=== PATIENT | female | born 1985 | race Caucasian/White ===

== ENCOUNTER 2017-05-12 23:29 | Inpatient (IN) | payer SELFPAY ==
--- NOTE | 2017-05-13 02:28 | PDOC ---
History of Present Illness - General Chief Complaint: Pain, Acute Stated Complaint: STOMACH PAIN Time Seen by Provider: 05/13/17 01:10 - History of Present Illness Initial Comments: 05/13/17 02:14 CHIEF COMPLAINT: L abdominal/flank pain HISTORY OF PRESENT ILLNESS: 32 yo F with no significant PMH presents to ED with LLQ and L flank pain. Patient reports the pain started this morning and has worsened throughout the day. Patient denies any nausea, vomiting, or diarrhea. Patient states her LMP was "like the 23rd of last month." She denies any recent travel or sick contacts. She reports a history of gestational diabetes but "had a blood sugar test 6 months ago and my doctor said everything was normal." PAST MEDICAL HISTORY: Denies past medical history FAMILY HISTORY: Denies SOCIAL HISTORY: Denies tobacco, alcohol, illicit drug use. SURGICAL HISTORY: Denies ALLERGIES: No known drug allergies REVIEW OF SYSTEMS General/Constitutional: Denies fever or chills. Denies weakness, weight change. HEENT: Denies change in vision. Denies ear pain or discharge. Denies sore throat. Cardiovascular: Denies chest pain or shortness of breath. Respiratory: Denies cough, wheezing, or hemoptysis. Gastrointestinal: L sided abdominal pain, worsening since this morning. Denies nausea, vomiting, diarrhea or constipation. Denies rectal bleeding. Genitourinary: Denies dysuria, frequency, or change in urination. Musculoskeletal: Denies joint or muscle swelling or pain. Denies neck or back pain. PHYSICAL EXAM General Appearance: Uncomfortable-appearing, appropriately dressed. No apparent distress. HEENT: EOMI, PERRLA, normal ENT inspection, normal voice, TMs normal, pharynx normal. No conjunctival pallor. No photophobia, scleral icterus. Respiratory/Chest: Lungs CTAB. Cardiovascular: RRR. S1, S2. Gastrointestinal/Abdominal: Tenderness to LLQ on palpation. No tenderness or rebound tenderness. No organomegaly, pulsatile mass, guarding, hernia, hepatomegaly, splenomegaly. Lymphatic: No adenopathy, tenderness. Musculoskeletal/Extremities: + L CVA tenderness. FROM of all extremities, normal capillary refill. Pelvis Stable. No tenderness to extremities, pedal edema, swelling, erythema or deformity. Integumentary: Appropriate color, dry, warm. 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 Fully oriented, alert. Appropriate mood/affect. Motor strength 5/5. No appreciable EOM palsy, facial droop or sensory deficit. Past History - Past Medical History Allergies/Adverse Reactions: Allergies Allergy/AdvReac Type Severity Reaction Status Date / Time No Known Allergies Allergy Verified 05/13/17 00:10 Home Medications: Ambulatory Orders NK [No Known Home Medication] 05/13/17 Asthma: No Cancer: No Cardiac Disorders: No Diabetes: No HTN: No Seizures: No Thyroid Disease: No - Suicide/Smoking/Psychosocial Hx Smoking History: Never smoked Have you smoked in the past 12 months: No Information on smoking cessation initiated: No Hx Alcohol Use: No Drug/Substance Use Hx: No Hx Substance Use Treatment: No *Physical Exam - Vital Signs Last Vital Signs Temp Pulse Resp BP Pulse Ox 99.9 F H 90 22 117/60 98 05/13/17 00:10 05/13/17 00:10 05/13/17 00:10 05/13/17 00:10 05/13/17 00:10 ED Treatment Course - LABORATORY CBC & Chemistry Diagram: 05/15/17 06:00 05/15/17 01:30 - RADIOLOGY Radiology Studies Ordered: Category Date Time Status PELVIC / BLADDER US [US] Stat Ultrasound 05/13/17 01:48 Ordered TRANSVAGINAL ULTRASOUND US [US] Stat Ultrasound 05/13/17 01:48 Ordered Medical Decision Making - Medical Decision Making 05/13/17 02:37 32 yo F with no significant PMH presents to ED with LLQ and L flank pain. -CBC, CMP, lipase -UA, UCx, upreg -Pelvic/TV ultrasound eval kidney stones vs ovarian torsion 05/13/17 04:03 Ultrasound positive for 2.5 cm cyst to left ovary and 9 mm dominant follicle right ovary. Laboratory Tests 05/13/17 05/13/17 03:18 03:25 WBC 15.4 H D Urine Glucose (UA) 3+ H Urine Ketones 2+ H Patient continues to c/o of pain. 30 mg Toradol IV. Lipase markedly elevated (per lab, unable to result at this time as it is too high) likely in the setting of hypertriglyceridemia. Will order CT r/o dtix, pancreatitis. Glucose 403. 4 units insulin SQ. 2L IVF given. 05/13/17/ 05:45 Lactic acid 2.5, will repeat along with 2nd glucose upon return from CT as patient has now received 2 L of fluids. 05/13/17 06:05 CT results: Positive for peripancreatic fluid extending into left paracolic space, probably acute pancreatitis. Discussed case with attending ER MD Forde, will admit for inpatient services. Discussed case with admitting resident MD Nagel, will order LR fluids per recommendation. *DC/Admit/Observation/Transfer Diagnosis at time of Disposition: Acute pancreatitis Qualifiers: Pancreatitis type: unspecified pancreatitis type Acute pancreatitis complication: unspecified Qualified Code(s): K85.90 - Acute pancreatitis without necrosis or infection, unspecified - Discharge Dispostion Admit: Yes - Referrals - Patient Instructions - Post Discharge Activity
[2017-05-13 03:41] LABS: URINE APPEARANCE CLEAR; URINE BILIRUBIN NEGATIVE (NEGATIVE); URINE BLOOD 1+ (NEGATIVE); URINE COLOR LTYELLOW; URINE GLUCOSE (UA) 3+ (NEGATIVE); URINE KETONE 2+ (NEGATIVE); URINE NITRITE NEGATIVE (NEGATIVE); URINE PROTEIN NEGATIVE (NEGATIVE); URINE UROBILINOGEN NEGATIVE mg/dL (0.2-1.0)
[2017-05-13 03:44] LABS: MCH 35.3 pg (25.7-33.7); MCHC 40.8 g/dl (32.0-36.0); MEAN CELL VOLUME 86.5 fl (80-96); MEAN PLT VOLUME 10.7 fl (7.5-11.1); PLATELET COUNT 161 K/MM3 (134-434); RDW 13.1 % (11.6-15.6); WHITE BLOOD COUNT 15.4 K/mm3 (4.0-10.0)
[2017-05-13 03:45] LABS: URINE BACTERIA RARE /hpf (NONE SEEN); URINE RBC 1; URINE WBC 1
[2017-05-13] MEDS ORDERED: KETOROLAC TROMETHAMINE 30 MG/1 ML VIAL IVPUSH ONE (03:49)
[2017-05-13] MEDS ORDERED: KETOROLAC TROMETHAMINE 30 MG/1 ML VIAL ONE (04:03)
[2017-05-13 04:07] LABS: ANION GAP 11 (8-16); CO2 21 mmol/L (21-32); CREATININE 0.4 mg/dL (0.55-1.02)
[2017-05-13] MEDS ORDERED: SODIUM CHLORIDE 0.9% 1000 ML INFUS.BAG IV ONE ×2 (04:16→04:23)
[2017-05-13 04:31] LABS: GLUCOSE,RANDOM 403 mg/dL (74-106)
[2017-05-13 04:33] LABS: BILIRUBIN,TOTAL 1.5 mg/dL (0.2-1.0); TOT PROT 6.7 g/dl (6.4-8.2)
[2017-05-13 04:34] LABS: ALK PHOS 84 U/L (45-117)
[2017-05-13] MEDS ORDERED: INSULIN (NOVOLOG) ASPART 100 UNITS/ML 10ML VIAL SQ ONE (04:44)
[2017-05-13] MEDS ORDERED: POTASSIUM CHLORIDE TABS 20 MEQ TABLET.ER (FP) PO ONE ×2 (04:49→05:12)
--- NOTE | 2017-05-13 04:54 | PDOC ---
*Physical Exam - Vital Signs Last Vital Signs Temp Pulse Resp BP Pulse Ox 99.9 F H 90 22 117/60 98 05/13/17 00:10 05/13/17 00:10 05/13/17 00:10 05/13/17 00:10 05/13/17 00:10 ED Treatment Course - LABORATORY CBC & Chemistry Diagram: 05/13/17 03:18 05/13/17 03:18 - ADDITIONAL ORDERS Additional order review: Laboratory Results 05/13/17 05/13/17 05/13/17 04:30 03:25 03:18 Sodium 126 L D Potassium 3.3 L Chloride 94 L D Carbon Dioxide 21 Anion Gap 11 BUN 8 D Creatinine 0.4 L Creat Clearance w eGFR > 60 Random Glucose 403 H* D Calcium Y Total Bilirubin 1.5 H D AST Y ALT Y Alkaline Phosphatase 84 D Total Protein 6.7 D Albumin Y Urine Color Ltyellow Urine Appearance Clear Urine pH 5.0 Ur Specific [place] 1.039 H Urine Protein Negative Urine Glucose (UA) 3+ H Urine Ketones 2+ H Urine Blood 1+ H Urine Nitrite Negative Urine Bilirubin Negative Urine Urobilinogen Negative Urine WBC (Auto) 1 Urine RBC (Auto) 1 Ur Epithelial Cells Rare Urine Bacteria Rare Urine HCG, Qual Negative Acetone, Qual Positive moderate 2+ H 05/13/17 03:18 RBC 4.84 D MCV 86.5 MCHC 40.8 H RDW 13.1 D MPV 10.7 Neutrophils % No Result Required. Lymphocytes % No Result Required. - Medications Given in the ED: ED Medications Discontinued Medications Generic Name Dose Route Start Last Admin Trade Name Freq PRN Reason Stop Dose Admin Ketorolac Tromethamine 30 mg 05/13/17 03:49 05/13/17 03:51 Toradol Injection - IVPUSH 05/13/17 03:50 30 mg ONCE ONE Administration Sodium Chloride 1,000 ml 05/13/17 04:16 05/13/17 04:37 Normal Saline - IV 05/13/17 04:17 1,000 ml ONCE ONE Administration Sodium Chloride 1,000 ml 05/13/17 04:23 05/13/17 04:37 Normal Saline - IV 05/13/17 04:24 1,000 ml ONCE ONE Administration Medical Decision Making - Critical Care Time Total Critical Care Time (minutes): 30 Critical Care Statement: The care of this patient involved high complexity decision making to prevent further life threatening deterioration of the patient 's condition and/or to evaluate & treat vital organ system(s) failure or risk of failure. - Medical Decision Making 05/13/17 04:52 Patient seen and evaluated with the nurse practitioner. I agree with the overall evaluation, assessment, and management with the following summary of visit: 32-year-old female with no significant past medical history other than gestational diabetes several years ago presents now with abdominal pain. Agree with exam as outlined, vitals as noted with low-grade temperature 99. Workup including labs, urinalysis notable for markedly elevated lipase in the setting of likely hypertriglyceridemia, associated hyperglycemia with hyponatremia, normal anion gap, positive acetone. PH pending, CT abdomen and pelvis pending. Likely pancreatitis secondary to hypertriglyceridemia with associated metabolic disarray. IVF, pain control, glucose control CTAP admit *DC/Admit/Observation/Transfer Diagnosis at time of Disposition: Acute pancreatitis Qualifiers: Pancreatitis type: unspecified pancreatitis type Acute pancreatitis complication: unspecified Qualified Code(s): K85.90 - Acute pancreatitis without necrosis or infection, unspecified - Referrals - Patient Instructions - Post Discharge Activity
[2017-05-13] MEDS ORDERED: INSULIN (NOVOLOG) ASPART 100 UNITS/ML 10ML VIAL ONE (05:13)
[2017-05-13 05:34] LABS: VENOUS PH 7.3 (7.32-7.42)
[2017-05-13 05:35] LABS: VENOUS BLOOD GAS HCO3 17.6 meq/L (19-25)
[2017-05-13 05:44] LABS: AMYLASE 370 U/L (25-115)
[2017-05-13] MEDS ORDERED: LACTATED RINGERS SOLUTION 1,000 ML/1,000 ML INFUS.BAG IV SCH (07:00)
[2017-05-13 07:38] LABS: ANISOCYTOSIS 1+
[2017-05-13] MEDS ORDERED: morphine SULFATE 4 MG/ML VIAL IVPUSH PRN (09:10)
[2017-05-13 09:53] VITALS: BMI 27.2
[2017-05-13] MEDS ORDERED: SODIUM CHLORIDE 1,000 ML with POTASSIUM CHLORIDE 40 MEQ IVPB STA (10:04)
[2017-05-13] MEDS ORDERED: HYDROmorphone HCL CARPU-JECT 1 MG/1 ML DISP.SYRIN IVPUSH PRN ×2 (10:04→21:24)
[2017-05-13] MEDS ORDERED: INSULIN REGULAR 100 UNITS in SODIUM CHLORIDE 99 ML IVPB SCH (10:30)
--- NOTE | 2017-05-13 10:33 | HP ---
CHIEF COMPLAINT: Abdominal pain PCP:NONE HISTORY OF PRESENT ILLNESS: 32 yo F with PMHx of gestational DM presents with one day history of worsening abdominal pain. Pain started few hours prior to presentation to ED., She describes worsening constant 10/10 sharp epigastric abdominal pain that radiates to her left side and back. Pain was made worse by eating and no alleviating factors. Denies fever, chills, nausea or vomiting. She has had some shortness of breath but no cough. She endorses increased thirst and urination. She claims to drink 2-3 gallons of water/day. Denies CP, KING, palpitations, or dysuria ER course was notable for: (1)CT abdomen shows acute pancreatitis. (2)Lipase >3000 (3)Triglycerides- 7260 Recent Travel: Denies PAST MEDICAL HISTORY: gestational diabetes. PAST SURGICAL HISTORY: x2 Social History: Smoking:never Alcohol:none Drugs: denies. Family History: Allergies No Known Allergies Allergy (Verified 05/13/17 00:10) HOME MEDICATIONS: Home Medications Medication Instructions Recorded Acetaminophen [Tylenol .Regular 650 mg PO Q4H PRN #20 tablet 07/14/14 Strength -] Ferrous Sulfate [Feosol] 325 mg PO BID #60 ud 07/14/14 Ibuprofen [Motrin -] 600 mg PO Q4H PRN #20 tablet 07/14/14 REVIEW OF SYSTEMS CONSTITUTIONAL: generalized weakness, malaise, loss of appetite Absent: fever, chills, diaphoresis, , weight change HEENT: Absent: rhinorrhea, nasal congestion, throat pain, throat swelling, difficulty swallowing, mouth swelling, ear pain, eye pain, visual changes CARDIOVASCULAR: Absent: chest pain, syncope, palpitations, irregular heart rate, lightheadedness , peripheral edema RESPIRATORY: shortness of breath Absent: cough, , dyspnea with exertion, orthopnea, wheezing, stridor, hemoptysis GASTROINTESTINAL: abdominal pain Absent:, abdominal distension, nausea, vomiting, diarrhea, constipation, melena , hematochezia GENITOURINARY: Absent: dysuria, frequency, urgency, hesitancy, hematuria, flank pain, genital pain MUSCULOSKELETAL: Absent: myalgia, arthralgia, joint swelling, back pain, neck pain SKIN: Absent: rash, itching, pallor HEMATOLOGIC/IMMUNOLOGIC: Absent: easy bleeding, easy bruising, lymphadenopathy, frequent infections ENDOCRINE: Absent: unexplained weight gain, unexplained weight loss, heat intolerance, cold intolerance NEUROLOGIC: Absent: headache, focal weakness or paresthesias, dizziness, unsteady gait, seizure, mental status changes, bladder or bowel incontinence PSYCHIATRIC: anxiety Absent: , depression, suicidal or homicidal ideation, hallucinations. PHYSICAL EXAMINATION Vital Signs - 24 hr 05/13/17 05/13/17 05/13/17 00:10 03:30 06:05 Temperature 99.9 F H 97.9 F Pulse Rate 90 Pulse Rate [ 88 71 Apical] Respiratory 22 18 18 Rate Blood Pressure 117/60 Blood Pressure 122/70 118/70 [Left Arm] O2 Sat by Pulse 98 99 99 Oximetry (%) 05/13/17 05/13/17 05/13/17 06:17 06:19 09:51 Temperature 99.6 F Pulse Rate 106 H Pulse Rate [ 109 H Apical] Respiratory 18 16 Rate Blood Pressure 118/71 Blood Pressure 109/66 [Left Arm] O2 Sat by Pulse 97 98 Oximetry (%) GENERAL: AAOx3, moderate distress HEAD: AT/NC EYES: PERRLA,EOMI, sclera anicteric, conjunctiva clear. No lid lag. EARS, NOSE, THROAT: Dry mucous membranes. NECK: Supple, NO JVD or thyromegally. LUNGS: Decreased breath sounds bilaterally at bases R>L, No wheezes, and no crackles. No accessory muscle use. HEART: Tachycardic, normal S1 and S2, NO M/G/R ABDOMEN: Soft,epigstric tenderness, normoactive bowel sounds, voluntary guarding , no rebound, no masses. MUSCULOSKELETAL: Normal range of motion at all joints. No bony deformities or tenderness. No CVA tenderness. UPPER EXTREMITIES: 2+ pulses, warm, well-perfused. No cyanosis. No clubbing. No peripheral edema. LOWER EXTREMITIES: 2+ pulses, warm, well-perfused. No calf tenderness. No peripheral edema. NEUROLOGICAL: Cranial nerves II-XII intact. Normal speech. PSYCHIATRIC: anxious SKIN: Warm, dry, normal turgor, no rashes or lesions noted. Laboratory Results - last 24 hr 05/13/17 05/13/17 05/13/17 03:18 03:18 03:25 WBC 15.4 H D RBC 4.84 D Hgb 17.1 H D Hct 41.9 D MCV 86.5 MCH 35.3 H D MCHC 40.8 H RDW 13.1 D Plt Count 161 MPV 10.7 Neutrophils % No Result Required. Neutrophils % (Manual) 84.0 H Band Neutrophils % 5.0 Lymphocytes % No Result Required. Lymphocytes % (Manual) 7.0 L Monocytes % (Manual) 4 Platelet Comment No Result Required. Anisocytosis 1+ VBG pH POC VBG pCO2 POC VBG pO2 Mixed VBG HCO3 Sodium 126 L D Potassium 3.3 L Chloride 94 L D Carbon Dioxide 21 Anion Gap 11 BUN 8 D Creatinine 0.4 L Creat Clearance w eGFR > 60 Random Glucose 403 H* D Lactic Acid Calcium Y Total Bilirubin 1.5 H D Direct Bilirubin AST Y ALT Y Alkaline Phosphatase 84 D Total Protein 6.7 D Albumin Y Triglycerides Total Amylase Lipase 3420 H Urine Color Ltyellow Urine Appearance Clear Urine pH 5.0 Ur Specific [place] 1.039 H Urine Protein Negative Urine Glucose (UA) 3+ H Urine Ketones 2+ H Urine Blood 1+ H Urine Nitrite Negative Urine Bilirubin Negative Urine Urobilinogen Negative Urine WBC (Auto) 1 Urine RBC (Auto) 1 Ur Epithelial Cells Rare Urine Bacteria Rare Urine HCG, Qual Negative Acetone, Qual 05/13/17 05/13/17 05/13/17 04:15 04:30 05:15 WBC RBC Hgb Hct MCV MCH MCHC RDW Plt Count MPV Neutrophils % Neutrophils % (Manual) Band Neutrophils % Lymphocytes % Lymphocytes % (Manual) Monocytes % (Manual) Platelet Comment Anisocytosis VBG pH 7.30 L POC VBG pCO2 36.6 L POC VBG pO2 51.1 H Mixed VBG HCO3 17.6 L Sodium Potassium Chloride Carbon Dioxide Anion Gap BUN Creatinine Creat Clearance w eGFR Random Glucose Lactic Acid 2.5 H* Calcium Total Bilirubin Direct Bilirubin AST ALT Alkaline Phosphatase Total Protein Albumin Triglycerides Total Amylase Lipase Urine Color Urine Appearance Urine pH Ur Specific [place] Urine Protein Urine Glucose (UA) Urine Ketones Urine Blood Urine Nitrite Urine Bilirubin Urine Urobilinogen Urine WBC (Auto) Urine RBC (Auto) Ur Epithelial Cells Urine Bacteria Urine HCG, Qual Acetone, Qual Positive moderate 2+ H 05/13/17 05/13/17 05/13/17 05:30 05:30 06:10 WBC RBC Hgb Hct MCV MCH MCHC RDW Plt Count MPV Neutrophils % Neutrophils % (Manual) Band Neutrophils % Lymphocytes % Lymphocytes % (Manual) Monocytes % (Manual) Platelet Comment Anisocytosis VBG pH POC VBG pCO2 POC VBG pO2 Mixed VBG HCO3 Sodium Potassium Chloride Carbon Dioxide Anion Gap BUN Creatinine Creat Clearance w eGFR Random Glucose Lactic Acid 1.7 Calcium Total Bilirubin Direct Bilirubin < 0.2 AST ALT Alkaline Phosphatase Total Protein Albumin Triglycerides Total Amylase 370 H Lipase Urine Color Urine Appearance Urine pH Ur Specific [place] Urine Protein Urine Glucose (UA) Urine Ketones Urine Blood Urine Nitrite Urine Bilirubin Urine Urobilinogen Urine WBC (Auto) Urine RBC (Auto) Ur Epithelial Cells Urine Bacteria Urine HCG, Qual Acetone, Qual 05/13/17 05/13/17 05/13/17 06:30 07:00 07:00 WBC RBC Hgb Hct MCV MCH MCHC RDW Plt Count MPV Neutrophils % Neutrophils % (Manual) Band Neutrophils % Lymphocytes % Lymphocytes % (Manual) Monocytes % (Manual) Platelet Comment Anisocytosis VBG pH POC VBG pCO2 POC VBG pO2 Mixed VBG HCO3 Sodium Potassium Chloride Carbon Dioxide Anion Gap BUN Creatinine Creat Clearance w eGFR Random Glucose Lactic Acid Calcium Cancelled Total Bilirubin Direct Bilirubin AST Cancelled ALT Cancelled Alkaline Phosphatase Total Protein Albumin Triglycerides 7260 H Total Amylase Lipase Urine Color Urine Appearance Urine pH Ur Specific [place] Urine Protein Urine Glucose (UA) Urine Ketones Urine Blood Urine Nitrite Urine Bilirubin Urine Urobilinogen Urine WBC (Auto) Urine RBC (Auto) Ur Epithelial Cells Urine Bacteria Urine HCG, Qual Acetone, Qual IMAGING: * [id number] CT/ABDOMEN PELVIS CT WITH CONTR HISTORY PROVIDED: Left lower quadrant pain. Sequential axial images were obtained from the domes of the diaphragms through the symphysis pubis following the administration of intravenous contrast material. Evaluation lung bases demonstrates mild atelectatic changes bilaterally. Pleural effusions are present. There are mild edematous changes noted about the pancreatic body and tail. Peripancreatic fluid is also noted in this location. This appearance is consistent with acute appendicitis. Clinical and laboratory correlation is recommended. No discrete fluid collection suggesting an abscess or pseudocyst is identified. The liver is normal in size. It is hypodense in texture consistent with diffuse fatty infiltration. No mass lesions are identified within the liver. There is the suggestion of a gallstone within the neck of the gallbladder. Ultrasound follow- up is recommended. The spleen, pancreas, adrenal glands and kidneys demonstrate no significant abnormalities. There is no evidence of intra-abdominal or retroperitoneal lymphadenopathy or fluid collections. There is no evidence of pneumoperitoneum, bowel obstruction or intra-abdominal abscess. The appendix is retrocecal. It is normal in caliber and does contain air, indicative of patency. There is no CT evidence of acute appendicitis or diverticulitis. Examination of the pelvis demonstrates a 3 cm left ovarian cyst. There is no evidence of pelvic masses, fluid collections or lymphadenopathy. There is no evidence of acute bony abnormalities. IMPRESSION: 1. Findings consistent with acute pancreatitis, predominantly involving the body and tail of the pancreas. There is peripancreatic fluid without abscess or pseudocyst formation 2. No evidence of diverticulitis 3. Left ovarian cyst. Please see above discussion. Reported By: Rogelio Ramos MD 05/13/17 0923 ASSESSMENT/PLAN: 32 yo F with no significant PMHx admitted to ICU for management of severe pancreatitis secondary to hypertriglyceridemia requiring insulin drip and apheresis. Problem List - Problem (1) Pancreatitis Assessment/Plan: Secondary to hypertriglyceridemia: * Will admit to ICU and start insulin drip 0.1mg/kg/hr * Lipase >3000 + typical abdominal pain and CT consistent with acute severe pancreatitis. * WIll consult hem/onc Dr. Caicedo for apheresis.; will need shiley. * BMP q1H to titrate drip * Switch to D5 once glucose <200 * NPO for now * Can initiate Oral gemfibrizole 600mg BID once tolerates PO. (2) Hypertriglyceridemia Assessment/Plan: WIll need to assess frequently: * WIll check daily with goal of <500 * will need to initiate oral Gemfibrazole once tolerates PO. (3) SIRS (systemic inflammatory response syndrome) Assessment/Plan: WBC-15.4 + HR >100 =SIRS * Secondary to pancreatitis. * Will give IVF with NS with potatassium supplementation. (4) Hyperglycemia Assessment/Plan: Intiate insulin drip in ICU: * BMP Q1H * initial rate 0.1mg/kg/hr * ABG to evaluate pH (5) Hypokalemia Assessment/Plan: most likely result of SIRS: * Will replace and repeat BMP (6) Hyponatremia Assessment/Plan: Pending albumin to correct Na. * Will replete with NS * Repeat BMP (7) DVT prophylaxis Assessment/Plan: Heparin SQ 5000U TID Visit type - Emergency Visit Emergency Visit: Yes ED Registration Date: 05/13/17 Care time: The patient presented to the Emergency Department on the above date and was hospitalized for further evaluation of their emergent condition. - New Patient This patient is new to me today: Yes Date on this admission: 05/13/17 - Critical Care Critical Care patient: Yes Total Critical Care Time (in minutes): 55 Critical Care Statement: The care of this patient involved high complexity decision making to prevent further life threatening deterioration of the patient 's condition and/or to evaluate & treat vital organ system(s) failure or risk of failure.
[2017-05-13 10:56] LABS: URINE LEUK ESTERASE Negative (NEGATIVE)
[2017-05-13] MEDS: ACETAMINOPHEN 1000 MG/100 ML VIAL (NON FORMULARY) IVPB PRN ×2 (11:18→21:31)
[2017-05-13 11:41] LABS: ANION GAP 11 (8-16); CO2 19 mmol/L (21-32); CREATININE 0.3 mg/dL (0.55-1.02)
[2017-05-13] MEDS: HEPARIN NA (PORCINE) 5,000 UNITS/ML 1ML VIAL SQ SCH (11:52)
[2017-05-13 11:53] LABS: ALBUMIN 2.3 g/dl (3.4-5.0)
[2017-05-13] MEDS ORDERED: POTASSIUM CHLORIDE 30 MEQ in SODIUM CHLORIDE 300 ML IVPB ONE (12:00)
[2017-05-13 12:21] LABS: GLUCOSE,RANDOM 307 mg/dL (74-106)
[2017-05-13 12:22] LABS: CALCIUM < 5.0 mg/dL (8.5-10.1)
[2017-05-13 12:23] LABS: CALCIUM < 5.0 mg/dL (8.5-10.1)
[2017-05-13 12:35] LABS: INR 1.14 (0.82-1.09); PROTHROMBIN TIME (PATIENT) 12.9 SEC (9.98-11.88)
[2017-05-13 12:36] LABS: ALBUMIN 2.6 g/dl (3.4-5.0); ANION GAP 14 (8-16); BILIRUBIN,TOTAL 1.1 mg/dL (0.2-1.0); CO2 17 mmol/L (21-32); CREATININE 0.2 mg/dL (0.55-1.02)
[2017-05-13 12:42] LABS: ARTERIAL BLD GAS O2 SATURATION 97.9 % (90-98.9); ARTERIAL BLOOD GAS BASE EXCESS -7.3 meq/l (-2-2); ARTERIAL BLOOD GAS HCO3 17.5 meq/L (22-26); ARTERIAL BLOOD GAS pH 7.32 (7.35-7.45)
[2017-05-13 12:44] LABS: ALLENS TEST POSITIVE; ART PUNCT SITE LEFT RADIAL; PT. ON O2? YES; TYPE OF O2 Y
[2017-05-13 12:50] LABS: BASOPHIL 0.1 % (0-2.0); MCH 29.6 pg (25.7-33.7); MCHC 33.4 g/dl (32.0-36.0); MEAN CELL VOLUME 88.7 fl (80-96); MEAN PLT VOLUME 11.6 fl (7.5-11.1); NEUTROPHILS 88.8 % (42.8-82.8); PLATELET COUNT 158 K/MM3 (134-434); RDW 13.4 % (11.6-15.6)
[2017-05-13 12:56] LABS: WHITE BLOOD COUNT 13.3 K/mm3 (4.0-10.0)
[2017-05-13 13:03] LABS: GLUCOSE,RANDOM 304 mg/dL (74-106)
--- NOTE | 2017-05-13 13:10 | CONSULT ---
Consultation: REQUESTING PROVIDER: CONSULT REQUEST: We have been asked to medically evaluate this patient for Acute pancreatitis possible ICU admission. HISTORY OF PRESENT ILLNESS: Patient is a 32 year old burkinan female with PMHx of gestational diabetes who presented to the ed for sever abdominal pain. The pain is med epigastric and LLQ , 10/10 , worsen with food , did not improved with Advil, the pain started around 6 am yesterday and it has been getting wors, the pain radiated to her left flank and the back, associated with left shoulder pain, she reports some fever, chills over night, she denies any N/ V/D/C, she denies any headache, blurry vision , sore throat, recent travel, sick contact, chest pain but reports some palpitations, she denies chest pain, sob, cough, sputum, she denies any urinary symptoms. ER course was notable for CT abdomen shows acute pancreatitis. Lipase >3000, Triglycerides- 7260 PMH: Gestaional diabets PSH: 2 Allergies : NKDA FH: significant for diabetes. Occupation : house . Social history: denies smoking, alcohol or illicit drugs. REVIEW OF SYSTEMS: CONSTITUTIONAL: Absent: + fever, chills, diaphoresis, generalized weakness, malaise,+ loss of appetite, weight change HEENT: Absent: rhinorrhea, nasal congestion, throat pain, throat swelling, difficulty swallowing, mouth swelling, ear pain, eye pain, visual changes CARDIOVASCULAR: Absent: chest pain, syncope, palpitations, irregular heart rate, lightheadedness , peripheral edema RESPIRATORY: Absent: cough, shortness of breath, dyspnea with exertion, orthopnea, wheezing, stridor, hemoptysis GASTROINTESTINAL: Absent: epigastric and LLQ abdominal pain, abdominal distension, nausea, vomiting, diarrhea, constipation, melena, hematochezia GENITOURINARY: Absent: dysuria, frequency, urgency, hesitancy, hematuria, flank pain, genital pain MUSCULOSKELETAL: Absent: myalgia, arthralgia, joint swelling, back pain, neck pain SKIN: Absent: rash, itching, pallor HEMATOLOGIC/IMMUNOLOGIC: Absent: easy bleeding, easy bruising, lymphadenopathy, frequent infections ENDOCRINE: Absent: unexplained weight gain, unexplained weight loss, heat intolerance, cold intolerance NEUROLOGIC: Absent: headache, focal weakness or paresthesias, dizziness, unsteady gait, seizure, mental status changes, bladder or bowel incontinence PSYCHIATRIC: Absent: anxiety, depression, suicidal or homicidal ideation, hallucinations. PHYSICAL EXAMINATION Vital Signs - 24 hr 05/13/17 05/13/17 05/13/17 00:10 03:30 06:05 Temperature 99.9 F H 97.9 F Pulse Rate 90 Pulse Rate [ 88 71 Apical] Respiratory 22 18 18 Rate Blood Pressure 117/60 Blood Pressure 122/70 118/70 [Left Arm] O2 Sat by Pulse 98 99 99 Oximetry (%) 05/13/17 05/13/17 05/13/17 06:17 06:19 09:00 Temperature Pulse Rate Pulse Rate [ 109 H Apical] Respiratory 18 22 Rate Blood Pressure Blood Pressure 109/66 [Left Arm] O2 Sat by Pulse 97 96 98 Oximetry (%) 05/13/17 05/13/17 05/13/17 09:51 10:57 12:06 Temperature 99.6 F 100.6 F H 98.1 F Pulse Rate 106 H 125 H 115 H Pulse Rate [ Apical] Respiratory 16 15 22 Rate Blood Pressure 118/71 113/67 130/72 Blood Pressure [Left Arm] O2 Sat by Pulse Oximetry (%) GENERAL: Awake, alert, and fully oriented, in no acute distress. HEAD: Normal with no signs of trauma. EYES: sclera anicteric, conjunctiva clear. EARS, NOSE, THROAT: dry mucous membranes. LUNGS: Breath sounds equal, clear to auscultation bilaterally. No wheezes, and no crackles. No accessory muscle use. HEART: sinus tachycardic, normal S1 and S2 without murmur, rub or gallop. ABDOMEN: Soft, epigastric and LLQ tender to palpitation and percussion , not distended, hypoactive bowel sounds, no guarding, no rebound, LOWER EXTREMITIES: 2+ pulses, warm, well-perfused. No calf tenderness. No peripheral edema. NEUROLOGICAL: no focal deficit, Normal speech. PSYCHIATRIC: Cooperative. Good eye contact. Appropriate mood and affect. SKIN: Warm, dry, no rashes or lesions noted. Laboratory Results - last 24 hr 05/13/17 05/13/17 05/13/17 03:18 03:18 03:25 WBC 15.4 H D RBC 4.84 D Hgb 17.1 H D Hct 41.9 D MCV 86.5 MCH 35.3 H D MCHC 40.8 H RDW 13.1 D Plt Count 161 MPV 10.7 Neutrophils % No Result Required. Neutrophils % (Manual) 84.0 H Band Neutrophils % 5.0 Lymphocytes % No Result Required. Lymphocytes % (Manual) 7.0 L Monocytes % Monocytes % (Manual) 4 Eosinophils % Basophils % Platelet Comment No Result Required. Anisocytosis 1+ PT with INR INR PTT (Actin FS) Fibrinogen Puncture Site ABG pH ABG pCO2 at Pt Temp ABG pO2 at Pt Temp ABG HCO3 ABG O2 Sat (Measured) ABG O2 Content ABG Base Excess Ashkan Test VBG pH POC VBG pCO2 POC VBG pO2 Mixed VBG HCO3 O2 Delivery Device Oxygen Flow Rate Sodium 126 L D Potassium 3.3 L Chloride 94 L D Carbon Dioxide 21 Anion Gap 11 BUN 8 D Creatinine 0.4 L Creat Clearance w eGFR > 60 POC Glucometer Random Glucose 403 H* D Hemoglobin A1c % Lactic Acid Calcium Y Total Bilirubin 1.5 H D Direct Bilirubin AST Y ALT Y Alkaline Phosphatase 84 D Total Protein 6.7 D Albumin Y Triglycerides Total Amylase Lipase 3420 H Urine Color Ltyellow Urine Appearance Clear Urine pH 5.0 Ur Specific [place] 1.039 H Urine Protein Negative Urine Glucose (UA) 3+ H Urine Ketones 2+ H Urine Blood 1+ H Urine Nitrite Negative Urine Bilirubin Negative Urine Urobilinogen Negative Ur Leukocyte Esterase Negative Urine WBC (Auto) 1 Urine RBC (Auto) 1 Ur Epithelial Cells Rare Urine Bacteria Rare Urine HCG, Qual Negative Acetone, Qual 05/13/17 05/13/17 05/13/17 04:15 04:30 05:15 WBC RBC Hgb Hct MCV MCH MCHC RDW Plt Count MPV Neutrophils % Neutrophils % (Manual) Band Neutrophils % Lymphocytes % Lymphocytes % (Manual) Monocytes % Monocytes % (Manual) Eosinophils % Basophils % Platelet Comment Anisocytosis PT with INR INR PTT (Actin FS) Fibrinogen Puncture Site ABG pH ABG pCO2 at Pt Temp ABG pO2 at Pt Temp ABG HCO3 ABG O2 Sat (Measured) ABG O2 Content ABG Base Excess Ashkan Test VBG pH 7.30 L POC VBG pCO2 36.6 L POC VBG pO2 51.1 H Mixed VBG HCO3 17.6 L O2 Delivery Device Oxygen Flow Rate Sodium Potassium Chloride Carbon Dioxide Anion Gap BUN Creatinine Creat Clearance w eGFR POC Glucometer Random Glucose Hemoglobin A1c % Lactic Acid 2.5 H* Calcium Total Bilirubin Direct Bilirubin AST ALT Alkaline Phosphatase Total Protein Albumin Triglycerides Total Amylase Lipase Urine Color Urine Appearance Urine pH Ur Specific [place] Urine Protein Urine Glucose (UA) Urine Ketones Urine Blood Urine Nitrite Urine Bilirubin Urine Urobilinogen Ur Leukocyte Esterase Urine WBC (Auto) Urine RBC (Auto) Ur Epithelial Cells Urine Bacteria Urine HCG, Qual Acetone, Qual Positive moderate 2+ H 05/13/17 05/13/17 05/13/17 05:30 05:30 06:10 WBC RBC Hgb Hct MCV MCH MCHC RDW Plt Count MPV Neutrophils % Neutrophils % (Manual) Band Neutrophils % Lymphocytes % Lymphocytes % (Manual) Monocytes % Monocytes % (Manual) Eosinophils % Basophils % Platelet Comment Anisocytosis PT with INR INR PTT (Actin FS) Fibrinogen Puncture Site ABG pH ABG pCO2 at Pt Temp ABG pO2 at Pt Temp ABG HCO3 ABG O2 Sat (Measured) ABG O2 Content ABG Base Excess Ashkan Test VBG pH POC VBG pCO2 POC VBG pO2 Mixed VBG HCO3 O2 Delivery Device Oxygen Flow Rate Sodium Potassium Chloride Carbon Dioxide Anion Gap BUN Creatinine Creat Clearance w eGFR POC Glucometer Random Glucose Hemoglobin A1c % Lactic Acid 1.7 Calcium < 5.0 L* D Total Bilirubin Direct Bilirubin < 0.2 AST TNP ALT TNP Alkaline Phosphatase Total Protein Albumin 2.3 L Triglycerides Total Amylase 370 H Lipase Urine Color Urine Appearance Urine pH Ur Specific [place] Urine Protein Urine Glucose (UA) Urine Ketones Urine Blood Urine Nitrite Urine Bilirubin Urine Urobilinogen Ur Leukocyte Esterase Urine WBC (Auto) Urine RBC (Auto) Ur Epithelial Cells Urine Bacteria Urine HCG, Qual Acetone, Qual 05/13/17 05/13/17 05/13/17 06:30 07:00 07:00 WBC RBC Hgb Hct MCV MCH MCHC RDW Plt Count MPV Neutrophils % Neutrophils % (Manual) Band Neutrophils % Lymphocytes % Lymphocytes % (Manual) Monocytes % Monocytes % (Manual) Eosinophils % Basophils % Platelet Comment Anisocytosis PT with INR INR PTT (Actin FS) Fibrinogen Puncture Site ABG pH ABG pCO2 at Pt Temp ABG pO2 at Pt Temp ABG HCO3 ABG O2 Sat (Measured) ABG O2 Content ABG Base Excess Ashkan Test VBG pH POC VBG pCO2 POC VBG pO2 Mixed VBG HCO3 O2 Delivery Device Oxygen Flow Rate Sodium Potassium Chloride Carbon Dioxide Anion Gap BUN Creatinine Creat Clearance w eGFR POC Glucometer Random Glucose Hemoglobin A1c % Lactic Acid Calcium Cancelled Total Bilirubin Direct Bilirubin AST Cancelled ALT Cancelled Alkaline Phosphatase Total Protein Albumin Triglycerides 7260 H Total Amylase Lipase Urine Color Urine Appearance Urine pH Ur Specific [place] Urine Protein Urine Glucose (UA) Urine Ketones Urine Blood Urine Nitrite Urine Bilirubin Urine Urobilinogen Ur Leukocyte Esterase Urine WBC (Auto) Urine RBC (Auto) Ur Epithelial Cells Urine Bacteria Urine HCG, Qual Acetone, Qual 05/13/17 05/13/17 05/13/17 09:55 10:11 10:35 WBC RBC Hgb Hct MCV MCH MCHC RDW Plt Count MPV Neutrophils % Neutrophils % (Manual) Band Neutrophils % Lymphocytes % Lymphocytes % (Manual) Monocytes % Monocytes % (Manual) Eosinophils % Basophils % Platelet Comment Anisocytosis PT with INR INR PTT (Actin FS) Fibrinogen Puncture Site Left radial ABG pH 7.32 L ABG pCO2 at Pt Temp 34.8 L ABG pO2 at Pt Temp 132.0 H ABG HCO3 17.5 L ABG O2 Sat (Measured) 97.9 ABG O2 Content 19.9 ABG Base Excess -7.3 L Ashkan Test Positive VBG pH POC VBG pCO2 POC VBG pO2 Mixed VBG HCO3 O2 Delivery Device Y Oxygen Flow Rate Yes Sodium 132 L Potassium 3.6 Chloride 102 Carbon Dioxide 19 L Anion Gap 11 BUN TNP Creatinine 0.3 L D Creat Clearance w eGFR POC Glucometer Random Glucose 307 H* D Hemoglobin A1c % 9.6 H Lactic Acid Calcium < 5.0 L* Total Bilirubin Direct Bilirubin AST ALT Alkaline Phosphatase Total Protein Albumin Triglycerides Total Amylase Lipase Urine Color Urine Appearance Urine pH Ur Specific [place] Urine Protein Urine Glucose (UA) Urine Ketones Urine Blood Urine Nitrite Urine Bilirubin Urine Urobilinogen Ur Leukocyte Esterase Urine WBC (Auto) Urine RBC (Auto) Ur Epithelial Cells Urine Bacteria Urine HCG, Qual Acetone, Qual 05/13/17 05/13/17 05/13/17 11:07 11:50 11:50 WBC 13.3 H RBC 4.95 Hgb 14.6 D Hct 43.9 MCV 88.7 MCH 29.6 D MCHC 33.4 RDW 13.4 Plt Count 158 MPV 11.6 H Neutrophils % 88.8 H D Neutrophils % (Manual) Band Neutrophils % Lymphocytes % 7.3 L D Lymphocytes % (Manual) Monocytes % 3.8 Monocytes % (Manual) Eosinophils % 0.0 D Basophils % 0.1 Platelet Comment Anisocytosis PT with INR INR PTT (Actin FS) Fibrinogen Puncture Site ABG pH ABG pCO2 at Pt Temp ABG pO2 at Pt Temp ABG HCO3 ABG O2 Sat (Measured) ABG O2 Content ABG Base Excess Ashkan Test VBG pH POC VBG pCO2 POC VBG pO2 Mixed VBG HCO3 O2 Delivery Device Oxygen Flow Rate Sodium 133 L Potassium 3.7 Chloride 102 Carbon Dioxide 17 L Anion Gap 14 BUN TNP Creatinine 0.2 L D Creat Clearance w eGFR POC Glucometer 213 Random Glucose 304 H* Hemoglobin A1c % Lactic Acid Calcium TNP Total Bilirubin Direct Bilirubin AST ALT Alkaline Phosphatase Total Protein Albumin Triglycerides Total Amylase Lipase Urine Color Urine Appearance Urine pH Ur Specific [place] Urine Protein Urine Glucose (UA) Urine Ketones Urine Blood Urine Nitrite Urine Bilirubin Urine Urobilinogen Ur Leukocyte Esterase Urine WBC (Auto) Urine RBC (Auto) Ur Epithelial Cells Urine Bacteria Urine HCG, Qual Acetone, Qual 05/13/17 05/13/17 11:50 11:50 WBC RBC Hgb Hct MCV MCH MCHC RDW Plt Count MPV Neutrophils % Neutrophils % (Manual) Band Neutrophils % Lymphocytes % Lymphocytes % (Manual) Monocytes % Monocytes % (Manual) Eosinophils % Basophils % Platelet Comment Anisocytosis PT with INR 12.90 H INR 1.14 PTT (Actin FS) 29.0 Fibrinogen 429.0 Puncture Site ABG pH ABG pCO2 at Pt Temp ABG pO2 at Pt Temp ABG HCO3 ABG O2 Sat (Measured) ABG O2 Content ABG Base Excess Ashkan Test VBG pH POC VBG pCO2 POC VBG pO2 Mixed VBG HCO3 O2 Delivery Device Oxygen Flow Rate Sodium Potassium Chloride Carbon Dioxide Anion Gap BUN Creatinine Creat Clearance w eGFR POC Glucometer Random Glucose Hemoglobin A1c % Lactic Acid Calcium Total Bilirubin 1.1 H D Direct Bilirubin TNP AST TNP ALT TNP Alkaline Phosphatase TNP Total Protein TNP Albumin 2.6 L Triglycerides Total Amylase Lipase Urine Color Urine Appearance Urine pH Ur Specific [place] Urine Protein Urine Glucose (UA) Urine Ketones Urine Blood Urine Nitrite Urine Bilirubin Urine Urobilinogen Ur Leukocyte Esterase Urine WBC (Auto) Urine RBC (Auto) Ur Epithelial Cells Urine Bacteria Urine HCG, Qual Acetone, Qual Active Medications Generic Name Dose Route Start Last Admin Trade Name Freq PRN Reason Stop Dose Admin Acetaminophen 1,000 mg 05/13/17 11:05 05/13/17 11:18 Ofirmev Injection - IVPB 1,000 mg Q6H PRN Administration FEVER OR PAIN Chlorhexidine Gluconate 1 applic 05/13/17 22:00 Hibiclens For Decolonization - TP HS NEFTALY Heparin Sodium (Porcine) 5,000 unit 05/13/17 10:15 05/13/17 11:52 Heparin - SQ 5,000 unit Q8H-IV NEFTALY Administration Hydromorphone HCl 1 mg 05/13/17 10:04 Dilaudid Injection - IVPUSH Q4H PRN PAIN Lactated Ringer's 1,000 ml in 1,000 mls @ 100 mls/hr 05/13/17 07:00 05/13/17 07:03 Lactated Ringers Solution IV 100 mls/hr ASDIR NEFTALY Administration Insulin Human Regular 100 100 mls @ 6.53 mls/hr 05/13/17 10:30 units/ Sodium Chloride IVPB TITR NEFTALY Protocol 0.1 UNITS/KG/HR Potassium Chloride 30 meq/ 315 mls @ 105 mls/hr 05/13/17 12:00 05/13/17 12:01 Sodium Chloride IVPB 05/13/17 14:59 105 mls/hr ONCE ONE Administration Mupirocin 1 applic 05/13/17 22:00 Bactroban 2% Ointment - NS 05/18/17 21:59 BID NEFTALY Ondansetron HCl 4 mg 05/13/17 10:04 Zofran Injection IVPUSH Q6H PRN NAUSEA CBC, [facility] 05/13/17 11:50 #CT abdomen and pelvice 05/13/[address] evidence of acute appendicitis or diverticulitis. Examination of the pelvis demonstrates a 3 cm left ovarian cyst. There is no evidence of pelvic masses, fluid collections or lymphadenopathy. There is no evidence of acute bony abnormalities. IMPRESSION: 1. Findings consistent with acute pancreatitis, predominantly involving the body and tail of the pancreas. There is peripancreatic fluid without abscess or pseudocyst formation 2. No evidence of diverticulitis 3. Left ovarian cyst. ASSESSMENT/PLAN: 32 yo F with no significant PMHx admitted to ICU for management of severe pancreatitis secondary to hypertriglyceridemia requiring insulin drip and apheresis. # Pancreatitis * Secondary to hypertriglyceridemia: * Will admit to ICU and start insulin drip 0.1mg/kg/hr * hem/onc Dr. Caicedo on the board for apheresis. * BMP q1H to titrate drip * Switch to D5 once glucose <200 * NPO for now * Can initiate Oral gemfibrizole 600mg BID once tolerates PO. # Hypertriglyceridemia * will need to initiate oral Gemfibrazole once tolerates PO. # SIRS (systemic inflammatory response syndrome) * WBC-15.4 + HR >100 =SIRS * Secondary to pancreatitis. * Will give IVF with NS with potatassium supplementation. # Hyperglycemia # Hypokalemia # Hyponatremia # DVT prophylaxis Dispo: We will continue to follow the patient. Thank you for this consultative opportunity. Visit type - Emergency Visit Emergency Visit: Yes ED Registration Date: 05/13/17 Care time: The patient presented to the Emergency Department on the above date and was hospitalized for further evaluation of their emergent condition. - New Patient This patient is new to me today: No - Critical Care Critical Care patient: Yes Total Critical Care Time (in minutes): 40 Critical Care Statement: The care of this patient involved high complexity decision making to prevent further life threatening deterioration of the patient 's condition and/or to evaluate & treat vital organ system(s) failure or risk of failure.
[2017-05-13 13:28] LABS: ANION GAP 13 (8-16); CO2 17 mmol/L (21-32); CREATININE 0.2 mg/dL (0.55-1.02)
--- NOTE | 2017-05-13 13:43 | CONSULT ---
Consult Consult Specialty:: Endocrinology Referred by:: Dr Caicedo Reason for Consultation:: Hyperglycemia, Hypetrigycridemia - History of Present Illness Chief Complaint: Abd Pain History of Present Illness: This is a 32 yo F with h/o gestational DM treated with Insulin 3 years ago who presented to ED with one day history of worsening abdominal pain. Pain started few hours prior to presentation to ED., She describes constant sharp epigastric abdominal pain that radiates to her left side and back. Pain was made worse by eating and no alleviating factors. Denies fever, chills, nausea or vomiting. She has had some shortness of breath but no cough. She endorses increased thirst and urination. She claims to drink 2-3 gallons of water/day for many years. Denies CP, KING, palpitations, or dysuria. She gives h/o taking some cholesterol medication for about a month 3 years ag. Pt found to have elevated Lipase, Hyperglycemia, hypertriglyceridemia and CT abd findings consitent with pancreatitis. - History Source History Provided By: Patient, Medical Record Limitations to Obtaining History: No Limitations - Past Medical History Endocrine: Yes: Other (GDM) - Past Surgical History Past Surgical History: Yes: - Alcohol/Substance Use Hx Alcohol Use: No History of Substance Use: reports: None - Smoking History Smoking history: Never smoked Have you smoked in the past 12 months: No Home Medications - Allergies Allergies/Adverse Reactions: Allergies Allergy/AdvReac Type Severity Reaction Status Date / Time No Known Allergies Allergy Verified 05/13/17 00:10 - Home Medications Home Medications: Ambulatory Orders NK [No Known Home Medication] 05/13/17 Family Disease History - Family Disease History Family Disease History: Diabetes: Father, Mother Review of Systems - Review of Systems Constitutional: reports: Loss of Appetite, Malaise Eyes: reports: No Symptoms HENT: reports: No Symptoms Neck: reports: No Symptoms Cardiovascular: reports: No Symptoms Respiratory: reports: No Symptoms Gastrointestinal: reports: Abdominal Pain Genitourinary: reports: No Symptoms Breasts: reports: No Symptoms Reported Musculoskeletal: reports: No Symptoms Integumentary: reports: No Symptoms Neurological: reports: No Symptoms Endocrine: reports: No Symptoms Physical Exam Vital Signs: Vital Signs Temperature 98.1 F 05/13/17 12:06 Pulse Rate 115 H 05/13/17 12:06 Respiratory Rate 22 05/13/17 12:06 Blood Pressure 130/72 05/13/17 12:06 O2 Sat by Pulse Oximetry (%) 98 05/13/17 09:00 Constitutional: Yes: Moderate Distress Eyes: Yes: Conjunctiva Clear, EOM Intact HENT: Yes: Atraumatic, Normocephalic Neck: Yes: Supple, Trachea Midline Cardiovascular: Yes: Regular Rate and Rhythm Respiratory: Yes: Regular, CTA Bilaterally Gastrointestinal: Yes: Hypoactive Bowel Sounds, Tenderness, Epigastrium Renal/: Yes: WNL Musculoskeletal: Yes: WNL Extremities: Yes: WNL Edema: No Neurological: Yes: Alert, Oriented Labs: CBC, BMP 05/13/17 11:50 Imaging - Results Cat Scan: Report Reviewed (Consistent with pancreatitis) Problem List - Problems (1) Acute pancreatitis Code(s): K85.90 - ACUTE PANCREATITIS WITHOUT NECROSIS OR INFECTION, UNSP Qualifiers: Pancreatitis type: unspecified pancreatitis type Acute pancreatitis complication: unspecified Qualified Code(s): K85.90 - Acute pancreatitis without necrosis or infection, unspecified (2) Hyperglycemia Code(s): R73.9 - HYPERGLYCEMIA, UNSPECIFIED (3) Hypertriglyceridemia Code(s): E78.1 - PURE HYPERGLYCERIDEMIA Assessment/Plan Acute Pancreatitis Hypertriglyceridemia HYperglycemia Apheresis as soon as possible, arrangements already being made Pt awaiting transfer to ICU BGM Q1H CMP Q 4 hr Triglyceride level Q 12 hr IV insulin to maintain blood sugar 120 to 180 Start IV Dextrose to maintain blood sugar if necessary to maintian blood sugar Start Fibrates once pt is able to tolerate oral meds Hematology on the case GI consult called IV hydration Electrolyte replacement as necessary, May need IV calcium if repeat Calcium is confirmed to be low. Check ionized calcium Further management as per ICU team. Case discussed with HematologyMoreno
--- NOTE | 2017-05-13 13:50 | PN ---
Teaching Attending Note Name of Resident: Skip Escalante ATTENDING PHYSICIAN STATEMENT I saw and evaluated the patient. I reviewed the resident's note and discussed the case with the resident. I agree with the resident's findings and plan as documented. SUBJECTIVE: OBJECTIVE: Vital Signs Period Temp Pulse Resp BP Sys/Rodgers Pulse Ox Last 24 Hr 97.9 F-100.6 F 71-125 15-22 109-130/60-72 96-99 Home Medications Medication Instructions Recorded Acetaminophen [Tylenol .Regular 650 mg PO Q4H PRN #20 tablet 07/14/14 Strength -] Ferrous Sulfate [Feosol] 325 mg PO BID #60 ud 07/14/14 Ibuprofen [Motrin -] 600 mg PO Q4H PRN #20 tablet 07/14/14 Laboratory Tests 05/13/17 05/13/17 05/13/17 03:18 03:18 03:25 WBC 15.4 H D RBC 4.84 D Hgb 17.1 H D Hct 41.9 D MCV 86.5 MCH 35.3 H D MCHC 40.8 H RDW 13.1 D Plt Count 161 MPV 10.7 Neutrophils % No Result Required. Neutrophils % (Manual) 84.0 H Band Neutrophils % 5.0 Lymphocytes % No Result Required. Lymphocytes % (Manual) 7.0 L Monocytes % Monocytes % (Manual) 4 Eosinophils % Basophils % Platelet Comment No Result Required. Anisocytosis 1+ PT with INR INR PTT (Actin FS) Fibrinogen Puncture Site ABG pH ABG pCO2 at Pt Temp ABG pO2 at Pt Temp ABG HCO3 ABG O2 Sat (Measured) ABG O2 Content ABG Base Excess Ashkan Test VBG pH POC VBG pCO2 POC VBG pO2 Mixed VBG HCO3 O2 Delivery Device Oxygen Flow Rate Sodium 126 L D Potassium 3.3 L Chloride 94 L D Carbon Dioxide 21 Anion Gap 11 BUN 8 D Creatinine 0.4 L Creat Clearance w eGFR > 60 POC Glucometer Random Glucose 403 H* D Hemoglobin A1c % Lactic Acid Calcium Y Total Bilirubin 1.5 H D Direct Bilirubin AST Y ALT Y Alkaline Phosphatase 84 D Total Protein 6.7 D Albumin Y Triglycerides Total Amylase Lipase 3420 H Urine Color Ltyellow Urine Appearance Clear Urine pH 5.0 Ur Specific Bartow 1.039 H Urine Protein Negative Urine Glucose (UA) 3+ H Urine Ketones 2+ H Urine Blood 1+ H Urine Nitrite Negative Urine Bilirubin Negative Urine Urobilinogen Negative Ur Leukocyte Esterase Negative Urine WBC (Auto) 1 Urine RBC (Auto) 1 Ur Epithelial Cells Rare Urine Bacteria Rare Urine HCG, Qual Negative Acetone, Qual Blood Type Antibody Screen 05/13/17 05/13/17 05/13/17 04:15 04:30 05:15 WBC RBC Hgb Hct MCV MCH MCHC RDW Plt Count MPV Neutrophils % Neutrophils % (Manual) Band Neutrophils % Lymphocytes % Lymphocytes % (Manual) Monocytes % Monocytes % (Manual) Eosinophils % Basophils % Platelet Comment Anisocytosis PT with INR INR PTT (Actin FS) Fibrinogen Puncture Site ABG pH ABG pCO2 at Pt Temp ABG pO2 at Pt Temp ABG HCO3 ABG O2 Sat (Measured) ABG O2 Content ABG Base Excess Ashkan Test VBG pH 7.30 L POC VBG pCO2 36.6 L POC VBG pO2 51.1 H Mixed VBG HCO3 17.6 L O2 Delivery Device Oxygen Flow Rate Sodium Potassium Chloride Carbon Dioxide Anion Gap BUN Creatinine Creat Clearance w eGFR POC Glucometer Random Glucose Hemoglobin A1c % Lactic Acid 2.5 H* Calcium Total Bilirubin Direct Bilirubin AST ALT Alkaline Phosphatase Total Protein Albumin Triglycerides Total Amylase Lipase Urine Color Urine Appearance Urine pH Ur Specific Bart[place] Urine Protein Urine Glucose (UA) Urine Ketones Urine Blood Urine Nitrite Urine Bilirubin Urine Urobilinogen Ur Leukocyte Esterase Urine WBC (Auto) Urine RBC (Auto) Ur Epithelial Cells Urine Bacteria Urine HCG, Qual Acetone, Qual Positive moderate 2+ H Blood Type Antibody Screen 05/13/17 05/13/17 05/13/17 05:30 05:30 06:10 WBC RBC Hgb Hct MCV MCH MCHC RDW Plt Count MPV Neutrophils % Neutrophils % (Manual) Band Neutrophils % Lymphocytes % Lymphocytes % (Manual) Monocytes % Monocytes % (Manual) Eosinophils % Basophils % Platelet Comment Anisocytosis PT with INR INR PTT (Actin FS) Fibrinogen Puncture Site ABG pH ABG pCO2 at Pt Temp ABG pO2 at Pt Temp ABG HCO3 ABG O2 Sat (Measured) ABG O2 Content ABG Base Excess Ashkan Test VBG pH POC VBG pCO2 POC VBG pO2 Mixed VBG HCO3 O2 Delivery Device Oxygen Flow Rate Sodium Potassium Chloride Carbon Dioxide Anion Gap BUN Creatinine Creat Clearance w eGFR POC Glucometer Random Glucose Hemoglobin A1c % Lactic Acid 1.7 Calcium < 5.0 L* D Total Bilirubin Direct Bilirubin < 0.2 AST TNP ALT TNP Alkaline Phosphatase Total Protein Albumin 2.3 L Triglycerides Total Amylase 370 H Lipase Urine Color Urine Appearance Urine pH Ur Specific Bartow Urine Protein Urine Glucose (UA) Urine Ketones Urine Blood Urine Nitrite Urine Bilirubin Urine Urobilinogen Ur Leukocyte Esterase Urine WBC (Auto) Urine RBC (Auto) Ur Epithelial Cells Urine Bacteria Urine HCG, Qual Acetone, Qual Blood Type Antibody Screen 05/13/17 05/13/17 05/13/17 06:30 07:00 07:00 WBC RBC Hgb Hct MCV MCH MCHC RDW Plt Count MPV Neutrophils % Neutrophils % (Manual) Band Neutrophils % Lymphocytes % Lymphocytes % (Manual) Monocytes % Monocytes % (Manual) Eosinophils % Basophils % Platelet Comment Anisocytosis PT with INR INR PTT (Actin FS) Fibrinogen Puncture Site ABG pH ABG pCO2 at Pt Temp ABG pO2 at Pt Temp ABG HCO3 ABG O2 Sat (Measured) ABG O2 Content ABG Base Excess Ashkan Test VBG pH POC VBG pCO2 POC VBG pO2 Mixed VBG HCO3 O2 Delivery Device Oxygen Flow Rate Sodium Potassium Chloride Carbon Dioxide Anion Gap BUN Creatinine Creat Clearance w eGFR POC Glucometer Random Glucose Hemoglobin A1c % Lactic Acid Calcium Cancelled Total Bilirubin Direct Bilirubin AST Cancelled ALT Cancelled Alkaline Phosphatase Total Protein Albumin Triglycerides 7260 H Total Amylase Lipase Urine Color Urine Appearance Urine pH Ur Specific Bartow Urine Protein Urine Glucose (UA) Urine Ketones Urine Blood Urine Nitrite Urine Bilirubin Urine Urobilinogen Ur Leukocyte Esterase Urine WBC (Auto) Urine RBC (Auto) Ur Epithelial Cells Urine Bacteria Urine HCG, Qual Acetone, Qual Blood Type Antibody Screen 05/13/17 05/13/17 05/13/17 09:55 10:11 10:35 WBC RBC Hgb Hct MCV MCH MCHC RDW Plt Count MPV Neutrophils % Neutrophils % (Manual) Band Neutrophils % Lymphocytes % Lymphocytes % (Manual) Monocytes % Monocytes % (Manual) Eosinophils % Basophils % Platelet Comment Anisocytosis PT with INR INR PTT (Actin FS) Fibrinogen Puncture Site Left radial ABG pH 7.32 L ABG pCO2 at Pt Temp 34.8 L ABG pO2 at Pt Temp 132.0 H ABG HCO3 17.5 L ABG O2 Sat (Measured) 97.9 ABG O2 Content 19.9 ABG Base Excess -7.3 L Ashkan Test Positive VBG pH POC VBG pCO2 POC VBG pO2 Mixed VBG HCO3 O2 Delivery Device Y Oxygen Flow Rate Yes Sodium 132 L Potassium 3.6 Chloride 102 Carbon Dioxide 19 L Anion Gap 11 BUN TNP Creatinine 0.3 L D Creat Clearance w eGFR POC Glucometer Random Glucose 307 H* D Hemoglobin A1c % 9.6 H Lactic Acid Calcium < 5.0 L* Total Bilirubin Direct Bilirubin AST ALT Alkaline Phosphatase Total Protein Albumin Triglycerides Total Amylase Lipase Urine Color Urine Appearance Urine pH Ur Specific Bartow Urine Protein Urine Glucose (UA) Urine Ketones Urine Blood Urine Nitrite Urine Bilirubin Urine Urobilinogen Ur Leukocyte Esterase Urine WBC (Auto) Urine RBC (Auto) Ur Epithelial Cells Urine Bacteria Urine HCG, Qual Acetone, Qual Blood Type Antibody Screen 05/13/17 05/13/17 05/13/17 11:07 11:50 11:50 WBC 13.3 H RBC 4.95 Hgb 14.6 D Hct 43.9 MCV 88.7 MCH 29.6 D MCHC 33.4 RDW 13.4 Plt Count 158 MPV 11.6 H Neutrophils % 88.8 H D Neutrophils % (Manual) Band Neutrophils % Lymphocytes % 7.3 L D Lymphocytes % (Manual) Monocytes % 3.8 Monocytes % (Manual) Eosinophils % 0.0 D Basophils % 0.1 Platelet Comment Anisocytosis PT with INR INR PTT (Actin FS) Fibrinogen Puncture Site ABG pH ABG pCO2 at Pt Temp ABG pO2 at Pt Temp ABG HCO3 ABG O2 Sat (Measured) ABG O2 Content ABG Base Excess Ashkan Test VBG pH POC VBG pCO2 POC VBG pO2 Mixed VBG HCO3 O2 Delivery Device Oxygen Flow Rate Sodium 133 L Potassium 3.7 Chloride 102 Carbon Dioxide 17 L Anion Gap 14 BUN TNP Creatinine 0.2 L D Creat Clearance w eGFR POC Glucometer 213 Random Glucose 304 H* Hemoglobin A1c % Lactic Acid Calcium TNP Total Bilirubin Direct Bilirubin AST ALT Alkaline Phosphatase Total Protein Albumin Triglycerides Total Amylase Lipase Urine Color Urine Appearance Urine pH Ur Specific [place] Urine Protein Urine Glucose (UA) Urine Ketones Urine Blood Urine Nitrite Urine Bilirubin Urine Urobilinogen Ur Leukocyte Esterase Urine WBC (Auto) Urine RBC (Auto) Ur Epithelial Cells Urine Bacteria Urine HCG, Qual Acetone, Qual Blood Type Antibody Screen 05/13/17 05/13/17 05/13/17 11:50 11:50 11:50 WBC RBC Hgb Hct MCV MCH MCHC RDW Plt Count MPV Neutrophils % Neutrophils % (Manual) Band Neutrophils % Lymphocytes % Lymphocytes % (Manual) Monocytes % Monocytes % (Manual) Eosinophils % Basophils % Platelet Comment Anisocytosis PT with INR 12.90 H INR 1.14 PTT (Actin FS) 29.0 Fibrinogen 429.0 Puncture Site ABG pH ABG pCO2 at Pt Temp ABG pO2 at Pt Temp ABG HCO3 ABG O2 Sat (Measured) ABG O2 Content ABG Base Excess Ashkan Test VBG pH POC VBG pCO2 POC VBG pO2 Mixed VBG HCO3 O2 Delivery Device Oxygen Flow Rate Sodium Potassium Chloride Carbon Dioxide Anion Gap BUN Creatinine Creat Clearance w eGFR POC Glucometer Random Glucose Hemoglobin A1c % Lactic Acid Calcium Total Bilirubin 1.1 H D Direct Bilirubin TNP AST TNP ALT TNP Alkaline Phosphatase TNP Total Protein TNP Albumin 2.6 L Triglycerides Total Amylase Lipase Urine Color Urine Appearance Urine pH Ur Specific Bart[place] Urine Protein Urine Glucose (UA) Urine Ketones Urine Blood Urine Nitrite Urine Bilirubin Urine Urobilinogen Ur Leukocyte Esterase Urine WBC (Auto) Urine RBC (Auto) Ur Epithelial Cells Urine Bacteria Urine HCG, Qual Acetone, Qual Blood Type O POSITIVE Antibody Screen Negative 05/13/17 12:50 WBC RBC Hgb Hct MCV MCH MCHC RDW Plt Count MPV Neutrophils % Neutrophils % (Manual) Band Neutrophils % Lymphocytes % Lymphocytes % (Manual) Monocytes % Monocytes % (Manual) Eosinophils % Basophils % Platelet Comment Anisocytosis PT with INR INR PTT (Actin FS) Fibrinogen Puncture Site ABG pH ABG pCO2 at Pt Temp ABG pO2 at Pt Temp ABG HCO3 ABG O2 Sat (Measured) ABG O2 Content ABG Base Excess Ashkan Test VBG pH POC VBG pCO2 POC VBG pO2 Mixed VBG HCO3 O2 Delivery Device Oxygen Flow Rate Sodium Potassium Chloride Carbon Dioxide Anion Gap BUN Creatinine Creat Clearance w eGFR POC Glucometer 213 Random Glucose Hemoglobin A1c % Lactic Acid Calcium Total Bilirubin Direct Bilirubin AST ALT Alkaline Phosphatase Total Protein Albumin Triglycerides Total Amylase Lipase Urine Color Urine Appearance Urine pH Ur Specific [place] Urine Protein Urine Glucose (UA) Urine Ketones Urine Blood Urine Nitrite Urine Bilirubin Urine Urobilinogen Ur Leukocyte Esterase Urine WBC (Auto) Urine RBC (Auto) Ur Epithelial Cells Urine Bacteria Urine HCG, Qual Acetone, Qual Blood Type Antibody Screen ASSESSMENT AND PLAN:
[2017-05-13 13:51] LABS: GLUCOSE,RANDOM 300 mg/dL (74-106)
[2017-05-13] MEDS ORDERED: CALCIUM CHLORIDE 1 GM/10 ML *DISP.SYRIN IVPB ONE (15:01)
[2017-05-13] MEDS ORDERED: SODIUM CHLORIDE IVPB SCH ×2 (15:15→23:30)
[2017-05-13] MEDS ORDERED: CALCIUM GLUCONATE IVPB SCH (15:15)
[2017-05-13] MEDS ORDERED: CALCIUM CHLORIDE 1 GM/10 ML *DISP.SYRIN ONE (15:17)
[2017-05-13] MEDS ORDERED: LIDOCAINE HCL 1%, 10 MG/ML (20ML VIAL) ONE (15:28)
[2017-05-13] MEDS ORDERED: DEXTROSE 5%-LACTATED RINGERS 1,000 ML IV SCH ×3 (15:30→16:25)
[2017-05-13 16:13] LABS: ALBUMIN 2.6 g/dl (3.4-5.0); ANION GAP 13 (8-16); BILIRUBIN,TOTAL 0.3 mg/dL (0.2-1.0); CALCIUM 8.1 mg/dL (8.5-10.1); CO2 19 mmol/L (21-32); CREATININE 3.8 mg/dL (0.55-1.02); SGOT/AST 9 U/L (15-37); SGPT/ALT 17 U/L (12-78); TOT PROT 6.6 g/dl (6.4-8.2)
[2017-05-13 16:14] LABS: ALK PHOS 78 U/L (45-117)
[2017-05-13 16:16] LABS: GLUCOSE,RANDOM 665 mg/dL (74-106)
[2017-05-13 16:20] LABS: ANION GAP 13 (8-16); CO2 16 mmol/L (21-32); CREATININE 0.3 mg/dL (0.55-1.02); GLUCOSE,RANDOM 288 mg/dL (74-106)
--- NOTE | 2017-05-13 16:21 | PROC ---
<Aida Flaherty - Last Filed: 05/13/17 16:20> Central Line Insertion Indication: Other (plasmaphoresis) Central Line: Dialysis Cath, Dual Lumen Anesthesia: 1% Lidocaine Sterile Technique: Yes Ultrasound Guided Assistance: Yes Position: Left Femoral Sterile Dressing Applied: Yes <Nba Barros MD - Last Filed: 05/13/17 16:57> Procedure Note Procedure: I supervised and was present during the entire procedure. Nba Barros MD
--- NOTE | 2017-05-13 16:23 | PN ---
Progress Note (short form) - Note Progress Note: This is a 32 y/o F with no significant PMHx who was admitted to ICU for management of severe pancreatitis secondary to hypertriglyceridemia requiring insulin drip and apheresis. Received pt this afternoon. Called lab to discuss pending lab results for this afternoon to f/u on Ca level. Was told there was interference with the testing and that an appropriate Ca level was unable to be calculated. Discussed with lab importance of Ca level, was told result will be sent stat to [facility] to return this evening. Will F/u.
[2017-05-13 16:46] LABS: CALCIUM < 5.0 mg/dL (8.5-10.1)
[2017-05-13] MEDS ORDERED: ALBUMIN HUMAN 5% 500 ML IV SOLUTION IVPB ONE (17:00)
[2017-05-13 17:04] LABS: ANION GAP 12 (8-16); CO2 17 mmol/L (21-32); CREATININE 0.4 mg/dL (0.55-1.02); GLUCOSE,RANDOM 299 mg/dL (74-106)
--- NOTE | 2017-05-13 17:05 | CONSULT ---
Consultation: REQUESTING PROVIDER: Dr. Escalante CONSULT REQUEST: We have been asked to medically evaluate this patient for pancreatitis. HISTORY OF PRESENT ILLNESS: This is a 32 year old English speaking female with a past medical history of gestational diabetes, who presented with mid epigastric pain. ER labs evident for elevated lipase, triglycerides >7,000, hypocalcemia, leukocytosis, hyperglycemia and elevated lactic acid. CT abdomen showing acute pancreatitis. She is currently in the ICU on insulin and calcium gluconate drip. Plan for plasmaphoresis. Past medical history includes gestational diabetes; patient states she was prescribed insulin to continue to take after althou she never filled the prescription. Family history of diabetes and hypercholesterolemia Denies alcohol use Denies hx of gallstones Surgical history: 2 C-sections REVIEW OF SYSTEMS: CONSTITUTIONAL: Positive: fever, generalized body pain Absent: , chills, diaphoresis, generalized weakness, malaise, loss of appetite, weight change HEENT: Absent: rhinorrhea, nasal congestion, throat pain, throat swelling, difficulty swallowing, mouth swelling, ear pain, eye pain, visual changes CARDIOVASCULAR: Absent: chest pain, syncope, palpitations, irregular heart rate, lightheadedness , peripheral edema RESPIRATORY: Absent: cough, shortness of breath, dyspnea with exertion, orthopnea, wheezing, stridor, hemoptysis GASTROINTESTINAL: Positive: abdominal pain Absent: , abdominal distension, nausea, vomiting, diarrhea, constipation, melena , hematochezia GENITOURINARY: Absent: dysuria, frequency, urgency, hesitancy, hematuria, flank pain, genital pain MUSCULOSKELETAL: Absent: myalgia, arthralgia, joint swelling, back pain, neck pain SKIN: Absent: rash, itching, pallor HEMATOLOGIC/IMMUNOLOGIC: Absent: easy bleeding, easy bruising, lymphadenopathy, frequent infections ENDOCRINE: Absent: unexplained weight gain, unexplained weight loss, heat intolerance, cold intolerance NEUROLOGIC: Absent: headache, focal weakness or paresthesias, dizziness, unsteady gait, seizure, mental status changes, bladder or bowel incontinence PSYCHIATRIC: Absent: anxiety, depression, suicidal or homicidal ideation, hallucinations. PHYSICAL EXAMINATION Vital Signs - 24 hr 05/13/17 05/13/17 05/13/17 00:10 03:30 06:05 Temperature 99.9 F H 97.9 F Pulse Rate 90 Pulse Rate [ 88 71 Apical] Respiratory 22 18 18 Rate Blood Pressure 117/60 Blood Pressure 122/70 118/70 [Left Arm] O2 Sat by Pulse 98 99 99 Oximetry (%) 05/13/17 05/13/17 05/13/17 06:17 06:19 09:00 Temperature Pulse Rate Pulse Rate [ 109 H Apical] Respiratory 18 22 Rate Blood Pressure Blood Pressure 109/66 [Left Arm] O2 Sat by Pulse 97 96 98 Oximetry (%) 05/13/17 05/13/17 05/13/17 09:51 10:57 12:06 Temperature 99.6 F 100.6 F H 98.1 F Pulse Rate 106 H 125 H 115 H Pulse Rate [ Apical] Respiratory 16 15 22 Rate Blood Pressure 118/71 113/67 130/72 Blood Pressure [Left Arm] O2 Sat by Pulse Oximetry (%) 05/13/17 05/13/17 05/13/17 14:30 16:28 16:44 Temperature 98.7 F Pulse Rate 108 H 110 H Pulse Rate [ Apical] Respiratory 30 H 36 H Rate Blood Pressure 118/74 124/76 Blood Pressure [Left Arm] O2 Sat by Pulse 100 Oximetry (%) GENERAL: Awake, alert, and fully oriented, diaphoretic, in pain HEAD: Normal with no signs of trauma. EYES: Pupils equal, round and reactive to light, extraocular movements intact, sclera anicteric, conjunctiva clear. No lid lag. EARS, NOSE, THROAT: Ears normal, nares patent, oropharynx clear without exudates. Moist mucous membranes. NECK: Normal range of motion, supple without lymphadenopathy, JVD, or masses. LUNGS: Breath sounds equal, clear to auscultation bilaterally. No wheezes, and no crackles. No accessory muscle use. HEART: Regular rate and rhythm, normal S1 and S2 without murmur, rub or gallop. ABDOMEN: Soft, tender to palpation mid epigastrum , LUQ, not distended, normoactive bowel sounds, no guarding, no rebound, no masses. UPPER EXTREMITIES: 2+ pulses, warm, well-perfused. No cyanosis. No clubbing. Cap refill <2 seconds. No peripheral edema. LOWER EXTREMITIES: 2+ pulses, warm, well-perfused. No calf tenderness. No peripheral edema. NEUROLOGICAL: Cranial nerves II-XII intact. Normal speech. Normal gait. CBCD WBC 13.3 K/mm3 (4.0-10.0) H 05/13/17 11:50 RBC 4.95 M/mm3 (3.60-5.2) 05/13/17 11:50 Hgb 14.6 GM/dL (10.7-15.3) D 05/13/17 11:50 Hct 43.9 % (32.4-45.2) 05/13/17 11:50 MCV 88.7 fl (80-96) 05/13/17 11:50 MCHC 33.4 g/dl (32.0-36.0) 05/13/17 11:50 RDW 13.4 % (11.6-15.6) 05/13/17 11:50 Plt Count 158 K/MM3 (134-434) 05/13/17 11:50 MPV 11.6 fl (7.5-11.1) H 05/13/17 11:50 CMP Sodium 135 mmol/L (136-145) L 05/13/17 17:35 Potassium 3.5 mmol/L (3.5-5.1) 05/13/17 17:35 Chloride 106 mmol/L (98-107) 05/13/17 17:35 Carbon Dioxide 18 mmol/L (21-32) L 05/13/17 17:35 Anion Gap 11 (8-16) 05/13/17 17:35 BUN 6 mg/dL (7-18) L 05/13/17 17:35 Creatinine 0.3 mg/dL (0.55-1.02) L 05/13/17 17:35 Creat Clearance w eGFR 13.77 (>60) 05/13/17 15:20 Random Glucose 296 mg/dL (74-106) H 05/13/17 17:35 Calcium 6.3 mg/dL (8.5-10.1) L* D 05/13/17 17:35 Total Bilirubin 0.3 mg/dL (0.2-1.0) D 05/13/17 15:20 AST 9 U/L (15-37) L D 05/13/17 15:20 ALT 17 U/L (12-78) D 05/13/17 15:20 Alkaline Phosphatase 78 U/L (45-117) 05/13/17 15:20 Total Protein 6.6 g/dl (6.4-8.2) 05/13/17 15:20 Albumin 2.6 g/dl (3.4-5.0) L 05/13/17 15:20 Active Medications Generic Name Dose Route Start Last Admin Trade Name Marie PRN Reason Stop Dose Admin Acetaminophen 1,000 mg 05/13/17 11:05 05/13/17 11:18 Ofirmev Injection - IVPB 1,000 mg Q6H PRN Administration FEVER OR PAIN Chlorhexidine Gluconate 1 applic 05/13/17 22:00 Hibiclens For Decolonization - TP HS NEFTALY Heparin Sodium (Porcine) 5,000 unit 05/13/17 10:15 05/13/17 11:52 Heparin - SQ 5,000 unit Q8H-IV NEFTALY Administration Hydromorphone HCl 1 mg 05/13/17 10:04 Dilaudid Injection - IVPUSH Q4H PRN PAIN Insulin Human Regular 100 100 mls @ 6.53 mls/hr 05/13/17 10:30 05/13/17 15:16 units/ Sodium Chloride IVPB 0.1 units/kg/hr TITR NEFTALY 6.53 mls/hr Protocol Administration 0.1 UNITS/KG/HR Calcium Gluconate 11,000 mg/ 1,110 mls @ 50 mls/hr 05/13/17 15:15 05/13/17 16 :21 Sodium Chloride IVPB 05/14/17 15:14 50 mls/hr ASDIR NEFTALY Administration Dextrose/Lactated Ringer's 1,000 mls @ 200 mls/hr 05/13/17 16:25 05/13/17 16: 37 D5-Lr - IV 200 mls/hr ASDIR NEFTALY Administration Mupirocin 1 applic 05/13/17 22:00 Bactroban 2% Ointment - NS 05/18/17 21:59 BID NEFTALY Ondansetron HCl 4 mg 05/13/17 10:04 Zofran Injection IVPUSH Q6H PRN NAUSEA ASSESSMENT/PLAN: This is a 32 year old female with a past medical history of gestational diabetes , presents with mid epigastric pain, admitted for acute pancreatitis. #Neuro: -lethargic; AAOx3 #Pulmonary: -O2 saturation 97 % on RA -CT abdomen showing b/l atelectasis -incentive spirometry #Cardiac: no active issues #Gastro/heme: -acute pancreatitis secondary to severe hypertriglyceridemia: -insulin drip; -plasmapharesis:repeat triglycerides in the morning ; if over 600; will need to repeat plasmapharesis -monitor PT/PTT fibrinogen, magnesium -if fibrinogen <100 after after plasmapharesis, give 10U of cryo -severe hypocalemia secondary to pancreatitis; calcium gluconate drip; rech q4h #Endocrine: -hx of diabetes, not on medication -hyperglycemia with lactic acidosis ; not in DKA; NKHHS?; check osmols -on insulin drip; -bgm q1h; titrate -no anion gap #ID: -sepsis secondary to possible necrotic pancreas? -stat blood cultures, lactic acid -start imipenam empiric -ID consulted Monitor electrolytes: hyponatremia sec to hyperglycemia; cont aggressive fluid hydration npo VTE prophylaxis: scds; heparin s/q Dispo: We will continue to follow the patient. Thank you for this consultative opportunity. Problem List - Problems (1) Hypocalcemia Code(s): E83.51 - HYPOCALCEMIA (2) Acute pancreatitis Code(s): K85.90 - ACUTE PANCREATITIS WITHOUT NECROSIS OR INFECTION, UNSP Qualifiers: Pancreatitis type: unspecified pancreatitis type Acute pancreatitis complication: unspecified Qualified Code(s): K85.90 - Acute pancreatitis without necrosis or infection, unspecified (3) Hyperglycemia Code(s): R73.9 - HYPERGLYCEMIA, UNSPECIFIED (4) Hypertriglyceridemia Code(s): E78.1 - PURE HYPERGLYCERIDEMIA (5) Hypokalemia Code(s): E87.6 - HYPOKALEMIA (6) Pancreatitis Code(s): K85.90 - ACUTE PANCREATITIS WITHOUT NECROSIS OR INFECTION, UNSP Qualifiers: Chronicity: acute Pancreatitis type: other Acute pancreatitis complication: no infection or necrosis Qualified Code(s): K85.80 - Other acute pancreatitis without necrosis or infection (7) SIRS (systemic inflammatory response syndrome) Code(s): R65.10 - SIRS OF NON-INFECTIOUS ORIGIN W/O ACUTE ORGAN DYSFUNCTION Visit type - Emergency Visit Emergency Visit: Yes ED Registration Date: 05/13/17 Care time: The patient presented to the Emergency Department on the above date and was hospitalized for further evaluation of their emergent condition. - New Patient This patient is new to me today: Yes Date on this admission: 05/13/17 - Critical Care Critical Care patient: Yes Total Critical Care Time (in minutes): 40 Critical Care Statement: The care of this patient involved high complexity decision making to prevent further life threatening deterioration of the patient 's condition and/or to evaluate & treat vital organ system(s) failure or risk of failure.
--- NOTE | 2017-05-13 17:05 | PN ---
Teaching Attending Note Name of Resident: Kate Washington ATTENDING PHYSICIAN STATEMENT I saw and evaluated the patient. I reviewed the resident's note and discussed the case with the resident. I agree with the resident's findings and plan as documented. SUBJECTIVE: Pt seen and examined in the ICU. Transferred down for plasmapharesis due to acute pancreatitis due to acute hypertriglyceridemia. Also severe hypocalcemic being placed on calcium gluconate gtt. OBJECTIVE: Last Vital Signs Temp Pulse Resp BP Pulse Ox 98.7 F 110 H 36 H 124/76 100 05/13/17 14:30 05/13/17 16:28 05/13/17 16:28 05/13/17 16:28 05/13/17 16:44 Intake & Output 05/10/17 05/11/17 05/12/17 05/13/17 23:59 23:59 23:59 23:59 Weight 141 lb 12.116 oz Gen: ill appearing, mildly tachypneic Heart: tachycardic, regular Lung: decreased breath sounds at the bases Abd: soft, mild TTP epigastric region, no rebound Ext: no edema CBC, BMP 05/13/17 11:50 CMP Sodium 134 mmol/L (136-145) L 05/13/17 15:20 Potassium 5.2 mmol/L (3.5-5.1) H D 05/13/17 15:20 Chloride 102 mmol/L (98-107) 05/13/17 15:20 Carbon Dioxide 19 mmol/L (21-32) L 05/13/17 15:20 Anion Gap 13 (8-16) 05/13/17 15:20 BUN 77 mg/dL (7-18) H D 05/13/17 15:20 Creatinine 3.8 mg/dL (0.55-1.02) H D 05/13/17 15:20 Creat Clearance w eGFR 13.77 (>60) 05/13/17 15:20 POC Glucometer 200.11976 UNITS (80-120) 05/13/17 16:32 Random Glucose 665 mg/dL (74-106) H* D 05/13/17 15:20 Hemoglobin A1c % 9.6 % (4.8-6.0) H 05/13/17 09:55 Lactic Acid 1.7 mmol/L (0.4-2.0) 05/13/17 06:10 Calcium 8.1 mg/dL (8.5-10.1) L D 05/13/17 15:20 Total Bilirubin 0.3 mg/dL (0.2-1.0) D 05/13/17 15:20 Direct Bilirubin TNP 05/13/17 11:50 AST 9 U/L (15-37) L D 05/13/17 15:20 ALT 17 U/L (12-78) D 05/13/17 15:20 Alkaline Phosphatase 78 U/L (45-117) 05/13/17 15:20 Total Protein 6.6 g/dl (6.4-8.2) 05/13/17 15:20 Albumin 2.6 g/dl (3.4-5.0) L 05/13/17 15:20 Triglycerides 4622 mg/dL (35-160) H 05/13/17 11:50 Total Amylase 370 U/L (25-115) H 05/13/17 05:30 Lipase 3420 U/L (73-393) H 05/13/17 03:18 Active Medications Acetaminophen (Ofirmev Injection -) 1,000 mg IVPB Q6H PRN PRN Reason: FEVER OR PAIN Last Admin: 05/13/17 11:18 Dose: 1,000 mg Chlorhexidine Gluconate (Hibiclens For Decolonization -) 1 applic TP HS NEFTALY Heparin Sodium (Porcine) (Heparin -) 5,000 unit SQ Q8H-IV NEFTALY Last Admin: 05/13/17 11:52 Dose: 5,000 unit Hydromorphone HCl (Dilaudid Injection -) 1 mg IVPUSH Q4H PRN PRN Reason: PAIN Insulin Human Regular 100 (units/ Sodium Chloride) 100 mls @ 6.53 mls/hr IVPB TITR NEFTALY; 0.1 UNITS/KG/HR PRN Reason: Protocol Last Admin: 05/13/17 15:16 Dose: 0.1 units/kg/hr, 6.53 mls/hr Calcium Gluconate 11,000 mg/ (Sodium Chloride) 1,110 mls @ 50 mls/hr IVPB ASDIR NEFTALY Stop: 05/14/17 15:14 Last Admin: 05/13/17 16:21 Dose: 50 mls/hr Dextrose/Lactated Ringer's (D5-Lr -) 1,000 mls @ 200 mls/hr IV ASDIR NEFTALY Last Admin: 05/13/17 16:37 Dose: 200 mls/hr Mupirocin (Bactroban 2% Ointment -) 1 applic NS BID ON LICENSE OF [facility] Stop: 05/18/17 21:59 Ondansetron HCl (Zofran Injection) 4 mg IVPUSH Q6H PRN PRN Reason: NAUSEA ASSESSMENT AND PLAN: Acute Pancreatitis Sepsis Severe Hypertriglyceridemia Severe Hypocalcemia Diabetes Acute Kidney Injury Lactic Acidosis - aggressive IVF resuscitation - IV insulin gtt - hourly BGM - BMP q3h - calcium gluconate gtt - double lumen nontunelled catheter placed - plasmapharesis per hematology - trend triglycerides, lipase - pain control - NPO - ICU monitoring critical care time spent in reviewing chart, evaluating patient and formulating plan 40 min
[2017-05-13 17:07] LABS: CALCIUM 6.9 mg/dL (8.5-10.1)
--- NOTE | 2017-05-13 17:21 | CONSULT ---
Consult - text type - Consultation Consultation Note: 32 yo F with h/o gestational DM treated with Insulin 3 years ago who presented to ED with one day history of worsening abdominal pain. Pain started few hours prior to presentation to ED., She describes constant sharp epigastric abdominal pain that radiates to her left side and back. Denies fever, chills, nausea or vomiting. She has had some shortness of breath but no cough. She endorses increased thirst and urination. She claims to drink 2-3 gallons of water/day for many years. Denies CP, KING, palpitations, or dysuria. She gives h/ o taking some cholesterol medication for about a month 3 years ag. Pt found to have elevated Lipase, Hyperglycemia, hypertriglyceridemia and CT abd findings consitent with pancreatitis. - History Source History Provided By: Patient, Medical Record - Past Medical History Endocrine: Yes: Other (GDM) - Past Surgical History Past Surgical History: Yes: - Smoking History Smoking history: Never smoked Home Medications - Allergies Allergies/Adverse Reactions: Allergies Allergy/AdvReac Type Severity Reaction Status Date / Time No Known Allergies Allergy Verified 05/13/17 00:10 - Home Medications Home Medications: Ambulatory Orders Acetaminophen [Tylenol .Regular Strength -] 650 mg PO Q4H PRN #20 tablet Ferrous Sulfate [Feosol] 325 mg PO BID #60 ud 07/14/14 Ibuprofen [Motrin -] 600 mg PO Q4H PRN #20 tablet 07/14/14 Family Disease History - Family Disease History Family Disease History: Diabetes: Father, Mother Physical Exam Vital Signs: Vital Signs Temperature 98.1 F 05/13/17 12:06 Pulse Rate 115 H 05/13/17 12:06 Respiratory Rate 22 05/13/17 12:06 Blood Pressure 130/72 05/13/17 12:06 O2 Sat by Pulse Oximetry (%) 98 05/13/17 09:00 Constitutional: Yes: Moderate Distress Eyes: Yes: Conjunctiva Clear, EOM Intact HENT: Yes: Atraumatic, Normocephalic Neck: Yes: Supple, Trachea Midline Cardiovascular: Yes: Regular Rate and Rhythm Respiratory: Yes: Regular, CTA Bilaterally Gastrointestinal: Yes: Hypoactive Bowel Sounds, Tenderness, Epigastrium. mild distention Renal/: Yes: WNL Musculoskeletal: Yes: WNL Extremities: Yes: WNL Neurological: Yes: Alert, Oriented Labs: CBC, BMP 05/13/17 11:50 Imaging - Results Cat Scan: Report Reviewed (Consistent with pancreatitis) Problem List - Problems (1) Acute pancreatitis Code(s): K85.90 - ACUTE PANCREATITIS WITHOUT NECROSIS OR INFECTION, UNSP Qualifiers: Pancreatitis type: unspecified pancreatitis type Acute pancreatitis complication: unspecified Qualified Code(s): K85.90 - Acute pancreatitis without necrosis or infection, unspecified (2) Hyperglycemia Code(s): R73.9 - HYPERGLYCEMIA, UNSPECIFIED (3) Hypertriglyceridemia Code(s): E78.1 - PURE HYPERGLYCERIDEMIA Assessment/Plan Acute Pancreatitis Hypertriglyceridemia HYperglycemia Discussed with endocrine/critical care teams/[facility] team/house staff Plasmapheresis --1 plasma volume exchange with 5% albumin --2 liters monitor CBC/PT/PTT/fibrinogen/Mg/CMP If fibrinogen <100--replete 10 units cryoprecipitate discussed with patient and her sister in great detail via flat sheet maker. bbenefits/risks/alternatives/complications discussed in great detail Monitor plasma triglycerides. May need repeat plasma exchange to a goal of < 500. [place] discuss with all teams involved
[2017-05-13 18:03] LABS: ANION GAP 11 (8-16); CO2 17 mmol/L (21-32); CREATININE 0.3 mg/dL (0.55-1.02)
[2017-05-13 18:06] LABS: CALCIUM 6.5 mg/dL (8.5-10.1); GLUCOSE,RANDOM 308 mg/dL (74-106)
--- NOTE | 2017-05-13 18:18 | CON.GI ---
Consult Consult Specialty:: GI Referred by:: service - History of Present Illness History of Present Illness: A 32 yof with history of dyslipidemia, DM, admitted with 1st episode of acute pancreatitis. Denies alcohol, GS disease, new medications, viral ilnesses, URI, exposure to toxins. Noted to have Tgc ~7000 and the following blood work results. The abdominal pain has been present for 1 day, 04/09, radiates to the back, worse with food. No melena, hematochezia, hematemesis, jaundice, or fever. Abnormal Lab Results 05/13/17 05/13/17 05/13/17 03:18 03:18 03:25 WBC 15.4 H D Hgb 17.1 H D MCH 35.3 H D MCHC 40.8 H MPV Neutrophils % Neutrophils % (Manual) 84.0 H Lymphocytes % Lymphocytes % (Manual) 7.0 L PT with INR ABG pH ABG pCO2 at Pt Temp ABG pO2 at Pt Temp ABG HCO3 ABG Base Excess VBG pH POC VBG pCO2 POC VBG pO2 Mixed VBG HCO3 Sodium 126 L D Potassium 3.3 L Chloride 94 L D Carbon Dioxide BUN Creatinine 0.4 L Random Glucose 403 H* D Hemoglobin A1c % Lactic Acid Calcium Total Bilirubin 1.5 H D AST Albumin Triglycerides Total Amylase Lipase 3420 H Ur Specific Gary 1.039 H Urine Glucose (UA) 3+ H Urine Ketones 2+ H Urine Blood 1+ H Acetone, Qual 05/13/17 05/13/17 05/13/17 04:15 04:30 05:15 WBC Hgb MCH MCHC MPV Neutrophils % Neutrophils % (Manual) Lymphocytes % Lymphocytes % (Manual) PT with INR ABG pH ABG pCO2 at Pt Temp ABG pO2 at Pt Temp ABG HCO3 ABG Base Excess VBG pH 7.30 L POC VBG pCO2 36.6 L POC VBG pO2 51.1 H Mixed VBG HCO3 17.6 L Sodium Potassium Chloride Carbon Dioxide BUN Creatinine Random Glucose Hemoglobin A1c % Lactic Acid 2.5 H* Calcium Total Bilirubin AST Albumin Triglycerides Total Amylase Lipase Ur Specific Gary Urine Glucose (UA) Urine Ketones Urine Blood Acetone, Qual Positive moderate 2+ H 05/13/17 05/13/17 05/13/17 05:30 06:30 09:55 WBC Hgb MCH MCHC MPV Neutrophils % Neutrophils % (Manual) Lymphocytes % Lymphocytes % (Manual) PT with INR ABG pH ABG pCO2 at Pt Temp ABG pO2 at Pt Temp ABG HCO3 ABG Base Excess VBG pH POC VBG pCO2 POC VBG pO2 Mixed VBG HCO3 Sodium Potassium Chloride Carbon Dioxide BUN Creatinine Random Glucose Hemoglobin A1c % 9.6 H Lactic Acid Calcium < 5.0 L* D Total Bilirubin AST Albumin 2.3 L Triglycerides 7260 H Total Amylase 370 H Lipase Ur Specific Gary Urine Glucose (UA) Urine Ketones Urine Blood Acetone, Qual 05/13/17 05/13/17 05/13/17 10:11 10:35 11:50 WBC Hgb MCH MCHC MPV Neutrophils % Neutrophils % (Manual) Lymphocytes % Lymphocytes % (Manual) PT with INR ABG pH 7.32 L ABG pCO2 at Pt Temp 34.8 L ABG pO2 at Pt Temp 132.0 H ABG HCO3 17.5 L ABG Base Excess -7.3 L VBG pH POC VBG pCO2 POC VBG pO2 Mixed VBG HCO3 Sodium 132 L 133 L Potassium Chloride Carbon Dioxide 19 L 17 L BUN Creatinine 0.3 L D 0.2 L D Random Glucose 307 H* D 304 H* Hemoglobin A1c % Lactic Acid Calcium < 5.0 L* Total Bilirubin AST Albumin Triglycerides Total Amylase Lipase Ur Specific Gary Urine Glucose (UA) Urine Ketones Urine Blood Acetone, Qual 05/13/17 05/13/17 05/13/17 11:50 11:50 11:50 WBC 13.3 H Hgb MCH MCHC MPV 11.6 H Neutrophils % 88.8 H D Neutrophils % (Manual) Lymphocytes % 7.3 L D Lymphocytes % (Manual) PT with INR 12.90 H ABG pH ABG pCO2 at Pt Temp ABG pO2 at Pt Temp ABG HCO3 ABG Base Excess VBG pH POC VBG pCO2 POC VBG pO2 Mixed VBG HCO3 Sodium Potassium Chloride Carbon Dioxide BUN Creatinine Random Glucose Hemoglobin A1c % Lactic Acid Calcium Total Bilirubin 1.1 H D AST Albumin 2.6 L Triglycerides 4622 H Total Amylase Lipase Ur Specific Gary Urine Glucose (UA) Urine Ketones Urine Blood Acetone, Qual 05/13/17 05/13/17 05/13/17 12:45 14:30 15:20 WBC Hgb MCH MCHC MPV Neutrophils % Neutrophils % (Manual) Lymphocytes % Lymphocytes % (Manual) PT with INR ABG pH ABG pCO2 at Pt Temp ABG pO2 at Pt Temp ABG HCO3 ABG Base Excess VBG pH POC VBG pCO2 POC VBG pO2 Mixed VBG HCO3 Sodium 134 L 134 L 134 L Potassium 5.2 H D Chloride Carbon Dioxide 17 L 16 L 19 L BUN 77 H D Creatinine 0.2 L 0.3 L D 3.8 H D Random Glucose 300 H 288 H 665 H* D Hemoglobin A1c % Lactic Acid Calcium < 5.0 L* 8.1 L D Total Bilirubin AST 9 L D Albumin 2.6 L Triglycerides Total Amylase Lipase Ur Specific Gary Urine Glucose (UA) Urine Ketones Urine Blood Acetone, Qual 05/13/17 05/13/17 15:30 16:30 WBC Hgb MCH MCHC MPV Neutrophils % Neutrophils % (Manual) Lymphocytes % Lymphocytes % (Manual) PT with INR ABG pH ABG pCO2 at Pt Temp ABG pO2 at Pt Temp ABG HCO3 ABG Base Excess VBG pH POC VBG pCO2 POC VBG pO2 Mixed VBG HCO3 Sodium 134 L 134 L Potassium Chloride Carbon Dioxide 17 L 17 L BUN Creatinine 0.4 L D 0.3 L D Random Glucose 299 H D 308 H* Hemoglobin A1c % Lactic Acid Calcium 6.9 L* 6.5 L* Total Bilirubin AST Albumin Triglycerides Total Amylase Lipase Ur Specific Gary Urine Glucose (UA) Urine Ketones Urine Blood Acetone, Qual - History Source History Provided By: Patient, Medical Record Limitations to Obtaining History: No Limitations (transalted by covering resident) - Past Medical History Endocrine: Yes: Other (GDM) - Past Surgical History Past Surgical History: Yes: - Alcohol/Substance Use Hx Alcohol Use: No History of Substance Use: reports: None - Smoking History Smoking history: Never smoked Have you smoked in the past 12 months: No Home Medications - Allergies Allergies/Adverse Reactions: Allergies Allergy/AdvReac Type Severity Reaction Status Date / Time No Known Allergies Allergy Verified 05/13/17 00:10 - Home Medications Home Medications: Ambulatory Orders NK [No Known Home Medication] 05/13/17 Family Disease History - Family Disease History Family History: Unremarkable Family Disease History: Diabetes: Father, Mother Review of Systems Findings/Remarks: please refer to H&P Physical Exam-GI Vital Signs: Vital Signs Temperature 98.7 F 05/13/17 14:30 Pulse Rate 110 H 05/13/17 16:28 Respiratory Rate 36 H 05/13/17 16:28 Blood Pressure 124/76 05/13/17 16:28 O2 Sat by Pulse Oximetry (%) 100 05/13/17 16:44 Constitutional: Yes: Well Nourished, Anxious, Mild Distress Eyes: Yes: Conjunctiva Clear HENT: Yes: Atraumatic Cardiovascular: Yes: Regular Rate and Rhythm Respiratory: Yes: Regular ...Auscultate: Yes: Normoactive Bowel Sounds ...Palpate: Yes: Soft. No: Tenderness, Tenderness, Epigastium, Tenderness, Rebound ...Percussion: Yes: Other (discolorations). No: Fluid Wave Edema: No Integumentary: No: Jaundice Neurological: Yes: Alert, Oriented Labs: CBC, BMP 05/13/17 11:50 05/13/17 16:30 INR, PTT INR 1.14 (0.82-1.09) 05/13/17 11:50 Fibrinogen 429.0 mg/dL (238-498) 05/13/17 11:50 Vital Signs (72 hours) 05/13/17 05/13/17 05/13/17 00:10 03:30 06:05 Temperature 99.9 F H 97.9 F Pulse Rate 90 Pulse Rate [ 88 71 Apical] Respiratory 22 18 18 Rate Blood Pressure 117/60 Blood Pressure 122/70 118/70 [Left Arm] O2 Sat by Pulse 98 99 99 Oximetry (%) 05/13/17 05/13/17 05/13/17 06:17 06:19 09:00 Temperature Pulse Rate Pulse Rate [ 109 H Apical] Respiratory 18 22 Rate Blood Pressure Blood Pressure 109/66 [Left Arm] O2 Sat by Pulse 97 96 98 Oximetry (%) 05/13/17 05/13/17 05/13/17 09:51 10:57 12:06 Temperature 99.6 F 100.6 F H 98.1 F Pulse Rate 106 H 125 H 115 H Pulse Rate [ Apical] Respiratory 16 15 22 Rate Blood Pressure 118/71 113/67 130/72 Blood Pressure [Left Arm] O2 Sat by Pulse Oximetry (%) 05/13/17 05/13/17 05/13/17 14:30 16:28 16:44 Temperature 98.7 F Pulse Rate 108 H 110 H Pulse Rate [ Apical] Respiratory 30 H 36 H Rate Blood Pressure 118/74 124/76 Blood Pressure [Left Arm] O2 Sat by Pulse 100 Oximetry (%) INR, PTT INR 1.14 (0.82-1.09) 05/13/17 11:50 Fibrinogen 429.0 mg/dL (238-498) 05/13/17 11:50 CBCD WBC 13.3 K/mm3 (4.0-10.0) H 05/13/17 11:50 RBC 4.95 M/mm3 (3.60-5.2) 05/13/17 11:50 Hgb 14.6 GM/dL (10.7-15.3) D 05/13/17 11:50 Hct 43.9 % (32.4-45.2) 05/13/17 11:50 MCV 88.7 fl (80-96) 05/13/17 11:50 MCHC 33.4 g/dl (32.0-36.0) 05/13/17 11:50 RDW 13.4 % (11.6-15.6) 05/13/17 11:50 Plt Count 158 K/MM3 (134-434) 05/13/17 11:50 MPV 11.6 fl (7.5-11.1) H 05/13/17 11:50 CMP Sodium 134 mmol/L (136-145) L 05/13/17 16:30 Potassium 3.9 mmol/L (3.5-5.1) 05/13/17 16:30 Chloride 106 mmol/L (98-107) 05/13/17 16:30 Carbon Dioxide 17 mmol/L (21-32) L 05/13/17 16:30 Anion Gap 11 (8-16) 05/13/17 16:30 BUN 7 mg/dL (7-18) 05/13/17 16:30 Creatinine 0.3 mg/dL (0.55-1.02) L D 05/13/17 16:30 Creat Clearance w eGFR 13.77 (>60) 05/13/17 15:20 Calcium 6.5 mg/dL (8.5-10.1) L* 05/13/17 16:30 Total Bilirubin 0.3 mg/dL (0.2-1.0) D 05/13/17 15:20 AST 9 U/L (15-37) L D 05/13/17 15:20 ALT 17 U/L (12-78) D 05/13/17 15:20 Alkaline Phosphatase 78 U/L (45-117) 05/13/17 15:20 Total Protein 6.6 g/dl (6.4-8.2) 05/13/17 15:20 Albumin 2.6 g/dl (3.4-5.0) L 05/13/17 15:20 Imaging - Results Cat Scan: Report Reviewed (body/tail inflammation) Problem List - Problems (1) Acute pancreatitis Code(s): K85.90 - ACUTE PANCREATITIS WITHOUT NECROSIS OR INFECTION, UNSP Qualifiers: Pancreatitis type: unspecified pancreatitis type Acute pancreatitis complication: unspecified Qualified Code(s): K85.90 - Acute pancreatitis without necrosis or infection, unspecified (2) Hyperglycemia Code(s): R73.9 - HYPERGLYCEMIA, UNSPECIFIED (3) Hypertriglyceridemia Code(s): E78.1 - PURE HYPERGLYCERIDEMIA (4) Hypokalemia Code(s): E87.6 - HYPOKALEMIA (5) Hyponatremia Code(s): E87.1 - HYPO-OSMOLALITY AND HYPONATREMIA (6) SIRS (systemic inflammatory response syndrome) Code(s): R65.10 - SIRS OF NON-INFECTIOUS ORIGIN W/O ACUTE ORGAN DYSFUNCTION Assessment/Plan Acute pancreatitis with elevated Tgc Repeat CMP (BUN/Cr), moonitor q6 hrs, monitor urine output Agree with aggressive hydration 10 ml/kg/hr, NPO except medications, antiemetics and pain management Agree with ICU monitoring, Regular Insulin IV to treat hypertriglyceridemia with target below 500 mg/ml, or therapeutic plasma exchange if available. Target blood sugar around 200. IV glucose as needed to avoid hypoglycemia. Restart gemfibrozil Daily labs and hourly blood glucose while on Insulin IV
[2017-05-13] MEDS ORDERED: ALBUMIN HUMAN 5% 250 ML IV SOLUTION IVPB ONE (19:15)
[2017-05-13] MEDS ORDERED: IMIPENEM/CILASTATIN SODIUM 500 MG in SODIUM CHLORIDE 100 ML IVPB SCH (19:15)
[2017-05-13] MEDS: DEXTROSE 5%-0.45% SALINE 1,000 ML IV SCH (19:22)
[2017-05-13 19:23] LABS: ANION GAP 11 (8-16); CALCIUM 6.3 mg/dL (8.5-10.1); CO2 18 mmol/L (21-32); CREATININE 0.3 mg/dL (0.55-1.02); GLUCOSE,RANDOM 296 mg/dL (74-106)
[2017-05-13] MEDS ORDERED: HEPARIN NA (PORCINE) 5,000 UNITS/ML 1ML VIAL IVPUSH PRN (20:19)
[2017-05-13] MEDS ORDERED: HYDROmorphone HCL CARPU-JECT 1 MG/1 ML DISP.SYRIN IVPB PRN (21:23)
[2017-05-13 22:24] LABS: INR 1.46 (0.82-1.09); PROTHROMBIN TIME (PATIENT) 16.5 SEC (9.98-11.88)
[2017-05-13 22:26] LABS: ACTIVATED PTT 42.6 SECONDS (26.9-34.4)
[2017-05-13 22:49] LABS: ALBUMIN 3.4 g/dl (3.4-5.0); ALK PHOS 31 U/L (45-117); ANION GAP 7 (8-16); BILIRUBIN,TOTAL 0.8 mg/dL (0.2-1.0); CO2 21 mmol/L (21-32); CREATININE 0.3 mg/dL (0.55-1.02); GLUCOSE,RANDOM 223 mg/dL (74-106); TOT PROT 5.2 g/dl (6.4-8.2)
[2017-05-13 22:51] LABS: SGOT/AST 15 U/L (15-37); SGPT/ALT 15 U/L (12-78)
[2017-05-13 22:52] LABS: CALCIUM 6.3 mg/dL (8.5-10.1)
[2017-05-13] MEDS ORDERED: POTASSIUM CHLORIDE IVPB SCH (23:30)
[2017-05-13] MEDS: POTASSIUM CHLORIDE 20 MEQ PREMIX IVPB 100 ML IVPB SCH (23:48)
[2017-05-13] MEDS: IMIPENEM/CILASTATIN SODIUM 500 MG in SODIUM CHLORIDE 100 ML IVPB SCH (23:49)
[2017-05-14] MEDS: POTASSIUM CHLORIDE 20 MEQ PREMIX IVPB 100 ML IVPB SCH (01:00)
[2017-05-14] MEDS: DEXTROSE 5%-0.45% SALINE 1,000 ML IV SCH (02:21)
[2017-05-14] MEDS: HEPARIN NA (PORCINE) 5,000 UNITS/ML 1ML VIAL SQ SCH ×4 (02:23→19:17)
[2017-05-14 03:22] LABS: ALBUMIN 3.1 g/dl (3.4-5.0); ANION GAP 9 (8-16); BILIRUBIN,TOTAL 0.8 mg/dL (0.2-1.0); CO2 18 mmol/L (21-32); CREATININE 0.2 mg/dL (0.55-1.02); GLUCOSE,RANDOM 178 mg/dL (74-106); SGPT/ALT 14 U/L (12-78); TOT PROT 5.1 g/dl (6.4-8.2)
[2017-05-14 03:23] LABS: ALK PHOS 33 U/L (45-117)
[2017-05-14 03:25] LABS: SGOT/AST 24 U/L (15-37)
[2017-05-14] MEDS: ACETAMINOPHEN 1000 MG/100 ML VIAL (NON FORMULARY) IVPB PRN ×2 (03:35→23:53)
[2017-05-14] MEDS: IMIPENEM/CILASTATIN SODIUM 500 MG in SODIUM CHLORIDE 100 ML IVPB SCH ×4 (04:30→21:40)
[2017-05-14 06:36] LABS: BASOPHIL 0.3 % (0-2.0); EOSINOPHIL 0.1 % (0-4.5); MCH 30.6 pg (25.7-33.7); MCHC 34.7 g/dl (32.0-36.0); MEAN CELL VOLUME 88.1 fl (80-96); MEAN PLT VOLUME 11.7 fl (7.5-11.1); NEUTROPHILS 87.8 % (42.8-82.8); PLATELET COUNT 144 K/MM3 (134-434); RDW 13.8 % (11.6-15.6); WHITE BLOOD COUNT 9.9 K/mm3 (4.0-10.0)
[2017-05-14] MEDS ORDERED: HYDROmorphone HCL CARPU-JECT 2 MG/1 ML DISP.SYRIN ONE (06:38)
[2017-05-14 06:55] LABS: CALCIUM 7.2 mg/dL (8.5-10.1)
[2017-05-14 07:01] LABS: ALBUMIN 2.9 g/dl (3.4-5.0); ALK PHOS 34 U/L (45-117); ANION GAP 11 (8-16); BILIRUBIN,TOTAL 0.7 mg/dL (0.2-1.0); CO2 18 mmol/L (21-32); CREATININE 0.2 mg/dL (0.55-1.02); GLUCOSE,RANDOM 169 mg/dL (74-106); SGPT/ALT 11 U/L (12-78)
[2017-05-14 07:05] LABS: INR 1.47 (0.82-1.09); PROTHROMBIN TIME (PATIENT) 16.6 SEC (9.98-11.88)
[2017-05-14 07:08] LABS: ACTIVATED PTT 42.3 SECONDS (26.9-34.4)
[2017-05-14 07:09] LABS: MAGNESIUM 1.9 mg/dL (1.8-2.4); SGOT/AST 13 U/L (15-37)
--- NOTE | 2017-05-14 08:43 | PN ---
Physical Exam: SUBJECTIVE: Patient seen and examined. Slept well last night. Spiked fevers Tmax 100.6, received IV Tylenol. Still endorses abdominal pain, exacerbated with breathing. OBJECTIVE: Vital Signs Period Temp Pulse Resp BP Sys/Rodgers Pulse Ox Last 24 Hr 98.1 F-100.6 F 100-125 15-38 104-130/64-76 98-100 GEN: AAOx3, Lying in bed, mild accessory muscle usage HEENT: PERRLA, EOMi CV: S1, S2, RRR LUNG: CTABL gross anteriorly ABD: Distended, diffuse tender to palpation, normoactive BS MSK: No edema, no erythema Laboratory Last Values WBC 9.9 K/mm3 (4.0-10.0) 05/14/17 06:15 RBC 4.77 M/mm3 (3.60-5.2) 05/14/17 06:15 Hgb 14.6 GM/dL (10.7-15.3) 05/14/17 06:15 Hct 42.1 % (32.4-45.2) 05/14/17 06:15 MCV 88.1 fl (80-96) 05/14/17 06:15 MCH 30.6 pg (25.7-33.7) 05/14/17 06:15 MCHC 34.7 g/dl (32.0-36.0) 05/14/17 06:15 RDW 13.8 % (11.6-15.6) 05/14/17 06:15 Plt Count 144 K/MM3 (134-434) 05/14/17 06:15 MPV 11.7 fl (7.5-11.1) H 05/14/17 06:15 Neutrophils % 87.8 % (42.8-82.8) H 05/14/17 06:15 Neutrophils % (Manual) 84.0 % (42.8-82.8) H 05/13/17 03:18 Band Neutrophils % 5.0 % 05/13/17 03:18 Lymphocytes % 8.4 % (8-40) 05/14/17 06:15 Lymphocytes % (Manual) 7.0 % (8-40) L 05/13/17 03:18 Monocytes % 3.4 % (3.8-10.2) L 05/14/17 06:15 Monocytes % (Manual) 4 % (3.8-10.2) 05/13/17 03:18 Eosinophils % 0.1 % (0-4.5) D 05/14/17 06:15 Basophils % 0.3 % (0-2.0) 05/14/17 06:15 Platelet Comment No Result Required. 05/13/17 03:18 Anisocytosis 1+ 05/13/17 03:18 PT with INR 16.60 SEC (9.98-11.88) H 05/14/17 06:15 INR 1.47 (0.82-1.09) H 05/14/17 06:15 PTT (Actin FS) 42.3 SECONDS (26.9-34.4) H 05/14/17 06:15 Fibrinogen 406.0 mg/dL (238-498) D 05/14/17 06:15 Puncture Site Left radial 05/13/17 10:11 ABG pH 7.32 (7.35-7.45) L 05/13/17 10:11 ABG pCO2 at Pt Temp 34.8 mmHg (35-45) L 05/13/17 10:11 ABG pO2 at Pt Temp 132.0 mmHg (80-100) H 05/13/17 10:11 ABG HCO3 17.5 meq/L (22-26) L 05/13/17 10:11 ABG O2 Sat (Measured) 97.9 % (90-98.9) 05/13/17 10:11 ABG O2 Content 19.9 % vol (15-22) 05/13/17 10:11 ABG Base Excess -7.3 meq/l (-2-2) L 05/13/17 10:11 Ashkan Test Positive 05/13/17 10:11 VBG pH 7.30 (7.32-7.42) L 05/13/17 05:15 POC VBG pCO2 36.6 mmHg (38-52) L 05/13/17 05:15 POC VBG pO2 51.1 mmHg (28-48) H 05/13/17 05:15 Mixed VBG HCO3 17.6 meq/L (19-25) L 05/13/17 05:15 O2 Delivery Device Y 05/13/17 10:11 Oxygen Flow Rate Yes 05/13/17 10:11 Sodium 138 mmol/L (136-145) 05/14/17 06:15 Potassium 3.3 mmol/L (3.5-5.1) L 05/14/17 06:15 Chloride 109 mmol/L (98-107) H 05/14/17 06:15 Carbon Dioxide 18 mmol/L (21-32) L 05/14/17 06:15 Anion Gap 11 (8-16) 05/14/17 06:15 BUN 5 mg/dL (7-18) L 05/14/17 06:15 Creatinine 0.2 mg/dL (0.55-1.02) L 05/14/17 06:15 Creat Clearance w eGFR > 60 (>60) 05/14/17 06:15 POC Glucometer 200.75987 UNITS (80-120) 05/13/17 16:32 Random Glucose 169 mg/dL (74-106) H 05/14/17 06:15 Hemoglobin A1c % 9.6 % (4.8-6.0) H 05/13/17 09:55 Lactic Acid 0.3 mmol/L (0.4-2.0) L 05/13/17 21:40 Calcium 7.2 mg/dL (8.5-10.1) L 05/14/17 06:15 Magnesium 1.9 mg/dL (1.8-2.4) 05/14/17 06:15 Total Bilirubin 0.7 mg/dL (0.2-1.0) 05/14/17 06:15 Direct Bilirubin TNP 05/13/17 11:50 AST 13 U/L (15-37) L D 05/14/17 06:15 ALT 11 U/L (12-78) L D 05/14/17 06:15 Alkaline Phosphatase 34 U/L (45-117) L 05/14/17 06:15 Total Protein 5.0 g/dl (6.4-8.2) L 05/14/17 06:15 Albumin 2.9 g/dl (3.4-5.0) L 05/14/17 06:15 Triglycerides 509 mg/dL (35-160) H D 05/14/17 06:15 Total Amylase 370 U/L (25-115) H 05/13/17 05:30 Lipase 3420 U/L (73-393) H 05/13/17 03:18 Urine Color Ltyellow 05/13/17 03:25 Urine Appearance Clear 05/13/17 03:25 Urine pH 5.0 (5.0-8.0) 05/13/17 03:25 Ur Specific [place] 1.039 (1.001-1.035) H 05/13/17 03:25 Urine Protein Negative (NEGATIVE) 05/13/17 03:25 Urine Glucose (UA) 3+ (NEGATIVE) H 05/13/17 03:25 Urine Ketones 2+ (NEGATIVE) H 05/13/17 03:25 Urine Blood 1+ (NEGATIVE) H 05/13/17 03:25 Urine Nitrite Negative (NEGATIVE) 05/13/17 03:25 Urine Bilirubin Negative (NEGATIVE) 05/13/17 03:25 Urine Urobilinogen Negative mg/dL (0.2-1.0) 05/13/17 03:25 Ur Leukocyte Esterase Negative (NEGATIVE) 05/13/17 03:25 Urine WBC (Auto) 1 05/13/17 03:25 Urine RBC (Auto) 1 05/13/17 03:25 Ur Epithelial Cells Rare /hpf (FEW) 05/13/17 03:25 Urine Bacteria Rare /hpf (NONE SEEN) 05/13/17 03:25 Urine HCG, Qual Negative 05/13/17 03:25 Acetone, Qual Positive moderate 2+ (NEGATIVE) H 05/13/17 04:30 Blood Type O POSITIVE 05/13/17 11:50 Antibody Screen Negative 05/13/17 11:50 Active Medications Generic Name Dose Route Start Last Admin Trade Name Jhonq PRN Reason Stop Dose Admin Acetaminophen 1,000 mg 05/13/17 11:05 05/14/17 03:35 Ofirmev Injection - IVPB 1,000 mg Q6H PRN Administration FEVER OR PAIN Chlorhexidine Gluconate 1 applic 05/13/17 22:00 05/14/17 00:00 Hibiclens For Decolonization - TP 1 applic HS NEFTALY Administration Gemfibrozil 600 mg 05/14/17 15:00 Lopid - PO BID@0700,1630 NEFTALY Heparin Sodium (Porcine) 5,000 unit 05/13/17 10:15 05/14/17 10:38 Heparin - SQ 5,000 unit Q8H-IV NEFTALY Administration Heparin Sodium (Porcine) 5,000 unit 05/13/17 20:19 05/13/17 20:30 Heparin - IVPUSH 5,000 unit PRN PRN Administration Heparin Hydromorphone HCl 0.5 mg 05/13/17 21:23 Dilaudid Injection - IVPB Q4H PRN Pain 4-6 Hydromorphone HCl 1 mg 05/13/17 21:24 05/14/17 06:44 Dilaudid Injection - IVPUSH 1 mg Q4H PRN Administration Pain >7 Imipenem/Cilastatin Sodium 500 100 mls @ 100 mls/hr 05/13/17 21:00 05/14/17 15:20 mg/ Sodium Chloride IVPB 100 mls/hr Q6H-IV NEFTALY Administration Protocol Insulin Human Regular 100 100 mls @ 6.53 mls/hr 05/14/17 12:40 05/14/17 13:39 units/ Sodium Chloride IVPB 0.1 units/kg/hr TITR NEFTALY 6.53 mls/hr Protocol Administration 0.1 UNITS/KG/HR Potassium Chloride/Dextrose/Sod Cl 20 meq in 1,000 mls @ 300 mls/hr 05/14/17 14:48 05/14/17 15:19 D5-1/2ns+20 Meq Kcl - IV 300 mls/hr ASDIR NEFTALY Administration Mupirocin 1 applic 05/13/17 22:00 05/14/17 00:00 Bactroban 2% Ointment - NS 05/18/17 21:59 1 appful BID NEFTALY Administration Ondansetron HCl 4 mg 05/13/17 10:04 Zofran Injection IVPUSH Q6H PRN NAUSEA ASSESSMENT/PLAN: Pt is a 32yo F with a PMHx of Gestational DM who presented with epigastric pain , polyuria, and polydipsia. She was found to have acute pancreatitis and hyperglycemia. # HyperTG Induced Acute Pancreatitis - TG >7000, lipase >3000, +CT a/p - S/p plasmapheresis x1 w/ 5% albumin, repeat TG 509, heme/onc on board, PT/ PTT/Fibrinogen intact, started Gemfibrozil PO 600mg BID - Since pt is NPO, continue insulin gtt 0.1mg/kg/hr, increase D51/2NS fluids to 250cc/hr, BGM Q1hr (goal gluc 120 to 180); BMP Q6H; taylor to monitor I&Os - When tolerates PO switch insulin drip diet + SQ insulin - Pain control w/ IV Dilaudid 1mg PRN, Zofran PRN # Severe Sepsis - Tm 100.6, wbc 15.4, HR >100, RR >30, pancreatic source, + lactic acid - Though severe sepsis picture has resolved, pt is still spiking fevers, small concern for necrotizing pancreatitis, through CT abd/pelvis shows no fluid collection, started on Imipenem, ID consult, BCx pending # Hyperglycemia w/ Ketones - High gluc, pH >7.3, +ketones in urine/serum, A1c 9.6 - Wasn't on home meds, likely 2/2 acute inflammatory process, continue protocol as stated above # Hypokalemia - Will add KCl 20meq into fluid bag, will check BMP Q6H to monitor K+ # Hypocalcemia - 2/2 acute pancreatitis, improved with Calcium drip, d/c for now # Hyponatremia - hypovolemic, improving w/ fluids and insulin # FEN - D5-1/2NS q/ Kcl 20meq at 250cc/hr, NPO, monitor elec # PPx - HSQ 5,000 TID, no GI ppx, PT on hold for now # Code Status - Full Code # Dispo - Continue ICU mgmt, monitor TG and glucose d/w Dr Alberto and ICU team Joel Watson MD - PGY1 Internal Medicine Visit type - Emergency Visit Emergency Visit: No - New Patient This patient is new to me today: No - Critical Care Critical Care patient: No - Discharge Referral Referred to [facility] Med [facility] No
[2017-05-14] MEDS ORDERED: KCL 10 MEQ IVPB 10 MEQ/100 ML INFUS.BAG IVPB SCH (09:00)
[2017-05-14] MEDS ORDERED: HEMOQUE TEST 1 EACH EACH ONE (09:01)
[2017-05-14] MEDS ORDERED: POTASSIUM CHLORIDE 20 MEQ in SODIUM CHLORIDE 250 ML IVPB ONE (09:15)
[2017-05-14] MEDS ORDERED: INSULIN REGULAR 100 UNITS in SODIUM CHLORIDE 99 ML IVPB SCH (09:34)
--- NOTE | 2017-05-14 09:37 | PN ---
Progress Note (short form) - Note Progress Note: Hematology follow-up for PLEX for hypertriglyceredmia. Chart reviewed in detail. Still with abdominal pain All consult notes reviewed O/E General: ill appearing woman Dry MM Tachycardic Lungs Clear Abdomen: + tenderness , +BS Le: No swelling noted Last Vital Signs Temp Pulse Resp BP Pulse Ox 99.1 F 100 H 24 111/65 100 05/14/17 06:00 05/14/17 06:00 05/14/17 06:00 05/14/17 06:00 05/14/17 00:57 CBC, BMP 05/14/17 06:15 Current Medications Generic Name Dose Route Start Last Admin Trade Name Freq PRN Reason Stop Dose Admin Acetaminophen 1,000 mg 05/13/17 11:05 05/14/17 03:35 Ofirmev Injection - IVPB 1,000 mg Q6H PRN Administration FEVER OR PAIN Chlorhexidine Gluconate 1 applic 05/13/17 22:00 05/14/17 00:00 Hibiclens For Decolonization - TP 1 applic HS NEFTALY Administration Heparin Sodium (Porcine) 5,000 unit 05/13/17 10:15 05/14/17 02:23 Heparin - SQ 5,000 unit Q8H-IV NEFTALY Administration Heparin Sodium (Porcine) 5,000 unit 05/13/17 20:19 05/13/17 20:30 Heparin - IVPUSH 5,000 unit PRN PRN Administration Heparin Hydromorphone HCl 0.5 mg 05/13/17 21:23 Dilaudid Injection - IVPB Q4H PRN Pain 4-6 Hydromorphone HCl 1 mg 05/13/17 21:24 05/14/17 06:44 Dilaudid Injection - IVPUSH 1 mg Q4H PRN Administration Pain >7 Calcium Gluconate 11,000 mg/ 1,110 mls @ 50 mls/hr 05/13/17 15:15 05/13/17 16 :21 Sodium Chloride IVPB 05/14/17 15:14 50 mls/hr ASDIR NEFTALY Administration Dextrose/Sodium Chloride 1,000 mls @ 150 mls/hr 05/13/17 18:00 05/14/17 02:21 D5-1/2ns - IV 150 mls/hr ASDIR NEFTALY Administration Imipenem/Cilastatin Sodium 500 100 mls @ 100 mls/hr 05/13/17 21:00 05/14/17 04:30 mg/ Sodium Chloride IVPB 100 mls/hr Q6H-IV NEFTALY Administration Protocol Potassium Chloride 20 meq/ 260 mls @ 130 mls/hr 05/14/17 09:15 Sodium Chloride IVPB 05/14/17 11:14 ONCE ONE Insulin Human Regular 100 100 mls @ 3.26 mls/hr 05/14/17 09:34 units/ Sodium Chloride IVPB TITR NEFTALY Protocol 0.05 UNITS/KG/HR Mupirocin 1 applic 05/13/17 22:00 05/14/17 00:00 Bactroban 2% Ointment - NS 05/18/17 21:59 1 appful BID NEFTALY Administration Ondansetron HCl 4 mg 05/13/17 10:04 Zofran Injection IVPUSH Q6H PRN NAUSEA Assessment/Plan: Acute Pancreatitis Hypertriglyceridemia HYperglycemia Fevers s/p Plasma exchange session one on 05/13/2017. Today's TG is 509. will hold off on today, will repeat in the evening as per Endo coags reviewed,will repeat in the am. lipase and amylase pending from today, repeat daily. Pancreatitis and Hyperglycemia management per Endo/GI/ICU d/w Rolo, RN , ICU
[2017-05-14] MEDS ORDERED: PT OWN MED DRAWER 7, Y5N ONE ×2 (09:38→21:19)
[2017-05-14 09:47] LABS: CHOLESTEROL 185 mg/dL (50-200)
[2017-05-14 10:45] LABS: ALBUMIN 2.7 g/dl (3.4-5.0); ALK PHOS 35 U/L (45-117); ANION GAP 10 (8-16); BILIRUBIN,TOTAL 0.7 mg/dL (0.2-1.0); CALCIUM 7.8 mg/dL (8.5-10.1); CO2 19 mmol/L (21-32); CREATININE 0.2 mg/dL (0.55-1.02); GLUCOSE,RANDOM 151 mg/dL (74-106); SGOT/AST 15 U/L (15-37); SGPT/ALT 11 U/L (12-78); TOT PROT 4.8 g/dl (6.4-8.2)
[2017-05-14 11:16] LABS: AMYLASE 223 U/L (25-115)
--- NOTE | 2017-05-14 11:59 | PN ---
Progress Note (short form) - Note Progress Note: Feels better Still with abd pain No N/V, No BM, passing flatus Vital Signs Period Temp Pulse Resp BP Sys/Rodgers Pulse Ox Last 24 Hr 98.1 F-100.1 F 100-115 22-38 104-130/64-76 100-100 PE: Aox3 Neck: Supple, No JVD HEENT: PERRL, EOMI Lung: CTA CVS: S1S2 Abd: Epigastric tenderness, Ext: No edema Neuro: No focal deficit CBC,CMP WBC 9.9 K/mm3 (4.0-10.0) 05/14/17 06:15 RBC 4.77 M/mm3 (3.60-5.2) 05/14/17 06:15 Hgb 14.6 GM/dL (10.7-15.3) 05/14/17 06:15 Hct 42.1 % (32.4-45.2) 05/14/17 06:15 MCV 88.1 fl (80-96) 05/14/17 06:15 MCH 30.6 pg (25.7-33.7) 05/14/17 06:15 MCHC 34.7 g/dl (32.0-36.0) 05/14/17 06:15 RDW 13.8 % (11.6-15.6) 05/14/17 06:15 Plt Count 144 K/MM3 (134-434) 05/14/17 06:15 MPV 11.7 fl (7.5-11.1) H 05/14/17 06:15 Neutrophils % 87.8 % (42.8-82.8) H 05/14/17 06:15 Neutrophils % (Manual) 84.0 % (42.8-82.8) H 05/13/17 03:18 Band Neutrophils % 5.0 % 05/13/17 03:18 Lymphocytes % 8.4 % (8-40) 05/14/17 06:15 Lymphocytes % (Manual) 7.0 % (8-40) L 05/13/17 03:18 Monocytes % 3.4 % (3.8-10.2) L 05/14/17 06:15 Monocytes % (Manual) 4 % (3.8-10.2) 05/13/17 03:18 Eosinophils % 0.1 % (0-4.5) D 05/14/17 06:15 Basophils % 0.3 % (0-2.0) 05/14/17 06:15 Platelet Comment No Result Required. 05/13/17 03:18 Anisocytosis 1+ 05/13/17 03:18 Sodium 138 mmol/L (136-145) 05/14/17 09:33 Potassium 3.3 mmol/L (3.5-5.1) L 05/14/17 09:33 Chloride 109 mmol/L (98-107) H 05/14/17 09:33 Carbon Dioxide 19 mmol/L (21-32) L 05/14/17 09:33 Anion Gap 10 (8-16) 05/14/17 09:33 BUN 6 mg/dL (7-18) L 05/14/17 09:33 Creatinine 0.2 mg/dL (0.55-1.02) L 05/14/17 09:33 Creat Clearance w eGFR > 60 (>60) 05/14/17 09:33 POC Glucometer 200.22179 UNITS (80-120) 05/13/17 16:32 Random Glucose 151 mg/dL (74-106) H 05/14/17 09:33 Hemoglobin A1c % 9.6 % (4.8-6.0) H 05/13/17 09:55 Lactic Acid 0.3 mmol/L (0.4-2.0) L 05/13/17 21:40 Calcium 7.8 mg/dL (8.5-10.1) L 05/14/17 09:33 Magnesium 1.9 mg/dL (1.8-2.4) 05/14/17 06:15 Total Bilirubin 0.7 mg/dL (0.2-1.0) 05/14/17 09:33 Direct Bilirubin TNP 05/13/17 11:50 AST 15 U/L (15-37) 05/14/17 09:33 ALT 11 U/L (12-78) L 05/14/17 09:33 Alkaline Phosphatase 35 U/L (45-117) L 05/14/17 09:33 Total Protein 4.8 g/dl (6.4-8.2) L 05/14/17 09:33 Albumin 2.7 g/dl (3.4-5.0) L 05/14/17 09:33 Triglycerides 509 mg/dL (35-160) H D 05/14/17 06:15 Cholesterol 185 mg/dL (50-200) 05/14/17 06:15 Total LDL Cholesterol 53 mg/dL (5-100) 05/14/17 06:15 HDL Cholesterol 15 mg/dL (40-60) L 05/14/17 06:15 Total Amylase 223 U/L (25-115) H D 05/14/17 02:00 Lipase 1113 U/L (73-393) H 05/14/17 02:00 TSH 0.20 uIU/ml (0.358-3.74) L 05/14/17 06:15 Current Medications Generic Name Dose Route Start Last Admin Trade Name Freq PRN Reason Stop Dose Admin Acetaminophen 1,000 mg 05/13/17 11:05 05/14/17 03:35 Ofirmev Injection - IVPB 1,000 mg Q6H PRN Administration FEVER OR PAIN Chlorhexidine Gluconate 1 applic 05/13/17 22:00 05/14/17 00:00 Hibiclens For Decolonization - TP 1 applic HS NEFTALY Administration Heparin Sodium (Porcine) 5,000 unit 05/13/17 10:15 05/14/17 02:23 Heparin - SQ 5,000 unit Q8H-IV NEFTALY Administration Heparin Sodium (Porcine) 5,000 unit 05/13/17 20:19 05/13/17 20:30 Heparin - IVPUSH 5,000 unit PRN PRN Administration Heparin Hydromorphone HCl 0.5 mg 05/13/17 21:23 Dilaudid Injection - IVPB Q4H PRN Pain 4-6 Hydromorphone HCl 1 mg 05/13/17 21:24 05/14/17 06:44 Dilaudid Injection - IVPUSH 1 mg Q4H PRN Administration Pain >7 Calcium Gluconate 11,000 mg/ 1,110 mls @ 50 mls/hr 05/13/17 15:15 05/13/17 16 :21 Sodium Chloride IVPB 05/14/17 15:14 50 mls/hr ASDIR NEFTALY Administration Dextrose/Sodium Chloride 1,000 mls @ 150 mls/hr 05/13/17 18:00 05/14/17 02:21 D5-1/2ns - IV 150 mls/hr ASDIR NEFTALY Administration Imipenem/Cilastatin Sodium 500 100 mls @ 100 mls/hr 05/13/17 21:00 05/14/17 09:39 mg/ Sodium Chloride IVPB 100 mls/hr Q6H-IV NEFTALY Administration Protocol Insulin Human Regular 100 100 mls @ 3.26 mls/hr 05/14/17 09:34 05/14/17 09:39 units/ Sodium Chloride IVPB 0.05 units/kg/hr TITR NEFTALY 3.26 mls/hr Protocol Administration 0.05 UNITS/KG/HR Potassium Chloride 10 meq in 100 mls @ 100 mls/hr 05/14/17 10:30 Potassium Chloride 10 Meq Premix Ivpb - IVPB 05/14/17 12:29 Q60M NEFTALY Mupirocin 1 applic 05/13/17 22:00 05/14/17 00:00 Bactroban 2% Ointment - NS 05/18/17 21:59 1 appful BID NEFTALY Administration Ondansetron HCl 4 mg 05/13/17 10:04 Zofran Injection IVPUSH Q6H PRN NAUSEA AP: Acute Pancreatitis Hypertriglyceridemia HYperglycemia S/P Apheresis with decrease of Trig to 509 Continue Insulin drip to maintain blood sugar 120 to 180 BGM Q1H CMP Q 6 hr Triglyceride level Q 12 hr, repeat tonight, Repeat apheresis if triglyceride levels rise Continue IV Dextrose to maintain blood sugar Start Fibrates once pt is able to tolerate oral meds Case discussed with Hematology GI consult noted Electrolyte replacement as necessary, Check ionized calcium Further management as per ICU team. Problem List - Problems (1) Acute pancreatitis Code(s): K85.90 - ACUTE PANCREATITIS WITHOUT NECROSIS OR INFECTION, UNSP Qualifiers: Pancreatitis type: unspecified pancreatitis type Acute pancreatitis complication: unspecified Qualified Code(s): K85.90 - Acute pancreatitis without necrosis or infection, unspecified (2) Hyperglycemia Code(s): R73.9 - HYPERGLYCEMIA, UNSPECIFIED (3) Hypertriglyceridemia Code(s): E78.1 - PURE HYPERGLYCERIDEMIA
[2017-05-14] MEDS: MUPIROCIN 2% TOPICAL OINTMENT 22 GM TUBE NS SCH ×3 (12:00→22:26)
--- NOTE | 2017-05-14 12:25 | PN ---
Progress Note, Physician History of Present Illness: s/p TPE. Tgc 509, lipase >1000. Awake, ill-appearing with epigastric pain. Low- grade fever overnight. - Current Medication List Current Medications: Active Medications Acetaminophen (Ofirmev Injection -) 1,000 mg IVPB Q6H PRN PRN Reason: FEVER OR PAIN Last Admin: 05/14/17 03:35 Dose: 1,000 mg Chlorhexidine Gluconate (Hibiclens For Decolonization -) 1 applic TP HS NEFTALY Last Admin: 05/14/17 00:00 Dose: 1 applic Heparin Sodium (Porcine) (Heparin -) 5,000 unit SQ Q8H-IV NEFTALY Last Admin: 05/14/17 02:23 Dose: 5,000 unit Heparin Sodium (Porcine) (Heparin -) 5,000 unit IVPUSH PRN PRN PRN Reason: Heparin Last Admin: 05/13/17 20:30 Dose: 5,000 unit Hydromorphone HCl (Dilaudid Injection -) 0.5 mg IVPB Q4H PRN PRN Reason: Pain 4-6 Hydromorphone HCl (Dilaudid Injection -) 1 mg IVPUSH Q4H PRN PRN Reason: Pain >7 Last Admin: 05/14/17 06:44 Dose: 1 mg Calcium Gluconate 11,000 mg/ (Sodium Chloride) 1,110 mls @ 50 mls/hr IVPB ASDIR NEFTALY Stop: 05/14/17 15:14 Last Admin: 05/13/17 16:21 Dose: 50 mls/hr Dextrose/Sodium Chloride (D5-1/2ns -) 1,000 mls @ 150 mls/hr IV ASDIR NEFTALY Last Admin: 05/14/17 02:21 Dose: 150 mls/hr Imipenem/Cilastatin Sodium 500 (mg/ Sodium Chloride) 100 mls @ 100 mls/hr IVPB Q6H-IV NEFTALY PRN Reason: Protocol Last Admin: 05/14/17 09:39 Dose: 100 mls/hr Insulin Human Regular 100 (units/ Sodium Chloride) 100 mls @ 3.26 mls/hr IVPB TITR NEFTALY; 0.05 UNITS/KG/HR PRN Reason: Protocol Last Admin: 05/14/17 09:39 Dose: 0.05 units/kg/hr, 3.26 mls/hr Potassium Chloride (Potassium Chloride 10 Meq Premix Ivpb -) 10 meq in 100 mls @ 100 mls/hr IVPB Q60M NEFTALY Stop: 05/14/17 12:29 Mupirocin (Bactroban 2% Ointment -) 1 applic NS BID NEFTALY Stop: 05/18/17 21:59 Last Admin: 05/14/17 00:00 Dose: 1 appful Ondansetron HCl (Zofran Injection) 4 mg IVPUSH Q6H PRN PRN Reason: NAUSEA - Objective Vital Signs: Vital Signs Temperature 99.1 F 05/14/17 06:00 Pulse Rate 100 H 05/14/17 06:00 Respiratory Rate 24 05/14/17 08:00 Blood Pressure 116/67 05/14/17 08:00 O2 Sat by Pulse Oximetry (%) 100 05/14/17 00:57 Constitutional: Yes: Mild Distress Eyes: Yes: Conjunctiva Clear Cardiovascular: Yes: Regular Rate and Rhythm Respiratory: Yes: Regular Gastrointestinal: Yes: Soft, Tenderness, Epigastrium. No: Distention, Vomiting Neurological: Yes: Alert, Oriented Labs: CBC, BMP 05/14/17 06:15 05/14/17 09:33 INR, PTT INR 1.47 (0.82-1.09) H 05/14/17 06:15 Fibrinogen 406.0 mg/dL (238-498) D 05/14/17 06:15 Problem List - Problems (1) Acute pancreatitis Code(s): K85.90 - ACUTE PANCREATITIS WITHOUT NECROSIS OR INFECTION, UNSP Qualifiers: Pancreatitis type: unspecified pancreatitis type Acute pancreatitis complication: unspecified Qualified Code(s): K85.90 - Acute pancreatitis without necrosis or infection, unspecified (2) Hyperglycemia Code(s): R73.9 - HYPERGLYCEMIA, UNSPECIFIED (3) Hypertriglyceridemia Code(s): E78.1 - PURE HYPERGLYCERIDEMIA (4) Hypokalemia Code(s): E87.6 - HYPOKALEMIA (5) Hyponatremia Code(s): E87.1 - HYPO-OSMOLALITY AND HYPONATREMIA (6) SIRS (systemic inflammatory response syndrome) Code(s): R65.10 - SIRS OF NON-INFECTIOUS ORIGIN W/O ACUTE ORGAN DYSFUNCTION Assessment/Plan Acute pancreatitis with elevated Tgc Monitor CMP, CBC q6 hrs, Aggressive IVF @ ~ 300 ml/hr and monitor urine output, BUN, Cr NPO except medications, antiemetics and pain management Restart gemfibrozil Hourly blood glucose while on Insulin IV ICU care as per ICU team
[2017-05-14] MEDS: KCL 10 MEQ IVPB 10 MEQ/100 ML INFUS.BAG IVPB SCH ×2 (12:35→13:39)
[2017-05-14] MEDS ORDERED: DEXTROSE 5%-0.45% SALINE 1,000 ML IV SCH ×2 (12:36→14:23)
--- NOTE | 2017-05-14 13:34 | PN ---
Teaching Attending Note Name of Resident: Pascual Moran ATTENDING PHYSICIAN STATEMENT I saw and evaluated the patient. I reviewed the resident's note and discussed the case with the resident. I agree with the resident's findings and plan as documented. SUBJECTIVE: Pt seen and examined in the ICU. s/p plasma exchange yesterday with improvement in triglyceride level. Feels slightly improved. Low grade temps overnight. Still some abdominal discomfort. OBJECTIVE: Last Vital Signs Temp Pulse Resp BP Pulse Ox 99.1 F 112 H 24 110/70 100 05/14/17 06:00 05/14/17 12:00 05/14/17 12:00 05/14/17 12:00 05/14/17 00:57 Intake & Output 05/11/17 05/12/17 05/13/17 05/14/17 23:59 23:59 23:59 23:59 Intake Total 300 2672 Output Total 200 1600 Balance 100 1072 Weight 141 lb 12.116 oz 144 lb 13.499 oz Gen: ill appearing Heart: tachycardic, regular Lung: decreased breath sounds at the bases Abd: soft, mild TTP epigastric/RUQ region, no rebound Ext: no edema, right femoral catheter CBC, BMP 05/14/17 06:15 05/14/17 09:33 Active Medications Acetaminophen (Ofirmev Injection -) 1,000 mg IVPB Q6H PRN PRN Reason: FEVER OR PAIN Last Admin: 05/14/17 03:35 Dose: 1,000 mg Chlorhexidine Gluconate (Hibiclens For Decolonization -) 1 applic TP HS NEFTALY Last Admin: 05/14/17 00:00 Dose: 1 applic Heparin Sodium (Porcine) (Heparin -) 5,000 unit SQ Q8H-IV NEFTALY Last Admin: 05/14/17 02:23 Dose: 5,000 unit Heparin Sodium (Porcine) (Heparin -) 5,000 unit IVPUSH PRN PRN PRN Reason: Heparin Last Admin: 05/13/17 20:30 Dose: 5,000 unit Hydromorphone HCl (Dilaudid Injection -) 0.5 mg IVPB Q4H PRN PRN Reason: Pain 4-6 Hydromorphone HCl (Dilaudid Injection -) 1 mg IVPUSH Q4H PRN PRN Reason: Pain >7 Last Admin: 05/14/17 06:44 Dose: 1 mg Imipenem/Cilastatin Sodium 500 (mg/ Sodium Chloride) 100 mls @ 100 mls/hr IVPB Q6H-IV NEFTALY PRN Reason: Protocol Last Admin: 05/14/17 09:39 Dose: 100 mls/hr Dextrose/Sodium Chloride (D5-1/2ns -) 1,000 mls @ 300 mls/hr IV ASDIR NEFTALY Insulin Human Regular 100 (units/ Sodium Chloride) 100 mls @ 6.53 mls/hr IVPB TITR NEFTALY; 0.1 UNITS/KG/HR PRN Reason: Protocol Mupirocin (Bactroban 2% Ointment -) 1 applic NS BID NEFTALY Stop: 05/18/17 21:59 Last Admin: 05/14/17 00:00 Dose: 1 appful Ondansetron HCl (Zofran Injection) 4 mg IVPUSH Q6H PRN PRN Reason: NAUSEA ASSESSMENT AND PLAN: Acute Pancreatitis Sepsis Severe Hypertriglyceridemia Severe Hypocalcemia Diabetes Acute Kidney Injury Lactic Acidosis - continue aggressive IVF resuscitation - IV insulin gtt - hourly BGM - monitor lytes, replete as needed - plasma exchange per hematology/endocrine - trend triglycerides, lipase - pain control - NPO - incentive spirometry - continue ICU monitoring critical care time spent in reviewing chart, evaluating patient and formulating plan 40 min
[2017-05-14] MEDS: INSULIN REGULAR 100 UNITS in SODIUM CHLORIDE 99 ML IVPB SCH (13:39)
[2017-05-14] MEDS ORDERED: D5-1/2NS+20 MEQ KCL - 20 MEQ/1,000 ML INFUS.BAG IV SCH ×2 (14:45→14:48)
[2017-05-14] MEDS ORDERED: LACTATED RINGERS SOLUTION 1,000 ML/1,000 ML INFUS.BAG IV SCH ×2 (14:45→16:45)
[2017-05-14 15:37] LABS: T3 UPTAKE 38.7 % (30-39)
[2017-05-14 15:38] LABS: FREE T4 0.83 ng/dl (0.76-1.46)
--- NOTE | 2017-05-14 16:14 | CON.ID ---
Consult Consult Specialty:: infectious disease Reason for Consultation:: ac pancreatitis,fever - History of Present Illness Chief Complaint: abd pain History of Present Illness: 32 yo F with PMHx of gestational DM admitted with worsening abdominal pain. , She describes worsening constant 10/10 sharp epigastric abdominal pain that radiates to her left side and back. Pain was made worse by eating and no alleviating factors. Denies fever, chills, nausea or vomiting. She has had some shortness of breath but no cough. She endorses increased thirst and urination. She claims to drink 2-3 gallons of water/day. Denies CP, KING, palpitations, or dysuria patient was worked up and found to ahve ac pancreatitis and with very high triglycerides.patient was also spiking fevers and had leukocytosis patient was admitted to icu and patient also got plasmapheresis currently patient complains of abd pain and is very weak and tired - History Source History Provided By: Patient Limitations to Obtaining History: Language Barrier - Past Medical History Endocrine: Yes: Other (GDM) - Past Surgical History Past Surgical History: Yes: - Alcohol/Substance Use Hx Alcohol Use: No History of Substance Use: reports: None - Smoking History Smoking history: Never smoked Have you smoked in the past 12 months: No Home Medications - Allergies Allergies/Adverse Reactions: Allergies Allergy/AdvReac Type Severity Reaction Status Date / Time No Known Allergies Allergy Verified 05/13/17 00:10 - Home Medications Home Medications: Ambulatory Orders NK [No Known Home Medication] 05/13/17 Family Disease History - Family Disease History Family Disease History: Diabetes: Father, Mother Review of Systems - Review of Systems Constitutional: reports: Diaphoresis, Fever Eyes: reports: No Symptoms HENT: reports: No Symptoms Neck: reports: No Symptoms Cardiovascular: reports: No Symptoms Respiratory: reports: No Symptoms Gastrointestinal: reports: Abdominal Pain, Other Musculoskeletal: reports: No Symptoms Integumentary: reports: No Symptoms Neurological: reports: No Symptoms Endocrine: reports: No Symptoms Hematology/Lymphatic: reports: No Symptoms Psychiatric: reports: No Symptoms Physical Exam Vital Signs: Vital Signs Temperature 99.1 F 05/14/17 06:00 Pulse Rate 103 H 05/14/17 15:00 Respiratory Rate 24 05/14/17 14:45 Blood Pressure 121/70 05/14/17 15:00 O2 Sat by Pulse Oximetry (%) 100 05/14/17 00:57 Constitutional: Yes: Well Nourished, Calm, Moderate Distress Eyes: Yes: Conjunctiva Clear Neck: Yes: Supple Cardiovascular: Yes: Regular Rate and Rhythm Respiratory: Yes: Regular, CTA Bilaterally Gastrointestinal: Yes: Soft, Hypoactive Bowel Sounds, Tenderness Musculoskeletal: Yes: WNL Extremities: Yes: WNL Neurological: Yes: Alert, Oriented Psychiatric: Yes: Alert, Oriented Labs: CBC, BMP 05/14/17 06:15 Imaging - Results Chest X-ray: Report Reviewed, Image Reviewed Cat Scan: Report Reviewed, Image Reviewed Assessment/Plan after lookin at the aptient patient looks to be very sick i am very worried which way the patient is going to go she has very high chance of becoming septic and developing pancreatic necrosis Acute Pancreatitis Sepsis Severe Hypertriglyceridemia Severe Hypocalcemia Diabetes Acute Kidney Injury Lactic Acidosis plan will start patient on abx hydration very close monitoring for fevers labs icu care rest as per primary team cc time 45 min
--- NOTE | 2017-05-14 17:16 | PN ---
Teaching Attending Note Name of Resident: Joel Watson ATTENDING PHYSICIAN STATEMENT I saw and evaluated the patient. I reviewed the resident's note and discussed the case with the resident. I agree with the resident's findings and plan as documented. SUBJECTIVE:continues to have LLQ pain but overall improved since amission. denies Cp, SOB, fever, chills, N/V/C/D OBJECTIVE: Last Vital Signs Temp Pulse Resp BP Pulse Ox 99.1 F 103 H 24 121/70 100 05/14/17 06:00 05/14/17 15:00 05/14/17 14:45 05/14/17 15:00 05/14/17 00:57 General NAD CV S1 S2 RRR no murmur/rub/gallop Lungs CTA B/L no wheezing/rales/rhonchi Abdomen epigastric and LUQ tenderness no rebound or guarding soft, hypoactive BS Extremiteis no pedal edema ASSESSMENT AND PLAN: 32yo F wtih PMH gestation DM presnted to the ER with abdominal pain and found to have acute pancreatitis 1. Acute Pancreatitis- due to hypertriglyceridemia. 7K on presentation. s/p plasmapharesis yesterday. on insulin ggt. now trended to 509. repeat this evening. cont NPO for now. start lopid 600mg BID. LRD5 increased to 300cc/H. on prophylactic imipenem.pain control. ID, GI and endo on board 2. Low TSH- may be due to acute sickness. T4 wnl. will hold treatment at this time. d/w endo 3. DM- new onset. A1c 9.6. will need diabetic teaching. currently on insulin ggt. will transition over to insulin once off ggt 4. Hypocalcemia- Corrected Ca 8. on calicum gluconate. will transition to po once diet is advnaced 5. Hyponatremia- resolved 6. hypokalemia- KCl to IVF 7. JHONNY- due to dehydration. now resolved. 8. DVT ppx- hep sq 9. MICU for higher level of care The care of this patient involved high complexity decision making to prevent further life threatening deterioration of the patient's condition and/or to evaluate & treat vital organ system(s) failure or risk of failure. 45 mins
[2017-05-14] MEDS: GEMFIBROZIL 600 MG TABLET (FP) PO SCH ×2 (17:24→17:40)
[2017-05-14] MEDS ORDERED: ACETAMINOPHEN 325 MG TABLET (FP) ONE (17:34)
[2017-05-14 17:53] LABS: ALBUMIN 2.5 g/dl (3.4-5.0); CALCIUM 7.7 mg/dL (8.5-10.1)
[2017-05-14 17:59] LABS: ALK PHOS 37 U/L (45-117); ANION GAP 8 (8-16); BILIRUBIN,TOTAL 0.5 mg/dL (0.2-1.0); CO2 23 mmol/L (21-32); CREATININE 0.2 mg/dL (0.55-1.02); GLUCOSE,RANDOM 122 mg/dL (74-106); SGOT/AST 11 U/L (15-37); SGPT/ALT 10 U/L (12-78); TOT PROT 4.6 g/dl (6.4-8.2)
[2017-05-14] MEDS: D5-LR+20 MEQ KCL - 20 MEQ/1,000 ML INFUS.BAG IV SCH (20:00)
[2017-05-14 21:17] LABS: ALBUMIN 2.3 g/dl (3.4-5.0); ALK PHOS 40 U/L (45-117); ANION GAP 7 (8-16); BILIRUBIN,TOTAL 0.5 mg/dL (0.2-1.0); CALCIUM 7.3 mg/dL (8.5-10.1); CO2 24 mmol/L (21-32); CREATININE 0.2 mg/dL (0.55-1.02); GLUCOSE,RANDOM 168 mg/dL (74-106); SGOT/AST 10 U/L (15-37); SGPT/ALT 10 U/L (12-78); TOT PROT 4.4 g/dl (6.4-8.2)
[2017-05-14] MEDS ORDERED: POTASSIUM CHLORIDE TABS 20 MEQ TABLET.ER (FP) PO ONE (21:45)
[2017-05-14] MEDS: CHLORHEXIDINE GLUCONATE 4% CLEANSER FOR DECOLONIZATION TP SCH ×2 (22:26)
[2017-05-15] MEDS: ONDANSETRON 4 MG/2 ML VIAL IVPUSH PRN (00:05)
[2017-05-15 02:12] LABS: ALBUMIN 2.3 g/dl (3.4-5.0); ALK PHOS 42 U/L (45-117); ANION GAP 8 (8-16); BILIRUBIN,TOTAL 0.4 mg/dL (0.2-1.0); CALCIUM 7.4 mg/dL (8.5-10.1); CO2 24 mmol/L (21-32); CREATININE 0.3 mg/dL (0.55-1.02); GLUCOSE,RANDOM 203 mg/dL (74-106); SGOT/AST 11 U/L (15-37); SGPT/ALT 9 U/L (12-78); TOT PROT 4.5 g/dl (6.4-8.2)
[2017-05-15] MEDS: HEPARIN NA (PORCINE) 5,000 UNITS/ML 1ML VIAL SQ SCH ×3 (02:54→17:52)
[2017-05-15] MEDS: IMIPENEM/CILASTATIN SODIUM 500 MG in SODIUM CHLORIDE 100 ML IVPB SCH ×4 (02:54→20:40)
[2017-05-15] MEDS ORDERED: HEMOQUE TEST 1 EACH EACH ONE ×2 (04:31→13:51)
[2017-05-15 06:18] LABS: BASOPHIL 0.2 % (0-2.0); EOSINOPHIL 1.2 % (0-4.5); MCH 30.1 pg (25.7-33.7); MCHC 34.3 g/dl (32.0-36.0); MEAN CELL VOLUME 87.6 fl (80-96); MEAN PLT VOLUME 11.1 fl (7.5-11.1); PLATELET COUNT 136 K/MM3 (134-434); RDW 14.2 % (11.6-15.6); WHITE BLOOD COUNT 10.9 K/mm3 (4.0-10.0)
[2017-05-15] MEDS: GEMFIBROZIL 600 MG TABLET (FP) PO SCH ×2 (06:20→17:52)
[2017-05-15 06:40] LABS: INR 1.23 (0.82-1.09); PROTHROMBIN TIME (PATIENT) 13.9 SEC (9.98-11.88)
[2017-05-15 06:43] LABS: ACTIVATED PTT 36.4 SECONDS (26.9-34.4)
[2017-05-15 07:09] LABS: ALBUMIN 2.2 g/dl (3.4-5.0); ANION GAP 8 (8-16); BILIRUBIN,TOTAL 0.4 mg/dL (0.2-1.0); CALCIUM 7.4 mg/dL (8.5-10.1); CO2 26 mmol/L (21-32); CREATININE 0.2 mg/dL (0.55-1.02); GLUCOSE,RANDOM 176 mg/dL (74-106); PHOSPHOROUS 1.3 mg/dL (2.5-4.9); SGOT/AST 8 U/L (15-37); SGPT/ALT 10 U/L (12-78); TOT PROT 4.5 g/dl (6.4-8.2)
[2017-05-15 07:10] LABS: ALK PHOS 45 U/L (45-117)
[2017-05-15] MEDS ORDERED: WATER IVPB ONE ×2 (08:00→14:18)
[2017-05-15] MEDS ORDERED: SODIUM PHOSPHATE IVPB ONE ×2 (08:00→14:18)
[2017-05-15] MEDS ORDERED: DEXTROSE IVPB ONE ×2 (08:00→14:18)
--- NOTE | 2017-05-15 09:52 | PN ---
Progress Note (short form) - Note Progress Note: Hematology follow-up for PLEX for hypertriglyceredmia. Chart reviewed in detail. continues to have abdominal pain All consult notes reviewed O/E General: ill appearing woman Dry MM RRR Lungs Clear Abdomen: + tenderness LLQ LUP , +BS LE: No swelling noted Last Vital Signs Temp Pulse Resp BP Pulse Ox 98.2 F 100 H 30 H 104/65 98 05/15/17 06:09 05/15/17 06:09 05/15/17 06:09 05/15/17 06:09 05/14/17 19:54 CBC, BMP 05/15/17 06:00 05/15/17 06:00 Current Medications Generic Name Dose Route Start Last Admin Trade Name Freq PRN Reason Stop Dose Admin Acetaminophen 650 mg 05/15/17 08:41 Tylenol - PO Q6H PRN FEVER OR PAIN Chlorhexidine Gluconate 1 applic 05/13/17 22:00 05/14/17 22:26 Hibiclens For Decolonization - TP 1 applic HS NEFTALY Administration Gemfibrozil 600 mg 05/14/17 15:00 05/15/17 06:20 Lopid - PO 600 mg BID@0700,1630 NEFTALY Administration Heparin Sodium (Porcine) 5,000 unit 05/13/17 10:15 05/15/17 02:54 Heparin - SQ 5,000 unit Q8H-IV NEFTALY Administration Heparin Sodium (Porcine) 5,000 unit 05/13/17 20:19 05/13/17 20:30 Heparin - IVPUSH 5,000 unit PRN PRN Administration Heparin Hydromorphone HCl 0.5 mg 05/13/17 21:23 Dilaudid Injection - IVPB Q4H PRN Pain 4-6 Imipenem/Cilastatin Sodium 500 100 mls @ 100 mls/hr 05/13/17 21:00 05/15/17 02:54 mg/ Sodium Chloride IVPB 100 mls/hr Q6H-IV NEFTALY Administration Protocol Insulin Human Regular 100 100 mls @ 6.53 mls/hr 05/14/17 12:40 05/14/17 18:00 units/ Sodium Chloride IVPB 0.04 units/kg/hr TITR NEFTALY 3 mls/hr Protocol Titration 0.1 UNITS/KG/HR Dextrose/Lactated Ringer's 20 meq in 1,000 mls @ 200 mls/hr 05/14/17 19:45 20:00 D5-Lr+20 Meq Kcl - IV 200 mls/hr ASDIR NEFTALY Administration Sodium Phosphate 30 mm/ 250 mls @ 62.5 mls/hr 05/15/17 08:00 Dextrose IVPB 05/15/17 11:59 ONCE ONE Mupirocin 1 applic 05/13/17 22:00 05/14/17 22:26 Bactroban 2% Ointment - NS 05/18/17 21:59 1 appful BID NEFTALY Administration Ondansetron HCl 4 mg 05/13/17 10:04 05/15/17 00:05 Zofran Injection IVPUSH 4 mg Q6H PRN Administration NAUSEA Assessment/Plan: Acute Pancreatitis Hypertriglyceridemia Hyperglycemia Fevers s/p Plasma exchange session one on 05/13/2017. TG continues to be less than 500 will hold off on today, repeat TG coags reviewed continues to have abd pain on impenem Pancreatitis and Hyperglycemia management per Endo/GI/ICU
[2017-05-15] MEDS: MUPIROCIN 2% TOPICAL OINTMENT 22 GM TUBE NS SCH ×2 (10:00→21:27)
--- NOTE | 2017-05-15 10:00 | PN ---
Progress Note, Physician History of Present Illness: Awake, clinically better, still with epigastric pain. Tg 300 395 - Current Medication List Current Medications: Active Medications Acetaminophen (Tylenol -) 650 mg PO Q6H PRN PRN Reason: FEVER OR PAIN Chlorhexidine Gluconate (Hibiclens For Decolonization -) 1 applic TP HS NEFTALY Last Admin: 05/14/17 22:26 Dose: 1 applic Gemfibrozil (Lopid -) 600 mg PO BID@0700,1630 NEFTALY Last Admin: 05/15/17 06:20 Dose: 600 mg Heparin Sodium (Porcine) (Heparin -) 5,000 unit SQ Q8H-IV NEFTALY Last Admin: 05/15/17 02:54 Dose: 5,000 unit Heparin Sodium (Porcine) (Heparin -) 5,000 unit IVPUSH PRN PRN PRN Reason: Heparin Last Admin: 05/13/17 20:30 Dose: 5,000 unit Hydromorphone HCl (Dilaudid Injection -) 0.5 mg IVPB Q4H PRN PRN Reason: Pain 4-6 Imipenem/Cilastatin Sodium 500 (mg/ Sodium Chloride) 100 mls @ 100 mls/hr IVPB Q6H-IV NEFTALY PRN Reason: Protocol Last Admin: 05/15/17 02:54 Dose: 100 mls/hr Insulin Human Regular 100 (units/ Sodium Chloride) 100 mls @ 6.53 mls/hr IVPB TITR NEFTALY; 0.1 UNITS/KG/HR PRN Reason: Protocol Last Titration: 05/14/17 18:00 Dose: 0.04 units/kg/hr, 3 mls/hr Dextrose/Lactated Ringer's (D5-Lr+20 Meq Kcl -) 20 meq in 1,000 mls @ 200 mls/ hr IV ASDIR NEFTALY Last Admin: 05/14/17 20:00 Dose: 200 mls/hr Sodium Phosphate 30 mm/ (Dextrose) 250 mls @ 62.5 mls/hr IVPB ONCE ONE Stop: 05/15/17 11:59 Mupirocin (Bactroban 2% Ointment -) 1 applic NS BID NEFTALY Stop: 05/18/17 21:59 Last Admin: 05/14/17 22:26 Dose: 1 appful Ondansetron HCl (Zofran Injection) 4 mg IVPUSH Q6H PRN PRN Reason: NAUSEA Last Admin: 05/15/17 00:05 Dose: 4 mg - Objective Vital Signs: Vital Signs Temperature 98.2 F 05/15/17 06:09 Pulse Rate 100 H 05/15/17 06:09 Respiratory Rate 30 H 05/15/17 06:09 Blood Pressure 104/65 05/15/17 06:09 O2 Sat by Pulse Oximetry (%) 98 05/14/17 19:54 Constitutional: Yes: No Distress, Calm Gastrointestinal: Yes: Tenderness, Epigastrium. No: Melena, Rectal Bleeding, Vomiting Neurological: Yes: Alert, Oriented Labs: CBC, BMP 05/15/17 06:00 05/15/17 06:00 INR, PTT INR 1.23 (0.82-1.09) H 05/15/17 06:00 Fibrinogen 542.0 mg/dL (238-498) H D 05/15/17 06:00 CBCD WBC 10.9 K/mm3 (4.0-10.0) H 05/15/17 06:00 RBC 4.37 M/mm3 (3.60-5.2) 05/15/17 06:00 Hgb 13.1 GM/dL (10.7-15.3) D 05/15/17 06:00 Hct 38.3 % (32.4-45.2) 05/15/17 06:00 MCV 87.6 fl (80-96) 05/15/17 06:00 MCHC 34.3 g/dl (32.0-36.0) 05/15/17 06:00 RDW 14.2 % (11.6-15.6) 05/15/17 06:00 Plt Count 136 K/MM3 (134-434) 05/15/17 06:00 MPV 11.1 fl (7.5-11.1) 05/15/17 06:00 CMP Sodium 138 mmol/L (136-145) 05/15/17 06:00 Potassium 4.0 mmol/L (3.5-5.1) 05/15/17 06:00 Chloride 104 mmol/L (98-107) 05/15/17 06:00 Carbon Dioxide 26 mmol/L (21-32) 05/15/17 06:00 Anion Gap 8 (8-16) 05/15/17 06:00 BUN 3 mg/dL (7-18) L 05/15/17 06:00 Creatinine 0.2 mg/dL (0.55-1.02) L D 05/15/17 06:00 Creat Clearance w eGFR > 60 (>60) 05/15/17 06:00 Calcium 7.4 mg/dL (8.5-10.1) L 05/15/17 06:00 Total Bilirubin 0.4 mg/dL (0.2-1.0) 05/15/17 06:00 AST 8 U/L (15-37) L D 05/15/17 06:00 ALT 10 U/L (12-78) L 05/15/17 06:00 Alkaline Phosphatase 45 U/L (45-117) 05/15/17 06:00 Total Protein 4.5 g/dl (6.4-8.2) L 05/15/17 06:00 Albumin 2.2 g/dl (3.4-5.0) L 05/15/17 06:00 Problem List - Problems (1) Acute pancreatitis Code(s): K85.90 - ACUTE PANCREATITIS WITHOUT NECROSIS OR INFECTION, UNSP Qualifiers: Pancreatitis type: unspecified pancreatitis type Acute pancreatitis complication: unspecified Qualified Code(s): K85.90 - Acute pancreatitis without necrosis or infection, unspecified (2) Hyperglycemia Code(s): R73.9 - HYPERGLYCEMIA, UNSPECIFIED (3) Hypertriglyceridemia Code(s): E78.1 - PURE HYPERGLYCERIDEMIA (4) Hypokalemia Code(s): E87.6 - HYPOKALEMIA (5) Hyponatremia Code(s): E87.1 - HYPO-OSMOLALITY AND HYPONATREMIA (6) SIRS (systemic inflammatory response syndrome) Code(s): R65.10 - SIRS OF NON-INFECTIOUS ORIGIN W/O ACUTE ORGAN DYSFUNCTION Assessment/Plan Acute pancreatitis with elevated Tgc Monitor CMP, CBC q6 hrs, Aggressive IVF @ ~ 300 ml/hr and monitor urine output, BUN, Cr NPO except medications, antiemetics and pain management Restart gemfibrozil Hourly blood glucose while on Insulin IV ICU care as per ICU team
[2017-05-15] MEDS ORDERED: INSULIN REGULAR HUMAN 100 UNITS/ML *VIAL ONE (10:15)
--- NOTE | 2017-05-15 10:39 | PN ---
Physical Exam: SUBJECTIVE: Patient doing fine this AM. Spoke in [place]. Pt states her abdominal pain has improved since yesterday. Endorses increased hunger, but abdominal pain pump and still operator to palpation. Low grade temps yesterday. OBJECTIVE: Vital Signs Period Temp Pulse Resp BP Sys/Rodgers Pulse Ox Last 24 Hr 98.0 F-100.3 F 20-112 20-35 97-121/61-71 98-98 GEN: AAOx3, Lying in bed, no use of accessory muscles, speaking in full sentences HEENT: PERRLA, EOMi CV: S1, S2, RRR LUNG: mild bibasilar crackles, poor inspiratory effort ABD: Less distended, still TTP mainly in epigastric region, normoactive BS MSK: No edema, no erythema Laboratory Last Values WBC 10.9 K/mm3 (4.0-10.0) H 05/15/17 06:00 RBC 4.37 M/mm3 (3.60-5.2) 05/15/17 06:00 Hgb 13.1 GM/dL (10.7-15.3) D 05/15/17 06:00 Hct 38.3 % (32.4-45.2) 05/15/17 06:00 MCV 87.6 fl (80-96) 05/15/17 06:00 MCH 30.1 pg (25.7-33.7) 05/15/17 06:00 MCHC 34.3 g/dl (32.0-36.0) 05/15/17 06:00 RDW 14.2 % (11.6-15.6) 05/15/17 06:00 Plt Count 136 K/MM3 (134-434) 05/15/17 06:00 MPV 11.1 fl (7.5-11.1) 05/15/17 06:00 Neutrophils % 86.0 % (42.8-82.8) H 05/15/17 06:00 Neutrophils % (Manual) 84.0 % (42.8-82.8) H 05/13/17 03:18 Band Neutrophils % 5.0 % 05/13/17 03:18 Lymphocytes % 8.1 % (8-40) 05/15/17 06:00 Lymphocytes % (Manual) 7.0 % (8-40) L 05/13/17 03:18 Monocytes % 4.5 % (3.8-10.2) 05/15/17 06:00 Monocytes % (Manual) 4 % (3.8-10.2) 05/13/17 03:18 Eosinophils % 1.2 % (0-4.5) D 05/15/17 06:00 Basophils % 0.2 % (0-2.0) 05/15/17 06:00 Platelet Comment No Result Required. 05/13/17 03:18 Anisocytosis 1+ 05/13/17 03:18 PT with INR 13.90 SEC (9.98-11.88) H 05/15/17 06:00 INR 1.23 (0.82-1.09) H 05/15/17 06:00 PTT (Actin FS) 36.4 SECONDS (26.9-34.4) H 05/15/17 06:00 Fibrinogen 542.0 mg/dL (238-498) H D 05/15/17 06:00 Puncture Site Left radial 05/13/17 10:11 ABG pH 7.32 (7.35-7.45) L 05/13/17 10:11 ABG pCO2 at Pt Temp 34.8 mmHg (35-45) L 05/13/17 10:11 ABG pO2 at Pt Temp 132.0 mmHg (80-100) H 05/13/17 10:11 ABG HCO3 17.5 meq/L (22-26) L 05/13/17 10:11 ABG O2 Sat (Measured) 97.9 % (90-98.9) 05/13/17 10:11 ABG O2 Content 19.9 % vol (15-22) 05/13/17 10:11 ABG Base Excess -7.3 meq/l (-2-2) L 05/13/17 10:11 Ashkan Test Positive 05/13/17 10:11 VBG pH 7.30 (7.32-7.42) L 05/13/17 05:15 POC VBG pCO2 36.6 mmHg (38-52) L 05/13/17 05:15 POC VBG pO2 51.1 mmHg (28-48) H 05/13/17 05:15 Mixed VBG HCO3 17.6 meq/L (19-25) L 05/13/17 05:15 O2 Delivery Device Y 05/13/17 10:11 Oxygen Flow Rate Yes 05/13/17 10:11 Sodium 138 mmol/L (136-145) 05/15/17 06:00 Potassium 4.0 mmol/L (3.5-5.1) 05/15/17 06:00 Chloride 104 mmol/L (98-107) 05/15/17 06:00 Carbon Dioxide 26 mmol/L (21-32) 05/15/17 06:00 Anion Gap 8 (8-16) 05/15/17 06:00 BUN 3 mg/dL (7-18) L 05/15/17 06:00 Creatinine 0.2 mg/dL (0.55-1.02) L D 05/15/17 06:00 Creat Clearance w eGFR > 60 (>60) 05/15/17 06:00 POC Glucometer 186.14579 UNITS (80-120) 05/15/17 01:36 Random Glucose 176 mg/dL (74-106) H 05/15/17 06:00 Hemoglobin A1c % 9.6 % (4.8-6.0) H 05/13/17 09:55 Lactic Acid 0.3 mmol/L (0.4-2.0) L 05/13/17 21:40 Calcium 7.4 mg/dL (8.5-10.1) L 05/15/17 06:00 Phosphorus 1.3 mg/dL (2.5-4.9) L 05/15/17 06:00 Magnesium 2.0 mg/dL (1.8-2.4) 05/15/17 06:00 Total Bilirubin 0.4 mg/dL (0.2-1.0) 05/15/17 06:00 Direct Bilirubin TNP 05/13/17 11:50 AST 8 U/L (15-37) L D 05/15/17 06:00 ALT 10 U/L (12-78) L 05/15/17 06:00 Alkaline Phosphatase 45 U/L (45-117) 05/15/17 06:00 Total Protein 4.5 g/dl (6.4-8.2) L 05/15/17 06:00 Albumin 2.2 g/dl (3.4-5.0) L 05/15/17 06:00 Triglycerides 395 mg/dL (35-160) H D 05/15/17 06:00 Cholesterol 185 mg/dL (50-200) 05/14/17 06:15 Total LDL Cholesterol 53 mg/dL (5-100) 05/14/17 06:15 HDL Cholesterol 15 mg/dL (40-60) L 05/14/17 06:15 Total Amylase 223 U/L (25-115) H D 05/14/17 02:00 Lipase 1113 U/L (73-393) H 05/14/17 02:00 TSH 0.20 uIU/ml (0.358-3.74) L 05/14/17 06:15 Free T4 0.83 ng/dl (0.76-1.46) 05/14/17 09:33 Resin T3 Uptake 38.7 % (30-39) 05/14/17 09:33 Urine Color Ltyellow 05/13/17 03:25 Urine Appearance Clear 05/13/17 03:25 Urine pH 5.0 (5.0-8.0) 05/13/17 03:25 Ur Specific [place] 1.039 (1.001-1.035) H 05/13/17 03:25 Urine Protein Negative (NEGATIVE) 05/13/17 03:25 Urine Glucose (UA) 3+ (NEGATIVE) H 05/13/17 03:25 Urine Ketones 2+ (NEGATIVE) H 05/13/17 03:25 Urine Blood 1+ (NEGATIVE) H 05/13/17 03:25 Urine Nitrite Negative (NEGATIVE) 05/13/17 03:25 Urine Bilirubin Negative (NEGATIVE) 05/13/17 03:25 Urine Urobilinogen Negative mg/dL (0.2-1.0) 05/13/17 03:25 Ur Leukocyte Esterase Negative (NEGATIVE) 05/13/17 03:25 Urine WBC (Auto) 1 05/13/17 03:25 Urine RBC (Auto) 1 05/13/17 03:25 Ur Epithelial Cells Rare /hpf (FEW) 05/13/17 03:25 Urine Bacteria Rare /hpf (NONE SEEN) 05/13/17 03:25 Urine HCG, Qual Negative 05/13/17 03:25 Acetone, Qual Positive moderate 2+ (NEGATIVE) H 05/13/17 04:30 Blood Type O POSITIVE 05/13/17 11:50 Antibody Screen Negative 05/13/17 11:50 Active Medications Generic Name Dose Route Start Last Admin Trade Name Jhonq PRN Reason Stop Dose Admin Acetaminophen 650 mg 05/15/17 08:41 Tylenol - PO Q6H PRN FEVER OR PAIN Chlorhexidine Gluconate 1 applic 05/13/17 22:00 05/14/17 22:26 Hibiclens For Decolonization - TP 1 applic HS NEFTALY Administration Gemfibrozil 600 mg 05/14/17 15:00 05/15/17 06:20 Lopid - PO 600 mg BID@0700,1630 NEFTALY Administration Heparin Sodium (Porcine) 5,000 unit 05/13/17 10:15 05/15/17 02:54 Heparin - SQ 5,000 unit Q8H-IV NEFTALY Administration Heparin Sodium (Porcine) 5,000 unit 05/13/17 20:19 05/13/17 20:30 Heparin - IVPUSH 5,000 unit PRN PRN Administration Heparin Hydromorphone HCl 0.5 mg 05/13/17 21:23 Dilaudid Injection - IVPB Q4H PRN Pain 4-6 Imipenem/Cilastatin Sodium 500 100 mls @ 100 mls/hr 05/13/17 21:00 05/15/17 02:54 mg/ Sodium Chloride IVPB 100 mls/hr Q6H-IV NEFTALY Administration Protocol Insulin Human Regular 100 100 mls @ 6.53 mls/hr 05/14/17 12:40 05/14/17 18:00 units/ Sodium Chloride IVPB 0.04 units/kg/hr TITR NEFTALY 3 mls/hr Protocol Titration 0.1 UNITS/KG/HR Dextrose/Lactated Ringer's 20 meq in 1,000 mls @ 200 mls/hr 05/14/17 19:45 20:00 D5-Lr+20 Meq Kcl - IV 200 mls/hr ASDIR NEFTALY Administration Sodium Phosphate 30 mm/ 250 mls @ 62.5 mls/hr 05/15/17 08:00 Dextrose IVPB 05/15/17 11:59 ONCE ONE Mupirocin 1 applic 05/13/17 22:00 05/14/17 22:26 Bactroban 2% Ointment - NS 05/18/17 21:59 1 appful BID NEFTALY Administration Ondansetron HCl 4 mg 05/13/17 10:04 05/15/17 00:05 Zofran Injection IVPUSH 4 mg Q6H PRN Administration NAUSEA ASSESSMENT/PLAN: Pt is a 32yo F with a PMHx of Gestational DM who presented with epigastric pain , polyuria, and polydipsia. She was found to have acute pancreatitis and hyperglycemia. # HyperTG Induced Acute Pancreatitis - S/p plasmapheresis x1, continue Insulin gtt + Gemfibrozil - TGs are slowly trending up, will give 1L Ringers Lactate Bolus. Repeat TG 8pm - Continue D5LR w/ KCl at 200cc/hr, maintaining BP, good UOP +6L, CXR shows mild congestion # New Onset Diabetes Mellitus - A1c 9.6 - Pt arrived in [facility] w/ ketones (likely 2/2 pancreatitis), since pt is still NPO will need to continue insulin gtt currently 0.1mg/kg/hr - Sugars are well controlled between 120-180, if abd pain better by tmrw will consider transition to PO diet and SQ insulin. - Pt understands she has DM2 and will need to be on home insulin # Low Grade Fever - Pt arrived in severe sepsis, but temperatures, tachycardia, and tachypnea have improved, BCx neg to date - Abd pain is improving, little concern for necrotizing pancreatitis, but will keep on prophylactic Imipenem, ID on board # Subclinical HyperThyroidism - TSH low 0.2, FT4 wnl, likely from acute inflammatory state, spoke to Dr. Pimentel who will repeat as outpt # Hypophosphatemia - repleting w/ NaPhos, repeat phosphate in AM # Hypokalemia - Resolved, has KCl in the bad, monitor CMP Q6H # Hypocalcemia - Resolved, was likely 2/2 acute pancreatitis, improved with Calcium drip, on LR for now # Hyponatremia - Resolved, likely from hypovolemic, improving w/ fluids and insulin # FEN - D5LR w/ Kcl 20meq at 200cc/hr, NPO # PPx - HSQ 5,000 TID, no GI ppx, PT ordered # Code Status - Full Code # Dispo - Continue ICU mgmt, monitor TG and glucose, hopeful transition to PO diet tmrw if improving d/w Dr Alberto, Dr Carmona, ICU team Joel Watson MD - PGY1 Internal Medicine Visit type - Emergency Visit Emergency Visit: No - New Patient This patient is new to me today: No - Critical Care Critical Care patient: No - Discharge Referral Referred to [facility] Med P.C.: No
[2017-05-15] MEDS ORDERED: PT OWN MED DRAWER 7, Y5N ONE ×3 (11:25→20:36)
--- NOTE | 2017-05-15 11:45 | PN ---
Teaching Attending Note Name of Resident: Pascual Moran ATTENDING PHYSICIAN STATEMENT I saw and evaluated the patient. I reviewed the resident's note and discussed the case with the resident. I agree with the resident's findings and plan as documented. SUBJECTIVE: Pt seen and examined in the ICU. Remains on insulin gtt. Breathing and abdominal pain better. Did not require further apharesis. OBJECTIVE: Last Vital Signs Temp Pulse Resp BP Pulse Ox 98.2 F 20 L 20 97/67 98 05/15/17 06:09 05/15/17 10:00 05/15/17 10:00 05/15/17 10:00 05/15/17 09:00 Intake & Output 05/12/17 05/13/17 05/14/17 05/15/17 23:59 23:59 23:59 23:59 Intake Total 300 2672 2636 Output Total 200 3800 2000 Balance 100 -1128 636 Weight 141 lb 12.116 oz 144 lb 13.499 oz 149 lb 0.52 oz Gen: less tachypneic Heart: RRR Lung: scattered basilar rales Abd: softly distended, mild TTP epigastric region, no rebound Ext: + edema CBC, BMP 05/15/17 06:00 05/15/17 06:00 Active Medications Acetaminophen (Tylenol -) 650 mg PO Q6H PRN PRN Reason: FEVER OR PAIN Chlorhexidine Gluconate (Hibiclens For Decolonization -) 1 applic TP HS NEFTALY Last Admin: 05/14/17 22:26 Dose: 1 applic Gemfibrozil (Lopid -) 600 mg PO BID@0700,1630 NEFTALY Last Admin: 05/15/17 06:20 Dose: 600 mg Heparin Sodium (Porcine) (Heparin -) 5,000 unit SQ Q8H-IV NEFTALY Last Admin: 05/15/17 02:54 Dose: 5,000 unit Heparin Sodium (Porcine) (Heparin -) 5,000 unit IVPUSH PRN PRN PRN Reason: Heparin Last Admin: 05/13/17 20:30 Dose: 5,000 unit Hydromorphone HCl (Dilaudid Injection -) 0.5 mg IVPB Q4H PRN PRN Reason: Pain 4-6 Imipenem/Cilastatin Sodium 500 (mg/ Sodium Chloride) 100 mls @ 100 mls/hr IVPB Q6H-IV NEFTALY PRN Reason: Protocol Last Admin: 05/15/17 02:54 Dose: 100 mls/hr Insulin Human Regular 100 (units/ Sodium Chloride) 100 mls @ 6.53 mls/hr IVPB TITR NEFTALY; 0.1 UNITS/KG/HR PRN Reason: Protocol Last Titration: 05/14/17 18:00 Dose: 0.04 units/kg/hr, 3 mls/hr Dextrose/Lactated Ringer's (D5-Lr+20 Meq Kcl -) 20 meq in 1,000 mls @ 200 mls/ hr IV ASDIR NEFTALY Last Admin: 05/14/17 20:00 Dose: 200 mls/hr Sodium Phosphate 30 mm/ (Dextrose) 250 mls @ 62.5 mls/hr IVPB ONCE ONE Stop: 05/15/17 11:59 Mupirocin (Bactroban 2% Ointment -) 1 applic NS BID NEFTALY Stop: 05/18/17 21:59 Last Admin: 05/14/17 22:26 Dose: 1 appful Ondansetron HCl (Zofran Injection) 4 mg IVPUSH Q6H PRN PRN Reason: NAUSEA Last Admin: 05/15/17 00:05 Dose: 4 mg ASSESSMENT AND PLAN: Acute Pancreatitis Sepsis Severe Hypertriglyceridemia Severe Hypocalcemia Diabetes Acute Kidney Injury Lactic Acidosis - continue aggressive IVF resuscitation - IV insulin gtt - hourly BGM while on insulin gtt - monitor lytes, replete as needed - plasma exchange per hematology/endocrine - d/c femoral catheter if no further exchange planned - IVF - on empiric antibiotics per ID - continue lopid - trend triglycerides, lipase - pain control - ?PO trial in AM - incentive spirometry - continue ICU monitoring critical care time spent in reviewing chart, evaluating patient and formulating plan 35 min
--- NOTE | 2017-05-15 12:29 | PN ---
Progress Note, Physician History of Present Illness: still not feeling well spiked a fever - Current Medication List Current Medications: Active Medications Acetaminophen (Tylenol -) 650 mg PO Q6H PRN PRN Reason: FEVER OR PAIN Chlorhexidine Gluconate (Hibiclens For Decolonization -) 1 applic TP HS NEFTALY Last Admin: 05/14/17 22:26 Dose: 1 applic Gemfibrozil (Lopid -) 600 mg PO BID@0700,1630 [facility] Last Admin: 05/15/17 06:20 Dose: 600 mg Heparin Sodium (Porcine) (Heparin -) 5,000 unit SQ Q8H-IV NEFTALY Last Admin: 05/15/17 02:54 Dose: 5,000 unit Heparin Sodium (Porcine) (Heparin -) 5,000 unit IVPUSH PRN PRN PRN Reason: Heparin Last Admin: 05/13/17 20:30 Dose: 5,000 unit Hydromorphone HCl (Dilaudid Injection -) 0.5 mg IVPB Q4H PRN PRN Reason: Pain 4-6 Imipenem/Cilastatin Sodium 500 (mg/ Sodium Chloride) 100 mls @ 100 mls/hr IVPB Q6H-IV NEFTALY PRN Reason: Protocol Last Admin: 05/15/17 02:54 Dose: 100 mls/hr Insulin Human Regular 100 (units/ Sodium Chloride) 100 mls @ 6.53 mls/hr IVPB TITR NEFTALY; 0.1 UNITS/KG/HR PRN Reason: Protocol Last Titration: 05/14/17 18:00 Dose: 0.04 units/kg/hr, 3 mls/hr Dextrose/Lactated Ringer's (D5-Lr+20 Meq Kcl -) 20 meq in 1,000 mls @ 200 mls/ hr IV ASDIR NEFTALY Last Admin: 05/14/17 20:00 Dose: 200 mls/hr Mupirocin (Bactroban 2% Ointment -) 1 applic NS BID [facility] Stop: 05/18/17 21:59 Last Admin: 05/14/17 22:26 Dose: 1 appful Ondansetron HCl (Zofran Injection) 4 mg IVPUSH Q6H PRN PRN Reason: NAUSEA Last Admin: 05/15/17 00:05 Dose: 4 mg - Objective Vital Signs: Vital Signs Temperature 98.2 F 05/15/17 06:09 Pulse Rate 102 H 05/15/17 12:00 Respiratory Rate 18 05/15/17 12:00 Blood Pressure 105/57 05/15/17 12:00 O2 Sat by Pulse Oximetry (%) 98 05/15/17 09:00 Constitutional: Yes: Calm, Mild Distress Cardiovascular: Yes: Regular Rate and Rhythm Respiratory: Yes: Regular, CTA Bilaterally Gastrointestinal: Yes: Soft, Hypoactive Bowel Sounds, Other Musculoskeletal: Yes: WNL Extremities: Yes: WNL Neurological: Yes: Alert, Oriented Psychiatric: Yes: Alert, Oriented Labs: CBC, BMP 05/15/17 06:00 INR, PTT INR 1.23 (0.82-1.09) H 05/15/17 06:00 Fibrinogen 542.0 mg/dL (238-498) H D 05/15/17 06:00 Assessment/Plan after lookin at the aptient patient looks to be very sick i am very worried which way the patient is going to go she has very high chance of becoming septic and developing pancreatic necrosis Acute Pancreatitis Sepsis Severe Hypertriglyceridemia Severe Hypocalcemia Diabetes Acute Kidney Injury Lactic Acidosis plan continue abx hydration very close monitoring for fevers labs icu care rest as per primary team if patient continues to spike fevers repeat ct scan of abdomen patient will tristin serial imaging studies till she settles down cc time 40 min
[2017-05-15] MEDS: INSULIN REGULAR 100 UNITS in SODIUM CHLORIDE 99 ML IVPB SCH (12:39)
[2017-05-15 13:11] LABS: ALBUMIN 2.2 g/dl (3.4-5.0); ANION GAP 5 (8-16); CALCIUM 7.5 mg/dL (8.5-10.1); CO2 27 mmol/L (21-32); CREATININE 0.2 mg/dL (0.55-1.02); GLUCOSE,RANDOM 181 mg/dL (74-106); PHOSPHOROUS 2.1 mg/dL (2.5-4.9); SGOT/AST 9 U/L (15-37); SGPT/ALT 10 U/L (12-78)
[2017-05-15 13:13] LABS: ALK PHOS 48 U/L (45-117); BILIRUBIN,TOTAL 0.4 mg/dL (0.2-1.0); TOT PROT 4.8 g/dl (6.4-8.2)
[2017-05-15] MEDS ORDERED: LACTATED RINGERS SOLUTION 1,000 ML/1,000 ML INFUS.BAG IV SCH (13:30)
--- NOTE | 2017-05-15 14:04 | PN ---
Teaching Attending Note Name of Resident: Joel Watson ATTENDING PHYSICIAN STATEMENT I saw and evaluated the patient. I reviewed the resident's note and discussed the case with the resident. I agree with the resident's findings and plan as documented. SUBJECTIVE:states pain is continuing to improve. denies Cp, SOB, fever, chills, N/V/C/D OBJECTIVE: Last Vital Signs Temp Pulse Resp BP Pulse Ox 98.2 F 102 H 18 105/57 98 05/15/17 06:09 05/15/17 12:00 05/15/17 12:00 05/15/17 12:00 05/15/17 09:00 General NAD CV S1 S2 RRR no murmur/rub/gallop Lungs CTA B/L no wheezing/rales/rhonchi Abdomen epigastric and LUQ tenderness no rebound or guarding soft, hypoactive BS Extremiteis no pedal edema ASSESSMENT AND PLAN: 32yo F wtih PMH gestation DM presnted to the ER with abdominal pain and found to have acute pancreatitis 1. Acute Pancreatitis- due to hypertriglyceridemia. 7K on presentation. s/p plasmapharesis x1. on insulin ggt. TG now trending back up. will cont to monitor BID. close monitoring as may require plasmapharesis. low grade fevers. no indication at this time. cont NPO, IVF, lopid. on prophylactic imipenem.pain control. ID, GI and endo on board. BCx negative 2. Low TSH- may be due to acute sickness. T4 wnl. will hold treatment at this time. repeat TSH after acute phase d/w endo 3. DM- new onset. A1c 9.6. will need diabetic teaching. currently on insulin ggt. will transition over to insulin once off ggt 4. Hypocalcemia- Corrected Ca 8. on calicum gluconate. will transition to po once diet is advnaced 5. Hyponatremia- resolved 6. hypokalemia- KCl to IVF 7. hypophoshpatemia- Kphos 8. JHONNY- due to dehydration. now resolved. 9. DVT ppx- hep sq 10. MICU for higher level of care The care of this patient involved high complexity decision making to prevent further life threatening deterioration of the patient's condition and/or to evaluate & treat vital organ system(s) failure or risk of failure. 42 mins
--- NOTE | 2017-05-15 14:39 | PN ---
Physical Exam: SUBJECTIVE: Patient seen and examined Pt seen and examined in the ICU. Remains on insulin gtt. Breathing and abdominal pain better. Did not require further apharesis. OBJECTIVE: Vital Signs Period Temp Pulse Resp BP Sys/Rodgers Pulse Ox Last 24 Hr 98.0 F-100.3 F 20-109 18-35 97-121/57-71 98-98 GENERAL: The patient is awake, alert, and fully oriented, in no acute distress. ENT: dry mucous membranes. NECK: Trachea midline, full range of motion, supple. LUNGS: Breath sounds equal,, no wheezes, mild crackles at bases , no accessory muscle use. HEART: Regular rate and rhythm, S1, S2 without murmur, rub or gallop. ABDOMEN: Soft, tender at epigastric area , distension decreased since yesterday , taylor in situ EXTREMITIES: no edema. PSYCH: Normal mood, normal affect. SKIN: Warm, dry, Laboratory Results - last 24 hr 05/13/17 05/13/17 05/13/17 17:32 18:16 19:36 WBC RBC Hgb Hct MCV MCH MCHC RDW Plt Count MPV Neutrophils % Lymphocytes % Monocytes % Eosinophils % Basophils % PT with INR INR PTT (Actin FS) Fibrinogen Sodium Potassium Chloride Carbon Dioxide Anion Gap BUN Creatinine Creat Clearance w eGFR POC Glucometer 195.87308 198.56887 [phone] Random Glucose Calcium Phosphorus Magnesium Total Bilirubin AST ALT Alkaline Phosphatase Total Protein Albumin Triglycerides Free T4 Resin T3 Uptake 05/13/17 05/14/17 05/14/17 21:29 00:05 01:12 WBC RBC Hgb Hct MCV MCH MCHC RDW Plt Count MPV Neutrophils % Lymphocytes % Monocytes % Eosinophils % Basophils % PT with INR INR PTT (Actin FS) Fibrinogen Sodium Potassium Chloride Carbon Dioxide Anion Gap BUN Creatinine Creat Clearance w eGFR POC Glucometer 199.23946 178.33220 171.75223 Random Glucose Calcium Phosphorus Magnesium Total Bilirubin AST ALT Alkaline Phosphatase Total Protein Albumin Triglycerides Free T4 Resin T3 Uptake 05/14/17 05/14/17 05/14/17 02:16 03:08 04:52 WBC RBC Hgb Hct MCV MCH MCHC RDW Plt Count MPV Neutrophils % Lymphocytes % Monocytes % Eosinophils % Basophils % PT with INR INR PTT (Actin FS) Fibrinogen Sodium Potassium Chloride Carbon Dioxide Anion Gap BUN Creatinine Creat Clearance w eGFR POC Glucometer 163.44808 165.08991 170.03732 Random Glucose Calcium Phosphorus Magnesium Total Bilirubin AST ALT Alkaline Phosphatase Total Protein Albumin Triglycerides Free T4 Resin T3 Uptake 05/14/17 05/14/17 05/14/17 05:40 07:28 09:04 WBC RBC Hgb Hct MCV MCH MCHC RDW Plt Count MPV Neutrophils % Lymphocytes % Monocytes % Eosinophils % Basophils % PT with INR INR PTT (Actin FS) Fibrinogen Sodium Potassium Chloride Carbon Dioxide Anion Gap BUN Creatinine Creat Clearance w eGFR POC Glucometer 168.21726 159.99148 128.79128 Random Glucose Calcium Phosphorus Magnesium Total Bilirubin AST ALT Alkaline Phosphatase Total Protein Albumin Triglycerides Free T4 Resin T3 Uptake 05/14/17 05/14/17 05/14/17 09:33 11:22 13:34 WBC RBC Hgb Hct MCV MCH MCHC RDW Plt Count MPV Neutrophils % Lymphocytes % Monocytes % Eosinophils % Basophils % PT with INR INR PTT (Actin FS) Fibrinogen Sodium 138 Potassium 3.3 L Chloride 109 H Carbon Dioxide 19 L Anion Gap 10 BUN 6 L Creatinine 0.2 L Creat Clearance w eGFR > 60 POC Glucometer 147.60281 122.38407 Random Glucose 151 H Calcium 7.8 L Phosphorus Magnesium Total Bilirubin 0.7 AST 15 ALT 11 L Alkaline Phosphatase 35 L Total Protein 4.8 L Albumin 2.7 L Triglycerides Free T4 0.83 Resin T3 Uptake 38.7 05/14/17 05/14/17 05/14/17 14:50 15:00 15:23 WBC RBC Hgb Hct MCV MCH MCHC RDW Plt Count MPV Neutrophils % Lymphocytes % Monocytes % Eosinophils % Basophils % PT with INR INR PTT (Actin FS) Fibrinogen Sodium 138 Potassium 3.5 Chloride 107 Carbon Dioxide 23 D Anion Gap 8 BUN 6 L Creatinine 0.2 L Creat Clearance w eGFR > 60 POC Glucometer 135.71099 118.66974 Random Glucose 122 H Calcium 7.7 L Phosphorus Magnesium Total Bilirubin 0.5 D AST 11 L D ALT 10 L Alkaline Phosphatase 37 L Total Protein 4.6 L Albumin 2.5 L Triglycerides 310 H D Free T4 Resin T3 Uptake 05/14/17 05/14/17 05/14/17 16:22 17:15 17:24 WBC RBC Hgb Hct MCV MCH MCHC RDW Plt Count MPV Neutrophils % Lymphocytes % Monocytes % Eosinophils % Basophils % PT with INR INR PTT (Actin FS) Fibrinogen Sodium 137 Potassium 3.4 L Chloride 106 Carbon Dioxide 24 Anion Gap 7 L BUN 3 L D Creatinine 0.2 L Creat Clearance w eGFR > 60 POC Glucometer 141.17955 140.21857 Random Glucose 168 H D Calcium 7.3 L Phosphorus Magnesium Total Bilirubin 0.5 AST 10 L ALT 10 L Alkaline Phosphatase 40 L Total Protein 4.4 L Albumin 2.3 L Triglycerides Free T4 Resin T3 Uptake 05/14/17 05/14/17 05/14/17 19:16 20:45 22:23 WBC RBC Hgb Hct MCV MCH MCHC RDW Plt Count MPV Neutrophils % Lymphocytes % Monocytes % Eosinophils % Basophils % PT with INR INR PTT (Actin FS) Fibrinogen Sodium Potassium Chloride Carbon Dioxide Anion Gap BUN Creatinine Creat Clearance w eGFR POC Glucometer 129.51679 163.08893 175.65648 Random Glucose Calcium Phosphorus Magnesium Total Bilirubin AST ALT Alkaline Phosphatase Total Protein Albumin Triglycerides Free T4 Resin T3 Uptake 05/15/17 05/15/17 05/15/17 01:30 01:36 06:00 WBC RBC Hgb Hct MCV MCH MCHC RDW Plt Count MPV Neutrophils % Lymphocytes % Monocytes % Eosinophils % Basophils % PT with INR INR PTT (Actin FS) Fibrinogen Sodium 137 138 Potassium 3.7 4.0 Chloride 105 104 Carbon Dioxide 24 26 Anion Gap 8 8 BUN 3 L 3 L Creatinine 0.3 L D 0.2 L D Creat Clearance w eGFR > 60 > 60 POC Glucometer 186.91148 Random Glucose 203 H D 176 H Calcium 7.4 L 7.4 L Phosphorus 1.3 L Magnesium 2.0 Total Bilirubin 0.4 0.4 AST 11 L 8 L D ALT 9 L 10 L Alkaline Phosphatase 42 L 45 Total Protein 4.5 L 4.5 L Albumin 2.3 L 2.2 L Triglycerides 395 H D Free T4 Resin T3 Uptake 05/15/17 05/15/17 05/15/17 06:00 06:00 12:00 WBC 10.9 H RBC 4.37 Hgb 13.1 D Hct 38.3 MCV 87.6 MCH 30.1 MCHC 34.3 RDW 14.2 Plt Count 136 MPV 11.1 Neutrophils % 86.0 H Lymphocytes % 8.1 Monocytes % 4.5 Eosinophils % 1.2 D Basophils % 0.2 PT with INR 13.90 H INR 1.23 H PTT (Actin FS) 36.4 H Fibrinogen 542.0 H D Sodium 136 Potassium 3.7 Chloride 104 Carbon Dioxide 27 Anion Gap 5 L BUN 4 L D Creatinine 0.2 L Creat Clearance w eGFR > 60 POC Glucometer Random Glucose 181 H Calcium 7.5 L Phosphorus 2.1 L D Magnesium Total Bilirubin 0.4 AST 9 L ALT 10 L Alkaline Phosphatase 48 Total Protein 4.8 L Albumin 2.2 L Triglycerides 420 H Free T4 Resin T3 Uptake 05/15/17 05/15/17 12:00 12:04 WBC RBC Hgb Hct MCV MCH MCHC RDW Plt Count MPV Neutrophils % Lymphocytes % Monocytes % Eosinophils % Basophils % PT with INR INR PTT (Actin FS) Fibrinogen Sodium Potassium Chloride Carbon Dioxide Anion Gap BUN Creatinine Creat Clearance w eGFR POC Glucometer 160.67453 Random Glucose Calcium Phosphorus Cancelled Magnesium Total Bilirubin AST ALT Alkaline Phosphatase Total Protein Albumin Triglycerides Free T4 Resin T3 Uptake Active Medications Generic Name Dose Route Start Last Admin Trade Name Freq PRN Reason Stop Dose Admin Acetaminophen 650 mg 05/15/17 08:41 Tylenol - PO Q6H PRN FEVER OR PAIN Chlorhexidine Gluconate 1 applic 05/13/17 22:00 05/14/17 22:26 Hibiclens For Decolonization - TP 1 applic HS NEFTALY Administration Gemfibrozil 600 mg 05/14/17 15:00 05/15/17 06:20 Lopid - PO 600 mg BID@0700,1630 NEFTALY Administration Heparin Sodium (Porcine) 5,000 unit 05/13/17 10:15 05/15/17 10:00 Heparin - SQ 5,000 unit Q8H-IV NEFTALY Administration Heparin Sodium (Porcine) 5,000 unit 05/13/17 20:19 05/13/17 20:30 Heparin - IVPUSH 5,000 unit PRN PRN Administration Heparin Hydromorphone HCl 0.5 mg 05/13/17 21:23 Dilaudid Injection - IVPB Q4H PRN Pain 4-6 Imipenem/Cilastatin Sodium 500 100 mls @ 100 mls/hr 05/13/17 21:00 05/15/17 14:20 mg/ Sodium Chloride IVPB 100 mls/hr Q6H-IV NEFTALY Administration Protocol Insulin Human Regular 100 100 mls @ 6.53 mls/hr 05/14/17 12:40 05/15/17 12:39 units/ Sodium Chloride IVPB 0.04 units/kg/hr TITR NEFTALY 3 mls/hr Protocol Administration 0.1 UNITS/KG/HR Dextrose/Lactated Ringer's 20 meq in 1,000 mls @ 200 mls/hr 05/14/17 19:45 20:00 D5-Lr+20 Meq Kcl - IV 200 mls/hr ASDIR NEFTALY Administration Mupirocin 1 applic 05/13/17 22:00 05/15/17 10:00 Bactroban 2% Ointment - NS 05/18/17 21:59 1 appful BID NEFTALY Administration Ondansetron HCl 4 mg 05/13/17 10:04 05/15/17 00:05 Zofran Injection IVPUSH 4 mg Q6H PRN Administration NAUSEA ASSESSMENT/PLAN: Acute Pancreatitis day 3 Severe Hypertriglyceridemia post plasmpheresis Severe Hypocalcemia Diabetes Acute Kidney Injury Lactic Acidosis Plan IV fluid, maintain urine output of 0.5-1ml/hr avoid negative balance Monitor intake and output monitoring. Keep blood sugar between 15 to 200. continue with insulin drip, insulin is for hypertryglyceridemia. monitor blood sugar q1h. monitor serum potassium q6h. Monitor serum calcium. Po gemfibrogil 600mg bid to keeg TG low, Try yo keep TG below 500. npo for now monitor renal function, potassium, tg, calcium, Visit type - Emergency Visit Emergency Visit: Yes ED Registration Date: 05/13/17 Care time: The patient presented to the Emergency Department on the above date and was hospitalized for further evaluation of their emergent condition. - New Patient This patient is new to me today: No - Critical Care Critical Care patient: Yes Total Critical Care Time (in minutes): 45 Critical Care Statement: The care of this patient involved high complexity decision making to prevent further life threatening deterioration of the patient 's condition and/or to evaluate & treat vital organ system(s) failure or risk of failure.
[2017-05-15] MEDS ORDERED: INSULIN REGULAR 100 UNITS in SODIUM CHLORIDE 99 ML IVPB SCH (15:17)
[2017-05-15] MEDS: ACETAMINOPHEN 325 MG TABLET (FP) PO PRN (16:09)
--- NOTE | 2017-05-15 18:50 | PN ---
Progress Note (short form) - Note Progress Note: Feels better Still with abd pain No N/V, No BM, passing flatus Moved bowel today as per pt Vital Signs Period Temp Pulse Resp BP Sys/Rodgers Pulse Ox Last 24 Hr 98.0 F-100.3 F 20-109 18-33 97-108/57-71 98-98 PE: Aox3 Neck: Supple, No JVD HEENT: PERRL, EOMI Lung: Decreased BS at bases CVS: S1S2 Abd: Epigastric tenderness, decreased BS Ext: No edema Neuro: No focal deficit CMP Sodium 136 mmol/L (136-145) 05/15/17 12:00 Potassium 3.7 mmol/L (3.5-5.1) 05/15/17 12:00 Chloride 104 mmol/L (98-107) 05/15/17 12:00 Carbon Dioxide 27 mmol/L (21-32) 05/15/17 12:00 Anion Gap 5 (8-16) L 05/15/17 12:00 BUN 4 mg/dL (7-18) L D 05/15/17 12:00 Creatinine 0.2 mg/dL (0.55-1.02) L 05/15/17 12:00 Creat Clearance w eGFR > 60 (>60) 05/15/17 12:00 POC Glucometer 160.13432 UNITS (80-120) 05/15/17 12:04 Random Glucose 181 mg/dL (74-106) H 05/15/17 12:00 Hemoglobin A1c % 9.6 % (4.8-6.0) H 05/13/17 09:55 Lactic Acid 0.3 mmol/L (0.4-2.0) L 05/13/17 21:40 Calcium 7.5 mg/dL (8.5-10.1) L 05/15/17 12:00 Ionized Calcium 5.5 mg/dL (4.5-5.6) 05/14/17 10:50 Phosphorus 2.1 mg/dL (2.5-4.9) L D 05/15/17 12:00 Magnesium 2.0 mg/dL (1.8-2.4) 05/15/17 06:00 Total Bilirubin 0.4 mg/dL (0.2-1.0) 05/15/17 12:00 Direct Bilirubin TNP 05/13/17 11:50 AST 9 U/L (15-37) L 05/15/17 12:00 ALT 10 U/L (12-78) L 05/15/17 12:00 Alkaline Phosphatase 48 U/L (45-117) 05/15/17 12:00 Total Protein 4.8 g/dl (6.4-8.2) L 05/15/17 12:00 Albumin 2.2 g/dl (3.4-5.0) L 05/15/17 12:00 Triglycerides 420 mg/dL (35-160) H 05/15/17 12:00 Cholesterol 185 mg/dL (50-200) 05/14/17 06:15 Total LDL Cholesterol 53 mg/dL (5-100) 05/14/17 06:15 HDL Cholesterol 15 mg/dL (40-60) L 05/14/17 06:15 Total Amylase 223 U/L (25-115) H D 05/14/17 02:00 Lipase 1113 U/L (73-393) H 05/14/17 02:00 TSH 0.20 uIU/ml (0.358-3.74) L 05/14/17 06:15 Free T4 0.83 ng/dl (0.76-1.46) 05/14/17 09:33 Resin T3 Uptake 38.7 % (30-39) 05/14/17 09:33 Current Medications Generic Name Dose Route Start Last Admin Trade Name Freq PRN Reason Stop Dose Admin Acetaminophen 650 mg 05/15/17 08:41 05/15/17 16:09 Tylenol - PO 650 mg Q6H PRN Administration FEVER OR PAIN Chlorhexidine Gluconate 1 applic 05/13/17 22:00 05/14/17 22:26 Hibiclens For Decolonization - TP 1 applic HS NEFTALY Administration Gemfibrozil 600 mg 05/14/17 15:00 05/15/17 17:52 Lopid - PO 600 mg BID@0700,1630 NEFTALY Administration Heparin Sodium (Porcine) 5,000 unit 05/13/17 10:15 05/15/17 17:52 Heparin - SQ 5,000 unit Q8H-IV NEFTALY Administration Heparin Sodium (Porcine) 5,000 unit 05/13/17 20:19 05/13/17 20:30 Heparin - IVPUSH 5,000 unit PRN PRN Administration Heparin Hydromorphone HCl 0.5 mg 05/13/17 21:23 Dilaudid Injection - IVPB Q4H PRN Pain 4-6 Imipenem/Cilastatin Sodium 500 100 mls @ 100 mls/hr 05/13/17 21:00 05/15/17 14:20 mg/ Sodium Chloride IVPB 100 mls/hr Q6H-IV NEFTALY Administration Protocol Dextrose/Lactated Ringer's 20 meq in 1,000 mls @ 200 mls/hr 05/14/17 19:45 20:00 D5-Lr+20 Meq Kcl - IV 200 mls/hr ASDIR NEFTALY Administration Insulin Human Regular 100 100 mls @ 4.57 mls/hr 05/15/17 15:17 05/15/17 16:10 units/ Sodium Chloride IVPB 0.07 units/kg/hr TITR NEFTALY 4.57 mls/hr Protocol Administration 0.07 UNITS/KG/HR Mupirocin 1 applic 05/13/17 22:00 05/15/17 10:00 Bactroban 2% Ointment - NS 05/18/17 21:59 1 appful BID NEFTALY Administration Ondansetron HCl 4 mg 05/13/17 10:04 05/15/17 00:05 Zofran Injection IVPUSH 4 mg Q6H PRN Administration NAUSEA AP: Acute Pancreatitis Hypertriglyceridemia DM: A1c 9.6 Abnormal TFT: Probably Sick euthyroid. RPt TFT as outpt S/P Apheresis with decrease of Trig to 300 to 400s Continue Insulin drip to maintain blood sugar 120 to 200 BGM Q1H CMP Q 6 hr Triglyceride level Q 12 hr, Repeat apheresis if triglyceride levels rise Continue IV Dextrose/ringer's lactate to maintain blood sugar Gemfibrozil 600mg BID Case discussed with housestaff. To add D10 if necessary to maintain blood sugar 120 to 200 Electrolyte replacement as necessary, Ionized Ca WNL Further management as per ICU team. Problem List - Problems (1) Acute pancreatitis Code(s): K85.90 - ACUTE PANCREATITIS WITHOUT NECROSIS OR INFECTION, UNSP Qualifiers: Pancreatitis type: unspecified pancreatitis type Acute pancreatitis complication: unspecified Qualified Code(s): K85.90 - Acute pancreatitis without necrosis or infection, unspecified (2) Hyperglycemia Code(s): R73.9 - HYPERGLYCEMIA, UNSPECIFIED (3) Hypertriglyceridemia Code(s): E78.1 - PURE HYPERGLYCERIDEMIA
[2017-05-15] MEDS: D5-LR+20 MEQ KCL - 20 MEQ/1,000 ML INFUS.BAG IV SCH (20:41)
[2017-05-15] MEDS: CHLORHEXIDINE GLUCONATE 4% CLEANSER FOR DECOLONIZATION TP SCH (21:27)
[2017-05-15 22:22] LABS: ANION GAP 8 (8-16); CO2 26 mmol/L (21-32); CREATININE 0.2 mg/dL (0.55-1.02); GLUCOSE,RANDOM 156 mg/dL (74-106); SGOT/AST 6 U/L (15-37); SGPT/ALT 9 U/L (12-78)
[2017-05-15 22:24] LABS: ALK PHOS 46 U/L (45-117); BILIRUBIN,TOTAL 0.4 mg/dL (0.2-1.0); TOT PROT 4.4 g/dl (6.4-8.2)
[2017-05-15] MEDS ORDERED: KCL 10 MEQ IVPB 10 MEQ/100 ML INFUS.BAG IVPB ONE (23:00)
[2017-05-15] MEDS ORDERED: HYDROmorphone HCL CARPU-JECT 2 MG/1 ML DISP.SYRIN ONE (23:08)
[2017-05-16] MEDS ORDERED: PT OWN MED DRAWER 7, Y5N ONE ×4 (01:41→20:11)
[2017-05-16] MEDS: IMIPENEM/CILASTATIN SODIUM 500 MG in SODIUM CHLORIDE 100 ML IVPB SCH ×4 (02:13→21:17)
[2017-05-16] MEDS: HEPARIN NA (PORCINE) 5,000 UNITS/ML 1ML VIAL SQ SCH ×3 (02:13→17:09)
[2017-05-16] MEDS: D5-LR+20 MEQ KCL - 20 MEQ/1,000 ML INFUS.BAG IV SCH (06:09)
[2017-05-16] MEDS: GEMFIBROZIL 600 MG TABLET (FP) PO SCH ×2 (06:09→15:54)
[2017-05-16] MEDS ORDERED: HEMOQUE TEST 1 EACH EACH ONE (06:37)
[2017-05-16 06:59] LABS: BASOPHIL 0.3 % (0-2.0); EOSINOPHIL 1.4 % (0-4.5); MCHC 33.9 g/dl (32.0-36.0); MEAN CELL VOLUME 88.4 fl (80-96); MEAN PLT VOLUME 10.3 fl (7.5-11.1); NEUTROPHILS 86.4 % (42.8-82.8); PLATELET COUNT 154 K/MM3 (134-434); RDW 13.9 % (11.6-15.6); WHITE BLOOD COUNT 10.1 K/mm3 (4.0-10.0)
[2017-05-16 07:23] LABS: ALBUMIN 2.1 g/dl (3.4-5.0); ANION GAP 10 (8-16); CALCIUM 7.2 mg/dL (8.5-10.1); CO2 24 mmol/L (21-32); GLUCOSE,RANDOM 187 mg/dL (74-106)
[2017-05-16 07:27] LABS: ALK PHOS 52 U/L (45-117); BILIRUBIN,TOTAL 0.4 mg/dL (0.2-1.0); CREATININE 0.2 mg/dL (0.55-1.02); MAGNESIUM 1.8 mg/dL (1.8-2.4); PHOSPHOROUS 2.8 mg/dL (2.5-4.9); SGOT/AST 7 U/L (15-37); SGPT/ALT 9 U/L (12-78); TOT PROT 4.9 g/dl (6.4-8.2)
[2017-05-16 07:54] LABS: AMYLASE 43 U/L (25-115)
[2017-05-16] MEDS: MUPIROCIN 2% TOPICAL OINTMENT 22 GM TUBE NS SCH ×2 (09:52→21:18)
--- NOTE | 2017-05-16 12:09 | PN ---
Physical Exam: SUBJECTIVE: Patient seen and examined. Stated that she feels much better, improved abdominal pain. Feels hungry. However, still spiking fevers, currently Tm 101.2. OBJECTIVE: Vital Signs Period Temp Pulse Resp BP Sys/Rodgers Pulse Ox Last 24 Hr 98.8 F-101.2 F 91-106 16-30 97-112/55-68 98-98 GEN: AAOx3, Lying in bed, no use of accessory muscles, speaking in full sentences HEENT: PERRLA, EOMi CV: S1, S2, RRR LUNG: grossly clear posteirorly, crackles diminished ABD: Less distended, minimal TTP, normoactive BS MSK: No edema, no erythema Laboratory Last Values WBC 10.1 K/mm3 (4.0-10.0) H 05/16/17 05:22 RBC 4.16 M/mm3 (3.60-5.2) 05/16/17 05:22 Hgb 12.5 GM/dL (10.7-15.3) 05/16/17 05:22 Hct 36.8 % (32.4-45.2) 05/16/17 05:22 MCV 88.4 fl (80-96) 05/16/17 05:22 MCH 30.0 pg (25.7-33.7) 05/16/17 05:22 MCHC 33.9 g/dl (32.0-36.0) 05/16/17 05:22 RDW 13.9 % (11.6-15.6) 05/16/17 05:22 Plt Count 154 K/MM3 (134-434) 05/16/17 05:22 MPV 10.3 fl (7.5-11.1) 05/16/17 05:22 Neutrophils % 86.4 % (42.8-82.8) H 05/16/17 05:22 Neutrophils % (Manual) 84.0 % (42.8-82.8) H 05/13/17 03:18 Band Neutrophils % 5.0 % 05/13/17 03:18 Lymphocytes % 7.0 % (8-40) L 05/16/17 05:22 Lymphocytes % (Manual) 7.0 % (8-40) L 05/13/17 03:18 Monocytes % 4.9 % (3.8-10.2) 05/16/17 05:22 Monocytes % (Manual) 4 % (3.8-10.2) 05/13/17 03:18 Eosinophils % 1.4 % (0-4.5) 05/16/17 05:22 Basophils % 0.3 % (0-2.0) 05/16/17 05:22 Platelet Comment No Result Required. 05/13/17 03:18 Anisocytosis 1+ 05/13/17 03:18 PT with INR 13.90 SEC (9.98-11.88) H 05/15/17 06:00 INR 1.23 (0.82-1.09) H 05/15/17 06:00 PTT (Actin FS) 36.4 SECONDS (26.9-34.4) H 05/15/17 06:00 Fibrinogen 542.0 mg/dL (238-498) H D 05/15/17 06:00 Puncture Site Left radial 05/13/17 10:11 ABG pH 7.32 (7.35-7.45) L 05/13/17 10:11 ABG pCO2 at Pt Temp 34.8 mmHg (35-45) L 05/13/17 10:11 ABG pO2 at Pt Temp 132.0 mmHg (80-100) H 05/13/17 10:11 ABG HCO3 17.5 meq/L (22-26) L 05/13/17 10:11 ABG O2 Sat (Measured) 97.9 % (90-98.9) 05/13/17 10:11 ABG O2 Content 19.9 % vol (15-22) 05/13/17 10:11 ABG Base Excess -7.3 meq/l (-2-2) L 05/13/17 10:11 Ashkan Test Positive 05/13/17 10:11 VBG pH 7.30 (7.32-7.42) L 05/13/17 05:15 POC VBG pCO2 36.6 mmHg (38-52) L 05/13/17 05:15 POC VBG pO2 51.1 mmHg (28-48) H 05/13/17 05:15 Mixed VBG HCO3 17.6 meq/L (19-25) L 05/13/17 05:15 O2 Delivery Device Y 05/13/17 10:11 Oxygen Flow Rate Yes 05/13/17 10:11 Sodium 134 mmol/L (136-145) L 05/16/17 05:22 Potassium 3.6 mmol/L (3.5-5.1) 05/16/17 05:22 Chloride 100 mmol/L (98-107) 05/16/17 05:22 Carbon Dioxide 24 mmol/L (21-32) 05/16/17 05:22 Anion Gap 10 (8-16) 05/16/17 05:22 BUN 3 mg/dL (7-18) L D 05/16/17 05:22 Creatinine 0.2 mg/dL (0.55-1.02) L 05/16/17 05:22 Creat Clearance w eGFR > 60 (>60) 05/16/17 05:22 POC Glucometer 208.78421 UNITS (80-120) 05/16/17 10:38 Random Glucose 187 mg/dL (74-106) H 05/16/17 05:22 Hemoglobin A1c % 9.6 % (4.8-6.0) H 05/13/17 09:55 Lactic Acid 0.3 mmol/L (0.4-2.0) L 05/13/17 21:40 Calcium 7.2 mg/dL (8.5-10.1) L 05/16/17 05:22 Ionized Calcium 5.5 mg/dL (4.5-5.6) 05/14/17 10:50 Phosphorus 2.8 mg/dL (2.5-4.9) D 05/16/17 05:22 Magnesium 1.8 mg/dL (1.8-2.4) 05/16/17 05:22 Total Bilirubin 0.4 mg/dL (0.2-1.0) 05/16/17 05:22 Direct Bilirubin TNP 05/13/17 11:50 AST 7 U/L (15-37) L 05/16/17 05:22 ALT 9 U/L (12-78) L 05/16/17 05:22 Alkaline Phosphatase 52 U/L (45-117) 05/16/17 05:22 Total Protein 4.9 g/dl (6.4-8.2) L 05/16/17 05:22 Albumin 2.1 g/dl (3.4-5.0) L 05/16/17 05:22 Triglycerides 369 mg/dL (35-160) H 05/16/17 05:22 Cholesterol 185 mg/dL (50-200) 05/14/17 06:15 Total LDL Cholesterol 53 mg/dL (5-100) 05/14/17 06:15 HDL Cholesterol 15 mg/dL (40-60) L 05/14/17 06:15 Total Amylase 43 U/L (25-115) D 05/16/17 05:22 Lipase 237 U/L (73-393) 05/16/17 05:22 TSH 0.20 uIU/ml (0.358-3.74) L 05/14/17 06:15 Free T4 0.83 ng/dl (0.76-1.46) 05/14/17 09:33 Resin T3 Uptake 38.7 % (30-39) 05/14/17 09:33 Urine Color Ltyellow 05/13/17 03:25 Urine Appearance Clear 05/13/17 03:25 Urine pH 5.0 (5.0-8.0) 05/13/17 03:25 Ur Specific [place] 1.039 (1.001-1.035) H 05/13/17 03:25 Urine Protein Negative (NEGATIVE) 05/13/17 03:25 Urine Glucose (UA) 3+ (NEGATIVE) H 05/13/17 03:25 Urine Ketones 2+ (NEGATIVE) H 05/13/17 03:25 Urine Blood 1+ (NEGATIVE) H 05/13/17 03:25 Urine Nitrite Negative (NEGATIVE) 05/13/17 03:25 Urine Bilirubin Negative (NEGATIVE) 05/13/17 03:25 Urine Urobilinogen Negative mg/dL (0.2-1.0) 05/13/17 03:25 Ur Leukocyte Esterase Negative (NEGATIVE) 05/13/17 03:25 Urine WBC (Auto) 1 05/13/17 03:25 Urine RBC (Auto) 1 05/13/17 03:25 Ur Epithelial Cells Rare /hpf (FEW) 05/13/17 03:25 Urine Bacteria Rare /hpf (NONE SEEN) 05/13/17 03:25 Urine HCG, Qual Negative 05/13/17 03:25 Acetone, Qual Positive moderate 2+ (NEGATIVE) H 05/13/17 04:30 Blood Type O POSITIVE 05/13/17 11:50 Antibody Screen Negative 05/13/17 11:50 Active Medications Generic Name Dose Route Start Last Admin Trade Name Freq PRN Reason Stop Dose Admin Acetaminophen 650 mg 05/15/17 08:41 05/15/17 16:09 Tylenol - PO 650 mg Q6H PRN Administration FEVER OR PAIN Chlorhexidine Gluconate 1 applic 05/13/17 22:00 05/15/17 21:27 Hibiclens For Decolonization - TP 1 applic HS NEFTALY Administration Gemfibrozil 600 mg 05/14/17 15:00 05/16/17 06:09 Lopid - PO 600 mg BID@0700,1630 NEFTALY Administration Heparin Sodium (Porcine) 5,000 unit 05/13/17 10:15 05/16/17 09:52 Heparin - SQ 5,000 unit Q8H-IV NEFTALY Administration Heparin Sodium (Porcine) 5,000 unit 05/13/17 20:19 05/13/17 20:30 Heparin - IVPUSH 5,000 unit PRN PRN Administration Heparin Hydromorphone HCl 0.5 mg 05/13/17 21:23 05/15/17 23:10 Dilaudid Injection - IVPB 0.5 mg Q4H PRN Administration Pain 4-6 Imipenem/Cilastatin Sodium 500 100 mls @ 100 mls/hr 05/13/17 21:00 05/16/17 09:51 mg/ Sodium Chloride IVPB 100 mls/hr Q6H-IV NEFTALY Administration Protocol Dextrose/Lactated Ringer's 20 meq in 1,000 mls @ 200 mls/hr 05/14/17 19:45 06:09 D5-Lr+20 Meq Kcl - IV 200 mls/hr ASDIR NEFTALY Administration Insulin Human Regular 100 100 mls @ 4.57 mls/hr 05/15/17 15:17 05/15/17 16:10 units/ Sodium Chloride IVPB 0.07 units/kg/hr TITR NEFTALY 4.57 mls/hr Protocol Administration 0.07 UNITS/KG/HR Mupirocin 1 applic 05/13/17 22:00 05/16/17 09:52 Bactroban 2% Ointment - NS 05/18/17 21:59 1 applic BID NEFTALY Administration Ondansetron HCl 4 mg 05/13/17 10:04 05/15/17 00:05 Zofran Injection IVPUSH 4 mg Q6H PRN Administration NAUSEA ASSESSMENT/PLAN: Pt is a 32yo F with a PMHx of Gestational DM who presented with epigastric pain , polyuria, and polydipsia. She was found to have acute pancreatitis and hyperglycemia. # HyperTG Induced Acute Pancreatitis - S/p plasmapheresis x1, TG have stabilized in 300s, continue Gemfibrozil + [place]-3, will transition to insulin SQ - Pt now spiking fevers Tm 101.2, Bcx sent, obtaining CT scan abd/pelvis w/ PO contrast to check for panc abscess/fluid collection, cont Imipenem - Pt has started clear liquid diet, on LR @ 200cc/hr # New Onset Diabetes Mellitus - A1c 9.6 - Pt arrived in [facility] w/ ketones (likely 2/2 pancreatitis), now tolerating clear liquids, will transition to SQ Levemir 5 + SSI + BGM ACHS # Hypokalemia - Resolved, has KCl in the bad, monitor CMP Q6H # Hypocalcemia - Resolved, was likely 2/2 acute pancreatitis, improved with Calcium drip, on LR for now # Hyponatremia - Resolved, likely from hypovolemic, improving w/ fluids and insulin # Subclinical HyperThyroidism - TSH low 0.2, FT4 wnl, likely from acute inflammatory state, spoke to Dr. Pimentel who will repeat as outpt # FEN - LR at 200cc/hr, NPO # PPx - HSQ 5,000 TID, no GI ppx, PT ordered # Code Status - Full Code # Dispo - Continue ICU mgmt, monitor TG and glucose, f/u CT abd/pelvis d/w Dr Alberto, Dr Carmona, ICU team Joel Watson MD - PGY1 Internal Medicine Visit type - Emergency Visit Emergency Visit: No - New Patient This patient is new to me today: No - Critical Care Critical Care patient: No - Discharge Referral Referred to [facility] Med [facility] No
--- NOTE | 2017-05-16 12:35 | PN ---
Teaching Attending Note Name of Resident: Pascual Moran ATTENDING PHYSICIAN STATEMENT I saw and evaluated the patient. I reviewed the resident's note and discussed the case with the resident. I agree with the resident's findings and plan as documented. SUBJECTIVE: Patient seen and examined in the ICU. Remains on insulin drip. Denies CP or SOB. Some mild LUQ discomfort with deep breathing. OBJECTIVE: Intake & Output 05/13/17 05/14/17 05/15/17 05/16/17 23:59 23:59 23:59 23:59 Intake Total 300 2672 7856 1640 Output Total 200 3800 5500 3950 Balance 100 -1128 2356 -2310 Weight 141 lb 12.116 oz 144 lb 13.499 oz 149 lb 0.52 oz 152 lb 4.8 oz Last Vital Signs Temp Pulse Resp BP Pulse Ox 101.2 F H 100 H 30 H 109/68 98 05/16/17 10:00 05/16/17 10:00 05/16/17 10:00 05/16/17 10:00 05/16/17 09:00 Active Medications Acetaminophen (Tylenol -) 650 mg PO Q6H PRN PRN Reason: FEVER OR PAIN Last Admin: 05/15/17 16:09 Dose: 650 mg Chlorhexidine Gluconate (Hibiclens For Decolonization -) 1 applic TP HS NEFTALY Last Admin: 05/15/17 21:27 Dose: 1 applic Gemfibrozil (Lopid -) 600 mg PO BID@0700,1630 NEFTALY Last Admin: 05/16/17 06:09 Dose: 600 mg Heparin Sodium (Porcine) (Heparin -) 5,000 unit SQ Q8H-IV NEFTALY Last Admin: 05/16/17 09:52 Dose: 5,000 unit Heparin Sodium (Porcine) (Heparin -) 5,000 unit IVPUSH PRN PRN PRN Reason: Heparin Last Admin: 05/13/17 20:30 Dose: 5,000 unit Hydromorphone HCl (Dilaudid Injection -) 0.5 mg IVPB Q4H PRN PRN Reason: Pain 4-6 Last Admin: 05/15/17 23:10 Dose: 0.5 mg Imipenem/Cilastatin Sodium 500 (mg/ Sodium Chloride) 100 mls @ 100 mls/hr IVPB Q6H-IV NEFTALY PRN Reason: Protocol Last Admin: 05/16/17 09:51 Dose: 100 mls/hr Dextrose/Lactated Ringer's (D5-Lr+20 Meq Kcl -) 20 meq in 1,000 mls @ 200 mls/ hr IV ASDIR NEFTALY Last Admin: 05/16/17 06:09 Dose: 200 mls/hr Insulin Human Regular 100 (units/ Sodium Chloride) 100 mls @ 4.57 mls/hr IVPB TITR NEFTALY; 0.07 UNITS/KG/HR PRN Reason: Protocol Last Admin: 05/15/17 16:10 Dose: 0.07 units/kg/hr, 4.57 mls/hr Mupirocin (Bactroban 2% Ointment -) 1 applic NS BID NEFTALY Stop: 05/18/17 21:59 Last Admin: 05/16/17 09:52 Dose: 1 applic Ondansetron HCl (Zofran Injection) 4 mg IVPUSH Q6H PRN PRN Reason: NAUSEA Last Admin: 05/15/17 00:05 Dose: 4 mg Gen: Awake and alert, NAD Heart: RRR Lung: scattered basilar rales Abd: softly distended, mild TTP LUQ region, no rebound Ext: + edema Laboratory Results - last 24 hr 05/14/17 05/15/17 05/15/17 10:50 03:50 05:25 WBC RBC Hgb Hct MCV MCH MCHC RDW Plt Count MPV Neutrophils % Lymphocytes % Monocytes % Eosinophils % Basophils % Sodium Potassium Chloride Carbon Dioxide Anion Gap BUN Creatinine Creat Clearance w eGFR POC Glucometer 141.64928 169.23525 Random Glucose Calcium Ionized Calcium 5.5 Phosphorus Magnesium Total Bilirubin AST ALT Alkaline Phosphatase Total Protein Albumin Triglycerides Total Amylase Lipase 05/15/17 05/15/17 05/15/17 07:10 08:40 09:49 WBC RBC Hgb Hct MCV MCH MCHC RDW Plt Count MPV Neutrophils % Lymphocytes % Monocytes % Eosinophils % Basophils % Sodium Potassium Chloride Carbon Dioxide Anion Gap BUN Creatinine Creat Clearance w eGFR POC Glucometer 186.85960 185.89899 180.60924 Random Glucose Calcium Ionized Calcium Phosphorus Magnesium Total Bilirubin AST ALT Alkaline Phosphatase Total Protein Albumin Triglycerides Total Amylase Lipase 05/15/17 05/15/17 05/15/17 10:51 12:00 12:00 WBC RBC Hgb Hct MCV MCH MCHC RDW Plt Count MPV Neutrophils % Lymphocytes % Monocytes % Eosinophils % Basophils % Sodium 136 Potassium 3.7 Chloride 104 Carbon Dioxide 27 Anion Gap 5 L BUN 4 L D Creatinine 0.2 L Creat Clearance w eGFR > 60 POC Glucometer 189.43960 Random Glucose 181 H Calcium 7.5 L Ionized Calcium Phosphorus 2.1 L D Cancelled Magnesium Total Bilirubin 0.4 AST 9 L ALT 10 L Alkaline Phosphatase 48 Total Protein 4.8 L Albumin 2.2 L Triglycerides 420 H Total Amylase Lipase 05/15/17 05/15/17 05/15/17 12:04 13:57 14:33 WBC RBC Hgb Hct MCV MCH MCHC RDW Plt Count MPV Neutrophils % Lymphocytes % Monocytes % Eosinophils % Basophils % Sodium Potassium Chloride Carbon Dioxide Anion Gap BUN Creatinine Creat Clearance w eGFR POC Glucometer 160.13728 185.23188 169.32115 Random Glucose Calcium Ionized Calcium Phosphorus Magnesium Total Bilirubin AST ALT Alkaline Phosphatase Total Protein Albumin Triglycerides Total Amylase Lipase 05/15/17 05/15/17 05/15/17 16:01 17:55 18:38 WBC RBC Hgb Hct MCV MCH MCHC RDW Plt Count MPV Neutrophils % Lymphocytes % Monocytes % Eosinophils % Basophils % Sodium Potassium Chloride Carbon Dioxide Anion Gap BUN Creatinine Creat Clearance w eGFR POC Glucometer 145.45365 141.01193 141.69845 Random Glucose Calcium Ionized Calcium Phosphorus Magnesium Total Bilirubin AST ALT Alkaline Phosphatase Total Protein Albumin Triglycerides Total Amylase Lipase 05/15/17 05/15/17 05/15/17 19:34 20:22 21:05 WBC RBC Hgb Hct MCV MCH MCHC RDW Plt Count MPV Neutrophils % Lymphocytes % Monocytes % Eosinophils % Basophils % Sodium 139 Potassium 3.3 L Chloride 105 Carbon Dioxide 26 Anion Gap 8 BUN 5 L D Creatinine 0.2 L Creat Clearance w eGFR > 60 POC Glucometer 158.29777 150.61367 Random Glucose 156 H Calcium 7.0 L Ionized Calcium Phosphorus Magnesium Total Bilirubin 0.4 AST 6 L D ALT 9 L Alkaline Phosphatase 46 Total Protein 4.4 L Albumin 2.0 L Triglycerides 351 H Total Amylase Lipase 05/15/17 05/15/17 05/15/17 21:33 22:25 23:23 WBC RBC Hgb Hct MCV MCH MCHC RDW Plt Count MPV Neutrophils % Lymphocytes % Monocytes % Eosinophils % Basophils % Sodium Potassium Chloride Carbon Dioxide Anion Gap BUN Creatinine Creat Clearance w eGFR POC Glucometer 152.24124 150.20820 153.76312 Random Glucose Calcium Ionized Calcium Phosphorus Magnesium Total Bilirubin AST ALT Alkaline Phosphatase Total Protein Albumin Triglycerides Total Amylase Lipase 05/16/17 05/16/17 05/16/17 00:29 01:39 02:36 WBC RBC Hgb Hct MCV MCH MCHC RDW Plt Count MPV Neutrophils % Lymphocytes % Monocytes % Eosinophils % Basophils % Sodium Potassium Chloride Carbon Dioxide Anion Gap BUN Creatinine Creat Clearance w eGFR POC Glucometer 133.16748 122.26560 127.07512 Random Glucose Calcium Ionized Calcium Phosphorus Magnesium Total Bilirubin AST ALT Alkaline Phosphatase Total Protein Albumin Triglycerides Total Amylase Lipase 05/16/17 05/16/17 05/16/17 03:31 05:04 05:22 WBC 10.1 H RBC 4.16 Hgb 12.5 Hct 36.8 MCV 88.4 MCH 30.0 MCHC 33.9 RDW 13.9 Plt Count 154 MPV 10.3 Neutrophils % 86.4 H Lymphocytes % 7.0 L Monocytes % 4.9 Eosinophils % 1.4 Basophils % 0.3 Sodium Potassium Chloride Carbon Dioxide Anion Gap BUN Creatinine Creat Clearance w eGFR POC Glucometer 145.77530 185.08611 Random Glucose Calcium Ionized Calcium Phosphorus Magnesium Total Bilirubin AST ALT Alkaline Phosphatase Total Protein Albumin Triglycerides Total Amylase Lipase 05/16/17 05/16/17 05/16/17 05:22 05:22 06:05 WBC RBC Hgb Hct MCV MCH MCHC RDW Plt Count MPV Neutrophils % Lymphocytes % Monocytes % Eosinophils % Basophils % Sodium 134 L Potassium 3.6 Chloride 100 Carbon Dioxide 24 Anion Gap 10 BUN 3 L D Creatinine 0.2 L Creat Clearance w eGFR > 60 POC Glucometer 178.52916 Random Glucose 187 H Calcium 7.2 L Ionized Calcium Phosphorus 2.8 D Magnesium 1.8 Total Bilirubin 0.4 AST 7 L ALT 9 L Alkaline Phosphatase 52 Total Protein 4.9 L Albumin 2.1 L Triglycerides 369 H Total Amylase 43 D Lipase 237 05/16/17 05/16/17 05/16/17 06:58 08:18 10:38 WBC RBC Hgb Hct MCV MCH MCHC RDW Plt Count MPV Neutrophils % Lymphocytes % Monocytes % Eosinophils % Basophils % Sodium Potassium Chloride Carbon Dioxide Anion Gap BUN Creatinine Creat Clearance w eGFR POC Glucometer 171.33897 165.86960 208.20458 Random Glucose Calcium Ionized Calcium Phosphorus Magnesium Total Bilirubin AST ALT Alkaline Phosphatase Total Protein Albumin Triglycerides Total Amylase Lipase ASSESSMENT AND PLAN: Acute Pancreatitis Sepsis Severe Hypertriglyceridemia Severe Hypocalcemia Diabetes Acute Kidney Injury Lactic Acidosis IVF resuscitation D/W Endo about D/C insulin drip and SQ coverage Follow BGM Monitor lytes, replete as needed Daily assessment for Plasma exchange Will D/C femoral catheter if no further exchange planned ABX per ID Lopid PO as tolerated OOB to chair Follow Triglycerides Dr Nettles Critical care time spent in reviewing chart, evaluating patient and formulating plan 35 min
[2017-05-16] MEDS: ACETAMINOPHEN 325 MG TABLET (FP) PO PRN (12:40)
[2017-05-16] MEDS ORDERED: ACETAMINOPHEN 1000 MG/100 ML VIAL (NON FORMULARY) IVPB PRN (12:49)
[2017-05-16] MEDS ORDERED: LACTATED RINGERS SOLUTION 1,000 ML/1,000 ML INFUS.BAG IV SCH (13:00)
[2017-05-16] MEDS: OMEGA-3 ACID ETHYL ESTERS (FATTY-ACIDS) 1 GM CAPSULE (FP) PO SCH ×2 (13:00→21:18)
--- NOTE | 2017-05-16 13:17 | PN ---
Physical Exam: SUBJECTIVE: Patient seen and examined. states pain has decreased. accepting clear liquid. denies difficulty in breathing. denies chest pain OBJECTIVE: Vital Signs Period Temp Pulse Resp BP Sys/Rodgers Pulse Ox Last 24 Hr 98.8 F-101.2 F 91-106 16-30 97-112/55-68 98-98 GENERAL: The patient is awake, alert, and fully oriented, in no acute distress. ENT: dry mucous membranes. NECK: Trachea midline, full range of motion, supple. LUNGS: Breath sounds equal,, no wheezes, mild crackles at bases , no accessory muscle use. HEART: Regular rate and rhythm, S1, S2 without murmur, rub or gallop. ABDOMEN: Soft, tender at epigastric area , distension decreased since yesterday , taylor in situ EXTREMITIES: no edema. PSYCH: Normal mood, normal affect. SKIN: Warm, dry, Laboratory Results - last 24 hr 05/13/17 05/13/17 05/14/17 22:34 22:37 10:50 WBC RBC Hgb Hct MCV MCH MCHC RDW Plt Count MPV Neutrophils % Lymphocytes % Monocytes % Eosinophils % Basophils % Sodium Potassium Chloride Carbon Dioxide Anion Gap BUN Creatinine Creat Clearance w eGFR POC Glucometer 119.70022 [phone] Random Glucose Calcium Ionized Calcium 5.5 Phosphorus Magnesium Total Bilirubin AST ALT Alkaline Phosphatase Total Protein Albumin Triglycerides Total Amylase Lipase 05/15/17 05/15/17 05/15/17 03:50 05:25 07:10 WBC RBC Hgb Hct MCV MCH MCHC RDW Plt Count MPV Neutrophils % Lymphocytes % Monocytes % Eosinophils % Basophils % Sodium Potassium Chloride Carbon Dioxide Anion Gap BUN Creatinine Creat Clearance w eGFR POC Glucometer 141.70702 169.06463 [phone] Random Glucose Calcium Ionized Calcium Phosphorus Magnesium Total Bilirubin AST ALT Alkaline Phosphatase Total Protein Albumin Triglycerides Total Amylase Lipase 05/15/17 05/15/17 05/15/17 08:40 09:49 10:51 WBC RBC Hgb Hct MCV MCH MCHC RDW Plt Count MPV Neutrophils % Lymphocytes % Monocytes % Eosinophils % Basophils % Sodium Potassium Chloride Carbon Dioxide Anion Gap BUN Creatinine Creat Clearance w eGFR POC Glucometer 185.60442 180.74074 [phone] Random Glucose Calcium Ionized Calcium Phosphorus Magnesium Total Bilirubin AST ALT Alkaline Phosphatase Total Protein Albumin Triglycerides Total Amylase Lipase 05/15/17 05/15/17 05/15/17 12:04 13:57 14:33 WBC RBC Hgb Hct MCV MCH MCHC RDW Plt Count MPV Neutrophils % Lymphocytes % Monocytes % Eosinophils % Basophils % Sodium Potassium Chloride Carbon Dioxide Anion Gap BUN Creatinine Creat Clearance w eGFR POC Glucometer 160.85194 185.71538 [phone] Random Glucose Calcium Ionized Calcium Phosphorus Magnesium Total Bilirubin AST ALT Alkaline Phosphatase Total Protein Albumin Triglycerides Total Amylase Lipase 05/15/17 05/15/17 05/15/17 16:01 17:55 18:38 WBC RBC Hgb Hct MCV MCH MCHC RDW Plt Count MPV Neutrophils % Lymphocytes % Monocytes % Eosinophils % Basophils % Sodium Potassium Chloride Carbon Dioxide Anion Gap BUN Creatinine Creat Clearance w eGFR POC Glucometer 145.50660 141.15662 [phone] Random Glucose Calcium Ionized Calcium Phosphorus Magnesium Total Bilirubin AST ALT Alkaline Phosphatase Total Protein Albumin Triglycerides Total Amylase Lipase 05/15/17 05/15/17 05/15/17 19:34 20:22 21:05 WBC RBC Hgb Hct MCV MCH MCHC RDW Plt Count MPV Neutrophils % Lymphocytes % Monocytes % Eosinophils % Basophils % Sodium 139 Potassium 3.3 L Chloride 105 Carbon Dioxide 26 Anion Gap 8 BUN 5 L D Creatinine 0.2 L Creat Clearance w eGFR > 60 POC Glucometer 158.02880 150.21250 Random Glucose 156 H Calcium 7.0 L Ionized Calcium Phosphorus Magnesium Total Bilirubin 0.4 AST 6 L D ALT 9 L Alkaline Phosphatase 46 Total Protein 4.4 L Albumin 2.0 L Triglycerides 351 H Total Amylase Lipase 05/15/17 05/15/17 05/15/17 21:33 22:25 23:23 WBC RBC Hgb Hct MCV MCH MCHC RDW Plt Count MPV Neutrophils % Lymphocytes % Monocytes % Eosinophils % Basophils % Sodium Potassium Chloride Carbon Dioxide Anion Gap BUN Creatinine Creat Clearance w eGFR POC Glucometer 152.53809 150.76586 [phone] Random Glucose Calcium Ionized Calcium Phosphorus Magnesium Total Bilirubin AST ALT Alkaline Phosphatase Total Protein Albumin Triglycerides Total Amylase Lipase 05/16/17 05/16/17 05/16/17 00:29 01:39 02:36 WBC RBC Hgb Hct MCV MCH MCHC RDW Plt Count MPV Neutrophils % Lymphocytes % Monocytes % Eosinophils % Basophils % Sodium Potassium Chloride Carbon Dioxide Anion Gap BUN Creatinine Creat Clearance w eGFR POC Glucometer 133.61063 122.07772 [phone] Random Glucose Calcium Ionized Calcium Phosphorus Magnesium Total Bilirubin AST ALT Alkaline Phosphatase Total Protein Albumin Triglycerides Total Amylase Lipase 05/16/17 05/16/17 05/16/17 03:31 05:04 05:22 WBC 10.1 H RBC 4.16 Hgb 12.5 Hct 36.8 MCV 88.4 MCH 30.0 MCHC 33.9 RDW 13.9 Plt Count 154 MPV 10.3 Neutrophils % 86.4 H Lymphocytes % 7.0 L Monocytes % 4.9 Eosinophils % 1.4 Basophils % 0.3 Sodium Potassium Chloride Carbon Dioxide Anion Gap BUN Creatinine Creat Clearance w eGFR POC Glucometer 145.44393 [phone] Random Glucose Calcium Ionized Calcium Phosphorus Magnesium Total Bilirubin AST ALT Alkaline Phosphatase Total Protein Albumin Triglycerides Total Amylase Lipase 05/16/17 05/16/17 05/16/17 05:22 05:22 06:05 WBC RBC Hgb Hct MCV MCH MCHC RDW Plt Count MPV Neutrophils % Lymphocytes % Monocytes % Eosinophils % Basophils % Sodium 134 L Potassium 3.6 Chloride 100 Carbon Dioxide 24 Anion Gap 10 BUN 3 L D Creatinine 0.2 L Creat Clearance w eGFR > 60 POC Glucometer 178.18454 Random Glucose 187 H Calcium 7.2 L Ionized Calcium Phosphorus 2.8 D Magnesium 1.8 Total Bilirubin 0.4 AST 7 L ALT 9 L Alkaline Phosphatase 52 Total Protein 4.9 L Albumin 2.1 L Triglycerides 369 H Total Amylase 43 D Lipase 237 05/16/17 05/16/17 05/16/17 06:58 08:18 10:38 WBC RBC Hgb Hct MCV MCH MCHC RDW Plt Count MPV Neutrophils % Lymphocytes % Monocytes % Eosinophils % Basophils % Sodium Potassium Chloride Carbon Dioxide Anion Gap BUN Creatinine Creat Clearance w eGFR POC Glucometer 171.30730 165.91431 208.69637 Random Glucose Calcium Ionized Calcium Phosphorus Magnesium Total Bilirubin AST ALT Alkaline Phosphatase Total Protein Albumin Triglycerides Total Amylase Lipase Active Medications Generic Name Dose Route Start Last Admin Trade Name Freq PRN Reason Stop Dose Admin Acetaminophen 650 mg 05/15/17 08:41 05/16/17 12:40 Tylenol - PO 650 mg Q6H PRN Administration FEVER OR PAIN Acetaminophen 1,000 mg 05/16/17 12:49 Ofirmev Injection - IVPB Q6H PRN FEVER OR PAIN Chlorhexidine Gluconate 1 applic 05/13/17 22:00 05/15/17 21:27 Hibiclens For Decolonization - TP 1 applic HS NEFTALY Administration Gemfibrozil 600 mg 05/14/17 15:00 05/16/17 06:09 Lopid - PO 600 mg BID@0700,1630 NEFTALY Administration Heparin Sodium (Porcine) 5,000 unit 05/13/17 10:15 05/16/17 09:52 Heparin - SQ 5,000 unit Q8H-IV NEFTALY Administration Heparin Sodium (Porcine) 5,000 unit 05/13/17 20:19 05/13/17 20:30 Heparin - IVPUSH 5,000 unit PRN PRN Administration Heparin Hydromorphone HCl 0.5 mg 05/13/17 21:23 05/15/17 23:10 Dilaudid Injection - IVPB 0.5 mg Q4H PRN Administration Pain 4-6 Imipenem/Cilastatin Sodium 500 100 mls @ 100 mls/hr 05/13/17 21:00 05/16/17 09:51 mg/ Sodium Chloride IVPB 100 mls/hr Q6H-IV NEFTALY Administration Protocol Insulin Human Regular 100 100 mls @ 4.57 mls/hr 05/15/17 15:17 05/15/17 16:10 units/ Sodium Chloride IVPB 0.07 units/kg/hr TITR NEFTALY 4.57 mls/hr Protocol Administration 0.07 UNITS/KG/HR Lactated Ringer's 1,000 ml in 1,000 mls @ 200 mls/hr 05/16/17 13:00 Lactated Ringers Solution IV ASDIR NEFTALY Mupirocin 1 applic 05/13/17 22:00 05/16/17 09:52 Bactroban 2% Ointment - NS 05/18/17 21:59 1 applic BID NEFTALY Administration [id number] Ethyl Esters 2 gm 05/16/17 12:43 Lovaza - PO BID NEFTALY Ondansetron HCl 4 mg 05/13/17 10:04 05/15/17 00:05 Zofran Injection IVPUSH 4 mg Q6H PRN Administration NAUSEA ASSESSMENT/PLAN: Acute Pancreatitis day 3 Severe Hypertriglyceridemia post plasmpheresis Severe Hypocalcemia Diabetes Acute Kidney Injury Lactic Acidosis Plan IV fluid, maintain urine output of 0.5-1ml/hr avoid negative balance Monitor intake and output monitoring. Keep blood sugar between 140-[address] shreshta, insulin drip stopped started on sliding scale, BGM q4h, if in evening BGM is high start her on levemir. add lovaza bid. monitor serum potassium Monitor serum calcium. Po gemfibrogil 600mg bid to keeg TG low, Try yo keep TG below 500. had episode of fever, pancreatitis day 4, could be due to sirs vs abscess, patient is clinically improving, chances of abscess is less. will get Blood culture, Follow ct abdomen with and without contrast. monitor renal function, potassium, tg, calcium, Visit type - Emergency Visit Emergency Visit: Yes ED Registration Date: 05/13/17 Care time: The patient presented to the Emergency Department on the above date and was hospitalized for further evaluation of their emergent condition. - New Patient This patient is new to me today: No - Critical Care Critical Care patient: Yes Total Critical Care Time (in minutes): 45 Critical Care Statement: The care of this patient involved high complexity decision making to prevent further life threatening deterioration of the patient 's condition and/or to evaluate & treat vital organ system(s) failure or risk of failure.
[2017-05-16] MEDS: INSULIN SLIDING SCALE (NOVOLOG) 1 VIAL SQ SCH ×2 (14:45→16:45)
[2017-05-16] MEDS ORDERED: INSULIN REGULAR 100 UNITS in SODIUM CHLORIDE 99 ML IVPB SCH (14:45)
--- NOTE | 2017-05-16 15:39 | PN ---
Progress Note, Physician History of Present Illness: patient continues to spike fever repeat ct scan done patient still looks septic fevers have been quite frequent - Current Medication List Current Medications: Active Medications Acetaminophen (Tylenol -) 650 mg PO Q6H PRN PRN Reason: FEVER OR PAIN Last Admin: 05/16/17 12:40 Dose: 650 mg Acetaminophen (Ofirmev Injection -) 1,000 mg IVPB Q6H PRN PRN Reason: FEVER OR PAIN Chlorhexidine Gluconate (Hibiclens For Decolonization -) 1 applic TP HS NEFTALY Last Admin: 05/15/17 21:27 Dose: 1 applic Gemfibrozil (Lopid -) 600 mg PO BID@0700,1630 NEFTALY Last Admin: 05/16/17 06:09 Dose: 600 mg Heparin Sodium (Porcine) (Heparin -) 5,000 unit SQ Q8H-IV NEFTALY Last Admin: 05/16/17 09:52 Dose: 5,000 unit Heparin Sodium (Porcine) (Heparin -) 5,000 unit IVPUSH PRN PRN PRN Reason: Heparin Last Admin: 05/13/17 20:30 Dose: 5,000 unit Hydromorphone HCl (Dilaudid Injection -) 0.5 mg IVPB Q4H PRN PRN Reason: Pain 4-6 Last Admin: 05/15/17 23:10 Dose: 0.5 mg Imipenem/Cilastatin Sodium 500 (mg/ Sodium Chloride) 100 mls @ 100 mls/hr IVPB Q6H-IV NEFTALY PRN Reason: Protocol Last Admin: 05/16/17 09:51 Dose: 100 mls/hr Lactated Ringer's (Lactated Ringers Solution) 1,000 ml in 1,000 mls @ 200 mls/ hr IV ASDIR NEFTALY Last Admin: 05/16/17 13:00 Dose: 200 mls/hr Insulin Human Regular 100 (units/ Sodium Chloride) 100 mls @ 4.83 mls/hr IVPB TITR NEFTALY; 0.07 UNITS/KG/HR PRN Reason: Protocol Insulin Aspart (Novolog Vial Sliding Scale -) 0 vial SQ ACHS NEFTALY PRN Reason: Protocol Mupirocin (Bactroban 2% Ointment -) 1 applic NS BID NEFTALY Stop: 05/18/17 21:59 Last Admin: 05/16/17 09:52 Dose: 1 applic [id number] Ethyl Esters (Lovaza -) 2 gm PO BID NEFTALY Ondansetron HCl (Zofran Injection) 4 mg IVPUSH Q6H PRN PRN Reason: NAUSEA Last Admin: 05/15/17 00:05 Dose: 4 mg - Objective Vital Signs: Vital Signs Temperature 100.8 F H 05/16/17 12:00 Pulse Rate 98 H 05/16/17 12:00 Respiratory Rate 24 05/16/17 12:00 Blood Pressure 109/60 05/16/17 12:00 O2 Sat by Pulse Oximetry (%) 98 05/16/17 09:00 Constitutional: Yes: Calm, Mild Distress Cardiovascular: Yes: Regular Rate and Rhythm Respiratory: Yes: Regular, CTA Bilaterally Gastrointestinal: Yes: Soft, Hypoactive Bowel Sounds Musculoskeletal: Yes: WNL Extremities: Yes: WNL Neurological: Yes: Alert, Oriented Psychiatric: Yes: Alert, Oriented Labs: CBC, BMP 05/16/17 05:22 05/16/17 05:22 INR, PTT INR 1.23 (0.82-1.09) H 05/15/17 06:00 Fibrinogen 542.0 mg/dL (238-498) H D 05/15/17 06:00 - ....Imaging Cat Scan: Report Reviewed, Image Reviewed Assessment/Plan Acute Pancreatitis Sepsis Severe Hypertriglyceridemia Severe Hypocalcemia Diabetes Acute Kidney Injury Lactic Acidosis plan continue abx hydration repeat ct scan noted close watch for sepsis and resp failure await for cx reports if patient continues to spike [place] tristin repeat imaging in a day or so rest as per icu cc time 40 min
--- NOTE | 2017-05-16 15:46 | PN ---
Progress Note, Physician History of Present Illness: Awake, alert, clinically better, still with epigastric pain. Tm 101. Cultures negative. Htc 37, BUN 3 - Current Medication List Current Medications: Active Medications Acetaminophen (Tylenol -) 650 mg PO Q6H PRN PRN Reason: FEVER OR PAIN Last Admin: 05/16/17 12:40 Dose: 650 mg Acetaminophen (Ofirmev Injection -) 1,000 mg IVPB Q6H PRN PRN Reason: FEVER OR PAIN Chlorhexidine Gluconate (Hibiclens For Decolonization -) 1 applic TP HS NEFTALY Last Admin: 05/15/17 21:27 Dose: 1 applic Gemfibrozil (Lopid -) 600 mg PO BID@0700,1630 NEFTALY Last Admin: 05/16/17 06:09 Dose: 600 mg Heparin Sodium (Porcine) (Heparin -) 5,000 unit SQ Q8H-IV NEFTALY Last Admin: 05/16/17 09:52 Dose: 5,000 unit Heparin Sodium (Porcine) (Heparin -) 5,000 unit IVPUSH PRN PRN PRN Reason: Heparin Last Admin: 05/13/17 20:30 Dose: 5,000 unit Hydromorphone HCl (Dilaudid Injection -) 0.5 mg IVPB Q4H PRN PRN Reason: Pain 4-6 Last Admin: 05/15/17 23:10 Dose: 0.5 mg Imipenem/Cilastatin Sodium 500 (mg/ Sodium Chloride) 100 mls @ 100 mls/hr IVPB Q6H-IV NEFTALY PRN Reason: Protocol Last Admin: 05/16/17 09:51 Dose: 100 mls/hr Lactated Ringer's (Lactated Ringers Solution) 1,000 ml in 1,000 mls @ 200 mls/ hr IV ASDIR NEFTALY Last Admin: 05/16/17 13:00 Dose: 200 mls/hr Insulin Human Regular 100 (units/ Sodium Chloride) 100 mls @ 4.83 mls/hr IVPB TITR NEFTALY; 0.07 UNITS/KG/HR PRN Reason: Protocol Insulin Aspart (Novolog Vial Sliding Scale -) 0 vial SQ ACHS NEFTALY PRN Reason: Protocol Mupirocin (Bactroban 2% Ointment -) 1 applic NS BID NEFTALY Stop: 05/18/17 21:59 Last Admin: 05/16/17 09:52 Dose: 1 applic Arliy-1-Pinf Ethyl Esters (Lovaza -) 2 gm PO BID NEFTALY Ondansetron HCl (Zofran Injection) 4 mg IVPUSH Q6H PRN PRN Reason: NAUSEA Last Admin: 05/15/17 00:05 Dose: 4 mg - Objective Vital Signs: Vital Signs Temperature 100.8 F H 05/16/17 12:00 Pulse Rate 98 H 05/16/17 12:00 Respiratory Rate 24 05/16/17 12:00 Blood Pressure 109/60 05/16/17 12:00 O2 Sat by Pulse Oximetry (%) 98 05/16/17 09:00 Constitutional: Yes: No Distress, Calm Eyes: Yes: Conjunctiva Clear Gastrointestinal: Yes: Soft, Distention, Tenderness, Epigastrium. No: Tenderness, Rebound, Vomiting Integumentary: No: Jaundice Neurological: Yes: Alert, Oriented Labs: CBC, BMP 05/16/17 05:22 05/16/17 05:22 INR, PTT INR 1.23 (0.82-1.09) H 05/15/17 06:00 Fibrinogen 542.0 mg/dL (238-498) H D 05/15/17 06:00 CBCD WBC 10.1 K/mm3 (4.0-10.0) H 05/16/17 05:22 RBC 4.16 M/mm3 (3.60-5.2) 05/16/17 05:22 Hgb 12.5 GM/dL (10.7-15.3) 05/16/17 05:22 Hct 36.8 % (32.4-45.2) 05/16/17 05:22 MCV 88.4 fl (80-96) 05/16/17 05:22 MCHC 33.9 g/dl (32.0-36.0) 05/16/17 05:22 RDW 13.9 % (11.6-15.6) 05/16/17 05:22 Plt Count 154 K/MM3 (134-434) 05/16/17 05:22 MPV 10.3 fl (7.5-11.1) 05/16/17 05:22 CMP Sodium 134 mmol/L (136-145) L 05/16/17 05:22 Potassium 3.6 mmol/L (3.5-5.1) 05/16/17 05:22 Chloride 100 mmol/L (98-107) 05/16/17 05:22 Carbon Dioxide 24 mmol/L (21-32) 05/16/17 05:22 Anion Gap 10 (8-16) 05/16/17 05:22 BUN 3 mg/dL (7-18) L D 05/16/17 05:22 Creatinine 0.2 mg/dL (0.55-1.02) L 05/16/17 05:22 Creat Clearance w eGFR > 60 (>60) 05/16/17 05:22 Calcium 7.2 mg/dL (8.5-10.1) L 05/16/17 05:22 Total Bilirubin 0.4 mg/dL (0.2-1.0) 05/16/17 05:22 AST 7 U/L (15-37) L 05/16/17 05:22 ALT 9 U/L (12-78) L 05/16/17 05:22 Alkaline Phosphatase 52 U/L (45-117) 05/16/17 05:22 Total Protein 4.9 g/dl (6.4-8.2) L 05/16/17 05:22 Albumin 2.1 g/dl (3.4-5.0) L 05/16/17 05:22 - ....Imaging Cat Scan: Pending Problem List - Problems (1) Acute pancreatitis Code(s): K85.90 - ACUTE PANCREATITIS WITHOUT NECROSIS OR INFECTION, UNSP Qualifiers: Pancreatitis type: unspecified pancreatitis type Acute pancreatitis complication: unspecified Qualified Code(s): K85.90 - Acute pancreatitis without necrosis or infection, unspecified (2) Hyperglycemia Code(s): R73.9 - HYPERGLYCEMIA, UNSPECIFIED (3) Hypertriglyceridemia Code(s): E78.1 - PURE HYPERGLYCERIDEMIA (4) Hypokalemia Code(s): E87.6 - HYPOKALEMIA (5) Hyponatremia Code(s): E87.1 - HYPO-OSMOLALITY AND HYPONATREMIA (6) SIRS (systemic inflammatory response syndrome) Code(s): R65.10 - SIRS OF NON-INFECTIOUS ORIGIN W/O ACUTE ORGAN DYSFUNCTION Assessment/Plan Acute pancreatitis with elevated Tgc, DM. Spiking temp. BUN and Hct acceptable CT A pancreatic protoco Agree with Imipenem Monitor CMP, CBC Aggressive IVF @ ~ 300 ml/hr and monitor urine output, BUN, Cr Clear, fat-free diet, antiemetics and pain management gemfibrozil ICU care as per ICU team
[2017-05-16] MEDS ORDERED: INSULIN DETEMIR 100 UNITS/ML MDV SQ SCH ×2 (16:00→22:00)
--- NOTE | 2017-05-16 16:04 | PN ---
Teaching Attending Note Name of Resident: Joel Watson ATTENDING PHYSICIAN STATEMENT I saw and evaluated the patient. I reviewed the resident's note and discussed the case with the resident. I agree with the resident's findings and plan as documented. SUBJECTIVE:states abdominal pain has resolved. requesting to eat. denies CP, SOB , fever, chills, Abdominal pain, N/V/C/D OBJECTIVE: Last Vital Signs Temp Pulse Resp BP Pulse Ox 100.8 F H 98 H 24 109/60 98 05/16/17 12:00 05/16/17 12:00 05/16/17 12:00 05/16/17 12:00 05/16/17 09:00 Intake & Output 05/13/17 05/14/17 05/15/17 05/16/17 23:59 23:59 23:59 23:59 Intake Total 300 2672 7856 1640 Output Total 200 3800 5500 4600 Balance 100 -1128 2356 -2960 Weight 141 lb 12.116 oz 144 lb 13.499 oz 149 lb 0.52 oz 152 lb 4.8 oz General NAD CV S1 S2 RRR no murmur/rub/gallop Lungs mild crackles R base no wheezing Abdomen epigastric and LUQ tenderness no rebound or guarding soft, hypoactive BS Extremiteis no pedal edema ASSESSMENT AND PLAN: 32yo F wtih PMH gestation DM presnted to the ER with abdominal pain and found to have acute pancreatitis 1. Acute Pancreatitis- due to hypertriglyceridemia. 7K on presentation. s/p plasmapharesis x1. on insulin ggt. TG stabilizing. Tm 100.6 had multiple low grade fevers over night. will advance to clear liquid diet. d/c insulin ggt. reduce IVF as now crackles appreciate on exam. good UOP. if continues to have fevers or temp spike would do CT of abdomen to evaluate for necrotizing pancreatitis. on prophylactic imipenem, lopid, pain control. ID, GI and endo on board. BCx negative 2. Low TSH- may be due to acute sickness. T4 wnl. will hold treatment at this time. repeat TSH after acute phase 3. DM- new onset. A1c 9.6. will need diabetic teaching. will start iss and levemir 5 units tonight. titrate to optimize control 4. Hypocalcemia- Corrected Ca 8.7 can hold calcium iv. 5. Hyponatremia- resolved 6. hypokalemia- resolved 7. hypophoshpatemia- resolved 8. JHONNY- due to dehydration. now resolved. 9. DVT ppx- hep sq 10. MICU for higher level of care The care of this patient involved high complexity decision making to prevent further life threatening deterioration of the patient's condition and/or to evaluate & treat vital organ system(s) failure or risk of failure. 40 mins
[2017-05-16] MEDS ORDERED: INSULIN SLIDING SCALE (NOVOLOG) 1 VIAL SQ SCH ×2 (16:30→22:00)
[2017-05-16] MEDS ORDERED: INSULIN (NOVOLOG) ASPART 100 UNITS/ML 10ML VIAL ONE (16:55)
--- NOTE | 2017-05-16 17:33 | PN ---
Progress Note (short form) - Note Progress Note: Hematology follow-up for PLEX for hypertriglyceredmia. Chart reviewed in detail. feels better, pain is better. O/E General: NAD MMM RRR Lungs Clear Abdomen: +BS, no tenderness noted LE: No swelling noted Last Vital Signs Temp Pulse Resp BP Pulse Ox 98.2 F 100 H 30 H 104/65 98 05/15/17 06:09 05/15/17 06:09 05/15/17 06:09 05/15/17 06:09 05/14/17 19:54 CBC, BMP 05/15/17 06:00 05/15/17 06:00 Current Medications Generic Name Dose Route Start Last Admin Trade Name Freq PRN Reason Stop Dose Admin Acetaminophen 650 mg 05/15/17 08:41 Tylenol - PO Q6H PRN FEVER OR PAIN Chlorhexidine Gluconate 1 applic 05/13/17 22:00 05/14/17 22:26 Hibiclens For Decolonization - TP 1 applic HS NEFTALY Administration Gemfibrozil 600 mg 05/14/17 15:00 05/15/17 06:20 Lopid - PO 600 mg BID@0700,1630 NEFTALY Administration Heparin Sodium (Porcine) 5,000 unit 05/13/17 10:15 05/15/17 02:54 Heparin - SQ 5,000 unit Q8H-IV NEFTALY Administration Heparin Sodium (Porcine) 5,000 unit 05/13/17 20:19 05/13/17 20:30 Heparin - IVPUSH 5,000 unit PRN PRN Administration Heparin Hydromorphone HCl 0.5 mg 05/13/17 21:23 Dilaudid Injection - IVPB Q4H PRN Pain 4-6 Imipenem/Cilastatin Sodium 500 100 mls @ 100 mls/hr 05/13/17 21:00 05/15/17 02:54 mg/ Sodium Chloride IVPB 100 mls/hr Q6H-IV NEFTALY Administration Protocol Insulin Human Regular 100 100 mls @ 6.53 mls/hr 05/14/17 12:40 05/14/17 18:00 units/ Sodium Chloride IVPB 0.04 units/kg/hr TITR NEFTALY 3 mls/hr Protocol Titration 0.1 UNITS/KG/HR Dextrose/Lactated Ringer's 20 meq in 1,000 mls @ 200 mls/hr 05/14/17 19:45 20:00 D5-Lr+20 Meq Kcl - IV 200 mls/hr ASDIR NEFTALY Administration Sodium Phosphate 30 mm/ 250 mls @ 62.5 mls/hr 05/15/17 08:00 Dextrose IVPB 05/15/17 11:59 ONCE ONE Mupirocin 1 applic 05/13/17 22:00 05/14/17 22:26 Bactroban 2% Ointment - NS 05/18/17 21:59 1 appful BID NEFTALY Administration Ondansetron HCl 4 mg 05/13/17 10:04 05/15/17 00:05 Zofran Injection IVPUSH 4 mg Q6H PRN Administration NAUSEA Assessment/Plan: Acute Pancreatitis Hypertriglyceridemia Hyperglycemia Fevers s/p Plasma exchange session one on 05/13/2017. TG continues to be less than 500 clinical improvement albeit low grade fevers Pancreatitis and Hyperglycemia management per Endo/GI/ICU
--- NOTE | 2017-05-16 17:43 | PN ---
Progress Note (short form) - Note Progress Note: Feels better Less abd pain Tolerating liquid diet Tmax 101.2 No N/V, MOved bowels today, passing flatus Vital Signs Period Temp Pulse Resp BP Sys/Rodgers Pulse Ox Last 24 Hr 98.8 F-101.2 F 91-104 16-30 97-112/55-68 98-98 PE: Aox3 Neck: Supple, No JVD HEENT: PERRL, EOMI Lung: Decreased BS at bases CVS: S1S2 Abd: Epigastric tenderness, hypoactive BS Ext: No edema Neuro: No focal deficit CMP Sodium 134 mmol/L (136-145) L 05/16/17 05:22 Potassium 3.6 mmol/L (3.5-5.1) 05/16/17 05:22 Chloride 100 mmol/L (98-107) 05/16/17 05:22 Carbon Dioxide 24 mmol/L (21-32) 05/16/17 05:22 Anion Gap 10 (8-16) 05/16/17 05:22 BUN 3 mg/dL (7-18) L D 05/16/17 05:22 Creatinine 0.2 mg/dL (0.55-1.02) L 05/16/17 05:22 Creat Clearance w eGFR > 60 (>60) 05/16/17 05:22 POC Glucometer 208.83470 UNITS (80-120) 05/16/17 10:38 Random Glucose 187 mg/dL (74-106) H 05/16/17 05:22 Hemoglobin A1c % 9.6 % (4.8-6.0) H 05/13/17 09:55 Lactic Acid 0.3 mmol/L (0.4-2.0) L 05/13/17 21:40 Calcium 7.2 mg/dL (8.5-10.1) L 05/16/17 05:22 Ionized Calcium 5.5 mg/dL (4.5-5.6) 05/14/17 10:50 Phosphorus 2.8 mg/dL (2.5-4.9) D 05/16/17 05:22 Magnesium 1.8 mg/dL (1.8-2.4) 05/16/17 05:22 Total Bilirubin 0.4 mg/dL (0.2-1.0) 05/16/17 05:22 Direct Bilirubin TNP 05/13/17 11:50 AST 7 U/L (15-37) L 05/16/17 05:22 ALT 9 U/L (12-78) L 05/16/17 05:22 Alkaline Phosphatase 52 U/L (45-117) 05/16/17 05:22 Total Protein 4.9 g/dl (6.4-8.2) L 05/16/17 05:22 Albumin 2.1 g/dl (3.4-5.0) L 05/16/17 05:22 Triglycerides 390 mg/dL (35-160) H 05/16/17 13:20 Cholesterol 185 mg/dL (50-200) 05/14/17 06:15 Total LDL Cholesterol 53 mg/dL (5-100) 05/14/17 06:15 HDL Cholesterol 15 mg/dL (40-60) L 05/14/17 06:15 Total Amylase 43 U/L (25-115) D 05/16/17 05:22 Lipase 237 U/L (73-393) 05/16/17 05:22 TSH 0.20 uIU/ml (0.358-3.74) L 05/14/17 06:15 Free T4 0.83 ng/dl (0.76-1.46) 05/14/17 09:33 Resin T3 Uptake 38.7 % (30-39) 05/14/17 09:33 Current Medications Generic Name Dose Route Start Last Admin Trade Name Freq PRN Reason Stop Dose Admin Acetaminophen 650 mg 05/15/17 08:41 05/16/17 12:40 Tylenol - PO 650 mg Q6H PRN Administration FEVER OR PAIN Chlorhexidine Gluconate 1 applic 05/13/17 22:00 05/15/17 21:27 Hibiclens For Decolonization - TP 1 applic HS NEFTALY Administration Gemfibrozil 600 mg 05/14/17 15:00 05/16/17 15:54 Lopid - PO 600 mg BID@0700,1630 NEFTALY Administration Heparin Sodium (Porcine) 5,000 unit 05/13/17 10:15 05/16/17 17:09 Heparin - SQ 5,000 unit Q8H-IV NEFTALY Administration Heparin Sodium (Porcine) 5,000 unit 05/13/17 20:19 05/13/17 20:30 Heparin - IVPUSH 5,000 unit PRN PRN Administration Heparin Hydromorphone HCl 0.5 mg 05/13/17 21:23 05/15/17 23:10 Dilaudid Injection - IVPB 0.5 mg Q4H PRN Administration Pain 4-6 Imipenem/Cilastatin Sodium 500 100 mls @ 100 mls/hr 05/13/17 21:00 05/16/17 15:54 mg/ Sodium Chloride IVPB 100 mls/hr Q6H-IV NEFTALY Administration Protocol Lactated Ringer's 1,000 ml in 1,000 mls @ 200 mls/hr 05/16/17 13:00 05/16/17 13:00 Lactated Ringers Solution IV 200 mls/hr ASDIR NEFTALY Administration Insulin Aspart 1 vial 05/16/17 22:00 Novolog Vial Sliding Scale - SQ ACHS NEFTALY Protocol Insulin Detemir 5 units 05/16/17 22:00 Levemir Vial SQ HS NEFTALY Mupirocin 1 applic 05/13/17 22:00 05/16/17 09:52 Bactroban 2% Ointment - NS 05/18/17 21:59 1 applic BID NEFTALY Administration Alwfc-4-Zbhr Ethyl Esters 2 gm 05/16/17 12:43 05/16/17 13:00 Lovaza - PO Not Given BID NEFTALY Ondansetron HCl 4 mg 05/13/17 10:04 05/15/17 00:05 Zofran Injection IVPUSH 4 mg Q6H PRN Administration NAUSEA AP: Acute Pancreatitis Hypertriglyceridemia HYperglycemia Fever Tolerating liquid diet S/P Apheresis. Trig now 390 Off Insulin drip Levemir 5 units at HS [facility] QACHS, with Novolog Coverage Gemfibrozil 600mg BID Add Lovaza 2 gm BID Electrolyte replacement as necessary, Further management as per ICU team. Problem List - Problems (1) Acute pancreatitis Code(s): K85.90 - ACUTE PANCREATITIS WITHOUT NECROSIS OR INFECTION, UNSP Qualifiers: Pancreatitis type: unspecified pancreatitis type Acute pancreatitis complication: unspecified Qualified Code(s): K85.90 - Acute pancreatitis without necrosis or infection, unspecified (2) Hyperglycemia Code(s): R73.9 - HYPERGLYCEMIA, UNSPECIFIED (3) Hypertriglyceridemia Code(s): E78.1 - PURE HYPERGLYCERIDEMIA
[2017-05-16 20:24] LABS: ANION GAP 9 (8-16); CALCIUM 7.6 mg/dL (8.5-10.1); CO2 28 mmol/L (21-32); CREATININE 0.2 mg/dL (0.55-1.02); GLUCOSE,RANDOM 198 mg/dL (74-106)
[2017-05-16] MEDS: CHLORHEXIDINE GLUCONATE 4% CLEANSER FOR DECOLONIZATION TP SCH (21:18)
[2017-05-16] MEDS ORDERED: Insulin (LOG) Aspart 100 UNITS/ML VIAL SQ SCH (22:00)
[2017-05-17] MEDS ORDERED: HEMOQUE CONTROL SOLUTION ONE (01:16)
[2017-05-17] MEDS: IMIPENEM/CILASTATIN SODIUM 500 MG in SODIUM CHLORIDE 100 ML IVPB SCH ×4 (02:01→22:38)
[2017-05-17] MEDS: HEPARIN NA (PORCINE) 5,000 UNITS/ML 1ML VIAL SQ SCH ×5 (02:04→22:43)
[2017-05-17] MEDS: ONDANSETRON 4 MG/2 ML VIAL IVPUSH PRN (04:41)
[2017-05-17] MEDS ORDERED: HEMOQUE TEST 1 EACH EACH ONE (05:52)
[2017-05-17] MEDS: INSULIN SLIDING SCALE (NOVOLOG) 1 VIAL SQ SCH ×4 (06:04→22:43)
[2017-05-17] MEDS: GEMFIBROZIL 600 MG TABLET (FP) PO SCH ×2 (06:04→16:50)
[2017-05-17] MEDS ORDERED: INSULIN (NOVOLOG) ASPART 100 UNITS/ML 10ML VIAL ONE (06:09)
[2017-05-17 06:47] LABS: BASOPHIL 0.3 % (0-2.0); EOSINOPHIL 0.7 % (0-4.5); MCHC 33.9 g/dl (32.0-36.0); MEAN CELL VOLUME 88.3 fl (80-96); MEAN PLT VOLUME 10.5 fl (7.5-11.1); NEUTROPHILS 84.7 % (42.8-82.8); PLATELET COUNT 195 K/MM3 (134-434); RDW 13.6 % (11.6-15.6); WHITE BLOOD COUNT 12.8 K/mm3 (4.0-10.0)
[2017-05-17 06:59] LABS: ALBUMIN 2.1 g/dl (3.4-5.0); ANION GAP 12 (8-16); CALCIUM 7.3 mg/dL (8.5-10.1); CO2 23 mmol/L (21-32); GLUCOSE,RANDOM 205 mg/dL (74-106)
[2017-05-17 07:02] LABS: ALK PHOS 79 U/L (45-117); BILIRUBIN,TOTAL 0.6 mg/dL (0.2-1.0); CREATININE 0.2 mg/dL (0.55-1.02); SGOT/AST 8 U/L (15-37); SGPT/ALT 10 U/L (12-78); TOT PROT 5.1 g/dl (6.4-8.2)
--- NOTE | 2017-05-17 08:12 | PN ---
Physical Exam: SUBJECTIVE: Patient seen and examined. Had episode of emesis last night (not after meals), but doing much better since then. Abd pain has improved. Having diarrhea x2. OBJECTIVE: Vital Signs Period Temp Pulse Resp BP Sys/Rodgers Pulse Ox Last 24 Hr 98.5 F-101.2 F 88-106 17-36 92-109/56-68 97-98 GEN: AAOx3, Lying in bed, no use of accessory muscles HEENT: PERRLA, EOMi CV: S1, S2, RRR LUNG: Minimal crackles RLL, clear L lung ABD: Less distended, minimal TTP, normoactive BS MSK: No edema, no erythema Laboratory Last Values WBC 12.8 K/mm3 (4.0-10.0) H 05/17/17 06:05 RBC 4.10 M/mm3 (3.60-5.2) 05/17/17 06:05 Hgb 12.3 GM/dL (10.7-15.3) 05/17/17 06:05 Hct 36.2 % (32.4-45.2) 05/17/17 06:05 MCV 88.3 fl (80-96) 05/17/17 06:05 MCH 30.0 pg (25.7-33.7) 05/17/17 06:05 MCHC 33.9 g/dl (32.0-36.0) 05/17/17 06:05 RDW 13.6 % (11.6-15.6) 05/17/17 06:05 Plt Count 195 K/MM3 (134-434) D 05/17/17 06:05 MPV 10.5 fl (7.5-11.1) 05/17/17 06:05 Neutrophils % 84.7 % (42.8-82.8) H 05/17/17 06:05 Neutrophils % (Manual) 84.0 % (42.8-82.8) H 05/13/17 03:18 Band Neutrophils % 5.0 % 05/13/17 03:18 Lymphocytes % 6.0 % (8-40) L 05/17/17 06:05 Lymphocytes % (Manual) 7.0 % (8-40) L 05/13/17 03:18 Monocytes % 8.3 % (3.8-10.2) 05/17/17 06:05 Monocytes % (Manual) 4 % (3.8-10.2) 05/13/17 03:18 Eosinophils % 0.7 % (0-4.5) 05/17/17 06:05 Basophils % 0.3 % (0-2.0) 05/17/17 06:05 Platelet Comment No Result Required. 05/13/17 03:18 Anisocytosis 1+ 05/13/17 03:18 PT with INR 13.90 SEC (9.98-11.88) H 05/15/17 06:00 INR 1.23 (0.82-1.09) H 05/15/17 06:00 PTT (Actin FS) 36.4 SECONDS (26.9-34.4) H 05/15/17 06:00 Fibrinogen 542.0 mg/dL (238-498) H D 05/15/17 06:00 Puncture Site Left radial 05/13/17 10:11 ABG pH 7.32 (7.35-7.45) L 05/13/17 10:11 ABG pCO2 at Pt Temp 34.8 mmHg (35-45) L 05/13/17 10:11 ABG pO2 at Pt Temp 132.0 mmHg (80-100) H 05/13/17 10:11 ABG HCO3 17.5 meq/L (22-26) L 05/13/17 10:11 ABG O2 Sat (Measured) 97.9 % (90-98.9) 05/13/17 10:11 ABG O2 Content 19.9 % vol (15-22) 05/13/17 10:11 ABG Base Excess -7.3 meq/l (-2-2) L 05/13/17 10:11 Ashkan Test Positive 05/13/17 10:11 VBG pH 7.30 (7.32-7.42) L 05/13/17 05:15 POC VBG pCO2 36.6 mmHg (38-52) L 05/13/17 05:15 POC VBG pO2 51.1 mmHg (28-48) H 05/13/17 05:15 Mixed VBG HCO3 17.6 meq/L (19-25) L 05/13/17 05:15 O2 Delivery Device Y 05/13/17 10:11 Oxygen Flow Rate Yes 05/13/17 10:11 Sodium 134 mmol/L (136-145) L 05/17/17 06:05 Potassium 3.7 mmol/L (3.5-5.1) 05/17/17 06:05 Chloride 99 mmol/L (98-107) 05/17/17 06:05 Carbon Dioxide 23 mmol/L (21-32) 05/17/17 06:05 Anion Gap 12 (8-16) 05/17/17 06:05 BUN 5 mg/dL (7-18) L D 05/17/17 06:05 Creatinine 0.2 mg/dL (0.55-1.02) L 05/17/17 06:05 Creat Clearance w eGFR > 60 (>60) 05/17/17 06:05 POC Glucometer 175.05105 UNITS (80-120) 05/16/17 21:26 Random Glucose 205 mg/dL (74-106) H 05/17/17 06:05 Hemoglobin A1c % 9.6 % (4.8-6.0) H 05/13/17 09:55 Lactic Acid 0.3 mmol/L (0.4-2.0) L 05/13/17 21:40 Calcium 7.3 mg/dL (8.5-10.1) L 05/17/17 06:05 Ionized Calcium 5.5 mg/dL (4.5-5.6) 05/14/17 10:50 Phosphorus 2.8 mg/dL (2.5-4.9) D 05/16/17 05:22 Magnesium 1.8 mg/dL (1.8-2.4) 05/16/17 05:22 Total Bilirubin 0.6 mg/dL (0.2-1.0) D 05/17/17 06:05 Direct Bilirubin TNP 05/13/17 11:50 AST 8 U/L (15-37) L 05/17/17 06:05 ALT 10 U/L (12-78) L 05/17/17 06:05 Alkaline Phosphatase 79 U/L (45-117) D 05/17/17 06:05 Total Protein 5.1 g/dl (6.4-8.2) L 05/17/17 06:05 Albumin 2.1 g/dl (3.4-5.0) L 05/17/17 06:05 Triglycerides 398 mg/dL (35-160) H 05/17/17 06:05 Cholesterol 185 mg/dL (50-200) 05/14/17 06:15 Total LDL Cholesterol 53 mg/dL (5-100) 05/14/17 06:15 HDL Cholesterol 15 mg/dL (40-60) L 05/14/17 06:15 Total Amylase 43 U/L (25-115) D 05/16/17 05:22 Lipase 237 U/L (73-393) 05/16/17 05:22 TSH 0.20 uIU/ml (0.358-3.74) L 05/14/17 06:15 Free T4 0.83 ng/dl (0.76-1.46) 05/14/17 09:33 Resin T3 Uptake 38.7 % (30-39) 05/14/17 09:33 Urine Color Ltyellow 05/13/17 03:25 Urine Appearance Clear 05/13/17 03:25 Urine pH 5.0 (5.0-8.0) 05/13/17 03:25 Ur Specific [place] 1.039 (1.001-1.035) H 05/13/17 03:25 Urine Protein Negative (NEGATIVE) 05/13/17 03:25 Urine Glucose (UA) 3+ (NEGATIVE) H 05/13/17 03:25 Urine Ketones 2+ (NEGATIVE) H 05/13/17 03:25 Urine Blood 1+ (NEGATIVE) H 05/13/17 03:25 Urine Nitrite Negative (NEGATIVE) 05/13/17 03:25 Urine Bilirubin Negative (NEGATIVE) 05/13/17 03:25 Urine Urobilinogen Negative mg/dL (0.2-1.0) 05/13/17 03:25 Ur Leukocyte Esterase Negative (NEGATIVE) 05/13/17 03:25 Urine WBC (Auto) 1 05/13/17 03:25 Urine RBC (Auto) 1 05/13/17 03:25 Ur Epithelial Cells Rare /hpf (FEW) 05/13/17 03:25 Urine Bacteria Rare /hpf (NONE SEEN) 05/13/17 03:25 Urine HCG, Qual Negative 05/13/17 03:25 Acetone, Qual Positive moderate 2+ (NEGATIVE) H 05/13/17 04:30 Blood Type O POSITIVE 05/13/17 11:50 Antibody Screen Negative 05/13/17 11:50 Active Medications Generic Name Dose Route Start Last Admin Trade Name Marie PRN Reason Stop Dose Admin Acetaminophen 650 mg 05/15/17 08:41 05/16/17 12:40 Tylenol - PO 650 mg Q6H PRN Administration FEVER OR PAIN Chlorhexidine Gluconate 1 applic 05/13/17 22:00 05/16/17 21:18 Hibiclens For Decolonization - TP 1 applic HS NEFTALY Administration Gemfibrozil 600 mg 05/14/17 15:00 05/17/17 06:04 Lopid - PO 600 mg BID@0700,1630 NEFTALY Administration Heparin Sodium (Porcine) 5,000 unit 05/13/17 10:15 05/17/17 02:04 Heparin - SQ 5,000 unit Q8H-IV NEFTALY Administration Heparin Sodium (Porcine) 5,000 unit 05/13/17 20:19 05/13/17 20:30 Heparin - IVPUSH 5,000 unit PRN PRN Administration Heparin Hydromorphone HCl 0.5 mg 05/13/17 21:23 05/15/17 23:10 Dilaudid Injection - IVPB 0.5 mg Q4H PRN Administration Pain 4-6 Imipenem/Cilastatin Sodium 500 100 mls @ 100 mls/hr 05/13/17 21:00 05/17/17 02:01 mg/ Sodium Chloride IVPB 100 mls/hr Q6H-IV NEFTALY Administration Protocol Lactated Ringer's 1,000 ml in 1,000 mls @ 200 mls/hr 05/16/17 13:00 05/16/17 13:00 Lactated Ringers Solution IV 200 mls/hr ASDIR NEFTALY Administration Insulin Aspart 1 vial 05/17/17 07:00 05/17/17 06:04 Novolog Vial Sliding Scale - SQ 3 units TIDAC NEFTALY Administration Protocol Insulin Aspart 0 units 05/16/17 22:00 05/16/17 21:34 Novolog SQ Not Given HS [facility] Protocol Insulin Detemir 5 units 05/16/17 22:00 05/16/17 21:33 Levemir Vial SQ 5 units HS NEFTALY Administration Mupirocin 1 applic 05/13/17 22:00 05/16/17 21:18 Bactroban 2% Ointment - NS 05/18/17 21:59 1 applic BID NEFTALY Administration Noidz-8-Vcek Ethyl Esters 2 gm 05/16/17 12:43 05/16/17 21:18 Lovaza - PO 2 gm BID NEFTALY Administration Ondansetron HCl 4 mg 05/13/17 10:04 05/17/17 04:41 Zofran Injection IVPUSH 4 mg Q6H PRN Administration NAUSEA ASSESSMENT/PLAN: Pt is a 32yo F with a PMHx of Gestational DM who presented with epigastric pain , polyuria, and polydipsia. She was found to have acute pancreatitis and hyperglycemia. # HyperTG Induced Acute Pancreatitis - S/p plasmapheresis x1, TG have stabilized in 300s, continue Gemfibrozil + [place]-3, transitioned to SQ insulin, decrease IVF to 100cc/hr - Still spiking fevers, less than yest, CT abd/pelvis neg for abscess, Bcx pending, remove fem cath, cont Imipenem - Tolerating clear diet well this AM, will transition to full liquid diet ( low fat/low gluc) this evening, if tolerate well, advance more tmrw # New Onset Diabetes Mellitus - A1c 9.6 - Pt arrived in [facility] w/ ketones (likely 2/2 pancreatitis), now tolerating clear liquids, on SQ Levemir 5 + SSI + BGM ACHS # Hypokalemia - Given 20meq Kdur today # Hypocalcemia - Resolved with calcium drip, was likely 2/2 acute pancreatitis # Hyponatremia - Continue LR fluids, continue to monitor # Subclinical HyperThyroidism - TSH low 0.2, FT4 wnl, likely from acute inflammatory state, spoke to Dr. Pimentel who will repeat as outpt # FEN - LR at 100cc/hr, NPO # PPx - HSQ 5,000 TID, no GI ppx, PT ordered # Code Status - Full Code # Dispo - ADAT, pt doing well, transfer to med/surg d/w Dr Alberto, Dr Carmona, ICU team Joel Watson MD - PGY1 Internal Medicine Visit type - Emergency Visit Emergency Visit: No - New Patient This patient is new to me today: No - Critical Care Critical Care patient: No - Discharge Referral Referred to [facility] Med P.C.: No
[2017-05-17] MEDS ORDERED: PT OWN MED DRAWER 7, Y5N ONE ×2 (09:00→13:58)
[2017-05-17] MEDS: OMEGA-3 ACID ETHYL ESTERS (FATTY-ACIDS) 1 GM CAPSULE (FP) PO SCH ×2 (09:03→22:39)
[2017-05-17] MEDS: MUPIROCIN 2% TOPICAL OINTMENT 22 GM TUBE NS SCH ×2 (09:04→22:43)
[2017-05-17] MEDS ORDERED: LACTATED RINGERS SOLUTION 1,000 ML/1,000 ML INFUS.BAG IV SCH (11:22)
--- NOTE | 2017-05-17 11:35 | PN ---
Progress Note, Physician History of Present Illness: Awake, alert, clinically better, epigastric pain improved. tmax 100.8. Cultures negative. CT pancreatic protocol with peripancreatic fluid, w/o necrosis, tolerates clears. Good urine output - Current Medication List Current Medications: Active Medications Acetaminophen (Tylenol -) 650 mg PO Q6H PRN PRN Reason: FEVER OR PAIN Last Admin: 05/16/17 12:40 Dose: 650 mg Chlorhexidine Gluconate (Hibiclens For Decolonization -) 1 applic TP HS [facility] Last Admin: 05/16/17 21:18 Dose: 1 applic Gemfibrozil (Lopid -) 600 mg PO BID@0700,1630 NEFTALY Last Admin: 05/17/17 06:04 Dose: 600 mg Heparin Sodium (Porcine) (Heparin -) 5,000 unit SQ Q8H-IV NEFTALY Last Admin: 05/17/17 09:03 Dose: 5,000 unit Heparin Sodium (Porcine) (Heparin -) 5,000 unit IVPUSH PRN PRN PRN Reason: Heparin Last Admin: 05/13/17 20:30 Dose: 5,000 unit Hydromorphone HCl (Dilaudid Injection -) 0.5 mg IVPB Q4H PRN PRN Reason: Pain 4-6 Last Admin: 05/15/17 23:10 Dose: 0.5 mg Imipenem/Cilastatin Sodium 500 (mg/ Sodium Chloride) 100 mls @ 100 mls/hr IVPB Q6H-IV NEFTALY PRN Reason: Protocol Last Admin: 05/17/17 09:04 Dose: 100 mls/hr Lactated Ringer's (Lactated Ringers Solution) 1,000 ml in 1,000 mls @ 100 mls/ hr IV ASDIR [facility] Insulin Aspart (Novolog Vial Sliding Scale -) 1 vial SQ TIDAC NEFTALY PRN Reason: Protocol Last Admin: 05/17/17 06:04 Dose: 3 units Insulin Aspart (Novolog) 0 units SQ HS NEFTALY PRN Reason: Protocol Last Admin: 05/16/17 21:34 Dose: Not Given Insulin Detemir (Levemir Vial) 5 units SQ HS NEFTALY Last Admin: 05/16/17 21:33 Dose: 5 units Mupirocin (Bactroban 2% Ointment -) 1 applic NS BID [facility] Stop: 05/18/17 21:59 Last Admin: 05/17/17 09:04 Dose: 1 applic Mcxxx-3-Rcny Ethyl Esters (Lovaza -) 2 gm PO BID NEFTALY Last Admin: 05/17/17 09:03 Dose: 2 gm Ondansetron HCl (Zofran Injection) 4 mg IVPUSH Q6H PRN PRN Reason: NAUSEA Last Admin: 05/17/17 04:41 Dose: 4 mg - Objective Vital Signs: Vital Signs Temperature 99.1 F 05/17/17 08:00 Pulse Rate 93 H 05/17/17 10:32 Respiratory Rate 18 05/17/17 10:00 Blood Pressure 100/64 05/17/17 10:00 O2 Sat by Pulse Oximetry (%) 99 05/17/17 10:32 Constitutional: Yes: No Distress, Calm Eyes: Yes: Conjunctiva Clear HENT: Yes: Atraumatic Neck: Yes: Supple Cardiovascular: Yes: Regular Rate and Rhythm Respiratory: Yes: Regular Gastrointestinal: Yes: Normal Bowel Sounds, Soft, Tenderness, Tenderness, Epigastrium Neurological: Yes: Alert, Oriented Labs: CBC, BMP 05/17/17 06:05 05/17/17 06:05 INR, PTT INR 1.23 (0.82-1.09) H 05/15/17 06:00 Fibrinogen 542.0 mg/dL (238-498) H D 05/15/17 06:00 Laboratory Results - last 24 hr 05/13/17 05/13/17 05/16/17 22:34 22:37 12:02 WBC RBC Hgb Hct MCV MCH MCHC RDW Plt Count MPV Neutrophils % Lymphocytes % Monocytes % Eosinophils % Basophils % Sodium Potassium Chloride Carbon Dioxide Anion Gap BUN Creatinine Creat Clearance w eGFR POC Glucometer 119.71384 185.02447 181.16457 Random Glucose Calcium Total Bilirubin AST ALT Alkaline Phosphatase Total Protein Albumin Triglycerides 05/16/17 05/16/17 05/16/17 13:20 16:46 19:30 WBC RBC Hgb Hct MCV MCH MCHC RDW Plt Count MPV Neutrophils % Lymphocytes % Monocytes % Eosinophils % Basophils % Sodium 137 Potassium 3.7 Chloride 100 Carbon Dioxide 28 Anion Gap 9 BUN 4 L D Creatinine 0.2 L Creat Clearance w eGFR POC Glucometer 176.62259 Random Glucose 198 H Calcium 7.6 L Total Bilirubin AST ALT Alkaline Phosphatase Total Protein Albumin Triglycerides 390 H 392 H 05/16/17 05/17/17 05/17/17 21:26 06:05 06:05 WBC 12.8 H RBC 4.10 Hgb 12.3 Hct 36.2 MCV 88.3 MCH 30.0 MCHC 33.9 RDW 13.6 Plt Count 195 D MPV 10.5 Neutrophils % 84.7 H Lymphocytes % 6.0 L Monocytes % 8.3 Eosinophils % 0.7 Basophils % 0.3 Sodium 134 L Potassium 3.7 Chloride 99 Carbon Dioxide 23 Anion Gap 12 BUN 5 L D Creatinine 0.2 L Creat Clearance w eGFR > 60 POC Glucometer 175.14795 Random Glucose 205 H Calcium 7.3 L Total Bilirubin 0.6 D AST 8 L ALT 10 L Alkaline Phosphatase 79 D Total Protein 5.1 L Albumin 2.1 L Triglycerides 398 H - ....Imaging Cat Scan: Report Reviewed Problem List - Problems (1) Acute pancreatitis Code(s): K85.90 - ACUTE PANCREATITIS WITHOUT NECROSIS OR INFECTION, UNSP Qualifiers: Qualified Code(s): K85.90 - Acute pancreatitis without necrosis or infection , unspecified (2) Hyperglycemia Code(s): R73.9 - HYPERGLYCEMIA, UNSPECIFIED (3) Hypertriglyceridemia Code(s): E78.1 - PURE HYPERGLYCERIDEMIA (4) Hypokalemia Code(s): E87.6 - HYPOKALEMIA (5) Hyponatremia Code(s): E87.1 - HYPO-OSMOLALITY AND HYPONATREMIA (6) SIRS (systemic inflammatory response syndrome) Code(s): R65.10 - SIRS OF NON-INFECTIOUS ORIGIN W/O ACUTE ORGAN DYSFUNCTION Assessment/Plan Acute pancreatitis with elevated Tgc, DM. Spiking temp. BUN and Hct acceptable Agree with Imipenem monitor urine output, BUN, Cr fat-free diet trial, antiemetics and pain management gemfibrozil ICU care as per ICU team
--- NOTE | 2017-05-17 11:58 | PN ---
Progress Note, Physician History of Present Illness: patient feels better no complaints abd pain better surgery going to have a look at the patient - Current Medication List Current Medications: Active Medications Acetaminophen (Tylenol -) 650 mg PO Q6H PRN PRN Reason: FEVER OR PAIN Last Admin: 05/16/17 12:40 Dose: 650 mg Chlorhexidine Gluconate (Hibiclens For Decolonization -) 1 applic TP HS [facility] Last Admin: 05/16/17 21:18 Dose: 1 applic Gemfibrozil (Lopid -) 600 mg PO BID@0700,1630 [facility] Last Admin: 05/17/17 06:04 Dose: 600 mg Heparin Sodium (Porcine) (Heparin -) 5,000 unit SQ Q8H-IV NEFTALY Last Admin: 05/17/17 09:03 Dose: 5,000 unit Heparin Sodium (Porcine) (Heparin -) 5,000 unit IVPUSH PRN PRN PRN Reason: Heparin Last Admin: 05/13/17 20:30 Dose: 5,000 unit Hydromorphone HCl (Dilaudid Injection -) 0.5 mg IVPB Q4H PRN PRN Reason: Pain 4-6 Last Admin: 05/15/17 23:10 Dose: 0.5 mg Imipenem/Cilastatin Sodium 500 (mg/ Sodium Chloride) 100 mls @ 100 mls/hr IVPB Q6H-IV NEFTALY PRN Reason: Protocol Last Admin: 05/17/17 09:04 Dose: 100 mls/hr Lactated Ringer's (Lactated Ringers Solution) 1,000 ml in 1,000 mls @ 100 mls/ hr IV ASDIR [facility] Last Admin: 05/17/17 11:53 Dose: 100 mls/hr Insulin Aspart (Novolog Vial Sliding Scale -) 1 vial SQ TIDAC NEFTALY PRN Reason: Protocol Last Admin: 05/17/17 11:52 Dose: 2 units Insulin Aspart (Novolog) 0 units SQ HS NEFTALY PRN Reason: Protocol Last Admin: 05/16/17 21:34 Dose: Not Given Insulin Detemir (Levemir Vial) 5 units SQ HS [facility] Last Admin: 05/16/17 21:33 Dose: 5 units Mupirocin (Bactroban 2% Ointment -) 1 applic NS BID [facility] Stop: 05/18/17 21:59 Last Admin: 05/17/17 09:04 Dose: 1 applic Qhmuh-7-Hpqb Ethyl Esters (Lovaza -) 2 gm PO BID NEFTALY Last Admin: 05/17/17 09:03 Dose: 2 gm Ondansetron HCl (Zofran Injection) 4 mg IVPUSH Q6H PRN PRN Reason: NAUSEA Last Admin: 05/17/17 04:41 Dose: 4 mg - Objective Vital Signs: Vital Signs Temperature 99.1 F 05/17/17 08:00 Pulse Rate 93 H 05/17/17 10:32 Respiratory Rate 18 05/17/17 10:00 Blood Pressure 100/64 05/17/17 10:00 O2 Sat by Pulse Oximetry (%) 99 05/17/17 10:32 Constitutional: Yes: No Distress, Calm Cardiovascular: Yes: Regular Rate and Rhythm Respiratory: Yes: Regular, CTA Bilaterally Gastrointestinal: Yes: Normal Bowel Sounds, Soft Musculoskeletal: Yes: WNL Extremities: Yes: WNL Neurological: Yes: Alert, Oriented Psychiatric: Yes: Alert, Oriented Labs: CBC, BMP 05/17/17 06:05 05/17/17 06:05 INR, PTT INR 1.23 (0.82-1.09) H 05/15/17 06:00 Fibrinogen 542.0 mg/dL (238-498) H D 05/15/17 06:00 Assessment/Plan Acute Pancreatitis Sepsis Severe Hypertriglyceridemia Severe Hypocalcemia Diabetes Acute Kidney Injury Lactic Acidosis plan continue abx hydration repeat ct scan noted close watch for sepsis and resp failure await for cx reports patient going to be seen by surgery rest as per icu cc time 40 min
--- NOTE | 2017-05-17 12:46 | PN ---
Teaching Attending Note Name of Resident: Aida Falherty ATTENDING PHYSICIAN STATEMENT I saw and evaluated the patient. I reviewed the resident's note and discussed the case with the resident. I agree with the resident's findings and plan as documented. SUBJECTIVE: Patient seen and examined in the ICU. Off insulin drip. Denies CP or SOB. Abdominal pain continues to improve. Remains NPO. Intake & Output 05/14/17 05/15/17 05/16/17 05/17/17 23:59 23:59 23:59 23:59 Intake Total 2672 7856 4975 2840 Output Total 3800 5500 7200 1400 Balance -1128 2356 -2225 1440 Weight 144 lb 13.499 oz 149 lb 0.52 oz 152 lb 4.8 oz 146 lb 12.8 oz Last Vital Signs Temp Pulse Resp BP Pulse Ox 99.1 F 94 H 18 100/58 99 05/17/17 08:00 05/17/17 12:00 05/17/17 12:00 05/17/17 12:00 05/17/17 10:32 Active Medications Acetaminophen (Tylenol -) 650 mg PO Q6H PRN PRN Reason: FEVER OR PAIN Last Admin: 05/16/17 12:40 Dose: 650 mg Chlorhexidine Gluconate (Hibiclens For Decolonization -) 1 applic TP HS NEFTALY Last Admin: 05/16/17 21:18 Dose: 1 applic Gemfibrozil (Lopid -) 600 mg PO BID@0700,1630 NEFTALY Last Admin: 05/17/17 06:04 Dose: 600 mg Heparin Sodium (Porcine) (Heparin -) 5,000 unit SQ Q8H-IV NEFTALY Last Admin: 05/17/17 09:03 Dose: 5,000 unit Heparin Sodium (Porcine) (Heparin -) 5,000 unit IVPUSH PRN PRN PRN Reason: Heparin Last Admin: 05/13/17 20:30 Dose: 5,000 unit Hydromorphone HCl (Dilaudid Injection -) 0.5 mg IVPB Q4H PRN PRN Reason: Pain 4-6 Last Admin: 05/15/17 23:10 Dose: 0.5 mg Imipenem/Cilastatin Sodium 500 (mg/ Sodium Chloride) 100 mls @ 100 mls/hr IVPB Q6H-IV NEFTALY PRN Reason: Protocol Last Admin: 05/17/17 09:04 Dose: 100 mls/hr Lactated Ringer's (Lactated Ringers Solution) 1,000 ml in 1,000 mls @ 100 mls/ hr IV ASDIR NEFTALY Last Admin: 05/17/17 11:53 Dose: 100 mls/hr Insulin Aspart (Novolog Vial Sliding Scale -) 1 vial SQ TIDAC NEFTALY PRN Reason: Protocol Last Admin: 05/17/17 11:52 Dose: 2 units Insulin Aspart (Novolog) 0 units SQ HS NEFTALY PRN Reason: Protocol Last Admin: 05/16/17 21:34 Dose: Not Given Insulin Detemir (Levemir Vial) 5 units SQ HS NEFTALY Last Admin: 05/16/17 21:33 Dose: 5 units Mupirocin (Bactroban 2% Ointment -) 1 applic NS BID NEFTALY Stop: 05/18/17 21:59 Last Admin: 05/17/17 09:04 Dose: 1 applic Nsgkp-2-Rzfj Ethyl Esters (Lovaza -) 2 gm PO BID NEFTALY Last Admin: 05/17/17 09:03 Dose: 2 gm Ondansetron HCl (Zofran Injection) 4 mg IVPUSH Q6H PRN PRN Reason: NAUSEA Last Admin: 05/17/17 04:41 Dose: 4 mg Gen: Awake and alert, NAD Heart: RRR Lung: scattered basilar rales Abd: softly distended, resolved abdominal pain, no guarding/rebound Ext: + edema Laboratory Results - last 24 hr 05/16/17 05/16/17 05/16/17 12:02 13:20 16:46 WBC RBC Hgb Hct MCV MCH MCHC RDW Plt Count MPV Neutrophils % Lymphocytes % Monocytes % Eosinophils % Basophils % Sodium Potassium Chloride Carbon Dioxide Anion Gap BUN Creatinine Creat Clearance w eGFR POC Glucometer 181.16117 176.22115 Random Glucose Calcium Total Bilirubin AST ALT Alkaline Phosphatase Total Protein Albumin Triglycerides 390 H 05/16/17 05/16/17 05/17/17 19:30 21:26 06:05 WBC RBC Hgb Hct MCV MCH MCHC RDW Plt Count MPV Neutrophils % Lymphocytes % Monocytes % Eosinophils % Basophils % Sodium 137 134 L Potassium 3.7 3.7 Chloride 100 99 Carbon Dioxide 28 23 Anion Gap 9 12 BUN 4 L D 5 L D Creatinine 0.2 L 0.2 L Creat Clearance w eGFR > 60 POC Glucometer 175.16750 Random Glucose 198 H 205 H Calcium 7.6 L 7.3 L Total Bilirubin 0.6 D AST 8 L ALT 10 L Alkaline Phosphatase 79 D Total Protein 5.1 L Albumin 2.1 L Triglycerides 392 H 398 H 05/17/17 06:05 WBC 12.8 H RBC 4.10 Hgb 12.3 Hct 36.2 MCV 88.3 MCH 30.0 MCHC 33.9 RDW 13.6 Plt Count 195 D MPV 10.5 Neutrophils % 84.7 H Lymphocytes % 6.0 L Monocytes % 8.3 Eosinophils % 0.7 Basophils % 0.3 Sodium Potassium Chloride Carbon Dioxide Anion Gap BUN Creatinine Creat Clearance w eGFR POC Glucometer Random Glucose Calcium Total Bilirubin AST ALT Alkaline Phosphatase Total Protein Albumin Triglycerides ASSESSMENT AND PLAN: Acute Pancreatitis Sepsis Severe Hypertriglyceridemia Severe Hypocalcemia Diabetes Acute Kidney Injury Lactic Acidosis IVF Glycemic control Follow BGM Monitor lytes, replete as needed Triglycerides have been stable in the 300 range -> Will D/C femoral catheter ABX per ID Lopid Trial of PO if OK with GI OOB to chair Follow daily Triglycerides Dr Nettles Critical care time spent in reviewing chart, evaluating patient and formulating plan 35 min
--- NOTE | 2017-05-17 12:56 | PN ---
Teaching Attending Note Name of Resident: Joel Watson ATTENDING PHYSICIAN STATEMENT I saw and evaluated the patient. I reviewed the resident's note and discussed the case with the resident. I agree with the resident's findings and plan as documented. SUBJECTIVE:had 2 episodes of vomiting (food material no blood) yesterday evening , not related to eating. also had 2 episodes of loose BM last night. today she has no complaints. tolerated breakfast without difficulty. no more nausea or abdominal pain. denies CP, SOB, fever, chills, N/V/C/D OBJECTIVE: Last Vital Signs Temp Pulse Resp BP Pulse Ox 99.1 F 94 H 18 100/58 99 05/17/17 08:00 05/17/17 12:00 05/17/17 12:00 05/17/17 12:00 05/17/17 10:32 General NAD CV S1 S2 RRR no murmur/rub/gallop Lungs mild crackles R base no wheezing Abdomen epigastric and LUQ tenderness no rebound or guarding soft, hypoactive BS Extremiteis no pedal edema ASSESSMENT AND PLAN: 32yo F wtih PMH gestation DM presnted to the ER with abdominal pain and found to have acute pancreatitis 1. Acute Pancreatitis- due to hypertriglyceridemia. 7K on presentation. s/p plasmapharesis x1. off insulin ggt since yesterday. TG stable. symptoms have improved. CT donefor temp spike 101.2. CT negative for any complications. pt is improved. will cont with liquid diet. if improves will consider transitioning to regular diet tomorrow. on prophylactic imipenem day 5, lopid, pain control. ID, GI and endo on board. BCx negative 2. Low TSH- may be due to acute sickness. T4 wnl. will hold treatment at this time. repeat TSH after acute phase 3. DM- new onset. A1c 9.6. will need diabetic teaching. on levemir 5 units. titrate to optimize control 4. Hypocalcemia- Corrected Ca 8.7 5. Hyponatremia- resolved 6. hypokalemia- resolved 7. hypophoshpatemia- resolved 8. JHONNY- due to dehydration. now resolved. 9. DVT ppx- hep sq 10. can transfer to medical floor. PT The care of this patient involved high complexity decision making to prevent further life threatening deterioration of the patient's condition and/or to evaluate & treat vital organ system(s) failure or risk of failure. 38 mins
--- NOTE | 2017-05-17 15:13 | PN ---
Progress Note (short form) - Note Progress Note: Feels better Less abd pain Tolerating liquid diet Vomiting last night Tmax 100 Vital Signs Period Temp Pulse Resp BP Sys/Rodgers Pulse Ox Last 24 Hr 98.5 F-100 F 88-106 17-36 90-109/56-68 97-99 PE: Aox3 Neck: Supple, No JVD HEENT: PERRL, EOMI Lung: Decreased BS at bases CVS: S1S2 Abd: NO Epigastric tenderness, hypoactive BS Ext: No edema Neuro: No focal deficit CMP Sodium 134 mmol/L (136-145) L 05/17/17 06:05 Potassium 3.7 mmol/L (3.5-5.1) 05/17/17 06:05 Chloride 99 mmol/L (98-107) 05/17/17 06:05 Carbon Dioxide 23 mmol/L (21-32) 05/17/17 06:05 Anion Gap 12 (8-16) 05/17/17 06:05 BUN 5 mg/dL (7-18) L D 05/17/17 06:05 Creatinine 0.2 mg/dL (0.55-1.02) L 05/17/17 06:05 Creat Clearance w eGFR > 60 (>60) 05/17/17 06:05 POC Glucometer 175.59421 UNITS (80-120) 05/16/17 21:26 Random Glucose 205 mg/dL (74-106) H 05/17/17 06:05 Hemoglobin A1c % 9.6 % (4.8-6.0) H 05/13/17 09:55 Lactic Acid 0.3 mmol/L (0.4-2.0) L 05/13/17 21:40 Calcium 7.3 mg/dL (8.5-10.1) L 05/17/17 06:05 Ionized Calcium 5.5 mg/dL (4.5-5.6) 05/14/17 10:50 Phosphorus 2.8 mg/dL (2.5-4.9) D 05/16/17 05:22 Magnesium 1.8 mg/dL (1.8-2.4) 05/16/17 05:22 Total Bilirubin 0.6 mg/dL (0.2-1.0) D 05/17/17 06:05 Direct Bilirubin TNP 05/13/17 11:50 AST 8 U/L (15-37) L 05/17/17 06:05 ALT 10 U/L (12-78) L 05/17/17 06:05 Alkaline Phosphatase 79 U/L (45-117) D 05/17/17 06:05 Total Protein 5.1 g/dl (6.4-8.2) L 05/17/17 06:05 Albumin 2.1 g/dl (3.4-5.0) L 05/17/17 06:05 Triglycerides 398 mg/dL (35-160) H 05/17/17 06:05 Cholesterol 185 mg/dL (50-200) 05/14/17 06:15 Total LDL Cholesterol 53 mg/dL (5-100) 05/14/17 06:15 HDL Cholesterol 15 mg/dL (40-60) L 05/14/17 06:15 Total Amylase 43 U/L (25-115) D 05/16/17 05:22 Lipase 237 U/L (73-393) 05/16/17 05:22 TSH 0.20 uIU/ml (0.358-3.74) L 05/14/17 06:15 Free T4 0.83 ng/dl (0.76-1.46) 05/14/17 09:33 Resin T3 Uptake 38.7 % (30-39) 05/14/17 09:33 Current Medications Generic Name Dose Route Start Last Admin Trade Name Freq PRN Reason Stop Dose Admin Acetaminophen 650 mg 05/15/17 08:41 05/16/17 12:40 Tylenol - PO 650 mg Q6H PRN Administration FEVER OR PAIN Chlorhexidine Gluconate 1 applic 05/13/17 22:00 05/16/17 21:18 Hibiclens For Decolonization - TP 1 applic HS NEFTALY Administration Gemfibrozil 600 mg 05/14/17 15:00 05/17/17 06:04 Lopid - PO 600 mg BID@0700,1630 NEFTALY Administration Heparin Sodium (Porcine) 5,000 unit 05/13/17 10:15 05/17/17 09:03 Heparin - SQ 5,000 unit Q8H-IV NEFTALY Administration Heparin Sodium (Porcine) 5,000 unit 05/13/17 20:19 05/13/17 20:30 Heparin - IVPUSH 5,000 unit PRN PRN Administration Heparin Hydromorphone HCl 0.5 mg 05/13/17 21:23 05/15/17 23:10 Dilaudid Injection - IVPB 0.5 mg Q4H PRN Administration Pain 4-6 Imipenem/Cilastatin Sodium 500 100 mls @ 100 mls/hr 05/13/17 21:00 05/17/17 14:08 mg/ Sodium Chloride IVPB 100 mls/hr Q6H-IV NEFTALY Administration Protocol Lactated Ringer's 1,000 ml in 1,000 mls @ 100 mls/hr 05/17/17 11:22 05/17/17 11:53 Lactated Ringers Solution IV 100 mls/hr ASDIR NEFTALY Administration Insulin Aspart 1 vial 05/17/17 07:00 05/17/17 11:52 Novolog Vial Sliding Scale - SQ 2 units TIDAC NEFTALY Administration Protocol Insulin Aspart 0 units 05/16/17 22:00 05/16/17 21:34 Novolog SQ Not Given HS NEFTALY Protocol Insulin Detemir 5 units 05/16/17 22:00 05/16/17 21:33 Levemir Vial SQ 5 units HS NEFTALY Administration Mupirocin 1 applic 05/13/17 22:00 05/17/17 09:04 Bactroban 2% Ointment - NS 05/18/17 21:59 1 applic BID NEFTALY Administration Dsrrn-8-Pwri Ethyl Esters 2 gm 05/16/17 12:43 05/17/17 09:03 Lovaza - PO 2 gm BID NEFTALY Administration Ondansetron HCl 4 mg 05/13/17 10:04 05/17/17 04:41 Zofran Injection IVPUSH 4 mg Q6H PRN Administration NAUSEA AP: Acute Pancreatitis Hypertriglyceridemia DM Fever Tolerating liquid diet S/P Apheresis. Trig now 300s Off Insulin drip Levemir 8 units at HS [facility] QACHS, with Novolog Coverage Gemfibrozil 600mg BID Lovaza 2 gm BID Electrolyte replacement as necessary, Further management as per ICU team. Problem List - Problems (1) Acute pancreatitis Code(s): K85.90 - ACUTE PANCREATITIS WITHOUT NECROSIS OR INFECTION, UNSP Qualifiers: Pancreatitis type: unspecified pancreatitis type Acute pancreatitis complication: unspecified Qualified Code(s): K85.90 - Acute pancreatitis without necrosis or infection, unspecified (2) Hyperglycemia Code(s): R73.9 - HYPERGLYCEMIA, UNSPECIFIED (3) Hypertriglyceridemia Code(s): E78.1 - PURE HYPERGLYCERIDEMIA
--- NOTE | 2017-05-17 15:20 | PN ---
Physical Exam: SUBJECTIVE: Patient seen and examined OBJECTIVE: Vital Signs Period Temp Pulse Resp BP Sys/Rodgers Pulse Ox Last 24 Hr 98.5 F-100 F 88-106 17-36 90-109/56-68 97-99 GENERAL: The patient is awake, alert, and fully oriented, in no acute distress. HEAD: Normal with no signs of trauma. EYES: PERRL, extraocular movements intact, sclera anicteric, conjunctiva clear. No ptosis. ENT: Ears normal, nares patent, oropharynx clear without exudates, moist mucous membranes. NECK: Trachea midline, full range of motion, supple. LUNGS: Breath sounds equal, clear to auscultation bilaterally, no wheezes, no crackles, no accessory muscle use. HEART: Regular rate and rhythm, S1, S2 without murmur, rub or gallop. ABDOMEN: Soft, nontender, nondistended, normoactive bowel sounds, no guarding, no rebound, no hepatosplenomegaly, no masses. EXTREMITIES: 2+ pulses, warm, well-perfused, no edema. NEUROLOGICAL: Cranial nerves II through XII grossly intact. Normal speech, gait not observed. PSYCH: Normal mood, normal affect. SKIN: Warm, dry, normal turgor, no rashes or lesions noted Laboratory Results - last 24 hr 05/16/17 05/16/17 05/16/17 12:02 16:46 19:30 WBC RBC Hgb Hct MCV MCH MCHC RDW Plt Count MPV Neutrophils % Lymphocytes % Monocytes % Eosinophils % Basophils % Sodium 137 Potassium 3.7 Chloride 100 Carbon Dioxide 28 Anion Gap 9 BUN 4 L D Creatinine 0.2 L Creat Clearance w eGFR POC Glucometer 181.40573 176.62860 Random Glucose 198 H Calcium 7.6 L Total Bilirubin AST ALT Alkaline Phosphatase Total Protein Albumin Triglycerides 392 H 05/16/17 05/17/17 05/17/17 21:26 06:05 06:05 WBC 12.8 H RBC 4.10 Hgb 12.3 Hct 36.2 MCV 88.3 MCH 30.0 MCHC 33.9 RDW 13.6 Plt Count 195 D MPV 10.5 Neutrophils % 84.7 H Lymphocytes % 6.0 L Monocytes % 8.3 Eosinophils % 0.7 Basophils % 0.3 Sodium 134 L Potassium 3.7 Chloride 99 Carbon Dioxide 23 Anion Gap 12 BUN 5 L D Creatinine 0.2 L Creat Clearance w eGFR > 60 POC Glucometer 175.26527 Random Glucose 205 H Calcium 7.3 L Total Bilirubin 0.6 D AST 8 L ALT 10 L Alkaline Phosphatase 79 D Total Protein 5.1 L Albumin 2.1 L Triglycerides 398 H Active Medications Generic Name Dose Route Start Last Admin Trade Name Freq PRN Reason Stop Dose Admin Acetaminophen 650 mg 05/15/17 08:41 05/16/17 12:40 Tylenol - PO 650 mg Q6H PRN Administration FEVER OR PAIN Chlorhexidine Gluconate 1 applic 05/13/17 22:00 05/16/17 21:18 Hibiclens For Decolonization - TP 1 applic HS NEFTALY Administration Gemfibrozil 600 mg 05/14/17 15:00 05/17/17 06:04 Lopid - PO 600 mg BID@0700,1630 NEFTALY Administration Heparin Sodium (Porcine) 5,000 unit 05/13/17 10:15 05/17/17 09:03 Heparin - SQ 5,000 unit Q8H-IV NEFTALY Administration Heparin Sodium (Porcine) 5,000 unit 05/13/17 20:19 05/13/17 20:30 Heparin - IVPUSH 5,000 unit PRN PRN Administration Heparin Hydromorphone HCl 0.5 mg 05/13/17 21:23 05/15/17 23:10 Dilaudid Injection - IVPB 0.5 mg Q4H PRN Administration Pain 4-6 Imipenem/Cilastatin Sodium 500 100 mls @ 100 mls/hr 05/13/17 21:00 05/17/17 14:08 mg/ Sodium Chloride IVPB 100 mls/hr Q6H-IV NEFTALY Administration Protocol Lactated Ringer's 1,000 ml in 1,000 mls @ 100 mls/hr 05/17/17 11:22 05/17/17 11:53 Lactated Ringers Solution IV 100 mls/hr ASDIR NEFTALY Administration Insulin Aspart 1 vial 05/17/17 07:00 05/17/17 11:52 Novolog Vial Sliding Scale - SQ 2 units TIDAC NEFTALY Administration Protocol Insulin Aspart 0 units 05/16/17 22:00 05/16/17 21:34 Novolog SQ Not Given HS NEFTALY Protocol Insulin Detemir 8 units 05/17/17 22:00 Levemir Vial SQ HS NEFTALY Mupirocin 1 applic 05/13/17 22:00 05/17/17 09:04 Bactroban 2% Ointment - NS 05/18/17 21:59 1 applic BID NFETALY Administration Ydgmg-0-Ttec Ethyl Esters 2 gm 05/16/17 12:43 05/17/17 09:03 Lovaza - PO 2 gm BID NEFTALY Administration Ondansetron HCl 4 mg 05/13/17 10:04 05/17/17 04:41 Zofran Injection IVPUSH 4 mg Q6H PRN Administration NAUSEA ASSESSMENT/PLAN: Problem List - Problems (1) Hypocalcemia Code(s): E83.51 - HYPOCALCEMIA (2) Acute pancreatitis Code(s): K85.90 - ACUTE PANCREATITIS WITHOUT NECROSIS OR INFECTION, UNSP Qualifiers: Pancreatitis type: unspecified pancreatitis type Acute pancreatitis complication: unspecified Qualified Code(s): K85.90 - Acute pancreatitis without necrosis or infection, unspecified (3) Hyperglycemia Code(s): R73.9 - HYPERGLYCEMIA, UNSPECIFIED (4) Hypertriglyceridemia Code(s): E78.1 - PURE HYPERGLYCERIDEMIA (5) Hypokalemia Code(s): E87.6 - HYPOKALEMIA (6) Pancreatitis Code(s): K85.90 - ACUTE PANCREATITIS WITHOUT NECROSIS OR INFECTION, UNSP Qualifiers: Chronicity: acute Pancreatitis type: other Acute pancreatitis complication: no infection or necrosis Qualified Code(s): K85.80 - Other acute pancreatitis without necrosis or infection (7) SIRS (systemic inflammatory response syndrome) Code(s): R65.10 - SIRS OF NON-INFECTIOUS ORIGIN W/O ACUTE ORGAN DYSFUNCTION
--- NOTE | 2017-05-17 15:46 | PN ---
Progress Note (short form) - Note Progress Note: Pt is seen and examined. She says she feels feels better. Feeling hungry. O/E General: NAD MMM RRR Lungs Clear Abdomen: +BS, no tenderness noted LE: No swelling noted Last Vital Signs Temp Pulse Resp BP Pulse Ox 99 F 90 20 90/68 99 05/17/17 14:00 05/17/17 14:00 05/17/17 14:00 05/17/17 14:00 05/17/17 10:32 CBC, BMP 05/17/17 06:05 05/17/17 06:05 Current Medications Generic Name Dose Route Start Last Admin Trade Name Freq PRN Reason Stop Dose Admin Acetaminophen 650 mg 05/15/17 08:41 05/16/17 12:40 Tylenol - PO 650 mg Q6H PRN Administration FEVER OR PAIN Chlorhexidine Gluconate 1 applic 05/13/17 22:00 05/16/17 21:18 Hibiclens For Decolonization - TP 1 applic HS NEFTALY Administration Gemfibrozil 600 mg 05/14/17 15:00 05/17/17 06:04 Lopid - PO 600 mg BID@0700,1630 NEFTALY Administration Heparin Sodium (Porcine) 5,000 unit 05/13/17 10:15 05/17/17 09:03 Heparin - SQ 5,000 unit Q8H-IV NEFTALY Administration Heparin Sodium (Porcine) 5,000 unit 05/13/17 20:19 05/13/17 20:30 Heparin - IVPUSH 5,000 unit PRN PRN Administration Heparin Hydromorphone HCl 0.5 mg 05/13/17 21:23 05/15/17 23:10 Dilaudid Injection - IVPB 0.5 mg Q4H PRN Administration Pain 4-6 Imipenem/Cilastatin Sodium 500 100 mls @ 100 mls/hr 05/13/17 21:00 05/17/17 14:08 mg/ Sodium Chloride IVPB 100 mls/hr Q6H-IV NEFTALY Administration Protocol Lactated Ringer's 1,000 ml in 1,000 mls @ 100 mls/hr 05/17/17 11:22 05/17/17 11:53 Lactated Ringers Solution IV 100 mls/hr ASDIR NEFTALY Administration Insulin Aspart 1 vial 05/17/17 07:00 05/17/17 11:52 Novolog Vial Sliding Scale - SQ 2 units TIDAC NEFTALY Administration Protocol Insulin Aspart 0 units 05/16/17 22:00 05/16/17 21:34 Novolog SQ Not Given HS NEFTALY Protocol Insulin Detemir 8 units 05/17/17 22:00 Levemir Vial SQ HS NEFTALY Mupirocin 1 applic 05/13/17 22:00 05/17/17 09:04 Bactroban 2% Ointment - NS 05/18/17 21:59 1 applic BID NEFTALY Administration Yzhdd-8-Siis Ethyl Esters 2 gm 05/16/17 12:43 05/17/17 09:03 Lovaza - PO 2 gm BID NEFTALY Administration Ondansetron HCl 4 mg 05/13/17 10:04 05/17/17 04:41 Zofran Injection IVPUSH 4 mg Q6H PRN Administration NAUSEA Assessment/Plan: Hematology follow-up for hyper-triglyceridemia as pt received plasma exchange on admission. TG monitoring per primary/endo. Thus far TG levels fluctuating, around 300s. Please call us if indication for PLEX arises again. Rest of the management per ICU/Primary/Endo/GI.
[2017-05-17] MEDS: ACETAMINOPHEN 325 MG TABLET (FP) PO PRN (16:51)
[2017-05-17] MEDS ORDERED: ACETAMINOPHEN 1000 MG/100 ML VIAL (NON FORMULARY) IVPB ONE (16:52)
[2017-05-17] MEDS ORDERED: ALBUMIN HUMAN 5% 250 ML IV SOLUTION IVPB ONE (17:09)
[2017-05-17] MEDS ORDERED: ONDANSETRON 4 MG/2 ML VIAL IVPUSH PRN (17:09)
[2017-05-17] MEDS ORDERED: HEPARIN NA (PORCINE) 5,000 UNITS/ML 1ML VIAL IVPUSH PRN (17:09)
[2017-05-17] MEDS ORDERED: ACETAMINOPHEN 325 MG TABLET (FP) PO PRN (17:09)
[2017-05-17] MEDS ORDERED: ALBUMIN HUMAN 5% 500 ML IV SOLUTION IVPB ONE (17:09)
[2017-05-17] MEDS ORDERED: HYDROmorphone HCL CARPU-JECT 1 MG/1 ML DISP.SYRIN IVPB PRN (17:09)
[2017-05-17] MEDS: LACTATED RINGERS SOLUTION 1,000 ML/1,000 ML INFUS.BAG IV SCH ×2 (18:05→18:47)
[2017-05-17] MEDS: INSULIN DETEMIR 100 UNITS/ML MDV SQ SCH (22:42)
[2017-05-17] MEDS: CHLORHEXIDINE GLUCONATE 4% CLEANSER FOR DECOLONIZATION TP SCH (22:43)
--- NOTE | 2017-05-17 22:59 | CONSULT ---
Consult Consult Specialty:: Surgery Reason for Consultation:: Pancreatitis - History of Present Illness Chief Complaint: Abdominl pain History of Present Illness: 32 female consulted for pancreatitis Significant peripancreatic edema Questionable CBD/Gallstone on CT Elevated triglycerides Seen in ICU Pain controlled - History Source History Provided By: Patient Limitations to Obtaining History: No Limitations - Past Medical History Endocrine: Yes: Other (GDM) - Past Surgical History Past Surgical History: Yes: - Alcohol/Substance Use Hx Alcohol Use: No History of Substance Use: reports: None - Smoking History Smoking history: Never smoked Have you smoked in the past 12 months: No Home Medications - Allergies Allergies/Adverse Reactions: Allergies Allergy/AdvReac Type Severity Reaction Status Date / Time No Known Allergies Allergy Verified 05/13/17 00:10 - Home Medications Home Medications: Ambulatory Orders NK [No Known Home Medication] 05/13/17 Family Disease History - Family Disease History Family Disease History: Diabetes: Father, Mother Review of Systems - Review of Systems Constitutional: denies: Chills Eyes: reports: No Symptoms HENT: reports: No Symptoms Neck: reports: No Symptoms Cardiovascular: denies: Chest Pain Respiratory: denies: Cough Gastrointestinal: reports: Abdominal Pain Genitourinary: reports: No Symptoms Neurological: denies: Change in LOC Pain Intensity: 3 Physical Exam Vital Signs: Vital Signs Temperature 99.7 F H 05/17/17 18:00 Pulse Rate 94 H 05/17/17 18:00 Respiratory Rate 18 05/17/17 18:00 Blood Pressure 92/52 05/17/17 18:00 O2 Sat by Pulse Oximetry (%) 99 05/17/17 10:32 Constitutional: Yes: Calm Neck: Yes: Supple Cardiovascular: Yes: Regular Rate and Rhythm Respiratory: Yes: Regular Gastrointestinal: Yes: Soft. No: Tenderness, Rebound Extremities: Yes: WNL Neurological: Yes: Alert, Oriented Labs: CBC, BMP 05/17/17 06:05 05/17/17 06:05 Imaging - Results Cat Scan: Report Reviewed, Image Reviewed Problem List - Problems (1) Acute pancreatitis Code(s): K85.90 - ACUTE PANCREATITIS WITHOUT NECROSIS OR INFECTION, UNSP Qualifiers: Pancreatitis type: unspecified pancreatitis type Acute pancreatitis complication: unspecified Qualified Code(s): K85.90 - Acute pancreatitis without necrosis or infection, unspecified (2) Hypertriglyceridemia Code(s): E78.1 - PURE HYPERGLYCERIDEMIA Assessment/Plan 32 female with pancreatitis Significant peripancreatic edema Questionable gallstone/CBD stone Ultrasound to rule out gallstone/evaluate CBD If CBD dilated or possible stone seen recommend MRCP GI following If gallstone is a possible etiology, recommend percutaneous cholecystostomy by interventonal radiology as patient is hypotensive and the significant peripancreatic edema would make a cholecystectomy high risk at this time If CBD stone seen, recommend GI for ERCP
--- NOTE | 2017-05-18 00:11 | PN ---
Physical Exam: SUBJECTIVE: Patient seen and examined, alert, awake, not c/o of any abdominal pain. No significant fevers overnight. OBJECTIVE: Vital Signs Period Temp Pulse Resp BP Sys/Rodgers Pulse Ox Last 24 Hr 99 F-101 F 88-100 17-25 90-100/52-68 98-99 GENERAL: The patient is awake, alert, and fully oriented, in no acute distress. LUNGS: Breath sounds equal, b/l crackles HEART: Regular rate and rhythm, S1, S2 without murmur, rub or gallop. ABDOMEN: Soft, nontender, nondistended, normoactive bowel sounds, no guarding, no rebound, no hepatosplenomegaly, no masses. EXTREMITIES: 2+ pulses, warm, well-perfused, no edema. NEUROLOGICAL: Cranial nerves II through XII grossly intact. Normal speech, gait not observed. PSYCH: Normal mood, normal affect. SKIN: Warm, dry, normal turgor, no rashes or lesions noted Laboratory Results - last 24 hr 05/17/17 05/17/17 05/17/17 06:05 06:05 22:42 WBC 12.8 H RBC 4.10 Hgb 12.3 Hct 36.2 MCV 88.3 MCH 30.0 MCHC 33.9 RDW 13.6 Plt Count 195 D MPV 10.5 Neutrophils % 84.7 H Lymphocytes % 6.0 L Monocytes % 8.3 Eosinophils % 0.7 Basophils % 0.3 Sodium 134 L Potassium 3.7 Chloride 99 Carbon Dioxide 23 Anion Gap 12 BUN 5 L D Creatinine 0.2 L Creat Clearance w eGFR > 60 POC Glucometer 169 Random Glucose 205 H Calcium 7.3 L Total Bilirubin 0.6 D AST 8 L ALT 10 L Alkaline Phosphatase 79 D Total Protein 5.1 L Albumin 2.1 L Triglycerides 398 H Active Medications Generic Name Dose Route Start Last Admin Trade Name Freq PRN Reason Stop Dose Admin Acetaminophen 650 mg 05/17/17 17:09 Tylenol - PO Q6H PRN FEVER OR PAIN Chlorhexidine Gluconate 1 applic 05/17/17 22:00 05/17/17 22:43 Hibiclens For Decolonization - TP Not Given HS NEFTALY Gemfibrozil 600 mg 05/18/17 07:00 Lopid - PO BID@0700,1630 [facility] Heparin Sodium (Porcine) 5,000 unit 05/17/17 17:09 Heparin - IVPUSH PRN PRN Heparin Heparin Sodium (Porcine) 5,000 unit 05/17/17 18:00 05/17/17 22:43 Heparin - SQ 5,000 unit TID NEFTALY Administration Hydromorphone HCl 0.5 mg 05/17/17 17:09 Dilaudid Injection - IVPB Q4H PRN Pain 4-6 Imipenem/Cilastatin Sodium 500 100 mls @ 200 mls/hr 05/17/17 21:00 05/17/17 22:38 mg/ Sodium Chloride IVPB 200 mls/hr Q6H-IV NEFTALY Administration Protocol Lactated Ringer's 1,000 ml in 1,000 mls @ 100 mls/hr 05/17/17 17:09 05/17/17 18:47 Lactated Ringers Solution IV 100 mls/hr ASDIR NEFTALY Administration Insulin Aspart 1 vial 05/17/17 22:00 05/17/17 22:43 Novolog Vial Sliding Scale - SQ Not Given HS NEFTALY Protocol Insulin Aspart 1 vial 05/18/17 07:00 Novolog Vial Sliding Scale - SQ TIDAC [facility] Protocol Insulin Detemir 8 units 05/17/17 22:00 05/17/17 22:42 Levemir Vial SQ 8 units HS NEFTALY Administration Mupirocin 1 applic 05/17/17 22:00 05/17/17 22:43 Bactroban 2% Ointment - NS 05/18/17 21:59 Not Given BID NEFTALY Kzoty-8-Lmfb Ethyl Esters 2 gm 05/17/17 22:00 05/17/17 22:39 Lovaza - PO 2 gm BID NEFTAYL Administration Ondansetron HCl 4 mg 05/17/17 17:09 Zofran Injection IVPUSH Q6H PRN NAUSEA ASSESSMENT/PLAN: 32 year old female with a medical history of diabetes mellitus type II, non compliant with medications, presented with abdominal pain and admitted for severe pancreatitis. Acute Pancreatitis Sepsis Severe Hypertriglyceridemia Severe Hypocalcemia Diabetes Acute Kidney Injury Lactic Acidosis -can decrease IVF hydration; start fat free diet -cont levemir BID -cont gemfimbrozil -bgm -insulin ss -trend tryglycerides if >that 600 will need another plasmaphoresis -oob; PT -surgery consulted to eval for gallbladder -f/u US looking for CBD stone/; if positive will need mrcp Stable to transfer to floors Problem List - Problems (1) Hypocalcemia Code(s): E83.51 - HYPOCALCEMIA (2) Acute pancreatitis Code(s): K85.90 - ACUTE PANCREATITIS WITHOUT NECROSIS OR INFECTION, UNSP Qualifiers: Pancreatitis type: unspecified pancreatitis type Acute pancreatitis complication: unspecified Qualified Code(s): K85.90 - Acute pancreatitis without necrosis or infection, unspecified (3) Hyperglycemia Code(s): R73.9 - HYPERGLYCEMIA, UNSPECIFIED (4) Hypertriglyceridemia Code(s): E78.1 - PURE HYPERGLYCERIDEMIA (5) Hypokalemia Code(s): E87.6 - HYPOKALEMIA (6) Pancreatitis Code(s): K85.90 - ACUTE PANCREATITIS WITHOUT NECROSIS OR INFECTION, UNSP Qualifiers: Chronicity: acute Pancreatitis type: other Acute pancreatitis complication: no infection or necrosis Qualified Code(s): K85.80 - Other acute pancreatitis without necrosis or infection (7) SIRS (systemic inflammatory response syndrome) Code(s): R65.10 - SIRS OF NON-INFECTIOUS ORIGIN W/O ACUTE ORGAN DYSFUNCTION Visit type - Emergency Visit Emergency Visit: Yes ED Registration Date: 05/13/17 Care time: The patient presented to the Emergency Department on the above date and was hospitalized for further evaluation of their emergent condition. - New Patient This patient is new to me today: Yes Date on this admission: 05/18/17 - Critical Care Critical Care patient: Yes Total Critical Care Time (in minutes): 35 Critical Care Statement: The care of this patient involved high complexity decision making to prevent further life threatening deterioration of the patient 's condition and/or to evaluate & treat vital organ system(s) failure or risk of failure.
[2017-05-18] MEDS: IMIPENEM/CILASTATIN SODIUM 500 MG in SODIUM CHLORIDE 100 ML IVPB SCH ×4 (02:12→20:41)
[2017-05-18] MEDS: LACTATED RINGERS SOLUTION 1,000 ML/1,000 ML INFUS.BAG IV SCH ×2 (06:46→20:41)
[2017-05-18] MEDS: HEPARIN NA (PORCINE) 5,000 UNITS/ML 1ML VIAL SQ SCH ×3 (06:46→21:17)
[2017-05-18] MEDS: INSULIN SLIDING SCALE (NOVOLOG) 1 VIAL SQ SCH ×4 (06:49→21:17)
[2017-05-18 07:04] LABS: BASOPHIL 0.4 % (0-2.0); MCH 29.5 pg (25.7-33.7); MCHC 33.8 g/dl (32.0-36.0); MEAN CELL VOLUME 87.2 fl (80-96); MEAN PLT VOLUME 9.2 fl (7.5-11.1); NEUTROPHILS 77.8 % (42.8-82.8); PLATELET COUNT 210 K/MM3 (134-434); RDW 13.4 % (11.6-15.6); WHITE BLOOD COUNT 11.9 K/mm3 (4.0-10.0)
[2017-05-18 07:38] LABS: ALBUMIN 2.1 g/dl (3.4-5.0); ALK PHOS 86 U/L (45-117); ANION GAP 11 (8-16); BILIRUBIN,TOTAL 0.3 mg/dL (0.2-1.0); CALCIUM 7.5 mg/dL (8.5-10.1); CO2 25 mmol/L (21-32); CREATININE 0.2 mg/dL (0.55-1.02); GLUCOSE,RANDOM 176 mg/dL (74-106); MAGNESIUM 2.2 mg/dL (1.8-2.4); SGOT/AST 6 U/L (15-37); SGPT/ALT 9 U/L (12-78); TOT PROT 5.1 g/dl (6.4-8.2)
--- NOTE | 2017-05-18 10:14 | PN ---
Progress Note (short form) - Note Progress Note: Feels good Denies any complaints No Abd pain, No N/V Tolerating fat free diet TMax 101 Vital Signs Period Temp Pulse Resp BP Sys/Rodgers Pulse Ox Last 24 Hr 99 F-101 F 86-100 18-20 90-116/52-68 97-99 PE: Aox3 Neck: Supple, No JVD HEENT: PERRL, EOMI Lung: Decreased BS at bases CVS: S1S2 Abd: NO Epigastric tenderness, hypoactive BS Ext: No edema Neuro: No focal deficit CMP Sodium 136 mmol/L (136-145) 05/18/17 06:00 Potassium 3.5 mmol/L (3.5-5.1) 05/18/17 06:00 Chloride 100 mmol/L (98-107) 05/18/17 06:00 Carbon Dioxide 25 mmol/L (21-32) 05/18/17 06:00 Anion Gap 11 (8-16) 05/18/17 06:00 BUN 6 mg/dL (7-18) L 05/18/17 06:00 Creatinine 0.2 mg/dL (0.55-1.02) L 05/18/17 06:00 Creat Clearance w eGFR > 60 (>60) 05/18/17 06:00 POC Glucometer 164 UNITS (80-120) 05/18/17 06:48 Random Glucose 176 mg/dL (74-106) H 05/18/17 06:00 Hemoglobin A1c % 9.6 % (4.8-6.0) H 05/13/17 09:55 Lactic Acid 0.3 mmol/L (0.4-2.0) L 05/13/17 21:40 Calcium 7.5 mg/dL (8.5-10.1) L 05/18/17 06:00 Ionized Calcium 5.5 mg/dL (4.5-5.6) 05/14/17 10:50 Phosphorus 3.0 mg/dL (2.5-4.9) 05/18/17 06:00 Magnesium 2.2 mg/dL (1.8-2.4) D 05/18/17 06:00 Total Bilirubin 0.3 mg/dL (0.2-1.0) D 05/18/17 06:00 Direct Bilirubin TNP 05/13/17 11:50 AST 6 U/L (15-37) L D 05/18/17 06:00 ALT 9 U/L (12-78) L 05/18/17 06:00 Alkaline Phosphatase 86 U/L (45-117) 05/18/17 06:00 Total Protein 5.1 g/dl (6.4-8.2) L 05/18/17 06:00 Albumin 2.1 g/dl (3.4-5.0) L 05/18/17 06:00 Triglycerides 403 mg/dL (35-160) H 05/18/17 06:00 Cholesterol 185 mg/dL (50-200) 05/14/17 06:15 Total LDL Cholesterol 53 mg/dL (5-100) 05/14/17 06:15 HDL Cholesterol 15 mg/dL (40-60) L 05/14/17 06:15 Total Amylase 43 U/L (25-115) D 05/16/17 05:22 Lipase 237 U/L (73-393) 05/16/17 05:22 TSH 0.20 uIU/ml (0.358-3.74) L 05/14/17 06:15 Free T4 0.83 ng/dl (0.76-1.46) 05/14/17 09:33 Resin T3 Uptake 38.7 % (30-39) 05/14/17 09:33 Current Medications Generic Name Dose Route Start Last Admin Trade Name Freq PRN Reason Stop Dose Admin Acetaminophen 650 mg 05/17/17 17:09 05/18/17 02:00 Tylenol - PO 650 mg Q6H PRN Administration FEVER OR PAIN Chlorhexidine Gluconate 1 applic 05/17/17 22:00 05/17/17 22:43 Hibiclens For Decolonization - TP Not Given HS NEFTALY Gemfibrozil 600 mg 05/18/17 07:00 Lopid - PO BID@0700,1630 NEFTALY Heparin Sodium (Porcine) 5,000 unit 05/17/17 17:09 Heparin - IVPUSH PRN PRN Heparin Heparin Sodium (Porcine) 5,000 unit 05/17/17 18:00 05/18/17 06:46 Heparin - SQ 5,000 unit TID NEFTALY Administration Hydromorphone HCl 0.5 mg 05/17/17 17:09 Dilaudid Injection - IVPB Q4H PRN Pain 4-6 Imipenem/Cilastatin Sodium 500 100 mls @ 200 mls/hr 05/17/17 21:00 05/18/17 02:12 mg/ Sodium Chloride IVPB 200 mls/hr Q6H-IV NEFTALY Administration Protocol Lactated Ringer's 1,000 ml in 1,000 mls @ 100 mls/hr 05/17/17 17:09 05/18/17 06:46 Lactated Ringers Solution IV 100 mls/hr ASDIR NEFTALY Administration Insulin Aspart 1 vial 05/17/17 22:00 05/17/17 22:43 Novolog Vial Sliding Scale - SQ Not Given HS NEFTALY Protocol Insulin Aspart 1 vial 05/18/17 07:00 05/18/17 06:49 Novolog Vial Sliding Scale - SQ 2 units TIDAC NEFTALY Administration Protocol Insulin Detemir 8 units 05/17/17 22:00 05/17/17 22:42 Levemir Vial SQ 8 units HS NEFTALY Administration Mupirocin 1 applic 05/17/17 22:00 05/17/17 22:43 Bactroban 2% Ointment - NS 05/18/17 21:59 Not Given BID NEFTALY Zlhnj-6-Lkdh Ethyl Esters 2 gm 05/17/17 22:00 05/17/17 22:39 Lovaza - PO 2 gm BID NEFTALY Administration Ondansetron HCl 4 mg 05/17/17 17:09 Zofran Injection IVPUSH Q6H PRN NAUSEA AP: Acute Pancreatitis Hypertriglyceridemia DM Fever Tolerating fat free diet S/P Apheresis. Trig now 300s, 403 today Lipase, Amylase noramal now Increase Levemir 12 units at HS BG QACHS, with Novolog Coverage Gemfibrozil 600mg BID Lovaza 2 gm BID Iv Imipenem Electrolyte replacement as necessary, Further management as per medical team. Problem List - Problems (1) Acute pancreatitis Code(s): K85.90 - ACUTE PANCREATITIS WITHOUT NECROSIS OR INFECTION, UNSP Qualifiers: Pancreatitis type: unspecified pancreatitis type Acute pancreatitis complication: unspecified Qualified Code(s): K85.90 - Acute pancreatitis without necrosis or infection, unspecified (2) Hyperglycemia Code(s): R73.9 - HYPERGLYCEMIA, UNSPECIFIED (3) Hypertriglyceridemia Code(s): E78.1 - PURE HYPERGLYCERIDEMIA
[2017-05-18] MEDS: OMEGA-3 ACID ETHYL ESTERS (FATTY-ACIDS) 1 GM CAPSULE (FP) PO SCH ×2 (10:21→21:18)
[2017-05-18] MEDS: GEMFIBROZIL 600 MG TABLET (FP) PO SCH ×2 (10:21→17:31)
[2017-05-18] MEDS: MUPIROCIN 2% TOPICAL OINTMENT 22 GM TUBE NS SCH (10:22)
[2017-05-18] MEDS ORDERED: INSULIN (NOVOLOG) ASPART 100 UNITS/ML 10ML VIAL ONE ×3 (11:33→20:36)
--- NOTE | 2017-05-18 11:49 | PN ---
Progress Note (short form) - Note Progress Note: states she is tolerating liquid diet. no abdominal pain when eating. has occasional LUQ spasms but not related to eating. had 2 loose BM yesterday and 1 today. denies CP, SOB, fever, chills. Current Medications Generic Name Dose Route Start Last Admin Trade Name Freq PRN Reason Stop Dose Admin Acetaminophen 650 mg 05/17/17 17:09 05/18/17 02:00 Tylenol - PO 650 mg Q6H PRN Administration FEVER OR PAIN Chlorhexidine Gluconate 1 applic 05/17/17 22:00 05/17/17 22:43 Hibiclens For Decolonization - TP Not Given HS NEFTALY Gemfibrozil 600 mg 05/18/17 07:00 05/18/17 10:21 Lopid - PO 600 mg BID@0700,1630 NEFTALY Administration Heparin Sodium (Porcine) 5,000 unit 05/17/17 17:09 Heparin - IVPUSH PRN PRN Heparin Heparin Sodium (Porcine) 5,000 unit 05/17/17 18:00 05/18/17 06:46 Heparin - SQ 5,000 unit TID NEFTALY Administration Hydromorphone HCl 0.5 mg 05/17/17 17:09 Dilaudid Injection - IVPB Q4H PRN Pain 4-6 Imipenem/Cilastatin Sodium 500 100 mls @ 200 mls/hr 05/17/17 21:00 05/18/17 10:21 mg/ Sodium Chloride IVPB 200 mls/hr Q6H-IV NEFTALY Administration Protocol Lactated Ringer's 1,000 ml in 1,000 mls @ 100 mls/hr 05/17/17 17:09 05/18/17 06:46 Lactated Ringers Solution IV 100 mls/hr ASDIR NEFTALY Administration Insulin Aspart 1 vial 05/17/17 22:00 05/17/17 22:43 Novolog Vial Sliding Scale - SQ Not Given HS NEFTALY Protocol Insulin Aspart 1 vial 05/18/17 07:00 05/18/17 06:49 Novolog Vial Sliding Scale - SQ 2 units TIDAC NEFTALY Administration Protocol Insulin Detemir 8 units 05/17/17 22:00 05/17/17 22:42 Levemir Vial SQ 8 units HS NEFTALY Administration Mupirocin 1 applic 05/17/17 22:00 05/18/17 10:22 Bactroban 2% Ointment - NS 05/18/17 21:59 Not Given BID NEFTALY Psnze-3-Eikt Ethyl Esters 2 gm 05/17/17 22:00 05/18/17 10:21 Lovaza - PO 2 gm BID NEFTALY Administration Ondansetron HCl 4 mg 05/17/17 17:09 Zofran Injection IVPUSH Q6H PRN NAUSEA Last Vital Signs Temp Pulse Resp BP Pulse Ox 99 F 92 H 18 107/62 97 05/18/17 06:23 05/18/17 10:00 05/18/17 10:00 05/18/17 10:00 05/17/17 22:00 General NAD CV S1 S2 RRR no murmur/rub/gallop Lungs mild crackles R base no wheezing Abdomen epigastric and LUQ tenderness no rebound or guarding soft, hypoactive BS Extremiteis no pedal edema CBCD WBC 11.9 K/mm3 (4.0-10.0) H 05/18/17 06:00 RBC 4.12 M/mm3 (3.60-5.2) 05/18/17 06:00 Hgb 12.2 GM/dL (10.7-15.3) 05/18/17 06:00 Hct 36.0 % (32.4-45.2) 05/18/17 06:00 MCV 87.2 fl (80-96) 05/18/17 06:00 MCHC 33.8 g/dl (32.0-36.0) 05/18/17 06:00 RDW 13.4 % (11.6-15.6) 05/18/17 06:00 Plt Count 210 K/MM3 (134-434) 05/18/17 06:00 MPV 9.2 fl (7.5-11.1) D 05/18/17 06:00 CMP Sodium 136 mmol/L (136-145) 05/18/17 06:00 Potassium 3.5 mmol/L (3.5-5.1) 05/18/17 06:00 Chloride 100 mmol/L (98-107) 05/18/17 06:00 Carbon Dioxide 25 mmol/L (21-32) 05/18/17 06:00 Anion Gap 11 (8-16) 05/18/17 06:00 BUN 6 mg/dL (7-18) L 05/18/17 06:00 Creatinine 0.2 mg/dL (0.55-1.02) L 05/18/17 06:00 Creat Clearance w eGFR > 60 (>60) 05/18/17 06:00 Calcium 7.5 mg/dL (8.5-10.1) L 05/18/17 06:00 Total Bilirubin 0.3 mg/dL (0.2-1.0) D 05/18/17 06:00 AST 6 U/L (15-37) L D 05/18/17 06:00 ALT 9 U/L (12-78) L 05/18/17 06:00 Alkaline Phosphatase 86 U/L (45-117) 05/18/17 06:00 Total Protein 5.1 g/dl (6.4-8.2) L 05/18/17 06:00 Albumin 2.1 g/dl (3.4-5.0) L 05/18/17 06:00 Microbiology 05/13/17 21:40 Blood Culture - Preliminary Blood - Peripheral Venous NO GROWTH OBTAINED AFTER 96 HOURS, INCUBATION TO CONTINUE FOR 1 DAYS. 05/13/17 21:40 Blood Culture - Preliminary Blood - Peripheral Venous NO GROWTH OBTAINED AFTER 96 HOURS, INCUBATION TO CONTINUE FOR 1 DAYS. 05/16/17 12:15 Blood Culture - Preliminary Blood - Peripheral Venous NO GROWTH OBTAINED AFTER 24 HOURS, INCUBATION TO CONTINUE FOR 4 DAYS. 05/16/17 12:15 Blood Culture - Preliminary Blood - Peripheral Venous NO GROWTH OBTAINED AFTER 24 HOURS, INCUBATION TO CONTINUE FOR 4 DAYS. ASSESSMENT AND PLAN: 32yo F wtih PMH gestation DM presnted to the ER with abdominal pain and found to have acute pancreatitis 1. Acute Pancreatitis- due to hypertriglyceridemia. 7K on presentation. s/p plasmapharesis x1. off insulin ggt since yesterday. TG stable. symptoms have improved. continues to have intermittent fever spikes. no source identified. advance diet as tolerated. U/s negative for acute cholecystitis or choledocholithasis. CXR showing possible R base infiltrate which should be covered by imipeenem. will need to speak with ID about adjusting medication. on prophylactic imipenem day 6, lopid, pain control. ID, GI and endo on board. BCx negative 2. Low TSH- may be due to acute sickness. T4 wnl. will hold treatment at this time. repeat TSH after acute phase 3. DM- new onset. A1c 9.6. will need diabetic teaching. levemir increased to 8 units. titrate to optimize control 4. Hypocalcemia- Corrected Ca 9 5. Hyponatremia- resolved 6. hypokalemia- resolved 7. hypophoshpatemia- resolved 8. JHONNY- due to dehydration. now resolved. 9. DVT ppx- hep sq Visit type - Emergency Visit Emergency Visit: Yes ED Registration Date: 05/13/17 Care time: The patient presented to the Emergency Department on the above date and was hospitalized for further evaluation of their emergent condition. - New Patient This patient is new to me today: No - Critical Care Critical Care patient: No - Discharge Referral Referred to [facility] Med [facility] No
[2017-05-18] MEDS ORDERED: PT OWN MED DRAWER 7, Y5N ONE (14:46)
--- NOTE | 2017-05-18 16:58 | PN ---
Progress Note, Physician History of Present Illness: patient feels better no complaints feels better - Current Medication List Current Medications: Active Medications Acetaminophen (Tylenol -) 650 mg PO Q6H PRN PRN Reason: FEVER OR PAIN Last Admin: 05/18/17 02:00 Dose: 650 mg Chlorhexidine Gluconate (Hibiclens For Decolonization -) 1 applic TP HS [facility] Last Admin: 05/17/17 22:43 Dose: Not Given Gemfibrozil (Lopid -) 600 mg PO BID@0700,1630 [facility] Last Admin: 05/18/17 10:21 Dose: 600 mg Heparin Sodium (Porcine) (Heparin -) 5,000 unit IVPUSH PRN PRN PRN Reason: Heparin Heparin Sodium (Porcine) (Heparin -) 5,000 unit SQ TID [facility] Last Admin: 05/18/17 15:02 Dose: 5,000 unit Hydromorphone HCl (Dilaudid Injection -) 0.5 mg IVPB Q4H PRN PRN Reason: Pain 4-6 Imipenem/Cilastatin Sodium 500 (mg/ Sodium Chloride) 100 mls @ 200 mls/hr IVPB Q6H-IV NEFTALY PRN Reason: Protocol Last Admin: 05/18/17 15:02 Dose: 200 mls/hr Lactated Ringer's (Lactated Ringers Solution) 1,000 ml in 1,000 mls @ 100 mls/ hr IV ASDIR [facility] Last Admin: 05/18/17 06:46 Dose: 100 mls/hr Insulin Aspart (Novolog Vial Sliding Scale -) 1 vial SQ HS [facility] PRN Reason: Protocol Last Admin: 05/17/17 22:43 Dose: Not Given Insulin Aspart (Novolog Vial Sliding Scale -) 1 vial SQ TIDAC [facility] PRN Reason: Protocol Last Admin: 05/18/17 11:50 Dose: 2 units Insulin Detemir (Levemir Vial) 8 units SQ HS [facility] Last Admin: 05/17/17 22:42 Dose: 8 units Mupirocin (Bactroban 2% Ointment -) 1 applic NS BID [facility] Stop: 05/18/17 21:59 Last Admin: 05/18/17 10:22 Dose: Not Given Qxswy-3-Vjbj Ethyl Esters (Lovaza -) 2 gm PO BID [facility] Last Admin: 11/18/17 10:21 Dose: 2 gm Ondansetron HCl (Zofran Injection) 4 mg IVPUSH Q6H PRN PRN Reason: NAUSEA - Objective Vital Signs: Vital Signs Temperature 98.9 F 05/18/17 14:17 Pulse Rate 100 H 05/18/17 14:17 Respiratory Rate 18 05/18/17 14:17 Blood Pressure 108/65 05/18/17 14:17 O2 Sat by Pulse Oximetry (%) 97 05/18/17 09:00 Constitutional: Yes: No Distress, Calm Eyes: Yes: Conjunctiva Clear HENT: Yes: Atraumatic Cardiovascular: Yes: Regular Rate and Rhythm Respiratory: Yes: Regular, CTA Bilaterally Gastrointestinal: Yes: Normal Bowel Sounds, Soft Musculoskeletal: Yes: WNL Extremities: Yes: WNL Neurological: Yes: Alert, Oriented Psychiatric: Yes: Alert Labs: CBC, BMP 05/18/17 06:00 05/18/17 06:00 INR, PTT INR 1.23 (0.82-1.09) H 05/15/17 06:00 Fibrinogen 542.0 mg/dL (238-498) H D 05/15/17 06:00 Assessment/Plan Acute Pancreatitis Sepsis Severe Hypertriglyceridemia Severe Hypocalcemia Diabetes Acute Kidney Injury Lactic Acidosis plan continue abx monitor for fever if patient remains afebrile will consider stopping abx by saturday rest as per primary team
[2017-05-18] MEDS: INSULIN DETEMIR 100 UNITS/ML MDV SQ SCH (21:17)
[2017-05-18] MEDS: CHLORHEXIDINE GLUCONATE 4% CLEANSER FOR DECOLONIZATION TP SCH (21:18)
[2017-05-19] MEDS: IMIPENEM/CILASTATIN SODIUM 500 MG in SODIUM CHLORIDE 100 ML IVPB SCH ×4 (02:11→21:24)
[2017-05-19] MEDS: GEMFIBROZIL 600 MG TABLET (FP) PO SCH ×2 (06:18→16:44)
[2017-05-19] MEDS: HEPARIN NA (PORCINE) 5,000 UNITS/ML 1ML VIAL SQ SCH ×3 (06:18→21:24)
[2017-05-19] MEDS: INSULIN SLIDING SCALE (NOVOLOG) 1 VIAL SQ SCH ×5 (06:20→21:27)
[2017-05-19] MEDS: LACTATED RINGERS SOLUTION 1,000 ML/1,000 ML INFUS.BAG IV SCH ×2 (06:45→16:55)
[2017-05-19] MEDS: OMEGA-3 ACID ETHYL ESTERS (FATTY-ACIDS) 1 GM CAPSULE (FP) PO SCH ×2 (09:34→21:25)
--- NOTE | 2017-05-19 11:06 | PN ---
Progress Note (short form) - Note Progress Note: Feels good Denies any complaints No Abd pain, No N/V Tolerating diet TMax 99.9 Vital Signs Period Temp Pulse Resp BP Sys/Rodgers Pulse Ox Last 24 Hr 98.4 F-99.9 F 86-100 16-18 108-111/50-65 93-97 PE: Aox3 Neck: Supple, No JVD HEENT: PERRL, EOMI Lung:CTA CVS: S1S2 Abd: NO Epigastric tenderness, hypoactive BS Ext: No edema Neuro: No focal deficit CMP Sodium 136 mmol/L (136-145) 05/18/17 06:00 Potassium 3.5 mmol/L (3.5-5.1) 05/18/17 06:00 Chloride 100 mmol/L (98-107) 05/18/17 06:00 Carbon Dioxide 25 mmol/L (21-32) 05/18/17 06:00 Anion Gap 11 (8-16) 05/18/17 06:00 BUN 6 mg/dL (7-18) L 05/18/17 06:00 Creatinine 0.2 mg/dL (0.55-1.02) L 05/18/17 06:00 Creat Clearance w eGFR > 60 (>60) 05/18/17 06:00 POC Glucometer 177 UNITS (80-120) 05/19/17 06:19 Random Glucose 176 mg/dL (74-106) H 05/18/17 06:00 Hemoglobin A1c % 9.6 % (4.8-6.0) H 05/13/17 09:55 Lactic Acid 0.3 mmol/L (0.4-2.0) L 05/13/17 21:40 Calcium 7.5 mg/dL (8.5-10.1) L 05/18/17 06:00 Ionized Calcium 5.5 mg/dL (4.5-5.6) 05/14/17 10:50 Phosphorus 3.0 mg/dL (2.5-4.9) 05/18/17 06:00 Magnesium 2.2 mg/dL (1.8-2.4) D 05/18/17 06:00 Total Bilirubin 0.3 mg/dL (0.2-1.0) D 05/18/17 06:00 Direct Bilirubin TNP 05/13/17 11:50 AST 6 U/L (15-37) L D 05/18/17 06:00 ALT 9 U/L (12-78) L 05/18/17 06:00 Alkaline Phosphatase 86 U/L (45-117) 05/18/17 06:00 Total Protein 5.1 g/dl (6.4-8.2) L 05/18/17 06:00 Albumin 2.1 g/dl (3.4-5.0) L 05/18/17 06:00 Triglycerides 403 mg/dL (35-160) H 05/18/17 06:00 Cholesterol 185 mg/dL (50-200) 05/14/17 06:15 Total LDL Cholesterol 53 mg/dL (5-100) 05/14/17 06:15 HDL Cholesterol 15 mg/dL (40-60) L 05/14/17 06:15 Total Amylase 43 U/L (25-115) D 05/16/17 05:22 Lipase 237 U/L (73-393) 05/16/17 05:22 TSH 0.20 uIU/ml (0.358-3.74) L 05/14/17 06:15 Free T4 0.83 ng/dl (0.76-1.46) 05/14/17 09:33 Resin T3 Uptake 38.7 % (30-39) 05/14/17 09:33 Current Medications Generic Name Dose Route Start Last Admin Trade Name Freq PRN Reason Stop Dose Admin Acetaminophen 650 mg 05/17/17 17:09 05/18/17 02:00 Tylenol - PO 650 mg Q6H PRN Administration FEVER OR PAIN Gemfibrozil 600 mg 05/18/17 07:00 05/19/17 06:18 Lopid - PO 600 mg BID@0700,1630 NEFTALY Administration Heparin Sodium (Porcine) 5,000 unit 05/17/17 17:09 Heparin - IVPUSH PRN PRN Heparin Heparin Sodium (Porcine) 5,000 unit 05/17/17 18:00 05/19/17 06:18 Heparin - SQ 5,000 unit TID NEFTALY Administration Hydromorphone HCl 0.5 mg 05/17/17 17:09 Dilaudid Injection - IVPB Q4H PRN Pain 4-6 Imipenem/Cilastatin Sodium 500 100 mls @ 200 mls/hr 05/17/17 21:00 05/19/17 09:34 mg/ Sodium Chloride IVPB 200 mls/hr Q6H-IV NEFTALY Administration Protocol Lactated Ringer's 1,000 ml in 1,000 mls @ 100 mls/hr 05/17/17 17:09 05/19/17 06:45 Lactated Ringers Solution IV 100 mls/hr ASDIR NEFTALY Administration Insulin Aspart 1 vial 05/17/17 22:00 05/18/17 21:17 Novolog Vial Sliding Scale - SQ 2 units HS NEFTALY Administration Protocol Insulin Aspart 1 vial 05/18/17 07:00 05/19/17 06:20 Novolog Vial Sliding Scale - SQ 2 units TIDAC NEFTALY Administration Protocol Insulin Detemir 8 units 05/17/17 22:00 05/18/17 21:17 Levemir Vial SQ 8 units HS NEFTALY Administration Iwtfl-0-Cuxz Ethyl Esters 2 gm 05/17/17 22:00 05/19/17 09:34 Lovaza - PO 2 gm BID NEFTALY Administration Ondansetron HCl 4 mg 05/17/17 17:09 Zofran Injection IVPUSH Q6H PRN NAUSEA AP: Acute Pancreatitis Hypertriglyceridemia DM Fever Tolerating fat free diet S/P Apheresis. Trig now 300s, 403 today Lipase, Amylase noramal now Increase Levemir 12 units at HS BG QACHS, with Novolog Coverage Gemfibrozil 600mg BID Lovaza 2 gm BID Iv Imipenem Electrolyte replacement as necessary, Further management as per medical team. Problem List - Problems (1) Acute pancreatitis Code(s): K85.90 - ACUTE PANCREATITIS WITHOUT NECROSIS OR INFECTION, UNSP Qualifiers: Pancreatitis type: unspecified pancreatitis type Acute pancreatitis complication: unspecified Qualified Code(s): K85.90 - Acute pancreatitis without necrosis or infection, unspecified (2) Hyperglycemia Code(s): R73.9 - HYPERGLYCEMIA, UNSPECIFIED (3) Hypertriglyceridemia Code(s): E78.1 - PURE HYPERGLYCERIDEMIA
[2017-05-19] MEDS ORDERED: INSULIN (NOVOLOG) ASPART 100 UNITS/ML 10ML VIAL ONE (11:33)
--- NOTE | 2017-05-19 13:57 | PN ---
Progress Note (short form) - Note Progress Note: states she is tolerating liquid diet. no abdominal pain when eating. has occasional LUQ spasms but not related to eating. loose BM resolved. denies CP, SOB, fever, chills. Current Medications Generic Name Dose Route Start Last Admin Trade Name Freq PRN Reason Stop Dose Admin Acetaminophen 650 mg 05/17/17 17:09 05/18/17 02:00 Tylenol - PO 650 mg Q6H PRN Administration FEVER OR PAIN Gemfibrozil 600 mg 05/18/17 07:00 05/19/17 06:18 Lopid - PO 600 mg BID@0700,1630 NEFTALY Administration Heparin Sodium (Porcine) 5,000 unit 05/17/17 18:00 05/19/17 13:41 Heparin - SQ 5,000 unit TID NEFTALY Administration Imipenem/Cilastatin Sodium 500 100 mls @ 200 mls/hr 05/17/17 21:00 05/19/17 09:34 mg/ Sodium Chloride IVPB 200 mls/hr Q6H-IV NEFTALY Administration Protocol Lactated Ringer's 1,000 ml in 1,000 mls @ 100 mls/hr 05/17/17 17:09 05/19/17 06:45 Lactated Ringers Solution IV 100 mls/hr ASDIR NEFTALY Administration Insulin Aspart 1 vial 05/17/17 22:00 05/18/17 21:17 Novolog Vial Sliding Scale - SQ 2 units HS NEFTALY Administration Protocol Insulin Aspart 1 vial 05/19/17 11:05 05/19/17 11:42 Novolog Vial Sliding Scale - SQ 4 units TIDAC NEFTALY Administration Protocol Insulin Detemir 12 units 05/19/17 22:00 Levemir Vial SQ HS NEFTALY Grbvx-6-Nkgo Ethyl Esters 2 gm 05/17/17 22:00 05/19/17 09:34 Lovaza - PO 2 gm BID NEFTALY Administration Ondansetron HCl 4 mg 05/17/17 17:09 Zofran Injection IVPUSH Q6H PRN NAUSEA Last Vital Signs Temp Pulse Resp BP Pulse Ox 99.1 F 93 H 18 109/61 93 L 05/19/17 09:00 05/19/17 09:00 05/19/17 09:00 05/19/17 09:00 05/19/17 09:00 General NAD CV S1 S2 RRR no murmur/rub/gallop Lungs mild crackles R base no wheezing Abdomen epigastric and LUQ tenderness no rebound or guarding soft, hypoactive BS Extremiteis no pedal edema ASSESSMENT AND PLAN: 32yo F wtih PMH gestation DM presnted to the ER with abdominal pain and found to have acute pancreatitis 1. Acute Pancreatitis- due to hypertriglyceridemia. 7K on presentation. s/p plasmapharesis x1. off insulin ggt. TG stable. symptoms have improved. afebrile x24H. tolerating diet. on prophylactic imipenem day 7, lopid, pain control. ID, GI and endo on board. BCx negative 2. Low TSH- may be due to acute sickness. T4 wnl. will hold treatment at this time. repeat TSH after acute phase 3. DM- new onset. A1c 9.6. will need diabetic teaching. levemir increased to 12 units. titrate to optimize control 4. Hypocalcemia- Corrected Ca 9 5. Hyponatremia- resolved 6. hypokalemia- resolved 7. hypophoshpatemia- resolved 8. JHONNY- due to dehydration. now resolved. 9. DVT ppx- hep sq 10. if remains afebrile for another 24H and if leukocytosis normalizes can likely go home tomorrow. Visit type - Emergency Visit Emergency Visit: Yes ED Registration Date: 05/13/17 Care time: The patient presented to the Emergency Department on the above date and was hospitalized for further evaluation of their emergent condition. - New Patient This patient is new to me today: No - Critical Care Critical Care patient: No - Discharge Referral Referred to [facility] No
[2017-05-19] MEDS ORDERED: INSULIN DETEMIR 100 UNITS/ML MDV SQ SCH (22:00)
[2017-05-20] MEDS: IMIPENEM/CILASTATIN SODIUM 500 MG in SODIUM CHLORIDE 100 ML IVPB SCH ×2 (02:22→10:48)
[2017-05-20] MEDS: GEMFIBROZIL 600 MG TABLET (FP) PO SCH (06:04)
[2017-05-20] MEDS: HEPARIN NA (PORCINE) 5,000 UNITS/ML 1ML VIAL SQ SCH (06:05)
[2017-05-20] MEDS: INSULIN SLIDING SCALE (NOVOLOG) 1 VIAL SQ SCH ×3 (06:07→12:07)
[2017-05-20 08:06] LABS: BASOPHIL 0.5 % (0-2.0); EOSINOPHIL 1.2 % (0-4.5); MCH 29.3 pg (25.7-33.7); MCHC 34.1 g/dl (32.0-36.0); MEAN CELL VOLUME 86.1 fl (80-96); MEAN PLT VOLUME 8.9 fl (7.5-11.1); PLATELET COUNT 278 K/MM3 (134-434); RDW 13.1 % (11.6-15.6); WHITE BLOOD COUNT 10.5 K/mm3 (4.0-10.0)
--- NOTE | 2017-05-20 08:15 | PN ---
Physical Exam: SUBJECTIVE: Patient seen and examined. Spoke venezuelan. Patient slept well, currently has no abdominal pain. No fevers last night. Ready to go home. No CP, SOB, fevers, chills OBJECTIVE: Vital Signs Period Temp Pulse Resp BP Sys/Rodgers Pulse Ox Last 24 Hr 97.8 F-99.4 F 75-93 17-18 94-115/49-62 93-96 GEN: AAOx3, NAD, Lying comfortably, smiling HEENT: PERRLA, EOMi CV: S1, S2, RRR LUNG: CTABL ABD: Soft, NT, ND MSK: No edema, no erythema NEURO: No sensation or MSK deficits Laboratory Results - last 24 hr 05/19/17 05/19/17 05/19/17 11:40 16:48 21:26 POC Glucometer 186 257 178 05/20/17 06:03 POC Glucometer 148 Active Medications Generic Name Dose Route Start Last Admin Trade Name Freq PRN Reason Stop Dose Admin Acetaminophen 650 mg 05/17/17 17:09 05/18/17 02:00 Tylenol - PO 650 mg Q6H PRN Administration FEVER OR PAIN Gemfibrozil 600 mg 05/18/17 07:00 05/20/17 06:04 Lopid - PO 600 mg BID@0700,1630 NEFTALY Administration Heparin Sodium (Porcine) 5,000 unit 05/17/17 18:00 05/20/17 06:05 Heparin - SQ 5,000 unit TID NEFTALY Administration Imipenem/Cilastatin Sodium 500 100 mls @ 200 mls/hr 05/17/17 21:00 05/20/17 02:22 mg/ Sodium Chloride IVPB 200 mls/hr Q6H-IV NEFTALY Administration Protocol Lactated Ringer's 1,000 ml in 1,000 mls @ 100 mls/hr 05/17/17 17:09 05/19/17 16:55 Lactated Ringers Solution IV Not Given ASDIR NEFTALY Insulin Aspart 1 vial 05/17/17 22:00 05/19/17 21:27 Novolog Vial Sliding Scale - SQ Not Given HS NEFTALY Protocol Insulin Aspart 1 vial 05/19/17 11:05 05/20/17 06:07 Novolog Vial Sliding Scale - SQ 2 units TIDAC NEFTALY Administration Protocol Insulin Detemir 12 units 05/19/17 22:00 05/19/17 21:27 Levemir Vial SQ 12 units HS NEFTALY Administration Ymeob-1-Ipnn Ethyl Esters 2 gm 05/17/17 22:00 05/19/17 21:25 Lovaza - PO 2 gm BID NEFTALY Administration Ondansetron HCl 4 mg 05/17/17 17:09 Zofran Injection IVPUSH Q6H PRN NAUSEA ASSESSMENT/PLAN: Pt is a 32yo F with a PMHx of Gestational DM who presented with epigastric pain , polyuria, and polydipsia. She was found to have acute pancreatitis and hyperglycemia. # HyperTG Induced Acute Pancreatitis - After 1 round of plasmapheresis, TG have stabilized in 300s, patient now feeling much better, will change breakfast to low fat/diabetic diet - No fevers, no abd pain, if pt can tolerate breakfast can likely dc today # New Onset Diabetes Mellitus - A1c 9.6 - Pt has diabetes, arrived in [facility] w/ ketones likely due to her acute pancreatitis, BGs well controlled w/ Levemir 12 + SSI # Hypokalemia - Resolved, has KCl in the bad, monitor CMP Q6H # Hypocalcemia - Resolved, was likely 2/2 acute pancreatitis, improved with Calcium drip, on LR for now # Hyponatremia - Resolved, likely from hypovolemic, improving w/ fluids and insulin # Subclinical HyperThyroidism - TSH low 0.2, FT4 wnl, likely from acute inflammatory state, spoke to Dr. Pimentel who will repeat as outpt # FEN - LR at 100cc/hr, ADAT # PPx - HSQ 5,000 TID, no GI ppx, PT ordered # Code Status - Full Code # Dispo - Patient can likely be d/c today if can tolerate breakfast. Has had diabetic teaching.
[2017-05-20] MEDS ORDERED: PT OWN MED DRAWER 7, Y5N ONE (09:41)
[2017-05-20] MEDS: OMEGA-3 ACID ETHYL ESTERS (FATTY-ACIDS) 1 GM CAPSULE (FP) PO SCH (09:50)
--- NOTE | 2017-05-20 10:38 | PN ---
Progress Note, Physician History of Present Illness: Ambulating. Pain free. Tolerating current diet. tmax 99 - Current Medication List Current Medications: Active Medications Acetaminophen (Tylenol -) 650 mg PO Q6H PRN PRN Reason: FEVER OR PAIN Last Admin: 05/18/17 02:00 Dose: 650 mg Gemfibrozil (Lopid -) 600 mg PO BID@0700,1630 [facility] Last Admin: 05/20/17 06:04 Dose: 600 mg Heparin Sodium (Porcine) (Heparin -) 5,000 unit SQ TID NEFTALY Last Admin: 05/20/17 06:05 Dose: 5,000 unit Imipenem/Cilastatin Sodium 500 (mg/ Sodium Chloride) 100 mls @ 200 mls/hr IVPB Q6H-IV NEFTALY PRN Reason: Protocol Last Admin: 05/20/17 02:22 Dose: 200 mls/hr Lactated Ringer's (Lactated Ringers Solution) 1,000 ml in 1,000 mls @ 100 mls/ hr IV ASDIR [facility] Last Admin: 05/19/17 16:55 Dose: Not Given Insulin Aspart (Novolog Vial Sliding Scale -) 1 vial SQ HS NEFTALY PRN Reason: Protocol Last Admin: 05/19/17 21:27 Dose: Not Given Insulin Aspart (Novolog Vial Sliding Scale -) 1 vial SQ TIDAC [facility] PRN Reason: Protocol Last Admin: 05/20/17 06:07 Dose: 2 units Insulin Detemir (Levemir Vial) 12 units SQ HS [facility] Last Admin: 05/19/17 21:27 Dose: 12 units Dzemc-6-Whtn Ethyl Esters (Lovaza -) 2 gm PO BID [facility] Last Admin: 05/20/17 09:50 Dose: 2 gm Ondansetron HCl (Zofran Injection) 4 mg IVPUSH Q6H PRN PRN Reason: NAUSEA - Objective Vital Signs: Vital Signs Temperature 98.8 F 05/20/17 06:00 Pulse Rate 75 05/20/17 06:00 Respiratory Rate 18 05/20/17 06:00 Blood Pressure 94/49 05/20/17 06:00 O2 Sat by Pulse Oximetry (%) 96 05/19/17 21:00 Constitutional: Yes: No Distress, Calm Eyes: Yes: Conjunctiva Clear Neck: Yes: Supple Respiratory: Yes: Regular Gastrointestinal: Yes: Soft. No: Tenderness, Vomiting Neurological: Yes: Alert, Oriented Labs: CBC, BMP 05/20/17 06:42 05/18/17 06:00 INR, PTT INR 1.23 (0.82-1.09) H 05/15/17 06:00 Fibrinogen 542.0 mg/dL (238-498) H D 05/15/17 06:00 Laboratory Results - last 24 hr 05/19/17 05/19/17 05/19/17 11:40 16:48 21:26 WBC RBC Hgb Hct MCV MCH MCHC RDW Plt Count MPV Neutrophils % Lymphocytes % Monocytes % Eosinophils % Basophils % POC Glucometer 186 257 178 05/20/17 05/20/17 06:03 06:42 WBC 10.5 H RBC 4.32 Hgb 12.7 Hct 37.2 MCV 86.1 MCH 29.3 MCHC 34.1 RDW 13.1 Plt Count 278 D MPV 8.9 Neutrophils % 79.0 Lymphocytes % 12.5 Monocytes % 6.8 Eosinophils % 1.2 Basophils % 0.5 POC Glucometer 148 Problem List - Problems (1) Acute pancreatitis Code(s): K85.90 - ACUTE PANCREATITIS WITHOUT NECROSIS OR INFECTION, UNSP Qualifiers: Pancreatitis type: unspecified pancreatitis type Acute pancreatitis complication: unspecified Qualified Code(s): K85.90 - Acute pancreatitis without necrosis or infection, unspecified (2) Hyperglycemia Code(s): R73.9 - HYPERGLYCEMIA, UNSPECIFIED (3) Hypertriglyceridemia Code(s): E78.1 - PURE HYPERGLYCERIDEMIA (4) Hypokalemia Code(s): E87.6 - HYPOKALEMIA (5) Hyponatremia Code(s): E87.1 - HYPO-OSMOLALITY AND HYPONATREMIA (6) SIRS (systemic inflammatory response syndrome) Code(s): R65.10 - SIRS OF NON-INFECTIOUS ORIGIN W/O ACUTE ORGAN DYSFUNCTION Assessment/Plan Clinically much better. Advance diet If pain free on reg diet, ok to d/c home.
[2017-05-20 11:04] VITALS: BP 104/61; PULSE 93; TEMP 99.5
--- NOTE | 2017-05-20 13:08 | PN ---
Teaching Attending Note Name of Resident: Joel Watson ATTENDING PHYSICIAN STATEMENT I saw and evaluated the patient. I reviewed the resident's note and discussed the case with the resident. I agree with the resident's findings and plan as documented. SUBJECTIVE:clinically improved. tolerating regular diet. denies CP, SOB, fever, chills, N/V/C/D OBJECTIVE: Last Vital Signs Temp Pulse Resp BP Pulse Ox 99.5 F 93 H 18 104/61 97 05/20/17 10:00 05/20/17 10:00 05/20/17 10:00 05/20/17 10:00 05/20/17 10:00 General NAD Abdomen epigastric and LUQ tenderness no rebound or guarding soft, hypoactive BS Extremiteis no pedal edema ASSESSMENT AND PLAN: 32yo F wtih PMH gestation DM presnted to the ER with abdominal pain and found to have acute pancreatitis 1. Acute Pancreatitis- due to hypertriglyceridemia. 7K on presentation. s/p plasmapharesis x1. off insulin ggt. TG stable. symptoms have improved. afebrile >48H. tolerating diet. spoke with GI who agrees can go home if tolerating regular diet. will need close GI follow up. on prophylactic imipenem day 8, lopid, pain control. ID, GI and endo on board. BCx negative 2. Low TSH- may be due to acute sickness. T4 wnl. will hold treatment at this time. repeat TSH after acute phase 3. DM- new onset. A1c 9.6. will need diabetic teaching. on levemir 12 units. titrate to optimize control 4. Hypocalcemia- Corrected Ca 9 5. Hyponatremia- resolved 6. hypokalemia- resolved 7. hypophoshpatemia- resolved 8. JHONNY- due to dehydration. now resolved. 9. DVT ppx- hep sq 10. d/c home
--- NOTE | 2017-05-20 14:24 | DS ---
Physical Exam: SUBJECTIVE: Patient seen and examined. Tolerated breakfast well. Asymptomatic. OBJECTIVE: Vital Signs Period Temp Pulse Resp BP Sys/Rodgers Pulse Ox Last 24 Hr 97.8 F-99.5 F 75-93 17-18 94-115/49-62 96-97 PHYSICAL EXAM GEN: AAOx3, NAD, Lying comfortably, smiling HEENT: PERRLA, EOMi CV: S1, S2, RRR LUNG: CTABL ABD: Soft, NT, ND MSK: No edema, no erythema NEURO: No sensation or MSK deficits Laboratory Last Values WBC 10.5 K/mm3 (4.0-10.0) H 05/20/17 06:42 RBC 4.32 M/mm3 (3.60-5.2) 05/20/17 06:42 Hgb 12.7 GM/dL (10.7-15.3) 05/20/17 06:42 Hct 37.2 % (32.4-45.2) 05/20/17 06:42 MCV 86.1 fl (80-96) 05/20/17 06:42 MCH 29.3 pg (25.7-33.7) 05/20/17 06:42 MCHC 34.1 g/dl (32.0-36.0) 05/20/17 06:42 RDW 13.1 % (11.6-15.6) 05/20/17 06:42 Plt Count 278 K/MM3 (134-434) D 05/20/17 06:42 MPV 8.9 fl (7.5-11.1) 05/20/17 06:42 Neutrophils % 79.0 % (42.8-82.8) 05/20/17 06:42 Neutrophils % (Manual) 84.0 % (42.8-82.8) H 05/13/17 03:18 Band Neutrophils % 5.0 % 05/13/17 03:18 Lymphocytes % 12.5 % (8-40) 05/20/17 06:42 Lymphocytes % (Manual) 7.0 % (8-40) L 05/13/17 03:18 Monocytes % 6.8 % (3.8-10.2) 05/20/17 06:42 Monocytes % (Manual) 4 % (3.8-10.2) 05/13/17 03:18 Eosinophils % 1.2 % (0-4.5) 05/20/17 06:42 Basophils % 0.5 % (0-2.0) 05/20/17 06:42 Platelet Comment No Result Required. 05/13/17 03:18 Anisocytosis 1+ 05/13/17 03:18 PT with INR 13.90 SEC (9.98-11.88) H 05/15/17 06:00 INR 1.23 (0.82-1.09) H 05/15/17 06:00 PTT (Actin FS) 36.4 SECONDS (26.9-34.4) H 05/15/17 06:00 Fibrinogen 542.0 mg/dL (238-498) H D 05/15/17 06:00 Puncture Site Left radial 05/13/17 10:11 ABG pH 7.32 (7.35-7.45) L 05/13/17 10:11 ABG pCO2 at Pt Temp 34.8 mmHg (35-45) L 05/13/17 10:11 ABG pO2 at Pt Temp 132.0 mmHg (80-100) H 05/13/17 10:11 ABG HCO3 17.5 meq/L (22-26) L 05/13/17 10:11 ABG O2 Sat (Measured) 97.9 % (90-98.9) 05/13/17 10:11 ABG O2 Content 19.9 % vol (15-22) 05/13/17 10:11 ABG Base Excess -7.3 meq/l (-2-2) L 05/13/17 10:11 Ashkan Test Positive 05/13/17 10:11 VBG pH 7.30 (7.32-7.42) L 05/13/17 05:15 POC VBG pCO2 36.6 mmHg (38-52) L 05/13/17 05:15 POC VBG pO2 51.1 mmHg (28-48) H 05/13/17 05:15 Mixed VBG HCO3 17.6 meq/L (19-25) L 05/13/17 05:15 O2 Delivery Device Y 05/13/17 10:11 Oxygen Flow Rate Yes 05/13/17 10:11 Sodium 136 mmol/L (136-145) 05/18/17 06:00 Potassium 3.5 mmol/L (3.5-5.1) 05/18/17 06:00 Chloride 100 mmol/L (98-107) 05/18/17 06:00 Carbon Dioxide 25 mmol/L (21-32) 05/18/17 06:00 Anion Gap 11 (8-16) 05/18/17 06:00 BUN 6 mg/dL (7-18) L 05/18/17 06:00 Creatinine 0.2 mg/dL (0.55-1.02) L 05/18/17 06:00 Creat Clearance w eGFR > 60 (>60) 05/18/17 06:00 POC Glucometer 239 UNITS (80-120) 05/20/17 11:34 Random Glucose 176 mg/dL (74-106) H 05/18/17 06:00 Hemoglobin A1c % 9.6 % (4.8-6.0) H 05/13/17 09:55 Lactic Acid 0.3 mmol/L (0.4-2.0) L 05/13/17 21:40 Calcium 7.5 mg/dL (8.5-10.1) L 05/18/17 06:00 Ionized Calcium 5.5 mg/dL (4.5-5.6) 05/14/17 10:50 Phosphorus 3.0 mg/dL (2.5-4.9) 05/18/17 06:00 Magnesium 2.2 mg/dL (1.8-2.4) D 05/18/17 06:00 Total Bilirubin 0.3 mg/dL (0.2-1.0) D 05/18/17 06:00 Direct Bilirubin TNP 05/13/17 11:50 AST 6 U/L (15-37) L D 05/18/17 06:00 ALT 9 U/L (12-78) L 05/18/17 06:00 Alkaline Phosphatase 86 U/L (45-117) 05/18/17 06:00 Total Protein 5.1 g/dl (6.4-8.2) L 05/18/17 06:00 Albumin 2.1 g/dl (3.4-5.0) L 05/18/17 06:00 Triglycerides 403 mg/dL (35-160) H 05/18/17 06:00 Cholesterol 185 mg/dL (50-200) 05/14/17 06:15 Total LDL Cholesterol 53 mg/dL (5-100) 05/14/17 06:15 HDL Cholesterol 15 mg/dL (40-60) L 05/14/17 06:15 Total Amylase 43 U/L (25-115) D 05/16/17 05:22 Lipase 237 U/L (73-393) 05/16/17 05:22 TSH 0.20 uIU/ml (0.358-3.74) L 05/14/17 06:15 Free T4 0.83 ng/dl (0.76-1.46) 05/14/17 09:33 Resin T3 Uptake 38.7 % (30-39) 05/14/17 09:33 Urine Color Ltyellow 05/13/17 03:25 Urine Appearance Clear 05/13/17 03:25 Urine pH 5.0 (5.0-8.0) 05/13/17 03:25 Ur Specific [place] 1.039 (1.001-1.035) H 05/13/17 03:25 Urine Protein Negative (NEGATIVE) 05/13/17 03:25 Urine Glucose (UA) 3+ (NEGATIVE) H 05/13/17 03:25 Urine Ketones 2+ (NEGATIVE) H 05/13/17 03:25 Urine Blood 1+ (NEGATIVE) H 05/13/17 03:25 Urine Nitrite Negative (NEGATIVE) 05/13/17 03:25 Urine Bilirubin Negative (NEGATIVE) 05/13/17 03:25 Urine Urobilinogen Negative mg/dL (0.2-1.0) 05/13/17 03:25 Ur Leukocyte Esterase Negative (NEGATIVE) 05/13/17 03:25 Urine WBC (Auto) 1 05/13/17 03:25 Urine RBC (Auto) 1 05/13/17 03:25 Ur Epithelial Cells Rare /hpf (FEW) 05/13/17 03:25 Urine Bacteria Rare /hpf (NONE SEEN) 05/13/17 03:25 Urine HCG, Qual Negative 05/13/17 03:25 Acetone, Qual Positive moderate 2+ (NEGATIVE) H 05/13/17 04:30 Blood Type O POSITIVE 05/13/17 11:50 Antibody Screen Negative 05/13/17 11:50 HOSPITAL COURSE: Date of Admission:05/13/17 Date of Discharge: 05/20/17 Briefly, Ms Sweeney is a 32 yo F with PMHx of gestational DM presents with one day history of worsening abdominal pain. Pain started few hours prior to presentation to ED., She describes worsening constant 10/10 sharp epigastric abdominal pain that radiates to her left side and back. Pain was made worse by eating and no alleviating factors. Denies fever, chills, nausea or vomiting. She has had some shortness of breath but no cough. She endorses increased thirst and urination. She claims to drink 2-3 gallons of water/day. Denies CP, KING, palpitations, or dysuria On admission the patient was found to have a lipase >3,[address] abd/pelvis showing signs consistent with acute pancreatitis. A workup revealed negative RUQ ultrasound and triglycerides >7,000. The patient was started on an insulin drip, IV fluids, and received 1 round of plasmapheresis and since then her triglycerides remained stable in the 300s. The patient's diet was advanced as tolerated. A second CT scan showed no developing abscess, fluid collection, etc. The patient was also found to be a new onset diabetic with Hgb A1C of 9.6. On admission she had hyperglycemia (>400), ketones in the blood, ketones in the urine, low bicarbonate level, without anion gap, which was likely due to her acute pancreatitis. She was appropriately treated with an insulin drip. She was subsequently switched to SQ insulin. She will be discharged on Levemir 12 units with sliding scale insulin. The patient received diabetic education about how to administer insulin. She was also found to have a low TSH with normal free T4 , and will followup with Dr. Pimentel as an outpatient for that. On the day of discharge, she was eating a regular low fat/low sugar diet, and tolerated well. The patient is aware of the hospital course and agrees with the plan to be discharged home. Minutes to complete discharge: 45 Discharge Summary Reason For Visit: ACUTE PANCREATITIS Condition: Improved - Instructions Diet, Activity, Other Instructions: RECOMMENDATIONS - You were admitted to the hospital for pancreatitis, and you got better - Please continue taking your cholesterol medications - You have diabetes. You need to take insulin. We prescribed you a glucometer and test strips - Please check your blood sugar before breakfast, before lunch, before dinner , and bedtime, include the amount of insulin you injected. Write it in a journal. Bring it with you to your Primary Care Doctor and Supervisor Speech - Please follow a low fat, low sugar diet. Avoid too much butter and bread, eat lots of fruits and vegetables. NEW MEDICATIONS - Lopid (Gemfibrozil) 600mg tablets, take two tablets daily - Lovaza (Saint Jo-3) 1 capsule, take two tablets daily - Levemir Flexpen - Inject 12 units every night - Insulin Sliding scale - check your blood glucose before breakfast, before lunch, before dinner, and at night. Inject the amount of insulin as follows: Blood Glucose Units of Insulin 101-150 0 151-200 2 201-250 4 251-300 6 301-350 8 351-400 10 >400 12 FOLLOWUPS: - Make an appointment with your Primary Care Doctor in 1 week. You will need your thyroid function repeated in 6 weeks. - Make an appointment with Dr. Pimentel (Supervisor Speech) in 2 weeks - Make an appointment with Dr. Carmona (Bond Runner) in 2 weeks If you experience any severe abdominal pain, nausea, vomiting, chest pain, shortness of breath, please return to the Emergency Department Recomendaciones -Usted fue hospitalizado para la pancreatitis, y usted consigui mejor -Por favor sigue tomando gurdeep medicamentos para el colesterol -Usted tiene diabetes. Necesitas pierre insulina. Le prescribimos un gluc metro y tiras de prueba -Por favor revise flores azcar en la zaira antes del desayuno, antes del almuerzo, antes de la charity, y la hora de acostarse, incluya la cantidad de insulina que usted inyect. Escrbelo en un diario. Llevarlo con usted a flores m dico de cabecera y endocrinlogo -Por favor, siga ricky dieta baja en grasas y azcar. Evite deshawn mantequilla y arroyo, coma muchas frutas y verduras. Nuevos medicamentos -Lopid (gemfibrozil) 600 tabletas, pierre dos tabletas diarias -Lovaza (Saint Jo-3) 1 cpsula, ronnie dos tabletas diarias -Lantus FlexPen-inyecte 12 unidades cada niht -Insulina deslizante escala-Revise flores glucosa en zaira antes del desayuno, antes del almuerzo, antes de la charity, y por la noche. Inyecte la cantidad de insulina bakari sigue: Glucosa en zaira Unidas de insulina 101-150 0 151-200 2 201-250 4 251-300 6 301-350 8 351-400 10 > 400 12 Continuacin: -Theresa ricky lucero con flores mdico de cabecera en 1 semana. Usted necesitar que flores funcin tiroidea se repita en 6 semanas. -Concertar ricky lucero con el Dr. Pimentel (endocrinlogo) en 2 semanas -Concertar ricky lucero con el Dr. Carmona (gastroenterlogo) en 2 semanas Si experimenta algn dolor abdominal xu, nuseas, vmitos, dolor torcico, dificultad respiratoria, por favor regrese al Departamento de emergencias Referrals: Da Carmona MD [Staff Physician] - 2 Weeks Stephen Pimentel MD [Staff Physician] - 2 Weeks Disposition: HOME - Home Medications Comprehensive Discharge Medication List: Ambulatory Orders Alcohol Antiseptic Pads [Easy Touch Alcohol Prep Pads] 1 each TP DAILY #30 med..pad 05/20/17 Gemfibrozil [Lopid -] 600 mg PO BID@0700,1630 #60 tablet 05/20/17 Insulin (Levemir) [Levemir Flexpen -] 12 units SQ HS #1 pen 05/20/17 Insulin Sliding Scale [Novolog Vial Sliding Scale -] See Protocol SQ ACHS #1 pen 05/20/17 Miscellaneous Medical Supply [Glucometer Device] 1 each SON ASDIR #1 kit [employer] [Glucometer Test Strips #100] 1 each SQ ASDIR #1 box 05/20/17 Miscellaneous Medical Supply [Lancets] 1 each SQ ASDIR #1 box 05/20/17 Saint Jo-3 Acid Ethyl Esters [Lovaza -] 2 gm PO BID #60 cap 05/20/17 - Discharge Referral Referred to [facility] No
== END 2017-05-20 13:49 | disposition home or self-care (01) | DRG 720 ==
LOC: JER 23:29 → JERBED 05-13 06:12 → UNDOADMIN 05-13 06:19 → JERBED 05-13 06:19 → J6S 05-13 08:09 → JICU 05-13 14:35 → J5S 05-17 18:54
PROVIDERS: ADMIT Internal Medicine; ATTEND Internal Medicine
PROC: 6A550Z3 Pheresis of Plasma, Single (ICD-10-PCS; principal; 2017-05-13)
PROC: 05HM33Z Insertion of Infusion Device into Right Internal Jugular Vein, Percutaneous Approach (ICD-10-PCS; 2017-05-13)
DX: A41.9 Sepsis, unspecified organism (principal); K85.91 Acute pancreatitis with uninfected necrosis, unspecified; N17.9 Acute kidney failure, unspecified; E87.2 Acidosis; E83.51 Hypocalcemia; E87.1 Hypo-osmolality and hyponatremia; E83.39 Other disorders of phosphorus metabolism; E11.65 Type 2 diabetes mellitus with hyperglycemia; E87.6 Hypokalemia; E86.0 Dehydration; E05.90 Thyrotoxicosis, unspecified without thyrotoxic crisis or storm; J98.11 Atelectasis; E78.1 Pure hyperglyceridemia; N83.01 Follicular cyst of right ovary; N83.202 Unspecified ovarian cyst, left side
CPT/HCPCS: 36415; 36600; 71010-TC; 74170-TC; 74177-TC; 76705-TC; 76830-TC; 76856-TC; 80048; 80053; 80061; 80076; 81003; 81015; 82009; 82040; 82150; 82248; 82310; 82330; 82803; 83036; 83605; 83690; 83721; 83735; 84100; 84439; 84443; 84478; 84479; 84703; 85025; 85384; 85610; 85730; 86850; 86900; 86901; 87040; 87086; 94010; 97116-GP; 97161-GP; 99281-25; J1644

== ENCOUNTER 2017-10-27 05:34 | Emergency (ER) | payer OTHER | END 2017-10-27 10:30 | disposition home or self-care (01) | LOC: JER 05:34 | CPT/HCPCS: 36415; 76801-TC; 80053; 81003; 81015; 82962; 84702; 84703; 85025; 85610; 85730; 86850; 86900; 86901; 99283-25; J0131; J7030 ==

== ENCOUNTER 2018-10-17 13:11 | Inpatient (IN) | payer OTHER ==
[2018-10-17] MEDS ORDERED: ELECTROLYTE-148 SOLN 1,000 ML IV SCH ×4 (15:15→18:15)
[2018-10-17 17:42] VITALS: BMI 27.1
[2018-10-17] MEDS ORDERED: RANITIDINE HCL 50 MG/2 ML VIAL ONE (18:10)
[2018-10-17] MEDS ORDERED: METOCLOPRAMIDE HCL INJECTION 10 MG/2 ML VIAL ONE (18:10)
[2018-10-17] MEDS ORDERED: CITRIC ACID/SODIUM CITRATE 30 ML UNIT-DOSE CUP PO ONE (18:15)
[2018-10-17] MEDS ORDERED: RANITIDINE HCL 50 MG/2 ML VIAL IVPB ONE (18:30)
[2018-10-17] MEDS ORDERED: METOCLOPRAMIDE HCL INJECTION 10 MG/2 ML VIAL IVPB ONE (18:30)
[2018-10-17 18:52] LABS: INR 0.92 (0.83-1.09); PROTHROMBIN TIME (PATIENT) 10.8 SEC (9.7-13.0)
[2018-10-17 18:54] LABS: ACTIVATED PTT 29.4 SECONDS (25.2-36.5)
[2018-10-17 18:59] LABS: ALBUMIN 1.8 g/dl (3.4-5.0); ALK PHOS 115 U/L (45-117); ANION GAP 10 MMOL/L (8-16); BILIRUBIN,TOTAL 0.7 mg/dL (0.2-1); BLOOD UREA NITROGEN 12 mg/dL (7-18); CHLORIDE 102 mmol/L (98-107); CO2 21 mmol/L (21-32); CREATININE 0.4 mg/dL (0.55-1.3); GLUCOSE,RANDOM 177 mg/dL (74-106); POTASSIUM 3.8 mmol/L (3.5-5.1); SODIUM 133 mmol/L (136-145); TOT PROT 5.1 g/dl (6.4-8.2)
[2018-10-17 19:27] LABS: BASO % 0.4 % (0-2.0); EOS % 0.4 % (0-4.5); HEMATOCRIT 36.7 % (32.4-45.2); HEMOGLOBIN 12.6 GM/dL (10.7-15.3); LYMPH % 20.7 % (8-40); MCHC 34.3 g/dl (32.0-36.0); MEAN CELL VOLUME 93.3 fl (80-96); MEAN PLT VOLUME 12.2 fl (7.5-11.1); MONO % 5.9 % (3.8-10.2); NEUT % 72.6 % (42.8-82.8); PLATELET COUNT 75 K/MM3 (134-434); RBC 3.93 M/mm3 (3.60-5.2); RDW 13.4 % (11.6-15.6); WHITE BLOOD COUNT 5.7 K/mm3 (4.0-10.0)
[2018-10-17] MEDS ORDERED: ONDANSETRON 4 MG/2 ML VIAL IVPUSH PRN (19:32)
[2018-10-17] MEDS ORDERED: morphine SULFATE/Preservative Free 0.5 MG/ML (1cc Syringe) EP ONE (19:45)
--- NOTE | 2018-10-17 19:53 | HP ---
Past Medical History - Admission Chief Complaint: 37 weeks gestation / GDMA2 / Suspicion of macrosomia History of Present Illness: 33 yo @ 37 weeks gestation, EDC 11/05/18, sent to L&D for delivery due to non compliance with her insulin and suspicion of macrosomia. She had 2 previous C-Sections. Decision made for repeat . History Source: Patient Limitations to Obtaining History: No Limitations - Past Medical History ...: 3 ...Para: 2 ...Term: 2 ...EDC by Jro: 11/05/18 Endocrine: Yes: Other (GDM) - Past Surgical History Past Surgical History: Yes: Hx Myomectomy: No Hx Transabdominal Cerclage: No - Smoking History Smoking history: Never smoked Have you smoked in the past 12 months: No - Alcohol/Substance Use Hx Alcohol Use: No History of Substance Use: reports: None - Social History Usual Living Arrangement: Yes: With Significant Other History of Recent Travel: No Home Medications - Allergies Allergies/Adverse Reactions: Allergies Allergy/AdvReac Type Severity Reaction Status Date / Time No Known Allergies Allergy Verified 09/12/18 14:30 - Home Medications Home Medications: Ambulatory Orders Iron 1 tab PO DAILY 08/22/18 Vitamins (Sjr) - 1 tab PO DAILY 08/22/18 Levemir Vial 20 units SQ DAILY 10/17/18 Novolog 9 units SQ DAILY 10/17/18 Family Disease History - Family Disease History Family History: Unremarkable Family Disease History: Diabetes: Father, Mother Review of Systems - Review of Systems Constitutional: reports: No Symptoms Eyes: reports: No Symptoms HENT: reports: No Symptoms Neck: reports: No Symptoms Cardiovascular: reports: No Symptoms Respiratory: reports: No Symptoms Gastrointestinal: reports: No Symptoms Genitourinary: reports: No Symptoms Breasts: reports: No Symptoms Reported Musculoskeletal: reports: No Symptoms Integumentary: reports: No Symptoms Neurological: reports: No Symptoms Endocrine: reports: No Symptoms Hematology/Lymphatic: reports: No Symptoms Psychiatric: reports: No Symptoms Pain Intensity: 2 Physical Exam - Maternity Vital Signs: Vital Signs Temperature 98.5 F 10/17/18 18:00 Pulse Rate 74 10/17/18 18:00 Respiratory Rate 18 10/17/18 18:00 Blood Pressure 112/62 10/17/18 18:00 O2 Sat by Pulse Oximetry (%) Constitutional: Yes: Well Nourished Eyes: Yes: Conjunctiva Clear HENT: Yes: Atraumatic Neck: Yes: Supple Cardiovascular: Yes: Regular Rate and Rhythm Lungs: Clear to auscultation Breast(s): Yes: WNL - Abdominal Exam/OB Number of Fetuses: Single Presentation: Vertex Contractions: No - Vaginal Exam/OB Vaginal Bleediing: No - Physical Exam ...Motor Strength: WNL Psychiatric: Yes: Alert, Oriented - Labs Lab Results: CBC, BMP 10/17/18 18:00 10/17/18 18:00 Problem List - Problems (1) 37 weeks gestation of Code(s): Z3A.37 - 37 WEEKS GESTATION OF (2) Gestational thrombocytopenia Code(s): O99.119 - OTH DIS OF BLD/BLD-FORM ORG/IMMUN MECHNSM COMP PREG,UNSP TRI ; D69.6 - THROMBOCYTOPENIA, UNSPECIFIED (3) Gestational diabetes mellitus (GDM) affecting Code(s): O24.419 - GESTATIONAL DIABETES MELLITUS IN , UNSP CONTROL (4) Macrosomia affecting management of mother in third trimester Code(s): O36.63X0 - MATERNAL CARE FOR EXCESS GROWTH, THIRD TRIMESTER, UNSP Qualifiers: Fetus number: single or unspecified fetus Qualified Code(s): O36.63X0 - Maternal care for excessive growth, third trimester, not applicable or unspecified Assessment/Plan 37 weeks gestation with previous Pre op for repeat GDMA 2 Gestational thrombocytopenia Suspicion of macrosomia Consent signed Anesthesia to see patient
[2018-10-17] MEDS: ELECTROLYTE-148 SOLN 1,000 ML IV SCH (20:00)
[2018-10-17] MEDS ORDERED: morphine SULFATE/Preservative Free 0.5 MG/ML (1cc Syringe) ONE (20:05)
[2018-10-17] MEDS ORDERED: ceFAZolin SODIUM 1 GM VIAL ONE (20:06)
[2018-10-17 20:11] LABS: PLATELET ESTIMATE MOD DECREASED
[2018-10-17] MEDS ORDERED: OXYTOCIN 10 UNITS/ML VIAL ONE ×2 (20:31→20:32)
[2018-10-17] MEDS ORDERED: METHYLERGONOVINE MALEATE 0.2 MG/1 ML AMP IM PRN (21:01)
[2018-10-17] MEDS ORDERED: oxyCODONE HCL 5 MG TABLET PO PRN (21:01)
--- NOTE | 2018-10-17 21:05 | OP ---
Operative Note - Note: Operative Date: 10/17/18 Pre-Operative Diagnosis: 37 weeks gestation / GDMA2 / Macrosomia / Previous C- Section Operation: Repeat Low Transverse Findings: Large baby girl in ROT position Surgeon: Kendra Mccall Logistics Solution Manager: Dara Felix Anesthesia: Spinal Specimens Removed: Placenta Estimated Blood Loss (mls): 600 Operative Report Dictated: Yes
[2018-10-17] MEDS: OXYTOCIN 20 UNITS in 0.9% NS 20 UNIT/1,000 ML INFUS.BAG IV SCH (21:15)
[2018-10-17] MEDS ORDERED: OXYTOCIN 20 UNITS in 0.9% NS 20 UNIT/1,000 ML INFUS.BAG IV ONE (21:41)
[2018-10-17 21:43] LABS: VENOUS PC02 54.5 mmHg (41-51); VENOUS PH 7.28 (7.31-7.41)
[2018-10-17 21:48] LABS: VENOUS PO2 25.9 mmHg (30-40)
[2018-10-17] MEDS: FERROUS SO4 325 MG TABLET (FP) PO SCH (23:54)
[2018-10-18] MEDS: FERROUS SO4 325 MG TABLET (FP) PO SCH ×2 (08:01→17:10)
[2018-10-18 08:16] LABS: HEMATOCRIT 33.3 % (32.4-45.2); HEMOGLOBIN 11.9 GM/dL (10.7-15.3); MCH 33.6 pg (25.7-33.7); MCHC 35.7 g/dl (32.0-36.0); MEAN CELL VOLUME 94.3 fl (80-96); MEAN PLT VOLUME 12.9 fl (7.5-11.1); PLATELET COUNT 81 K/MM3 (134-434); RBC 3.53 M/mm3 (3.60-5.2); RDW 13.6 % (11.6-15.6); WHITE BLOOD COUNT 9.1 K/mm3 (4.0-10.0)
[2018-10-18] MEDS: PRENATAL VITAMINS W/ FOLIC ACID TABLET (FP) PO SCH (09:25)
--- NOTE | 2018-10-18 10:34 | PN ---
Progress Note (short form) - Note Progress Note: Anesthesia postop note, POD#1. S/P repeat under spinal. Pat seen and examined. VSS. moving all extremities. Pain well controlled. No apparent post anesthesia complications. Continued care as per primary team.
--- NOTE | 2018-10-18 10:35 | PN ---
Post Progress Note - Subjective Subjective: 33 yo Para 3 status post repeat , seen and evaluated. She's lying in bed, no complaints. Post Day: 1 Type of Delivery: Repeat C/S Vital Signs: Vital Signs Temperature 98.6 F 10/18/18 08:24 Pulse Rate 83 10/18/18 08:24 Respiratory Rate 20 10/18/18 08:24 Blood Pressure 103/52 L 10/18/18 08:24 O2 Sat by Pulse Oximetry (%) 98 10/17/18 22:15 Breast Exam: Yes: Soft Uterus: Yes: Fundus Firm Incision: Yes: Dressing dry and intact Abdomen/GI: Yes: Abdomen soft Lochia: Yes: Rubra Lochia, amount: Small Extremities: Yes: Calves non-tender - Labs Labs: CBC WBC 9.1 K/mm3 (4.0-10.0) 10/18/18 07:00 RBC 3.53 M/mm3 (3.60-5.2) L 10/18/18 07:00 Hgb 11.9 GM/dL (10.7-15.3) 10/18/18 07:00 Hct 33.3 % (32.4-45.2) 10/18/18 07:00 MCV 94.3 fl (80-96) 10/18/18 07:00 MCH 33.6 pg (25.7-33.7) 10/18/18 07:00 MCHC 35.7 g/dl (32.0-36.0) 10/18/18 07:00 RDW 13.6 % (11.6-15.6) 10/18/18 07:00 Plt Count 75 K/MM3 (134-434) L D 10/17/18 18:00 MPV 12.2 fl (7.5-11.1) H D 10/17/18 18:00 Absolute Neuts (auto) 4.2 K/mm3 (1.5-8.0) 10/17/18 18:00 Neutrophils % No Result Required. 10/18/18 07:00 Lymphocytes % No Result Required. 10/18/18 07:00 Monocytes % 5.9 % (3.8-10.2) D 10/17/18 18:00 Eosinophils % 0.4 % (0-4.5) D 10/17/18 18:00 Basophils % 0.4 % (0-2.0) 10/17/18 18:00 Nucleated RBC % 0 % (0-0) 10/18/18 07:00 Platelet Estimate Mod decreased 10/17/18 18:00 Platelet Comment 10/17/18 18:00 Problem List - Problems (1) 37 weeks gestation of Code(s): Z3A.37 - 37 WEEKS GESTATION OF (2) Gestational thrombocytopenia Code(s): O99.119 - OTH DIS OF BLD/BLD-FORM ORG/IMMUN MECHNSM COMP PREG,UNSP TRI ; D69.6 - THROMBOCYTOPENIA, UNSPECIFIED (3) Gestational diabetes mellitus (GDM) affecting Code(s): O24.419 - GESTATIONAL DIABETES MELLITUS IN , UNSP CONTROL (4) Macrosomia affecting management of mother in third trimester Code(s): O36.63X0 - MATERNAL CARE FOR EXCESS GROWTH, THIRD TRIMESTER, UNSP Qualifiers: Fetus number: single or unspecified fetus Qualified Code(s): O36.63X0 - Maternal care for excessive growth, third trimester, not applicable or unspecified (5) Status post repeat low transverse section Code(s): Z98.891 - HISTORY OF UTERINE SCAR FROM PREVIOUS SURGERY Assessment/Plan Status post repeat GDMA2 Insulin sliding scale Diabetic diet Ambulation Analgesia as needed Continue close observation
[2018-10-18] MEDS ORDERED: INSULIN SLIDING SCALE (NOVOLOG) 1 VIAL SQ SCH (11:00)
[2018-10-18] MEDS: INSULIN SLIDING SCALE (NOVOLOG) 1 VIAL SQ SCH ×2 (11:13→17:10)
[2018-10-18 11:23] LABS: PLATELET ESTIMATE DECREASED
[2018-10-18 11:47] LABS: ANISOCYTOSIS 1+
[2018-10-18 11:48] LABS: MACROCYTOSIS 1+
[2018-10-18] MEDS: ACETAMINOPHEN 325 MG TABLET (FP) PO PRN (18:37)
[2018-10-18] MEDS: SIMETHICONE 80 MG TAB.CHEW (FP) PO PRN (18:38)
[2018-10-18] MEDS: IBUPROFEN 600 MG TABLET (FP) PO PRN (18:38)
[2018-10-18] MEDS ORDERED: BISACODYL 10 MG SUPP.RECT RC PRN (21:01)
[2018-10-19] MEDS: ACETAMINOPHEN 325 MG TABLET (FP) PO PRN ×2 (06:18→16:09)
[2018-10-19] MEDS: SIMETHICONE 80 MG TAB.CHEW (FP) PO PRN ×2 (06:18→16:08)
[2018-10-19] MEDS: IBUPROFEN 600 MG TABLET (FP) PO PRN ×2 (06:18→16:08)
[2018-10-19] MEDS: INSULIN SLIDING SCALE (NOVOLOG) 1 VIAL SQ SCH ×3 (06:26→17:21)
--- NOTE | 2018-10-19 07:51 | PN ---
Post Progress Note - Subjective Subjective: 33 yo Para 3, status post repeat , seen and evaluated. Doing well. Post Day: 2 Type of Delivery: Repeat C/S Vital Signs: Vital Signs Temperature 98.7 F 10/18/18 20:13 Pulse Rate 87 10/18/18 20:13 Respiratory Rate 20 10/18/18 20:13 Blood Pressure 133/58 L 10/18/18 20:13 O2 Sat by Pulse Oximetry (%) 98 10/17/18 22:15 Breast Exam: Yes: Soft Uterus: Yes: Fundus Firm Incision: Yes: Dressing dry and intact Abdomen/GI: Yes: Abdomen soft, Tolerating PO Lochia: Yes: Rubra Lochia, amount: Small Extremities: Yes: Calves non-tender Perineum: Yes: Intact Activity: Ambulating - Labs Labs: CBC WBC 9.1 K/mm3 (4.0-10.0) 10/18/18 07:00 RBC 3.53 M/mm3 (3.60-5.2) L 10/18/18 07:00 Hgb 11.9 GM/dL (10.7-15.3) 10/18/18 07:00 Hct 33.3 % (32.4-45.2) 10/18/18 07:00 MCV 94.3 fl (80-96) 10/18/18 07:00 MCH 33.6 pg (25.7-33.7) 10/18/18 07:00 MCHC 35.7 g/dl (32.0-36.0) 10/18/18 07:00 RDW 13.6 % (11.6-15.6) 10/18/18 07:00 Plt Count 81 K/MM3 (134-434) L 10/18/18 07:00 MPV 12.9 fl (7.5-11.1) H 10/18/18 07:00 Absolute Neuts (auto) No Result Required. 10/18/18 07:00 Neutrophils % No Result Required. 10/18/18 07:00 Neutrophils % (Manual) 84.0 % (42.8-82.8) H 10/18/18 07:00 Band Neutrophils % 0.0 % 10/18/18 07:00 Lymphocytes % No Result Required. 10/18/18 07:00 Lymphocytes % (Manual) 9.0 % (8-40) D 10/18/18 07:00 Monocytes % 5.9 % (3.8-10.2) D 10/17/18 18:00 Monocytes % (Manual) 6 % (3.8-10.2) 10/18/18 07:00 Eosinophils % 0.4 % (0-4.5) D 10/17/18 18:00 Eosinophils % (Manual) 0.0 % (0-4.5) 10/18/18 07:00 Basophils % 0.4 % (0-2.0) 10/17/18 18:00 Basophils % (Manual) 1.0 % (0-2.0) 10/18/18 07:00 Myelocytes % (Man) 0 % (0-2) 10/18/18 07:00 Promyelocytes % (Man) 0 % (0-2) 10/18/18 07:00 Blast Cells % (Manual) 0 % (0-0) 10/18/18 07:00 Nucleated RBC % 0 % (0-0) 10/18/18 07:00 Metamyelocytes 0 % (0-2) 10/18/18 07:00 Hypochromia 0 10/18/18 07:00 Platelet Estimate Decreased 10/18/18 07:00 Platelet Comment Present 10/18/18 07:00 Polychromasia 0 10/18/18 07:00 Poikilocytosis 0 10/18/18 07:00 Anisocytosis 1+ 10/18/18 07:00 Microcytosis 10/18/18 07:00 Macrocytosis 1+ 10/18/18 07:00 Problem List - Problems (1) 37 weeks gestation of Code(s): Z3A.37 - 37 WEEKS GESTATION OF (2) Gestational thrombocytopenia Code(s): O99.119 - OTH DIS OF BLD/BLD-FORM ORG/IMMUN MECHNSM COMP PREG,UNSP TRI ; D69.6 - THROMBOCYTOPENIA, UNSPECIFIED (3) Gestational diabetes mellitus (GDM) affecting Code(s): O24.419 - GESTATIONAL DIABETES MELLITUS IN , UNSP CONTROL (4) Macrosomia affecting management of mother in third trimester Code(s): O36.63X0 - MATERNAL CARE FOR EXCESS GROWTH, THIRD TRIMESTER, UNSP Qualifiers: Fetus number: single or unspecified fetus Qualified Code(s): O36.63X0 - Maternal care for excessive growth, third trimester, not applicable or unspecified (5) Status post repeat low transverse section Code(s): Z98.891 - HISTORY OF UTERINE SCAR FROM PREVIOUS SURGERY Assessment/Plan Status post repeat GDMA2 Insulin sliding scale Diabetic diet Ambulation Analgesia as needed Continue close observation
[2018-10-19] MEDS: FERROUS SO4 325 MG TABLET (FP) PO SCH ×2 (08:17→17:22)
[2018-10-19] MEDS: PRENATAL VITAMINS W/ FOLIC ACID TABLET (FP) PO SCH (09:35)
[2018-10-20] MEDS: SIMETHICONE 80 MG TAB.CHEW (FP) PO PRN ×2 (00:25→08:23)
[2018-10-20] MEDS: ACETAMINOPHEN 325 MG TABLET (FP) PO PRN ×3 (00:25→17:08)
[2018-10-20] MEDS: IBUPROFEN 600 MG TABLET (FP) PO PRN ×3 (00:25→17:08)
[2018-10-20] MEDS: OXYTOCIN 20 UNITS in 0.9% NS 20 UNIT/1,000 ML INFUS.BAG IV SCH (00:27)
[2018-10-20] MEDS: ELECTROLYTE-148 SOLN 1,000 ML IV SCH (00:27)
--- NOTE | 2018-10-20 04:26 | PN ---
Post Progress Note - Subjective Subjective: 33 yo Para 3 with gestational diabetes, status post , seen and evaluated. Doing well. Post Day: 3 Type of Delivery: Repeat C/S Vital Signs: Vital Signs Temperature 98.5 F 10/19/18 20:29 Pulse Rate 85 10/19/18 20:29 Respiratory Rate 20 10/19/18 20:29 Blood Pressure 92/51 L 10/19/18 20:29 O2 Sat by Pulse Oximetry (%) 98 10/17/18 22:15 Breast Exam: Yes: Soft Uterus: Yes: Fundus Firm Incision: Yes: Travis intact Abdomen/GI: Yes: Abdomen soft, Tolerating PO Lochia: Yes: Rubra Lochia, amount: Small Extremities: Yes: Calves non-tender Activity: Ambulating - Labs Labs: CBC WBC 9.1 K/mm3 (4.0-10.0) 10/18/18 07:00 RBC 3.53 M/mm3 (3.60-5.2) L 10/18/18 07:00 Hgb 11.9 GM/dL (10.7-15.3) 10/18/18 07:00 Hct 33.3 % (32.4-45.2) 10/18/18 07:00 MCV 94.3 fl (80-96) 10/18/18 07:00 MCH 33.6 pg (25.7-33.7) 10/18/18 07:00 MCHC 35.7 g/dl (32.0-36.0) 10/18/18 07:00 RDW 13.6 % (11.6-15.6) 10/18/18 07:00 Plt Count 81 K/MM3 (134-434) L 10/18/18 07:00 MPV 12.9 fl (7.5-11.1) H 10/18/18 07:00 Absolute Neuts (auto) No Result Required. 10/18/18 07:00 Neutrophils % No Result Required. 10/18/18 07:00 Neutrophils % (Manual) 84.0 % (42.8-82.8) H 10/18/18 07:00 Band Neutrophils % 0.0 % 10/18/18 07:00 Lymphocytes % No Result Required. 10/18/18 07:00 Lymphocytes % (Manual) 9.0 % (8-40) D 10/18/18 07:00 Monocytes % 5.9 % (3.8-10.2) D 10/17/18 18:00 Monocytes % (Manual) 6 % (3.8-10.2) 10/18/18 07:00 Eosinophils % 0.4 % (0-4.5) D 10/17/18 18:00 Eosinophils % (Manual) 0.0 % (0-4.5) 10/18/18 07:00 Basophils % 0.4 % (0-2.0) 10/17/18 18:00 Basophils % (Manual) 1.0 % (0-2.0) 10/18/18 07:00 Myelocytes % (Man) 0 % (0-2) 10/18/18 07:00 Promyelocytes % (Man) 0 % (0-2) 10/18/18 07:00 Blast Cells % (Manual) 0 % (0-0) 10/18/18 07:00 Nucleated RBC % 0 % (0-0) 10/18/18 07:00 Metamyelocytes 0 % (0-2) 10/18/18 07:00 Hypochromia 0 10/18/18 07:00 Platelet Estimate Decreased 10/18/18 07:00 Platelet Comment Present 10/18/18 07:00 Polychromasia 0 10/18/18 07:00 Poikilocytosis 0 10/18/18 07:00 Anisocytosis 1+ 10/18/18 07:00 Microcytosis 10/18/18 07:00 Macrocytosis 1+ 10/18/18 07:00 Problem List - Problems (1) 37 weeks gestation of Code(s): Z3A.37 - 37 WEEKS GESTATION OF (2) Gestational thrombocytopenia Code(s): O99.119 - OTH DIS OF BLD/BLD-FORM ORG/IMMUN MECHNSM COMP PREG,UNSP TRI ; D69.6 - THROMBOCYTOPENIA, UNSPECIFIED (3) Gestational diabetes mellitus (GDM) affecting Code(s): O24.419 - GESTATIONAL DIABETES MELLITUS IN , UNSP CONTROL (4) Macrosomia affecting management of mother in third trimester Code(s): O36.63X0 - MATERNAL CARE FOR EXCESS GROWTH, THIRD TRIMESTER, UNSP Qualifiers: Fetus number: single or unspecified fetus Qualified Code(s): O36.63X0 - Maternal care for excessive growth, third trimester, not applicable or unspecified (5) Status post repeat low transverse section Code(s): Z98.891 - HISTORY OF UTERINE SCAR FROM PREVIOUS SURGERY Assessment/Plan Status post repeat GDMA2 Insulin sliding scale Diabetic diet Ambulation Analgesia as needed Continue close observation
[2018-10-20 07:23] LABS: BASO % 0.4 % (0-2.0); EOS % 0.8 % (0-4.5); HEMATOCRIT 29.1 % (32.4-45.2); HEMOGLOBIN 10.1 GM/dL (10.7-15.3); LYMPH % 22.4 % (8-40); MCH 32.4 pg (25.7-33.7); MCHC 34.8 g/dl (32.0-36.0); MEAN CELL VOLUME 93.3 fl (80-96); MEAN PLT VOLUME 11.4 fl (7.5-11.1); MONO % 4.6 % (3.8-10.2); NEUT % 71.8 % (42.8-82.8); PLATELET COUNT 111 K/MM3 (134-434); RBC 3.12 M/mm3 (3.60-5.2); RDW 13.8 % (11.6-15.6); WHITE BLOOD COUNT 7.3 K/mm3 (4.0-10.0)
[2018-10-20] MEDS: INSULIN SLIDING SCALE (NOVOLOG) 1 VIAL SQ SCH ×4 (08:23→22:18)
[2018-10-20] MEDS: FERROUS SO4 325 MG TABLET (FP) PO SCH ×2 (08:23→17:09)
[2018-10-20] MEDS: PRENATAL VITAMINS W/ FOLIC ACID TABLET (FP) PO SCH (10:00)
--- NOTE | 2018-10-20 10:53 | OP ---
DATE OF OPERATION: 10/17/2018 PREOPERATIVE DIAGNOSIS: At 37 weeks' gestation with gestational diabetes type 2, previous section, macrosomia. POSTOPERATIVE DIAGNOSIS: At 37 weeks' gestation with gestational diabetes type 2, previous section, macrosomia. PROCEDURE: Repeat low transverse section. SURGEON: Kendra Mccall MD DIGITAL PHOTO PRINTER: Dara Felix DO ANESTHESIA: Spinal. COMPLICATIONS: None. ESTIMATED BLOOD LOSS: 600 mL. DESCRIPTION OF PROCEDURE: The patient was placed in the operating room where spinal anesthesia was administered. The patient was then prepped and draped in proper sterile fashion. A Pfannenstiel skin incision was made and carried down to the underlying layer of fascia. The fascia was incised in the midline and extended laterally. The superior aspect of the fascial incision was then grasped with a Leon clamp, elevated, and the rectus muscles dissected off bluntly. Attention was then turned to the inferior aspect of the fascial incision, which in a similar fashion was then grasped with a Elon clamp, elevated, and the rectus muscle dissected off bluntly. The rectus muscle was then in the midline. The peritoneum was identified and entered sharply with the Metzenbaum scissors. This incision was extended superiorly and inferiorly with good visualization of the bladder. The vesicouterine peritoneum was then grasped with a spanish moss picker and entered sharply with the Metzenbaum scissors. This incision was extended laterally and a bladder flap created digitally. The bladder blade was then reinserted, and the lower uterine segment was then incised using a 10 blade. This incision was then extended laterally and the head delivered atraumatically. Nose and mouth were suctioned and the cord clamped and cut. The large baby was handed to the cutting machine operator helper. The placenta was removed manually. The uterus was exteriorized and cleared of all clots and debris. The uterine incision was repaired using 0 Biosyn in a running, locked fashion. A 2nd layer of the same suture was used as a means to provide excellent hemostasis. Then the vesicouterine peritoneum was then closed. The pelvis was then completely irrigated. The uterus was returned to the abdomen. The muscle and peritoneum was closed using a 2-0 Biosyn. Then the fascia was reapproximated using 0 Vicryl in a running fashion, and the skin was closed with katie. The patient tolerated the procedure well. The patient was then taken to PACU in stable condition. PATHOLOGY: Placenta. Aleksandra [id number]
--- NOTE | 2018-10-20 17:49 | CONSULT ---
Consult Consult Specialty:: endocrine Referred by:: katalina hooks md. Reason for Consultation:: gestational diabetes mellitus - History of Present Illness Chief Complaint: post op csection History of Present Illness: 33 yo @ 37 weeks gestation, EDC 11/05/18, sent to L&D for delivery due to non compliance with insulin regimen,sp cesection,macrosomia 9lb 13 ounces, hyperglycemia,post op requires insulin denies nausea and vomiting. - Past Medical History Endocrine: Yes: Other (GDM) - Past Surgical History Past Surgical History: Yes: - Alcohol/Substance Use Hx Alcohol Use: No History of Substance Use: reports: None - Smoking History Smoking history: Never smoked Have you smoked in the past 12 months: No - Social History History of Recent Travel: No Home Medications - Allergies Allergies/Adverse Reactions: Allergies Allergy/AdvReac Type Severity Reaction Status Date / Time No Known Allergies Allergy Verified 09/12/18 14:30 - Home Medications Home Medications: Ambulatory Orders Iron 1 tab PO DAILY 08/22/18 Vitamins (Sjr) - 1 tab PO DAILY 08/22/18 Levemir Vial 20 units SQ DAILY 10/17/18 Novolog 9 units SQ DAILY 10/17/18 Ibuprofen 600 mg PO Q6H PRN #30 tablet 10/20/18 Family Disease History - Family Disease History Family Disease History: Diabetes: Father, Mother Review of Systems - Review of Systems Constitutional: reports: Weakness Eyes: reports: No Symptoms HENT: reports: No Symptoms Neck: reports: No Symptoms Cardiovascular: reports: No Symptoms Respiratory: reports: No Symptoms Gastrointestinal: reports: No Symptoms Genitourinary: reports: No Symptoms Breasts: reports: No Symptoms Reported Musculoskeletal: reports: No Symptoms Neurological: reports: No Symptoms Endocrine: reports: No Symptoms Physical Exam Vital Signs: Vital Signs Temperature 98.9 F 10/20/18 09:13 Pulse Rate 88 10/20/18 09:13 Respiratory Rate 18 10/20/18 09:13 Blood Pressure 106/72 10/20/18 09:13 O2 Sat by Pulse Oximetry (%) 98 10/17/18 22:15 Constitutional: Yes: Calm Eyes: Yes: EOM Intact HENT: Yes: Normocephalic Cardiovascular: Yes: Regular Rate and Rhythm Respiratory: Yes: Regular Gastrointestinal: Yes: WNL Renal/: Yes: WNL Musculoskeletal: Yes: WNL Extremities: Yes: WNL Peripheral Pulses WNL: Yes Neurological: Yes: Alert, Oriented Labs: CBC, BMP 10/20/18 06:45 10/17/18 18:00 Problem List - Problems (1) Macrosomia affecting management of mother in third trimester Code(s): O36.63X0 - MATERNAL CARE FOR EXCESS GROWTH, THIRD TRIMESTER, UNSP Qualifiers: Fetus number: single or unspecified fetus Qualified Code(s): O36.63X0 - Maternal care for excessive growth, third trimester, not applicable or unspecified (2) Status post repeat low transverse section Code(s): Z98.891 - HISTORY OF UTERINE SCAR FROM PREVIOUS SURGERY (3) 37 weeks gestation of Code(s): Z3A.37 - 37 WEEKS GESTATION OF (4) Code(s): O03.9 - COMPLETE OR UNSP SPONTANEOUS WITHOUT COMPLICATION (5) Acute pancreatitis Code(s): K85.90 - ACUTE PANCREATITIS WITHOUT NECROSIS OR INFECTION, UNSP Qualifiers: Pancreatitis type: unspecified pancreatitis type Acute pancreatitis complication: unspecified Qualified Code(s): K85.90 - Acute pancreatitis without necrosis or infection, unspecified (6) Anemia Code(s): D64.9 - ANEMIA, UNSPECIFIED Assessment/Plan Current Active Problems Gestational diabetes mellitus (GDM) affecting (Acute) Macrosomia affecting management of mother in third trimester (Acute) Status post repeat low transverse section (Acute) Abnormal Lab Results 10/20/18 06:45 RBC 3.12 L Hgb 10.1 L Hct 29.1 L Plt Count 111 L D MPV 11.4 H D Laboratory Results - last 24 hr 10/19/18 10/20/18 10/20/18 22:11 06:09 06:45 WBC 7.3 RBC 3.12 L Hgb 10.1 L Hct 29.1 L MCV 93.3 MCH 32.4 MCHC 34.8 RDW 13.8 Plt Count 111 L D MPV 11.4 H D Absolute Neuts (auto) 5.2 Neutrophils % 71.8 Lymphocytes % 22.4 Monocytes % 4.6 Eosinophils % 0.8 D Basophils % 0.4 Nucleated RBC % 0 POC Glucometer 146 151 10/20/18 10/20/18 11:12 16:42 WBC RBC Hgb Hct MCV MCH MCHC RDW Plt Count MPV Absolute Neuts (auto) Neutrophils % Lymphocytes % Monocytes % Eosinophils % Basophils % Nucleated RBC % POC Glucometer 234 157 plan: bgm ac hs novolog coverage levemir 10 units am diet and nutrition follow up outpatient
[2018-10-21] MEDS: SIMETHICONE 80 MG TAB.CHEW (FP) PO PRN (03:50)
[2018-10-21] MEDS: IBUPROFEN 600 MG TABLET (FP) PO PRN ×2 (03:50→14:46)
[2018-10-21] MEDS: ACETAMINOPHEN 325 MG TABLET (FP) PO PRN ×2 (03:51→14:46)
[2018-10-21] MEDS ORDERED: INSULIN (LEVEMIR) 100 UNITS/ML UNITS SQ SCH (07:00)
[2018-10-21] MEDS: INSULIN SLIDING SCALE (NOVOLOG) 1 VIAL SQ SCH ×2 (08:08→11:53)
[2018-10-21] MEDS: FERROUS SO4 325 MG TABLET (FP) PO SCH (08:09)
[2018-10-21 08:31] VITALS: BP 114/58; PULSE 76; TEMP 98.5
[2018-10-21] MEDS: PRENATAL VITAMINS W/ FOLIC ACID TABLET (FP) PO SCH (10:06)
--- NOTE | 2018-10-21 10:55 | DS ---
Physical Exam-FRESH FOODS TECHNICIAN Vital Signs: Vital Signs Temperature 98.5 F 10/21/18 08:30 Pulse Rate 76 10/21/18 08:30 Respiratory Rate 18 10/20/18 22:00 Blood Pressure 114/58 L 10/21/18 08:30 O2 Sat by Pulse Oximetry (%) 98 10/17/18 22:15 Constitutional: Yes: No Distress Eyes: Yes: Conjunctiva Clear HENT: Yes: Atraumatic Neck: Yes: Supple Cardiovascular: Yes: Regular Rate and Rhythm Respiratory: Yes: Regular Gastrointestinal: Yes: Normal Bowel Sounds Renal/: Yes: WNL External Genitalia: Yes: Normal Vaginal Exam: Yes: Normal Cervix: Yes: Normal Uterus: Yes: Firm Extremities: Yes: WNL Wound/Incision: Yes: Travis Intact, Steri Strips (in place) Neurological: Yes: Alert, Oriented ...Motor Strength: WNL Psychiatric: Yes: Alert, Oriented Labs: CBC, BMP 10/20/18 06:45 10/17/18 18:00 Delivery - Delivery Type of Anesthesia: Spinal Episiotomy/Laceration: None EBL (cc): 600 Delivery, Single - Stages of Labor Date of Delivery: 10/17/18 Time of Delivery: 20:31 Time Placenta Delivered: 20:32 - Condition of Infant International Marketing Manager/Sharepoint Solutions Architect Present: Yes Name: Tanika Martinez Gender: Female Weight: 9 lb 13 oz Position: Right, OT - 1 Minute Total Score: 9 5 Minutes Total Score: 9 - Feeding Plan Initial Plan: Elected not to breastfeed exclusively throughout hospitalization Discharge Summary Reason For Visit: C SECTION Current Active Problems Gestational diabetes mellitus (GDM) affecting (Acute) Macrosomia affecting management of mother in third trimester (Acute) Status post repeat low transverse section (Acute) Procedures: Principal: Repeat Low transverse Hospital Course: Patient was placed on insulin coverage due to gestational diabetes. Condition: Good - Instructions Diet, Activity, Other Instructions: Diabetic diet No driving, no lifting, x 4 weeks. F/U in clinic in 1 week. Continue Novolog and levimir. Referrals: Sandor Amaya MD [Staff Physician] - Disposition: HOME - Home Medications Comprehensive Discharge Medication List: Ambulatory Orders Iron 1 tab PO DAILY 08/22/18 Vitamins (Sjr) - 1 tab PO DAILY 08/22/18 Levemir Vial 20 units SQ DAILY 10/17/18 Novolog 9 units SQ DAILY 10/17/18 Ibuprofen 600 mg PO Q6H PRN #30 tablet 10/20/18
--- NOTE | 2018-10-21 15:54 | PATH ---
Surgical Pathology Report Patient Name: FRANCISCO J JACOBS Med. Rec. 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 Specimen(s) Received PLACENTA Clinical History , 37.2 gestational weeks, repeat , macrosomia Final Diagnosis PLACENTA, DELIVERY: FOCALLY DISRUPTED THIRD TRIMESTER PLACENTA (868 GRAM) WITH FOCAL INTERVILLOUS FIBRIN DEPOSITION, THREE VESSEL UMBILICAL CORD AND UNREMARKABLE PLACENTAL MEMBRANES. Electronically Signed Nba Hansen M.D. Gross Description The specimen is received fresh labeled placenta and is a 868 gram, 17.0 x 16.0 x 3.6 cm. placenta with attached membranes and umbilical cord. The attached membranes are castro, translucent with focal opacities and insert marginally. The umbilical cord measures 19 cm. in length and averages 1.7 cm. in diameter. The cord inserts eccentrically, 3 cm. to the nearest margin. No true knots or strictures are identified. Cut surface of the umbilical cord reveals 3 vessels. The surface is parada blue with moderate fibrin deposition and appropriate caliber vessels. The maternal surface is red-brown with focal defects. Sectioning reveals red-brown, spongy parenchyma. No lesions are identified. Manager Commission sections are submitted in three cassettes as follows: 1- membrane rolls and umbilical cord; 2-3- full thickness sections of placenta. /10/20/2018 [facility]10/20/2018
== END 2018-10-21 16:00 | disposition home or self-care (01) | DRG 540 ==
LOC: JDEL 13:11 → JLDR 15:50 → J3W 23:41
PROVIDERS: ADMIT Obstetrics & Gynecology; ATTEND Obstetrics & Gynecology
PROC: 10D00Z1 Extraction of Products of Conception, Low, Open Approach (ICD-10-PCS; principal; 2018-10-17)
DX: O24.424 Gestational diabetes mellitus in childbirth, insulin controlled (principal); O99.12 Other diseases of the blood and blood-forming organs and certain disorders involving the immune mechanism complicating childbirth; D69.6 Thrombocytopenia, unspecified; O36.63X0 Maternal care for excessive fetal growth, third trimester, not applicable or unspecified; O34.219 Maternal care for unspecified type scar from previous cesarean delivery; O99.02 Anemia complicating childbirth; D64.9 Anemia, unspecified; Z3A.37 37 weeks gestation of pregnancy; Z37.0 Single live birth; Z91.14 Patient's other noncompliance with medication regimen
CPT/HCPCS: 36415; 80053; 82803; 82962; 85025; 85610; 85730; 86593; 86850; 86900; 86901; 87389; 88307-TC

== ENCOUNTER 2018-11-06 15:19 | Inpatient (IN) | payer OTHER | END 2018-11-21 17:00 | disposition home or self-care (01) | LOC: JER 15:19 → JERBED 18:36 → J5S 21:32 ==

== ENCOUNTER 2020-08-26 02:32 | Inpatient (IN) | payer OTHER ==
[2020-08-26 05:17] LABS: VENOUS BASE EXCESS -3.2 mmol/L (-2-2); VENOUS O2 SATURATION 53.2 % (70-80); VENOUS PCO2 44.1 mmHg (38-52); VENOUS PH 7.331 (7.310-7.410)
[2020-08-26 05:26] LABS: BASO % 0.9 % (0-2.0); EOS % 0.7 % (0-4.5); HEMATOCRIT 39.6 % (32.4-45.2); HEMOGLOBIN 19.5 GM/dL (10.7-15.3); LYMPH % 6.2 % (8-40); MEAN CELL VOLUME 88.4 fl (80-96); MEAN PLT VOLUME 10.8 fl (7.5-11.1); MONO % 2.9 % (3.8-10.2); NEUT % 89.3 % (42.8-82.8); PLATELET COUNT 196 K/MM3 (134-434); RBC 4.48 M/mm3 (3.60-5.2); RDW 12.6 % (11.6-15.6)
[2020-08-26 05:30] LABS: CHLORIDE 91 mmol/L (98-107); SODIUM 125 mmol/L (136-145)
[2020-08-26 05:33] LABS: CO2 26 mmol/L (21-32); LIPASE 339 U/L (73-393); MAGNESIUM 1.8 mg/dL (1.8-2.4); MCH 43.7 pg (25.7-33.7); MCHC 49.4 g/dl (32.0-36.0)
[2020-08-26 05:36] LABS: CREATININE 0.8 mg/dL (0.55-1.3)
[2020-08-26 05:52] LABS: EPI CELLS 23 /uL (0-25.1); HYALINE CASTS 2 /uL (0-3.1); PH,URINE 5.5 (5.0-8.0); URINE APPEARANCE CLEAR; URINE BACTERIA 391 /uL (0-1359); URINE BILIRUBIN NEGATIVE (NEGATIVE); URINE COLOR YELLOW; URINE GLUCOSE (UA) 3+ (NEGATIVE); URINE KETONE 4+ (NEGATIVE); URINE LEUK ESTERASE NEGATIVE (NEGATIVE); URINE NITRITE NEGATIVE (NEGATIVE); URINE PROTEIN 1+ (NEGATIVE); URINE RBC 623 /uL (0-23.9); URINE UROBILINOGEN 0.2 mg/dL (0.2-1.0); URINE WBC 21 /uL (0-25.8)
[2020-08-26 06:27] LABS: ALBUMIN 2.5 g/dl (3.4-5.0); ALK PHOS 116 U/L (45-117); ANION GAP 8 MMOL/L (8-16); BILIRUBIN,TOTAL 3.1 mg/dL (0.2-1); BLOOD UREA NITROGEN 9.8 mg/dL (7-18); TOT PROT 7.5 g/dl (6.4-8.2)
[2020-08-26] MEDS ORDERED: LACTATED RINGERS SOLUTION 1000 ML INFUS.BAG IV ONE (06:31)
[2020-08-26] MEDS ORDERED: ACETAMINOPHEN 1000 MG/100 ML VIAL (NON FORMULARY) IVPB ONE (06:35)
[2020-08-26] MEDS ORDERED: FAMOTIDINE 20 MG/50 ML IVPB 20 MG/50 ML MG IVPB ONE ×2 (06:35→06:38)
[2020-08-26] MEDS ORDERED: ACETAMINOPHEN INJECTION 100 ML IVPB ONE (06:38)
[2020-08-26 07:02] LABS: GLUCOSE,RANDOM 434 mg/dL (74-106)
[2020-08-26] MEDS: SODIUM CHLORIDE 0.9% 500 ML INFUS.BAG IV ONE ×2 (07:10→10:19)
[2020-08-26 09:06] LABS: ANISOCYTOSIS 0; MACROCYTOSIS 0; PLATELET ESTIMATE NORMAL
[2020-08-26] MEDS ORDERED: SODIUM CHLORIDE 0.9% 500 ML INFUS.BAG IV ONE (09:08)
[2020-08-26 09:13] LABS: OSMOLALITY,SERUM 297 mosm/kg (278-305)
[2020-08-26 10:07] LABS: MAGNESIUM 1.8 mg/dL (1.8-2.4)
[2020-08-26 10:09] LABS: LDL CHOLESTEROL (ONLY SJRH) 245 mg/dL (5-100)
[2020-08-26 10:10] LABS: CREATININE 0.5 mg/dL (0.55-1.3)
[2020-08-26 10:13] LABS: ALBUMIN 2.3 g/dl (3.4-5.0); BILIRUBIN,TOTAL 2.7 mg/dL (0.2-1); BLOOD UREA NITROGEN 5.6 mg/dL (7-18); TOT PROT 6.2 g/dl (6.4-8.2)
[2020-08-26 10:18] LABS: CHOLESTEROL 421 mg/dL (50-200); HDL CHOLESTEROL 52 mg/dL (40-60); TRIGLYCERIDES > 4000 mg/dL (0-150)
[2020-08-26 10:21] LABS: POTASSIUM 2.9 mmol/L (3.5-5.1)
[2020-08-26] MEDS ORDERED: INSULIN REGULAR 100 UNITS in SODIUM CHLORIDE 99 ML IVPB SCH (10:45)
[2020-08-26] MEDS ORDERED: POTASSIUM CHLORIDE 10 MEQ in DEXTROSE 5%-NORMAL SALINE 1,000 ML IVPB SCH ×2 (11:00→15:42)
[2020-08-26] MEDS ORDERED: ENOXAPARIN NA (PORCINE) 40 MG/0.4 ML DISP.SYRIN SQ ONE ×2 (12:15→13:42)
[2020-08-26] MEDS ORDERED: AZITHROMYCIN IVPB 500 MG/250 ML BAG IVPB ONE (13:42)
[2020-08-26] MEDS ORDERED: LACTATED RINGERS IV SCH (16:00)
[2020-08-26] MEDS ORDERED: POTASSIUM CHLORIDE IV SCH (16:00)
[2020-08-26] MEDS ORDERED: DEXTROSE 5% IV SCH (16:00)
[2020-08-26] MEDS ORDERED: morphine CARPU-JECT 4 MG/1 ML DISP.SYRIN IVPUSH PRN (16:07)
[2020-08-26] MEDS ORDERED: morphine SULFATE 4 MG/ML VIAL IVPUSH PRN (16:09)
[2020-08-26 16:57] LABS: CREATININE 0.3 mg/dL (0.55-1.3)
[2020-08-26 17:05] LABS: POTASSIUM 2.8 mmol/L (3.5-5.1)
[2020-08-26] MEDS ORDERED: LACTATED RINGERS SOLUTION 1,000 ML with POTASSIUM CHLORIDE 20 MEQ IV ONE (20:04)
[2020-08-26] MEDS ORDERED: KCL 10 MEQ IVPB 10 MEQ/100 ML INFUS.BAG IVPB SCH (20:15)
[2020-08-26] MEDS ORDERED: KCL 10 MEQ IVPB 10 MEQ/100 ML INFUS.BAG IVPB ONE (20:37)
[2020-08-26] MEDS: KCL 10 MEQ IVPB 10 MEQ/100 ML INFUS.BAG IVPB SCH (20:58)
[2020-08-26 21:55] LABS: CHLORIDE 103 mmol/L (98-107); POTASSIUM 3.7 mmol/L (3.5-5.1); SODIUM 134 mmol/L (136-145)
[2020-08-26 21:57] LABS: ANION GAP 8 MMOL/L (8-16); CO2 24 mmol/L (21-32); GLUCOSE,RANDOM 343 mg/dL (74-106)
[2020-08-26 22:00] LABS: CREATININE 0.3 mg/dL (0.55-1.3)
[2020-08-26] MEDS: MUPIROCIN 2% TOPICAL OINTMENT FOR DECOLONIZATION NS SCH (22:04)
[2020-08-26] MEDS: CHLORHEXIDINE GLUCONATE 4% CLEANSER FOR DECOLONIZATION TP SCH (22:04)
[2020-08-26 22:12] LABS: BLOOD UREA NITROGEN 3.3 mg/dL (7-18)
[2020-08-26 22:14] LABS: CALCIUM 5.3 mg/dL (8.5-10.1)
[2020-08-27] MEDS: INSULIN REGULAR 100 UNITS in SODIUM CHLORIDE 99 ML IVPB SCH (00:15)
[2020-08-27 00:47] LABS: TRIGLYCERIDES > 4000 mg/dL (0-150)
[2020-08-27] MEDS: KCL 10 MEQ IVPB 10 MEQ/100 ML INFUS.BAG IVPB SCH ×2 (00:57→04:39)
[2020-08-27 04:03] LABS: CREATININE 0.3 mg/dL (0.55-1.3)
[2020-08-27 04:27] LABS: POTASSIUM 2.8 mmol/L (3.5-5.1)
[2020-08-27 04:28] LABS: CALCIUM 5.9 mg/dL (8.5-10.1)
[2020-08-27] MEDS ORDERED: KCL 10 MEQ IVPB 10 MEQ/100 ML INFUS.BAG IVPB SCH (04:30)
[2020-08-27] MEDS ORDERED: POTASSIUM CHLORIDE TABS 20 MEQ TABLET.ER (FP) PO ONE ×3 (05:57→21:47)
[2020-08-27 07:26] LABS: BASO % 0.6 % (0-2.0); EOS % 0.9 % (0-4.5); HEMATOCRIT 37.4 % (32.4-45.2); HEMOGLOBIN 14.5 GM/dL (10.7-15.3); LYMPH % 12.2 % (8-40); MCH 34.5 pg (25.7-33.7); MCHC 38.7 g/dl (32.0-36.0); MEAN CELL VOLUME 89.1 fl (80-96); MEAN PLT VOLUME 11.4 fl (7.5-11.1); MONO % 4.1 % (3.8-10.2); NEUT % 82.2 % (42.8-82.8); PLATELET COUNT 163 K/MM3 (134-434); RBC 4.19 M/mm3 (3.60-5.2); WHITE BLOOD COUNT 12.4 K/mm3 (4.0-10.0)
[2020-08-27 08:00] LABS: ALBUMIN 2.4 g/dl (3.4-5.0)
[2020-08-27 08:02] LABS: CREATININE 0.2 mg/dL (0.55-1.3)
[2020-08-27 09:30] LABS: BILIRUBIN,TOTAL 0.8 mg/dL (0.2-1); BLOOD UREA NITROGEN 4.1 mg/dL (7-18); MAGNESIUM 1.9 mg/dL (1.8-2.4); PHOSPHOROUS 1.6 mg/dL (2.5-4.9); POTASSIUM 3.2 mmol/L (3.5-5.1); TOT PROT 5.9 g/dl (6.4-8.2)
[2020-08-27] MEDS ORDERED: MAGNESIUM 2GM/50ML STERILE WATER IVPB IVPB ONE (10:15)
[2020-08-27] MEDS ORDERED: PT OWN MED DRAWER 7, Y5N ONE ×5 (10:16→17:50)
[2020-08-27] MEDS: CALCIUM 500MG/VIT-D 200 UNITS COMBO TABLET (FP) PO SCH (10:22)
[2020-08-27] MEDS: PANTOPRAZOLE SODIUM 40 MG VIAL IVPUSH SCH (10:23)
[2020-08-27] MEDS: MUPIROCIN 2% TOPICAL OINTMENT FOR DECOLONIZATION NS SCH ×2 (10:36→21:33)
[2020-08-27 21:28] LABS: POTASSIUM 3.4 mmol/L (3.5-5.1)
[2020-08-27 21:33] LABS: CREATININE 0.4 mg/dL (0.55-1.3)
[2020-08-27] MEDS: CHLORHEXIDINE GLUCONATE 4% CLEANSER FOR DECOLONIZATION TP SCH (21:34)
[2020-08-27 21:36] LABS: BLOOD UREA NITROGEN 6.8 mg/dL (7-18)
[2020-08-27 21:37] LABS: CALCIUM 6.9 mg/dL (8.5-10.1)
[2020-08-27] MEDS: DEXTROSE 5% IV SCH (22:06)
[2020-08-27] MEDS: POTASSIUM CHLORIDE IV SCH (22:06)
[2020-08-27] MEDS: LACTATED RINGERS IV SCH (22:06)
[2020-08-28] MEDS: INSULIN REGULAR 100 UNITS in SODIUM CHLORIDE 99 ML IVPB SCH (02:24)
[2020-08-28] MEDS: LACTATED RINGERS IV SCH ×4 (05:05→23:00)
[2020-08-28] MEDS: DEXTROSE 5% IV SCH ×4 (05:05→23:00)
[2020-08-28] MEDS: POTASSIUM CHLORIDE IV SCH ×4 (05:05→23:00)
[2020-08-28 07:19] LABS: HEMATOCRIT 36.1 % (32.4-45.2); HEMOGLOBIN 13.2 GM/dL (10.7-15.3); MCH 32.6 pg (25.7-33.7); MCHC 36.5 g/dl (32.0-36.0); MEAN CELL VOLUME 89.2 fl (80-96); MEAN PLT VOLUME 10.4 fl (7.5-11.1); PLATELET COUNT 163 K/MM3 (134-434); RBC 4.04 M/mm3 (3.60-5.2); WHITE BLOOD COUNT 8.6 K/mm3 (4.0-10.0)
[2020-08-28 07:32] LABS: CHLORIDE 107 mmol/L (98-107); POTASSIUM 3.8 mmol/L (3.5-5.1); SODIUM 141 mmol/L (136-145)
[2020-08-28 07:34] LABS: ALBUMIN 2.4 g/dl (3.4-5.0); ANION GAP 7 MMOL/L (8-16); CALCIUM 7.5 mg/dL (8.5-10.1); CO2 28 mmol/L (21-32)
[2020-08-28 07:35] LABS: BLOOD UREA NITROGEN 4.4 mg/dL (7-18); GLUCOSE,RANDOM 143 mg/dL (74-106)
[2020-08-28 07:38] LABS: CREATININE 0.2 mg/dL (0.55-1.3)
[2020-08-28 07:39] LABS: BILIRUBIN,TOTAL 0.5 mg/dL (0.2-1); TOT PROT 5.5 g/dl (6.4-8.2)
[2020-08-28 07:40] LABS: ALK PHOS 71 U/L (45-117)
[2020-08-28 08:30] LABS: SGOT/AST 24 U/L (15-37); TRIGLYCERIDES 1541 mg/dL (0-150)
[2020-08-28] MEDS ORDERED: PT OWN MED DRAWER 7, Y5N ONE ×3 (09:32→14:29)
[2020-08-28] MEDS: CALCIUM 500MG/VIT-D 200 UNITS COMBO TABLET (FP) PO SCH (09:47)
[2020-08-28] MEDS: PANTOPRAZOLE SODIUM 40 MG VIAL IVPUSH SCH (09:47)
[2020-08-28] MEDS: MUPIROCIN 2% TOPICAL OINTMENT FOR DECOLONIZATION NS SCH ×2 (09:47→22:10)
[2020-08-28] MEDS: FENOFIBRIC ACID 135 MG CAP PO SCH (13:23)
[2020-08-28 14:05] VITALS: BMI 25.3
[2020-08-28 20:23] LABS: POTASSIUM 3.6 mmol/L (3.5-5.1)
[2020-08-28 20:25] LABS: CALCIUM 8.5 mg/dL (8.5-10.1)
[2020-08-28 20:26] LABS: ALBUMIN 2.5 g/dl (3.4-5.0); BLOOD UREA NITROGEN 8.2 mg/dL (7-18)
[2020-08-28 20:29] LABS: CREATININE 0.5 mg/dL (0.55-1.3)
[2020-08-28 20:30] LABS: BILIRUBIN,TOTAL 0.4 mg/dL (0.2-1)
[2020-08-28] MEDS: CHLORHEXIDINE GLUCONATE 4% CLEANSER FOR DECOLONIZATION TP SCH (22:10)
[2020-08-29] MEDS: INSULIN REGULAR 100 UNITS in SODIUM CHLORIDE 99 ML IVPB SCH (03:26)
[2020-08-29] MEDS: LACTATED RINGERS IV SCH ×3 (06:27→13:22)
[2020-08-29] MEDS: DEXTROSE 5% IV SCH ×3 (06:27→13:22)
[2020-08-29] MEDS: POTASSIUM CHLORIDE IV SCH ×3 (06:27→13:22)
[2020-08-29 06:57] LABS: BASO % 0.7 % (0-2.0); EOS % 2.9 % (0-4.5); HEMATOCRIT 35.9 % (32.4-45.2); HEMOGLOBIN 12.9 GM/dL (10.7-15.3); LYMPH % 22.9 % (8-40); MCHC 35.9 g/dl (32.0-36.0); MEAN CELL VOLUME 89.2 fl (80-96); MEAN PLT VOLUME 10.8 fl (7.5-11.1); MONO % 7.2 % (3.8-10.2); NEUT % 66.3 % (42.8-82.8); PLATELET COUNT 185 K/MM3 (134-434); RBC 4.02 M/mm3 (3.60-5.2); RDW 13.3 % (11.6-15.6); WHITE BLOOD COUNT 5.9 K/mm3 (4.0-10.0)
[2020-08-29 07:13] LABS: POTASSIUM 3.7 mmol/L (3.5-5.1)
[2020-08-29 07:15] LABS: ALBUMIN 2.3 g/dl (3.4-5.0); CALCIUM 8.1 mg/dL (8.5-10.1)
[2020-08-29 07:16] LABS: BLOOD UREA NITROGEN 7.9 mg/dL (7-18); MAGNESIUM 1.7 mg/dL (1.8-2.4)
[2020-08-29 07:19] LABS: CREATININE 0.3 mg/dL (0.55-1.3); PHOSPHOROUS 4.8 mg/dL (2.5-4.9)
[2020-08-29 07:20] LABS: BILIRUBIN,TOTAL 0.2 mg/dL (0.2-1); TOT PROT 5.7 g/dl (6.4-8.2)
[2020-08-29] MEDS ORDERED: PT OWN MED DRAWER 7, Y5N ONE (08:48)
[2020-08-29] MEDS: MUPIROCIN 2% TOPICAL OINTMENT FOR DECOLONIZATION NS SCH ×2 (09:23→21:44)
[2020-08-29] MEDS: PANTOPRAZOLE SODIUM 40 MG VIAL IVPUSH SCH (09:24)
[2020-08-29] MEDS: CALCIUM 500MG/VIT-D 200 UNITS COMBO TABLET (FP) PO SCH (09:24)
[2020-08-29] MEDS: FENOFIBRIC ACID 135 MG CAP PO SCH (09:25)
[2020-08-29] MEDS ORDERED: MAGNESIUM CL 64 MG TABLET.SA PO ONE (18:00)
[2020-08-29 20:41] LABS: POTASSIUM 3.9 mmol/L (3.5-5.1)
[2020-08-29 20:42] LABS: CALCIUM 8.5 mg/dL (8.5-10.1)
[2020-08-29 20:43] LABS: BLOOD UREA NITROGEN 6.9 mg/dL (7-18)
[2020-08-29 20:46] LABS: CREATININE 0.5 mg/dL (0.55-1.3)
[2020-08-29] MEDS: CHLORHEXIDINE GLUCONATE 4% CLEANSER FOR DECOLONIZATION TP SCH (21:44)
[2020-08-30] MEDS: INSULIN REGULAR 100 UNITS in SODIUM CHLORIDE 99 ML IVPB SCH (00:15)
[2020-08-30 07:00] LABS: BASO % 0.6 % (0-2.0); EOS % 3.8 % (0-4.5); HEMATOCRIT 36.8 % (32.4-45.2); HEMOGLOBIN 12.8 GM/dL (10.7-15.3); LYMPH % 28.9 % (8-40); MCH 31.4 pg (25.7-33.7); MCHC 34.8 g/dl (32.0-36.0); MEAN PLT VOLUME 10.1 fl (7.5-11.1); MONO % 7.6 % (3.8-10.2); NEUT % 59.1 % (42.8-82.8); PLATELET COUNT 207 K/MM3 (134-434); RBC 4.09 M/mm3 (3.60-5.2); RDW 13.2 % (11.6-15.6); WHITE BLOOD COUNT 4.6 K/mm3 (4.0-10.0)
[2020-08-30 07:22] LABS: POTASSIUM 3.7 mmol/L (3.5-5.1)
[2020-08-30 07:29] LABS: ALBUMIN 2.5 g/dl (3.4-5.0); CALCIUM 8.5 mg/dL (8.5-10.1)
[2020-08-30 07:30] LABS: BLOOD UREA NITROGEN 12.1 mg/dL (7-18)
[2020-08-30 07:31] LABS: CREATININE 0.3 mg/dL (0.55-1.3)
[2020-08-30 07:32] LABS: PHOSPHOROUS 5.5 mg/dL (2.5-4.9)
[2020-08-30 07:33] LABS: BILIRUBIN,TOTAL 0.2 mg/dL (0.2-1)
[2020-08-30] MEDS ORDERED: PT OWN MED DRAWER 7, Y5N ONE (09:50)
[2020-08-30] MEDS: PANTOPRAZOLE SODIUM 40 MG VIAL IVPUSH SCH (09:54)
[2020-08-30] MEDS: MUPIROCIN 2% TOPICAL OINTMENT FOR DECOLONIZATION NS SCH ×2 (09:55→21:48)
[2020-08-30] MEDS: CALCIUM 500MG/VIT-D 200 UNITS COMBO TABLET (FP) PO SCH (09:55)
[2020-08-30] MEDS: FENOFIBRIC ACID 135 MG CAP PO SCH (09:55)
[2020-08-30] MEDS ORDERED: LACTATED RINGERS SOLUTION 1,000 ML/1,000 ML INFUS.BAG IV SCH (12:45)
[2020-08-30] MEDS: OMEGA-3 ACID ETHYL ESTERS (FATTY-ACIDS) 1 GM CAPSULE (FP) PO SCH ×2 (12:46→22:14)
[2020-08-30] MEDS ORDERED: INSULIN REGULAR HUMAN 100 UNITS/ML *VIAL IVPUSH ONE (14:00)
[2020-08-30] MEDS: D5-LR+20 MEQ KCL - 20 MEQ/1,000 ML INFUS.BAG IV SCH ×2 (14:01→22:18)
[2020-08-30] MEDS ORDERED: INSULIN SLIDING SCALE (NOVOLOG) 1 VIAL SQ SCH (16:30)
[2020-08-30] MEDS: INSULIN SLIDING SCALE (NOVOLOG) 1 VIAL SQ SCH ×2 (17:22→21:53)
[2020-08-30 20:51] LABS: POTASSIUM 4.2 mmol/L (3.5-5.1)
[2020-08-30 20:52] LABS: CALCIUM 8.8 mg/dL (8.5-10.1)
[2020-08-30 20:53] LABS: BLOOD UREA NITROGEN 11.8 mg/dL (7-18)
[2020-08-30 20:56] LABS: CREATININE 0.6 mg/dL (0.55-1.3)
[2020-08-30] MEDS: CHLORHEXIDINE GLUCONATE 4% CLEANSER FOR DECOLONIZATION TP SCH (21:48)
[2020-08-31] MEDS: D5-LR+20 MEQ KCL - 20 MEQ/1,000 ML INFUS.BAG IV SCH ×2 (05:49→14:00)
[2020-08-31] MEDS: INSULIN SLIDING SCALE (NOVOLOG) 1 VIAL SQ SCH ×4 (06:02→23:25)
[2020-08-31] MEDS ORDERED: INSULIN (NOVOLOG) ASPART 100 UNITS/ML 10ML VIAL ONE ×2 (06:20→11:40)
[2020-08-31] MEDS ORDERED: INSULIN (LEVEMIR) 100 UNITS/ML UNITS SQ SCH (07:00)
[2020-08-31 07:06] LABS: HEMATOCRIT 37.8 % (32.4-45.2); HEMOGLOBIN 13.1 GM/dL (10.7-15.3); MCH 31.2 pg (25.7-33.7); MCHC 34.5 g/dl (32.0-36.0); MEAN CELL VOLUME 90.3 fl (80-96); MEAN PLT VOLUME 10.2 fl (7.5-11.1); PLATELET COUNT 213 K/MM3 (134-434); RBC 4.19 M/mm3 (3.60-5.2); RDW 13.2 % (11.6-15.6); WHITE BLOOD COUNT 4.1 K/mm3 (4.0-10.0)
[2020-08-31 07:48] LABS: ALBUMIN 2.6 g/dl (3.4-5.0); BLOOD UREA NITROGEN 10.4 mg/dL (7-18); CALCIUM 8.5 mg/dL (8.5-10.1)
[2020-08-31 07:51] LABS: CREATININE 0.5 mg/dL (0.55-1.3)
[2020-08-31 07:52] LABS: BILIRUBIN,TOTAL 0.3 mg/dL (0.2-1); TOT PROT 6.1 g/dl (6.4-8.2)
[2020-08-31 07:55] LABS: POTASSIUM 4.3 mmol/L (3.5-5.1)
[2020-08-31] MEDS ORDERED: PT OWN MED DRAWER 7, Y5N ONE (09:38)
[2020-08-31] MEDS: OMEGA-3 ACID ETHYL ESTERS (FATTY-ACIDS) 1 GM CAPSULE (FP) PO SCH ×2 (09:43→23:28)
[2020-08-31] MEDS: CALCIUM 500MG/VIT-D 200 UNITS COMBO TABLET (FP) PO SCH (09:43)
[2020-08-31] MEDS: PANTOPRAZOLE SODIUM 40 MG VIAL IVPUSH SCH (09:43)
[2020-08-31] MEDS: MUPIROCIN 2% TOPICAL OINTMENT FOR DECOLONIZATION NS SCH (09:43)
[2020-08-31] MEDS: FENOFIBRIC ACID 135 MG CAP PO SCH (09:43)
[2020-08-31] MEDS ORDERED: KETOROLAC TROMETHAMINE 15 MG/ML VIAL IM PRN (16:32)
[2020-08-31] MEDS: INSULIN (LEVEMIR) 100 UNITS/ML UNITS SQ SCH (23:26)
[2020-09-01] MEDS: D5-LR+20 MEQ KCL - 20 MEQ/1,000 ML INFUS.BAG IV SCH ×2 (00:11→10:02)
[2020-09-01] MEDS: CHLORHEXIDINE GLUCONATE 4% CLEANSER FOR DECOLONIZATION TP SCH ×2 (02:53→22:29)
[2020-09-01] MEDS: INSULIN SLIDING SCALE (NOVOLOG) 1 VIAL SQ SCH ×4 (06:02→22:27)
[2020-09-01] MEDS: INSULIN (LEVEMIR) 100 UNITS/ML UNITS SQ SCH ×2 (06:03→22:29)
[2020-09-01 07:52] LABS: BASO % 0.8 % (0-2.0); EOS % 3.4 % (0-4.5); HEMATOCRIT 37.1 % (32.4-45.2); HEMOGLOBIN 12.8 GM/dL (10.7-15.3); LYMPH % 37.1 % (8-40); MCH 30.9 pg (25.7-33.7); MCHC 34.4 g/dl (32.0-36.0); MEAN CELL VOLUME 89.8 fl (80-96); MONO % 8.5 % (3.8-10.2); NEUT % 50.2 % (42.8-82.8); PLATELET COUNT 222 K/MM3 (134-434); RBC 4.14 M/mm3 (3.60-5.2); RDW 12.9 % (11.6-15.6); WHITE BLOOD COUNT 4.2 K/mm3 (4.0-10.0)
[2020-09-01 08:20] LABS: ALBUMIN 2.6 g/dl (3.4-5.0); BLOOD UREA NITROGEN 14.5 mg/dL (7-18); CALCIUM 8.4 mg/dL (8.5-10.1); MAGNESIUM 1.8 mg/dL (1.8-2.4)
[2020-09-01 08:23] LABS: CREATININE 0.4 mg/dL (0.55-1.3); PHOSPHOROUS 3.6 mg/dL (2.5-4.9)
[2020-09-01 08:25] LABS: BILIRUBIN,TOTAL 0.3 mg/dL (0.2-1); TOT PROT 5.9 g/dl (6.4-8.2)
[2020-09-01] MEDS ORDERED: PT OWN MED DRAWER 7, Y5N ONE (08:51)
[2020-09-01] MEDS: FENOFIBRIC ACID 135 MG CAP PO SCH (09:23)
[2020-09-01] MEDS: PANTOPRAZOLE SODIUM 40 MG VIAL IVPUSH SCH (09:23)
[2020-09-01] MEDS: CALCIUM 500MG/VIT-D 200 UNITS COMBO TABLET (FP) PO SCH (09:23)
[2020-09-01] MEDS: OMEGA-3 ACID ETHYL ESTERS (FATTY-ACIDS) 1 GM CAPSULE (FP) PO SCH ×2 (09:23→22:27)
[2020-09-01] MEDS ORDERED: INSULIN (NOVOLOG) ASPART 100 UNITS/ML 10ML VIAL ONE (11:18)
[2020-09-01] MEDS ORDERED: LACTATED RINGERS SOLUTION 1,000 ML/1,000 ML INFUS.BAG IV SCH (14:30)
[2020-09-02] MEDS ORDERED: INSULIN (NOVOLOG) ASPART 100 UNITS/ML 10ML VIAL ONE ×3 (05:36→11:31)
[2020-09-02] MEDS: INSULIN (LEVEMIR) 100 UNITS/ML UNITS SQ SCH (06:03)
[2020-09-02] MEDS: INSULIN SLIDING SCALE (NOVOLOG) 1 VIAL SQ SCH ×2 (06:04→11:48)
[2020-09-02 08:00] LABS: POTASSIUM 3.9 mmol/L (3.5-5.1)
[2020-09-02 08:09] LABS: CALCIUM 8.7 mg/dL (8.5-10.1)
[2020-09-02 08:10] LABS: BLOOD UREA NITROGEN 18.8 mg/dL (7-18)
[2020-09-02 08:13] LABS: CREATININE 0.5 mg/dL (0.55-1.3)
[2020-09-02] MEDS ORDERED: INSULIN (LEVEMIR) 100 UNITS/ML UNITS SQ ONE (08:34)
[2020-09-02] MEDS ORDERED: PT OWN MED DRAWER 7, Y5N ONE (09:54)
[2020-09-02] MEDS: CALCIUM 500MG/VIT-D 200 UNITS COMBO TABLET (FP) PO SCH (09:57)
[2020-09-02] MEDS: PANTOPRAZOLE SODIUM 40 MG VIAL IVPUSH SCH (09:58)
[2020-09-02] MEDS: FENOFIBRIC ACID 135 MG CAP PO SCH (09:58)
[2020-09-02] MEDS: OMEGA-3 ACID ETHYL ESTERS (FATTY-ACIDS) 1 GM CAPSULE (FP) PO SCH (09:59)
[2020-09-02 10:43] VITALS: BP 107/56; PULSE 65
[2020-09-02 15:14] VITALS: TEMP 98.2
== END 2020-09-02 15:59 | disposition home or self-care (01) | DRG 282 ==
LOC: JER 02:32 → JERBED 08:02 → JICU 22:07 → J7W 08-30 18:08
PROVIDERS: ADMIT Internal Medicine Pulmonary Disease; ATTEND Internal Medicine
DX: K85.90 Acute pancreatitis without necrosis or infection, unspecified (principal); E78.1 Pure hyperglyceridemia; E11.65 Type 2 diabetes mellitus with hyperglycemia; Z79.4 Long term (current) use of insulin; E78.5 Hyperlipidemia, unspecified; E87.6 Hypokalemia
CPT/HCPCS: 36415; 74177-TC; 80048; 80053; 80061; 81003; 82010; 82436; 82550; 82803; 82962; 83605; 83690; 83721; 83735; 83930; 83935; 84100; 84133; 84300; 84478; 84484; 84703; 85025; 85027; 87077; 87086; 93005; 93010; 99285-25; C9803; J0131; Q9967; U0003

== ENCOUNTER 2021-05-10 06:34 | Inpatient (IN) | payer OTHER ==
[2021-05-10] MEDS ORDERED: SODIUM CHLORIDE 1,000 ML IV STA ×2 (07:27→09:08)
[2021-05-10] MEDS ORDERED: KETOROLAC TROMETHAMINE 15 MG/ML VIAL IVPUSH ONE (07:45)
[2021-05-10] MEDS ORDERED: KETOROLAC TROMETHAMINE 15 MG/ML VIAL ONE (07:57)
[2021-05-10 07:58] LABS: VENOUS BASE EXCESS -5.6 mmol/L (-2-2); VENOUS O2 SATURATION 83.1 % (70-80); VENOUS PCO2 42.3 mmHg (38-52); VENOUS PH 7.304 (7.310-7.410)
[2021-05-10 08:01] LABS: BASO % 1.5 % (0-2.0); EOS % 0.3 % (0-4.5); HEMATOCRIT 42.2 % (32.4-45.2); LYMPH % 7.1 % (8-40); MEAN CELL VOLUME 84.4 fl (80-96); MEAN PLT VOLUME 10.2 fl (7.5-11.1); MONO % 4.1 % (3.8-10.2); PLATELET COUNT 227 10^3/uL (134-434); RDW 13.9 % (11.6-15.6); WHITE BLOOD COUNT 12.5 K/mm3 (4.0-10.0)
[2021-05-10 08:22] LABS: CHLORIDE 90 mmol/L (98-107); SODIUM 123 mmol/L (136-145)
[2021-05-10 08:24] LABS: ANION GAP 11 MMOL/L (8-16); CO2 22 mmol/L (21-32)
[2021-05-10 08:25] LABS: LIPASE 539 U/L (73-393); MCH 43.9 pg (25.7-33.7)
[2021-05-10 08:28] LABS: CREATININE 0.9 mg/dL (0.55-1.3)
[2021-05-10 08:39] LABS: HCG,QUALITATIVE URINE Negative
[2021-05-10 09:15] LABS: URINE APPEARANCE CLEAR; URINE BILIRUBIN NEGATIVE (NEGATIVE); URINE COLOR YELLOW; URINE GLUCOSE (UA) >1000 (NEGATIVE); URINE KETONE >160 (NEGATIVE)
[2021-05-10 09:16] LABS: PH,URINE 5.5 (5.0-8.0); URINE LEUK ESTERASE NEGATIVE (NEGATIVE); URINE NITRITE NEGATIVE (NEGATIVE); URINE PROTEIN TRACE (NEGATIVE); URINE UROBILINOGEN 0.2 mg/dL (0.2-1.0)
[2021-05-10 09:42] LABS: ALBUMIN 2.5 g/dl (3.4-5.0); ALK PHOS 154 U/L (45-117); GLUCOSE,RANDOM 492 mg/dL (74-106); TOT PROT 8.4 g/dl (6.4-8.2)
[2021-05-10] MEDS ORDERED: POTASSIUM CHLORIDE TABS 20 MEQ TABLET.ER (FP) PO ONE ×2 (09:46→10:00)
[2021-05-10] MEDS ORDERED: INSULIN REGULAR HUMAN 100 UNITS/ML *VIAL IVPUSH ONE (10:08)
[2021-05-10] MEDS ORDERED: INSULIN REGULAR 100 UNITS in SODIUM CHLORIDE 99 ML IVPB SCH (10:30)
[2021-05-10 10:31] LABS: CHLORIDE 92 mmol/L (98-107); SODIUM 124 mmol/L (136-145)
[2021-05-10 10:34] LABS: ANION GAP 12 MMOL/L (8-16); CO2 21 mmol/L (21-32)
[2021-05-10 10:37] LABS: CREATININE 0.8 mg/dL (0.55-1.3)
[2021-05-10] MEDS ORDERED: LACTATED RINGERS SOLUTION 1,000 ML/1,000 ML INFUS.BAG IV SCH ×3 (11:15→12:49)
[2021-05-10 11:25] LABS: ALBUMIN 2.4 g/dl (3.4-5.0); ALK PHOS 148 U/L (45-117); BILIRUBIN,TOTAL 3.1 mg/dL (0.2-1); BLOOD UREA NITROGEN 5.8 mg/dL (7-18); GLUCOSE,RANDOM 446 mg/dL (74-106); TOT PROT 7.8 g/dl (6.4-8.2)
[2021-05-10] MEDS ORDERED: SODIUM CHLORIDE 1,000 ML IV SCH (12:00)
[2021-05-10 12:34] LABS: TRIGLYCERIDES > 4000 mg/dL (0-150)
[2021-05-10 12:40] LABS: MEAN PLT VOLUME 10.1 fl (7.5-11.1); PLATELET COUNT 222 10^3/uL (134-434); RBC 4.96 M/mm3 (3.60-5.2); RDW 14.5 % (11.6-15.6); WHITE BLOOD COUNT 12.7 K/mm3 (4.0-10.0)
[2021-05-10 12:42] LABS: HEMOGLOBIN 14.6 GM/dL (10.7-15.3); MCHC 34.4 g/dl (32.0-36.0)
[2021-05-10 12:46] LABS: HEMATOCRIT 38.4 % (32.4-45.2); HEMOGLOBIN 13.5 GM/dL (10.7-15.3)
[2021-05-10 12:47] LABS: MCH 30.6 pg (25.7-33.7); MCHC 35.2 g/dl (32.0-36.0)
[2021-05-10] MEDS ORDERED: PANTOPRAZOLE SODIUM 40 MG/100 ML BAG IVPB ONE (13:02)
[2021-05-10] MEDS ORDERED: ENOXAPARIN NA (PORCINE) 40 MG/0.4 ML DISP.SYRIN SQ ONE (13:03)
[2021-05-10] MEDS ORDERED: KCL 10 MEQ IVPB 10 MEQ/100 ML INFUS.BAG IVPB ONE (13:03)
[2021-05-10] MEDS: KCL 10 MEQ IVPB 10 MEQ/100 ML INFUS.BAG IVPB SCH ×2 (13:14→14:28)
[2021-05-10] MEDS: PANTOPRAZOLE SODIUM 40 MG VIAL IVPUSH SCH (13:14)
[2021-05-10] MEDS: ENOXAPARIN NA (PORCINE) 40 MG/0.4 ML DISP.SYRIN SQ SCH (13:14)
[2021-05-10 13:46] LABS: CHLORIDE 98 mmol/L (98-107); SODIUM 127 mmol/L (136-145)
[2021-05-10 13:47] LABS: ANION GAP 10 MMOL/L (8-16); CO2 19 mmol/L (21-32)
[2021-05-10 13:49] LABS: GLUCOSE,RANDOM 327 mg/dL (74-106)
[2021-05-10 13:51] LABS: CREATININE 0.6 mg/dL (0.55-1.3)
[2021-05-10 13:56] LABS: BLOOD UREA NITROGEN 2.8 mg/dL (7-18)
[2021-05-10] MEDS ORDERED: DEXTROSE 5%-LACTATED RINGERS 1,000 ML IV SCH (14:00)
[2021-05-10] MEDS: KETOROLAC TROMETHAMINE 15 MG/ML VIAL IVPUSH PRN (14:25)
[2021-05-10] MEDS: D5-LR+20 MEQ KCL - 20 MEQ/1,000 ML INFUS.BAG IV SCH ×2 (15:06→18:15)
[2021-05-10 16:16] LABS: MAGNESIUM 1.9 mg/dL (1.8-2.4)
[2021-05-10] MEDS: INSULIN REGULAR 100 UNITS in SODIUM CHLORIDE 99 ML IVPB SCH (16:30)
[2021-05-10 18:19] LABS: CHLORIDE 99 mmol/L (98-107); SODIUM 127 mmol/L (136-145)
[2021-05-10 18:22] LABS: ANION GAP 13 MMOL/L (8-16); CO2 15 mmol/L (21-32); GLUCOSE,RANDOM 365 mg/dL (74-106)
[2021-05-10 18:25] LABS: CREATININE 0.5 mg/dL (0.55-1.3)
[2021-05-10] MEDS: morphine SULFATE 4 MG/ML VIAL IVPUSH PRN (18:36)
[2021-05-10 18:55] LABS: ALBUMIN 2.2 g/dl (3.4-5.0); ALK PHOS 110 U/L (45-117); BILIRUBIN,TOTAL 2.1 mg/dL (0.2-1); BLOOD UREA NITROGEN 3.6 mg/dL (7-18); TOT PROT 6.2 g/dl (6.4-8.2)
[2021-05-10 19:02] LABS: CHLORIDE 102 mmol/L (98-107); SODIUM 130 mmol/L (136-145)
[2021-05-10 19:04] LABS: ANION GAP 10 MMOL/L (8-16); CO2 19 mmol/L (21-32); GLUCOSE,RANDOM 328 mg/dL (74-106); MAGNESIUM 1.8 mg/dL (1.8-2.4)
[2021-05-10 19:07] LABS: CREATININE 0.3 mg/dL (0.55-1.3)
[2021-05-10 19:13] LABS: ALBUMIN 2.1 g/dl (3.4-5.0); ALK PHOS 96 U/L (45-117); BILIRUBIN,TOTAL 1.2 mg/dL (0.2-1); BLOOD UREA NITROGEN 3.3 mg/dL (7-18); TOT PROT 5.6 g/dl (6.4-8.2)
[2021-05-10 19:16] LABS: TRIGLYCERIDES > 4000 mg/dL (0-150)
[2021-05-10] MEDS: MUPIROCIN 2% TOPICAL OINTMENT FOR DECOLONIZATION NS SCH (21:29)
[2021-05-10] MEDS: CHLORHEXIDINE GLUCONATE 4% CLEANSER FOR DECOLONIZATION TP SCH (21:29)
[2021-05-10 21:37] LABS: CHLORIDE 104 mmol/L (98-107); SODIUM 132 mmol/L (136-145)
[2021-05-10 21:40] LABS: ANION GAP 8 MMOL/L (8-16); CO2 20 mmol/L (21-32); GLUCOSE,RANDOM 304 mg/dL (74-106)
[2021-05-10 21:41] LABS: MAGNESIUM 1.9 mg/dL (1.8-2.4)
[2021-05-10 21:43] LABS: CREATININE 0.3 mg/dL (0.55-1.3)
[2021-05-10 21:45] LABS: BILIRUBIN,TOTAL 0.8 mg/dL (0.2-1)
[2021-05-10 22:41] LABS: ALK PHOS 87 U/L (45-117); BLOOD UREA NITROGEN 2.9 mg/dL (7-18); CALCIUM 5.8 mg/dL (8.5-10.1); TOT PROT 5.2 g/dl (6.4-8.2)
[2021-05-10] MEDS: DEXTROSE 5%-LACTATED RINGERS 980 ML with POTASSIUM CHLORIDE 40 MEQ IV SCH (22:53)
[2021-05-11 01:16] LABS: CHLORIDE 105 mmol/L (98-107); SODIUM 133 mmol/L (136-145)
[2021-05-11 01:20] LABS: ANION GAP 5 MMOL/L (8-16); CO2 23 mmol/L (21-32)
[2021-05-11 01:21] LABS: GLUCOSE,RANDOM 259 mg/dL (74-106); MAGNESIUM 1.9 mg/dL (1.8-2.4)
[2021-05-11 01:24] LABS: CREATININE 0.2 mg/dL (0.55-1.3)
[2021-05-11 01:25] LABS: BLOOD UREA NITROGEN 3.9 mg/dL (7-18)
[2021-05-11 01:54] LABS: TRIGLYCERIDES 3243 mg/dL (0-150)
[2021-05-11] MEDS: DEXTROSE 5%-LACTATED RINGERS 980 ML with POTASSIUM CHLORIDE 40 MEQ IV SCH ×2 (03:04→06:58)
[2021-05-11 04:19] LABS: CHLORIDE 106 mmol/L (98-107); SODIUM 135 mmol/L (136-145)
[2021-05-11 04:21] LABS: ANION GAP 6 MMOL/L (8-16); CO2 22 mmol/L (21-32); GLUCOSE,RANDOM 238 mg/dL (74-106)
[2021-05-11 04:25] LABS: CREATININE 0.2 mg/dL (0.55-1.3)
[2021-05-11 04:40] LABS: BLOOD UREA NITROGEN 2.6 mg/dL (7-18); CALCIUM 6.5 mg/dL (8.5-10.1)
[2021-05-11] MEDS: morphine SULFATE 4 MG/ML VIAL IVPUSH PRN ×2 (05:22→16:00)
[2021-05-11 07:11] LABS: CHLORIDE 107 mmol/L (98-107); SODIUM 134 mmol/L (136-145)
[2021-05-11 07:14] LABS: ANION GAP 6 MMOL/L (8-16); CO2 21 mmol/L (21-32); GLUCOSE,RANDOM 240 mg/dL (74-106)
[2021-05-11 07:15] LABS: BASO % 0.3 % (0-2.0); EOS % 0.4 % (0-4.5); HEMATOCRIT 40.3 % (32.4-45.2); HEMOGLOBIN 14.9 GM/dL (10.7-15.3); LYMPH % 12.4 % (8-40); MCH 31.9 pg (25.7-33.7); MEAN CELL VOLUME 86.4 fl (80-96); MEAN PLT VOLUME 11.5 fl (7.5-11.1); NEUT % 82.9 % (42.8-82.8); PLATELET COUNT 198 10^3/uL (134-434); RBC 4.66 M/mm3 (3.60-5.2); RDW 15.2 % (11.6-15.6); WHITE BLOOD COUNT 11.6 K/mm3 (4.0-10.0)
[2021-05-11 07:17] LABS: CREATININE 0.2 mg/dL (0.55-1.3); PHOSPHOROUS 1.3 mg/dL (2.5-4.9)
[2021-05-11 07:21] LABS: MAGNESIUM 1.8 mg/dL (1.8-2.4)
[2021-05-11 07:29] LABS: BLOOD UREA NITROGEN 2.2 mg/dL (7-18); TRIGLYCERIDES 2056 mg/dL (0-150)
[2021-05-11] MEDS ORDERED: PT OWN MED DRAWER 7, Y5N ONE ×2 (09:41→11:33)
[2021-05-11] MEDS: PANTOPRAZOLE SODIUM 40 MG VIAL IVPUSH SCH (09:42)
[2021-05-11] MEDS: ENOXAPARIN NA (PORCINE) 40 MG/0.4 ML DISP.SYRIN SQ SCH (09:42)
[2021-05-11] MEDS: MUPIROCIN 2% TOPICAL OINTMENT FOR DECOLONIZATION NS SCH ×2 (09:42→21:18)
[2021-05-11] MEDS ORDERED: DEXTROSE 5%-LACTATED RINGERS 980 ML with POTASSIUM CHLORIDE 40 MEQ IV SCH (10:08)
[2021-05-11 10:17] LABS: CHLORIDE 105 mmol/L (98-107); SODIUM 134 mmol/L (136-145)
[2021-05-11] MEDS ORDERED: ACETAMINOPHEN 1000 MG/100 ML BAG IVPB ONE (10:30)
[2021-05-11 10:37] LABS: ANION GAP 5 MMOL/L (8-16); CALCIUM 7.2 mg/dL (8.5-10.1); CO2 24 mmol/L (21-32); GLUCOSE,RANDOM 230 mg/dL (74-106)
[2021-05-11 10:41] LABS: CREATININE 0.2 mg/dL (0.55-1.3)
[2021-05-11 10:45] LABS: BLOOD UREA NITROGEN 2.2 mg/dL (7-18)
[2021-05-11] MEDS ORDERED: POTASSIUM CHLORIDE 40 MEQ in DEXTROSE 5%-LACTATED RINGERS 980 ML IV SCH (10:50)
[2021-05-11] MEDS ORDERED: POTASSIUM PHOSPHATE 30 MM in SODIUM CHLORIDE 250 ML IVPB ONE (11:30)
[2021-05-11 12:31] LABS: CHLORIDE 105 mmol/L (98-107); SODIUM 134 mmol/L (136-145)
[2021-05-11 12:32] LABS: ANION GAP 3 MMOL/L (8-16); CALCIUM 7.3 mg/dL (8.5-10.1); CO2 25 mmol/L (21-32); GLUCOSE,RANDOM 203 mg/dL (74-106)
[2021-05-11 12:34] LABS: CREATININE 0.2 mg/dL (0.55-1.3)
[2021-05-11 12:48] LABS: BLOOD UREA NITROGEN 1.9 mg/dL (7-18); TRIGLYCERIDES 1397 mg/dL (0-150)
[2021-05-11 13:29] LABS: ALBUMIN 2.1 g/dl (3.4-5.0)
[2021-05-11 13:32] LABS: SGOT/AST 36 U/L (15-37)
[2021-05-11 13:33] LABS: BILIRUBIN,TOTAL 0.5 mg/dL (0.2-1)
[2021-05-11 13:34] LABS: TOT PROT 5.3 g/dl (6.4-8.2)
[2021-05-11 13:35] LABS: ALK PHOS 74 U/L (45-117)
[2021-05-11 13:37] LABS: SGPT/ALT 22 U/L (13-61)
[2021-05-11] MEDS ORDERED: PNEUMOC 13-VAL CONJ-DIP CRM/PF 0.5 ML DISP.SYRIN IM ONE (14:17)
[2021-05-11] MEDS: POTASSIUM CHLORIDE 40 MEQ in DEXTROSE 5%-LACTATED RINGERS 980 ML IV SCH ×3 (15:37→21:28)
[2021-05-11 15:59] LABS: CHLORIDE 108 mmol/L (98-107); SODIUM 140 mmol/L (136-145)
[2021-05-11] MEDS ORDERED: FLU VACC QS2021-22(6MOS UP)/PF 60 MCG/0.5 ML SYRINGE IM ONE (16:00)
[2021-05-11 16:01] LABS: ANION GAP 5 MMOL/L (8-16); CALCIUM 7.5 mg/dL (8.5-10.1); CO2 26 mmol/L (21-32); GLUCOSE,RANDOM 192 mg/dL (74-106); MAGNESIUM 2.2 mg/dL (1.8-2.4)
[2021-05-11 16:04] LABS: CREATININE 0.3 mg/dL (0.55-1.3)
[2021-05-11 16:06] LABS: BILIRUBIN,TOTAL 0.6 mg/dL (0.2-1)
[2021-05-11 16:07] LABS: ALK PHOS 73 U/L (45-117)
[2021-05-11] MEDS: INSULIN REGULAR 100 UNITS in SODIUM CHLORIDE 99 ML IVPB SCH (16:31)
[2021-05-11 16:35] LABS: BLOOD UREA NITROGEN 1.8 mg/dL (7-18); SGOT/AST 35 U/L (15-37); TOT PROT 5.4 g/dl (6.4-8.2)
[2021-05-11 21:06] LABS: CHLORIDE 104 mmol/L (98-107); SODIUM 135 mmol/L (136-145)
[2021-05-11 21:09] LABS: ANION GAP 5 MMOL/L (8-16); CALCIUM 7.6 mg/dL (8.5-10.1); CO2 26 mmol/L (21-32); GLUCOSE,RANDOM 231 mg/dL (74-106); MAGNESIUM 1.9 mg/dL (1.8-2.4)
[2021-05-11 21:12] LABS: CREATININE 0.3 mg/dL (0.55-1.3); SGOT/AST 27 U/L (15-37)
[2021-05-11 21:14] LABS: BILIRUBIN,TOTAL 0.5 mg/dL (0.2-1); TOT PROT 5.2 g/dl (6.4-8.2)
[2021-05-11 21:15] LABS: ALK PHOS 69 U/L (45-117)
[2021-05-11] MEDS: CHLORHEXIDINE GLUCONATE 4% CLEANSER FOR DECOLONIZATION TP SCH (21:18)
[2021-05-11 21:43] LABS: BLOOD UREA NITROGEN 2.3 mg/dL (7-18); SGPT/ALT 18 U/L (13-61)
[2021-05-11] MEDS: KETOROLAC TROMETHAMINE 15 MG/ML VIAL IVPUSH PRN (22:23)
[2021-05-12 00:39] LABS: CHLORIDE 105 mmol/L (98-107); SODIUM 137 mmol/L (136-145)
[2021-05-12 00:41] LABS: ANION GAP 3 MMOL/L (8-16); CALCIUM 7.9 mg/dL (8.5-10.1); CO2 28 mmol/L (21-32)
[2021-05-12 00:42] LABS: GLUCOSE,RANDOM 253 mg/dL (74-106)
[2021-05-12 00:44] LABS: SGPT/ALT 17 U/L (13-61)
[2021-05-12 00:45] LABS: CREATININE 0.3 mg/dL (0.55-1.3); SGOT/AST 23 U/L (15-37)
[2021-05-12 00:46] LABS: BILIRUBIN,TOTAL 0.5 mg/dL (0.2-1); TOT PROT 5.3 g/dl (6.4-8.2)
[2021-05-12 00:47] LABS: ALK PHOS 69 U/L (45-117)
[2021-05-12 00:49] LABS: BLOOD UREA NITROGEN 1.7 mg/dL (7-18)
[2021-05-12] MEDS: POTASSIUM CHLORIDE 40 MEQ in DEXTROSE 5%-LACTATED RINGERS 980 ML IV SCH ×6 (01:45→17:58)
[2021-05-12 03:31] LABS: CHLORIDE 107 mmol/L (98-107); SODIUM 138 mmol/L (136-145)
[2021-05-12 03:33] LABS: CALCIUM 8.1 mg/dL (8.5-10.1)
[2021-05-12 03:34] LABS: ANION GAP 5 MMOL/L (8-16); CO2 26 mmol/L (21-32); GLUCOSE,RANDOM 232 mg/dL (74-106); MAGNESIUM 2.1 mg/dL (1.8-2.4)
[2021-05-12 03:37] LABS: CREATININE 0.3 mg/dL (0.55-1.3); SGOT/AST 20 U/L (15-37); SGPT/ALT 16 U/L (13-61)
[2021-05-12 03:39] LABS: BILIRUBIN,TOTAL 0.4 mg/dL (0.2-1); TOT PROT 5.2 g/dl (6.4-8.2)
[2021-05-12 03:40] LABS: ALK PHOS 72 U/L (45-117)
[2021-05-12 03:49] LABS: BLOOD UREA NITROGEN 1.1 mg/dL (7-18)
[2021-05-12 06:50] LABS: BASO % 0.3 % (0-2.0); EOS % 1.2 % (0-4.5); HEMATOCRIT 38.4 % (32.4-45.2); HEMOGLOBIN 13.6 GM/dL (10.7-15.3); LYMPH % 11.4 % (8-40); MCH 30.1 pg (25.7-33.7); MCHC 35.5 g/dl (32.0-36.0); MEAN CELL VOLUME 84.9 fl (80-96); MONO % 2.8 % (3.8-10.2); NEUT % 84.3 % (42.8-82.8); PLATELET COUNT 147 10^3/uL (134-434); RBC 4.52 M/mm3 (3.60-5.2); WHITE BLOOD COUNT 8.4 K/mm3 (4.0-10.0)
[2021-05-12 07:12] LABS: CHLORIDE 106 mmol/L (98-107); SODIUM 137 mmol/L (136-145)
[2021-05-12 07:15] LABS: CALCIUM 8.3 mg/dL (8.5-10.1)
[2021-05-12 07:16] LABS: ANION GAP 5 MMOL/L (8-16); CO2 26 mmol/L (21-32); GLUCOSE,RANDOM 216 mg/dL (74-106); MAGNESIUM 2.1 mg/dL (1.8-2.4)
[2021-05-12 07:19] LABS: CREATININE 0.3 mg/dL (0.55-1.3); PHOSPHOROUS 2.1 mg/dL (2.5-4.9); SGOT/AST 16 U/L (15-37); SGPT/ALT 15 U/L (13-61); TRIGLYCERIDES 842 mg/dL (0-150)
[2021-05-12 07:20] LABS: BILIRUBIN,TOTAL 0.4 mg/dL (0.2-1); TOT PROT 5.4 g/dl (6.4-8.2)
[2021-05-12 07:21] LABS: ALK PHOS 72 U/L (45-117)
[2021-05-12 07:26] LABS: BLOOD UREA NITROGEN 1.7 mg/dL (7-18)
[2021-05-12] MEDS ORDERED: SODIUM PHOSPHATE - 30 MM in SODIUM CHLORIDE 250 ML IVPB ONE (09:00)
[2021-05-12] MEDS ORDERED: PT OWN MED DRAWER 7, Y5N ONE (09:15)
[2021-05-12] MEDS: PANTOPRAZOLE SODIUM 40 MG VIAL IVPUSH SCH (09:24)
[2021-05-12] MEDS: MUPIROCIN 2% TOPICAL OINTMENT FOR DECOLONIZATION NS SCH ×2 (09:25→21:46)
[2021-05-12] MEDS: ENOXAPARIN NA (PORCINE) 40 MG/0.4 ML DISP.SYRIN SQ SCH (09:25)
[2021-05-12] MEDS ORDERED: POTASSIUM CHLORIDE 40 MEQ in DEXTROSE 5%-LACTATED RINGERS 980 ML IV SCH (10:00)
[2021-05-12] MEDS ORDERED: PNEUMOCOCCAL 23 VACCINE 0.5 ML VIAL IM ONE (10:00)
[2021-05-12] MEDS ORDERED: ROSUVASTATIN CA 20 MG TABLET PO ONE (10:23)
[2021-05-12 10:51] LABS: CHLORIDE 105 mmol/L (98-107); SODIUM 137 mmol/L (136-145)
[2021-05-12 10:53] LABS: CALCIUM 8.4 mg/dL (8.5-10.1)
[2021-05-12 10:54] LABS: ALBUMIN 2.1 g/dl (3.4-5.0); ANION GAP 6 MMOL/L (8-16); CO2 26 mmol/L (21-32); GLUCOSE,RANDOM 210 mg/dL (74-106)
[2021-05-12 10:57] LABS: CREATININE 0.3 mg/dL (0.55-1.3); SGOT/AST 14 U/L (15-37); SGPT/ALT 14 U/L (13-61)
[2021-05-12 10:59] LABS: TOT PROT 5.5 g/dl (6.4-8.2)
[2021-05-12 11:00] LABS: ALK PHOS 77 U/L (45-117); BILIRUBIN,TOTAL 0.4 mg/dL (0.2-1)
[2021-05-12 11:08] LABS: BLOOD UREA NITROGEN 1.8 mg/dL (7-18)
[2021-05-12] MEDS: GEMFIBROZIL 600 MG TABLET (FP) PO SCH ×2 (11:32→17:58)
[2021-05-12 12:58] LABS: CHLORIDE 104 mmol/L (98-107); SODIUM 136 mmol/L (136-145)
[2021-05-12 13:01] LABS: CALCIUM 8.4 mg/dL (8.5-10.1)
[2021-05-12 13:02] LABS: ANION GAP 6 MMOL/L (8-16); CO2 26 mmol/L (21-32); GLUCOSE,RANDOM 188 mg/dL (74-106)
[2021-05-12 13:05] LABS: CREATININE 0.3 mg/dL (0.55-1.3); SGOT/AST 17 U/L (15-37); SGPT/ALT 15 U/L (13-61)
[2021-05-12 13:06] LABS: BILIRUBIN,TOTAL 0.4 mg/dL (0.2-1); TOT PROT 5.4 g/dl (6.4-8.2)
[2021-05-12 13:07] LABS: ALK PHOS 74 U/L (45-117)
[2021-05-12 13:19] LABS: BLOOD UREA NITROGEN 1.9 mg/dL (7-18)
[2021-05-12] MEDS: INSULIN REGULAR 100 UNITS in SODIUM CHLORIDE 99 ML IVPB SCH (17:59)
[2021-05-12 19:05] LABS: CHLORIDE 106 mmol/L (98-107); SODIUM 138 mmol/L (136-145)
[2021-05-12 19:07] LABS: CALCIUM 8.6 mg/dL (8.5-10.1)
[2021-05-12 19:08] LABS: ALBUMIN 2.2 g/dl (3.4-5.0); ANION GAP 7 MMOL/L (8-16); CO2 25 mmol/L (21-32); GLUCOSE,RANDOM 183 mg/dL (74-106)
[2021-05-12 19:11] LABS: CREATININE 0.3 mg/dL (0.55-1.3); SGOT/AST 17 U/L (15-37); SGPT/ALT 14 U/L (13-61); TRIGLYCERIDES 668 mg/dL (0-150)
[2021-05-12 19:12] LABS: BILIRUBIN,TOTAL 0.4 mg/dL (0.2-1)
[2021-05-12 19:13] LABS: TOT PROT 5.9 g/dl (6.4-8.2)
[2021-05-12 19:14] LABS: ALK PHOS 75 U/L (45-117)
[2021-05-12 19:27] LABS: BLOOD UREA NITROGEN 2.9 mg/dL (7-18)
[2021-05-12 21:15] LABS: CALCIUM 7.9 mg/dL (8.5-10.1)
[2021-05-12 21:16] LABS: BLOOD UREA NITROGEN 3.3 mg/dL (7-18)
[2021-05-12 21:19] LABS: CREATININE 0.4 mg/dL (0.55-1.3)
[2021-05-12 21:20] LABS: BILIRUBIN,TOTAL 0.4 mg/dL (0.2-1)
[2021-05-12 21:22] LABS: TOT PROT 5.3 g/dl (6.4-8.2)
[2021-05-12] MEDS: CHLORHEXIDINE GLUCONATE 4% CLEANSER FOR DECOLONIZATION TP SCH (21:46)
[2021-05-13] MEDS: POTASSIUM CHLORIDE 40 MEQ in DEXTROSE 5%-LACTATED RINGERS 980 ML IV SCH ×2 (00:30→09:08)
[2021-05-13] MEDS: INSULIN REGULAR 100 UNITS in SODIUM CHLORIDE 99 ML IVPB SCH (03:00)
[2021-05-13] MEDS: GEMFIBROZIL 600 MG TABLET (FP) PO SCH ×2 (06:25→17:13)
[2021-05-13 06:41] LABS: CALCIUM 8.2 mg/dL (8.5-10.1)
[2021-05-13 06:42] LABS: ALBUMIN 2.1 g/dl (3.4-5.0); BLOOD UREA NITROGEN 3.6 mg/dL (7-18); MAGNESIUM 1.9 mg/dL (1.8-2.4)
[2021-05-13 06:45] LABS: CREATININE 0.3 mg/dL (0.55-1.3); PHOSPHOROUS 4.2 mg/dL (2.5-4.9)
[2021-05-13 06:46] LABS: BILIRUBIN,TOTAL 0.3 mg/dL (0.2-1)
[2021-05-13 06:47] LABS: TOT PROT 5.6 g/dl (6.4-8.2)
[2021-05-13] MEDS: KETOROLAC TROMETHAMINE 15 MG/ML VIAL IVPUSH PRN (07:40)
[2021-05-13] MEDS: SODIUM CHLORIDE 1,000 ML IV SCH ×2 (08:52→23:51)
[2021-05-13] MEDS: MUPIROCIN 2% TOPICAL OINTMENT FOR DECOLONIZATION NS SCH ×2 (09:01→21:44)
[2021-05-13] MEDS: PANTOPRAZOLE SODIUM 40 MG VIAL IVPUSH SCH (09:02)
[2021-05-13] MEDS: ENOXAPARIN NA (PORCINE) 40 MG/0.4 ML DISP.SYRIN SQ SCH (09:02)
[2021-05-13] MEDS: INSULIN (LEVEMIR) 100 UNITS/ML UNITS SQ SCH ×2 (11:22→21:45)
[2021-05-13] MEDS: INSULIN SLIDING SCALE (NOVOLOG) 1 VIAL SQ SCH ×3 (11:22→21:45)
[2021-05-13] MEDS ORDERED: PT OWN MED DRAWER 7, Y5N ONE ×2 (17:44→18:09)
[2021-05-13] MEDS: LIPASE/PROTEASE/AMYLASE 36,000 UNIT CAPSULE PO SCH (17:56)
[2021-05-13] MEDS: CHLORHEXIDINE GLUCONATE 4% CLEANSER FOR DECOLONIZATION TP SCH (21:45)
[2021-05-14] MEDS: INSULIN SLIDING SCALE (NOVOLOG) 1 VIAL SQ SCH ×4 (06:08→21:45)
[2021-05-14] MEDS: GEMFIBROZIL 600 MG TABLET (FP) PO SCH ×2 (06:11→16:54)
[2021-05-14 06:46] LABS: HEMATOCRIT 38.7 % (32.4-45.2); HEMOGLOBIN 13.3 GM/dL (10.7-15.3); MCHC 34.4 g/dl (32.0-36.0); MEAN CELL VOLUME 87.1 fl (80-96); MEAN PLT VOLUME 9.6 fl (7.5-11.1); PLATELET COUNT 190 10^3/uL (134-434); RBC 4.44 M/mm3 (3.60-5.2); WHITE BLOOD COUNT 4.2 K/mm3 (4.0-10.0)
[2021-05-14 07:16] LABS: ALBUMIN 2.2 g/dl (3.4-5.0); BLOOD UREA NITROGEN 9.3 mg/dL (7-18); CALCIUM 8.2 mg/dL (8.5-10.1); MAGNESIUM 1.9 mg/dL (1.8-2.4)
[2021-05-14 07:19] LABS: CREATININE 0.3 mg/dL (0.55-1.3); PHOSPHOROUS 4.1 mg/dL (2.5-4.9)
[2021-05-14 07:21] LABS: BILIRUBIN,TOTAL 0.3 mg/dL (0.2-1); TOT PROT 5.9 g/dl (6.4-8.2)
[2021-05-14] MEDS ORDERED: PT OWN MED DRAWER 7, Y5N ONE (08:46)
[2021-05-14] MEDS: LIPASE/PROTEASE/AMYLASE 36,000 UNIT CAPSULE PO SCH ×3 (08:47→16:54)
[2021-05-14] MEDS: MUPIROCIN 2% TOPICAL OINTMENT FOR DECOLONIZATION NS SCH ×2 (09:18→21:45)
[2021-05-14] MEDS: ENOXAPARIN NA (PORCINE) 40 MG/0.4 ML DISP.SYRIN SQ SCH (09:18)
[2021-05-14] MEDS: PANTOPRAZOLE SODIUM 40 MG VIAL IVPUSH SCH (09:18)
[2021-05-14] MEDS: INSULIN (LEVEMIR) 100 UNITS/ML UNITS SQ SCH ×2 (09:19→21:45)
[2021-05-14] MEDS: CHLORHEXIDINE GLUCONATE 4% CLEANSER FOR DECOLONIZATION TP SCH (21:45)
[2021-05-15] MEDS: GEMFIBROZIL 600 MG TABLET (FP) PO SCH ×2 (06:16→17:43)
[2021-05-15] MEDS: INSULIN SLIDING SCALE (NOVOLOG) 1 VIAL SQ SCH ×4 (06:16→21:34)
[2021-05-15] MEDS ORDERED: PT OWN MED DRAWER 7, Y5N ONE (07:55)
[2021-05-15] MEDS: LIPASE/PROTEASE/AMYLASE 36,000 UNIT CAPSULE PO SCH ×3 (07:58→17:43)
[2021-05-15] MEDS: INSULIN (LEVEMIR) 100 UNITS/ML UNITS SQ SCH ×2 (09:00→21:35)
[2021-05-15] MEDS: ENOXAPARIN NA (PORCINE) 40 MG/0.4 ML DISP.SYRIN SQ SCH (09:00)
[2021-05-15] MEDS: MUPIROCIN 2% TOPICAL OINTMENT FOR DECOLONIZATION NS SCH (09:01)
[2021-05-15] MEDS: PANTOPRAZOLE SODIUM 40 MG VIAL IVPUSH SCH (09:01)
[2021-05-15] MEDS ORDERED: morphine SULFATE 4 MG/ML VIAL IVPUSH PRN (10:02)
[2021-05-15] MEDS ORDERED: KETOROLAC TROMETHAMINE 15 MG/ML VIAL IVPUSH PRN (10:02)
[2021-05-15] MEDS ORDERED: ACETAMINOPHEN 325 MG TABLET (FP) PO PRN (19:22)
[2021-05-15] MEDS ORDERED: ROSUVASTATIN CA 20 MG TABLET PO SCH (22:00)
[2021-05-16] MEDS: GEMFIBROZIL 600 MG TABLET (FP) PO SCH (06:47)
[2021-05-16] MEDS: INSULIN (LEVEMIR) 100 UNITS/ML UNITS SQ SCH (06:48)
[2021-05-16] MEDS: INSULIN SLIDING SCALE (NOVOLOG) 1 VIAL SQ SCH ×2 (06:48→10:36)
[2021-05-16 07:17] VITALS: BP 103/51; PULSE 71; TEMP 98.5
[2021-05-16] MEDS: LIPASE/PROTEASE/AMYLASE 36,000 UNIT CAPSULE PO SCH ×2 (08:30→11:57)
[2021-05-16] MEDS ORDERED: INSULIN (NOVOLOG) ASPART 100 UNITS/ML 10ML VIAL ONE (08:44)
[2021-05-16 09:22] LABS: HEMATOCRIT 44.1 % (32.4-45.2); HEMOGLOBIN 15.4 GM/dL (10.7-15.3); MCH 30.1 pg (25.7-33.7); PLATELET COUNT 291 10^3/uL (134-434); RBC 5.13 M/mm3 (3.60-5.2); RDW 14.3 % (11.6-15.6); WHITE BLOOD COUNT 5.2 K/mm3 (4.0-10.0)
[2021-05-16] MEDS ORDERED: ENOXAPARIN NA (PORCINE) 40 MG/0.4 ML DISP.SYRIN SQ SCH (10:00)
[2021-05-16] MEDS ORDERED: PANTOPRAZOLE SODIUM 40 MG VIAL IVPUSH SCH (10:00)
[2021-05-16] MEDS ORDERED: PANTOPRAZOLE 40 MG TABLET PO SCH (10:00)
[2021-05-16 13:13] VITALS: BMI 23.0
== END 2021-05-16 17:24 | disposition home or self-care (01) | DRG 282 ==
LOC: JER 06:34 → JERBED 11:42 → JICU 13:51 → J7W 05-15 09:23
PROVIDERS: ADMIT Internal Medicine
DX: K85.90 Acute pancreatitis without necrosis or infection, unspecified (principal); E10.10 Type 1 diabetes mellitus with ketoacidosis without coma; E78.1 Pure hyperglyceridemia; E78.00 Pure hypercholesterolemia, unspecified; E87.6 Hypokalemia; E87.1 Hypo-osmolality and hyponatremia; E87.2 Acidosis; K76.0 Fatty (change of) liver, not elsewhere classified; Z59.89 Other problems related to housing and economic circumstances
CPT/HCPCS: 36415; 74177-TC; 76775-TC; 76856-TC; 80048; 80053; 81003; 82010; 82803; 82962; 83036; 83690; 83735; 84100; 84478; 84703; 85025; 85027; 87040; 87077; 87086; 90686; 90732; 93005; 93010; 99285-25; C9803; G0008; G0009; J0131; Q9967; U0003; U0005

== ENCOUNTER 2021-09-21 15:39 | Inpatient (IN) | payer OTHER ==
[2021-09-21] MEDS ORDERED: SODIUM CHLORIDE 1,000 ML IV STA (16:54)
[2021-09-21] MEDS ORDERED: morphine CARPU-JECT 4 MG/1 ML DISP.SYRIN IVPUSH ONE (16:54)
[2021-09-21] MEDS ORDERED: ONDANSETRON 4 MG/2 ML VIAL IVPUSH ONE (16:54)
[2021-09-21] MEDS ORDERED: PANTOPRAZOLE SODIUM 40 MG VIAL IVPB ONE (16:54)
[2021-09-21] MEDS ORDERED: ONDANSETRON 4 MG/2 ML VIAL ONE (17:18)
[2021-09-21] MEDS ORDERED: morphine SULFATE 4 MG/ML VIAL ONE (17:18)
[2021-09-21] MEDS ORDERED: PANTOPRAZOLE SODIUM 40 MG/100 ML BAG IVPB ONE (17:18)
[2021-09-21 18:33] LABS: CHLORIDE 98 mmol/L (98-107); SODIUM 129 mmol/L (136-145)
[2021-09-21 18:34] LABS: ANION GAP 12 MMOL/L (8-16); CO2 19 mmol/L (21-32); LIPASE 476 U/L (73-393); MAGNESIUM 1.8 mg/dL (1.8-2.4)
[2021-09-21 18:36] LABS: BASO % 1.2 % (0-2.0); EOS % 0.2 % (0-4.5); GLUCOSE,RANDOM 343 mg/dL (74-106); LYMPH % 3.9 % (8-40); MCHC 36.4 g/dl (32.0-36.0); MEAN CELL VOLUME 87.9 fl (80-96); MEAN PLT VOLUME 11.1 fl (7.5-11.1); MONO % 4.6 % (3.8-10.2); NEUT % 90.1 % (42.8-82.8); PLATELET COUNT 205 10^3/uL (134-434); RBC 5.01 M/mm3 (3.60-5.2); RDW 14.7 % (11.6-15.6); WHITE BLOOD COUNT 11.6 K/mm3 (4.0-10.0)
[2021-09-21 18:37] LABS: CREATININE 0.4 mg/dL (0.55-1.3)
[2021-09-21 18:38] LABS: PHOSPHOROUS 2.8 mg/dL (2.5-4.9)
[2021-09-21 18:40] LABS: BILIRUBIN,TOTAL 1.2 mg/dL (0.2-1); LDL CHOLESTEROL (ONLY SJRH) 161 mg/dL (5-100)
[2021-09-21 18:41] LABS: ALK PHOS 111 U/L (45-117)
[2021-09-21] MEDS ORDERED: SODIUM CHLORIDE 0.9% 500 ML INFUS.BAG IV ONE (19:10)
[2021-09-21] MEDS ORDERED: INSULIN REGULAR HUMAN 100 UNITS/ML *VIAL IVPUSH ONE (19:10)
[2021-09-21 19:33] LABS: URINE APPEARANCE CLEAR; URINE BILIRUBIN NEGATIVE (NEGATIVE); URINE COLOR YELLOW; URINE GLUCOSE (UA) >=1000 (NEGATIVE)
[2021-09-21 19:34] LABS: URINE KETONE >=160 (NEGATIVE); URINE LEUK ESTERASE NEGATIVE (NEGATIVE); URINE NITRITE NEGATIVE (NEGATIVE); URINE PROTEIN 30 (NEGATIVE); URINE UROBILINOGEN 0.2 mg/dL (0.2-1.0)
[2021-09-21 19:46] LABS: BLOOD UREA NITROGEN 11.7 mg/dL (7-18); CALCIUM 6.6 mg/dL (8.5-10.1); CHOLESTEROL 479 mg/dL (50-200); HDL CHOLESTEROL 41 mg/dL (40-60); SGOT/AST 70 U/L (15-37); SGPT/ALT 65 U/L (13-61); TOT PROT 6.8 g/dl (6.4-8.2); TRIGLYCERIDES > 4000 mg/dL (0-150)
[2021-09-21] MEDS ORDERED: CALCIUM GLUC IN NACL, ISO-OSM 1 GM/50 ML BAG IVPB ONE (20:01)
[2021-09-21] MEDS ORDERED: DEXTROSE 50%-WATER - 25 GM/50 ML VIAL IVPUSH PRN (20:02)
[2021-09-21] MEDS ORDERED: POTASSIUM CHLORIDE 20 MEQ PREMIX IVPB 100 ML IVPB ONE (20:11)
[2021-09-21] MEDS ORDERED: MAGNESIUM SULFATE IN WATER 2 GM/50 ML IVPB IVPB ONE (20:27)
[2021-09-21] MEDS ORDERED: CALCIUM GLUCONATE 10% - 1,000 MG/10 ML VIAL ONE (20:27)
[2021-09-21] MEDS ORDERED: DEXTROSE 5%-NORMAL SALINE 1,000 ML IV SCH ×2 (21:00→22:40)
[2021-09-21] MEDS: INSULIN REGULAR 100 UNITS in SODIUM CHLORIDE 99 ML IVPB SCH (21:40)
[2021-09-21 22:10] LABS: SODIUM 133 mmol/L (136-145)
[2021-09-21 22:11] LABS: CO2 22 mmol/L (21-32); GLUCOSE,RANDOM 276 mg/dL (74-106)
[2021-09-21 22:15] LABS: CREATININE 0.4 mg/dL (0.55-1.3)
[2021-09-21 22:27] LABS: ANION GAP 9 MMOL/L (8-16); CALCIUM 6.4 mg/dL (8.5-10.1); CHLORIDE 101 mmol/L (98-107)
[2021-09-21 23:12] LABS: CHLORIDE 104 mmol/L (98-107); SODIUM 132 mmol/L (136-145)
[2021-09-21 23:14] LABS: ANION GAP 9 MMOL/L (8-16); CO2 19 mmol/L (21-32); GLUCOSE,RANDOM 259 mg/dL (74-106)
[2021-09-21 23:18] LABS: CREATININE 0.2 mg/dL (0.55-1.3)
[2021-09-21] MEDS ORDERED: DEXTROSE 5%-LACTATED RINGERS 1,000 ML IV SCH (23:30)
[2021-09-22 00:01] LABS: BLOOD UREA NITROGEN 6.4 mg/dL (7-18); CALCIUM 6.3 mg/dL (8.5-10.1)
[2021-09-22 00:27] LABS: TRIGLYCERIDES 3137 mg/dL (0-150)
[2021-09-22 07:07] LABS: BASO % 0.2 % (0-2.0); EOS % 0.2 % (0-4.5); HEMATOCRIT 41.4 % (32.4-45.2); LYMPH % 10.2 % (8-40); MCHC 36.2 g/dl (32.0-36.0); MEAN CELL VOLUME 85.7 fl (80-96); MEAN PLT VOLUME 10.7 fl (7.5-11.1); MONO % 3.3 % (3.8-10.2); NEUT % 86.1 % (42.8-82.8); PLATELET COUNT 149 10^3/uL (134-434); RBC 4.83 M/mm3 (3.60-5.2); RDW 13.7 % (11.6-15.6); WHITE BLOOD COUNT 9.1 K/mm3 (4.0-10.0)
[2021-09-22 07:31] LABS: PHOSPHOROUS 1.8 mg/dL (2.5-4.9)
[2021-09-22] MEDS ORDERED: POTASSIUM PHOSPHATE 30 MM in SODIUM CHLORIDE 250 ML IVPB ONE (09:00)
[2021-09-22] MEDS: MUPIROCIN 2% TOPICAL OINTMENT FOR DECOLONIZATION NS SCH ×2 (10:01→21:28)
[2021-09-22] MEDS: ENOXAPARIN NA (PORCINE) 40 MG/0.4 ML DISP.SYRIN SQ SCH (10:02)
[2021-09-22 13:29] LABS: BASO % 0.3 % (0-2.0); EOS % 0.5 % (0-4.5); HEMATOCRIT 38.5 % (32.4-45.2); HEMOGLOBIN 13.7 GM/dL (10.7-15.3); LYMPH % 12.5 % (8-40); MCH 30.3 pg (25.7-33.7); MCHC 35.6 g/dl (32.0-36.0); MEAN CELL VOLUME 85.4 fl (80-96); MONO % 3.9 % (3.8-10.2); NEUT % 82.8 % (42.8-82.8); PLATELET COUNT 138 10^3/uL (134-434); RBC 4.51 M/mm3 (3.60-5.2); RDW 13.9 % (11.6-15.6); WHITE BLOOD COUNT 8.5 K/mm3 (4.0-10.0)
[2021-09-22 13:43] LABS: MAGNESIUM 2.1 mg/dL (1.8-2.4)
[2021-09-22 13:46] LABS: PHOSPHOROUS 3.4 mg/dL (2.5-4.9)
[2021-09-22 13:50] LABS: BLOOD UREA NITROGEN 3.8 mg/dL (7-18)
[2021-09-22 13:52] LABS: CREATININE 0.3 mg/dL (0.55-1.3)
[2021-09-22 13:54] LABS: BILIRUBIN,TOTAL 0.4 mg/dL (0.2-1); TOT PROT 5.1 g/dl (6.4-8.2)
[2021-09-22 14:02] LABS: ALBUMIN 2.3 g/dl (3.4-5.0); CALCIUM 7.6 mg/dL (8.5-10.1)
[2021-09-22] MEDS ORDERED: POTASSIUM PHOSPHATE 30 MM in DEXTROSE 5%-WATER - 250 ML IVPB ONE (16:00)
[2021-09-22] MEDS: INSULIN REGULAR 100 UNITS in SODIUM CHLORIDE 99 ML IVPB SCH (21:27)
[2021-09-22] MEDS: CHLORHEXIDINE GLUCONATE 4% CLEANSER FOR DECOLONIZATION TP SCH (21:28)
[2021-09-22 21:55] LABS: CHLORIDE 105 mmol/L (98-107); SODIUM 139 mmol/L (136-145)
[2021-09-22 21:57] LABS: ALBUMIN 2.3 g/dl (3.4-5.0)
[2021-09-22 21:58] LABS: ANION GAP 7 MMOL/L (8-16); CO2 26 mmol/L (21-32); GLUCOSE,RANDOM 120 mg/dL (74-106)
[2021-09-22 22:00] LABS: SGPT/ALT 17 U/L (13-61)
[2021-09-22 22:01] LABS: CREATININE 0.2 mg/dL (0.55-1.3); SGOT/AST 13 U/L (15-37)
[2021-09-22 22:02] LABS: BILIRUBIN,TOTAL 0.3 mg/dL (0.2-1); TOT PROT 5.3 g/dl (6.4-8.2)
[2021-09-22 22:03] LABS: ALK PHOS 63 U/L (45-117)
[2021-09-22 22:05] LABS: BLOOD UREA NITROGEN 2.6 mg/dL (7-18)
[2021-09-22] MEDS ORDERED: SODIUM CHLORIDE 0.45% 1,000 ML IV SCH (22:30)
[2021-09-22] MEDS: KCL 10 MEQ IVPB 10 MEQ/100 ML INFUS.BAG IVPB SCH (23:30)
[2021-09-23] MEDS: KCL 10 MEQ IVPB 10 MEQ/100 ML INFUS.BAG IVPB SCH ×2 (00:45→03:31)
[2021-09-23] MEDS: INSULIN SLIDING SCALE (NOVOLOG) 1 VIAL SQ SCH ×5 (06:31→22:26)
[2021-09-23] MEDS: GEMFIBROZIL 600 MG TABLET (FP) PO SCH ×2 (06:31→17:09)
[2021-09-23 06:38] LABS: BASO % 0.3 % (0-2.0); EOS % 0.8 % (0-4.5); HEMATOCRIT 39.5 % (32.4-45.2); HEMOGLOBIN 13.6 GM/dL (10.7-15.3); LYMPH % 10.1 % (8-40); MCH 30.1 pg (25.7-33.7); MCHC 34.5 g/dl (32.0-36.0); MEAN CELL VOLUME 87.3 fl (80-96); MEAN PLT VOLUME 10.7 fl (7.5-11.1); MONO % 4.2 % (3.8-10.2); NEUT % 84.6 % (42.8-82.8); PLATELET COUNT 154 10^3/uL (134-434); RBC 4.52 M/mm3 (3.60-5.2); RDW 13.9 % (11.6-15.6); WHITE BLOOD COUNT 10.4 K/mm3 (4.0-10.0)
[2021-09-23 06:57] LABS: BLOOD UREA NITROGEN 4.7 mg/dL (7-18); CALCIUM 7.8 mg/dL (8.5-10.1); MAGNESIUM 1.9 mg/dL (1.8-2.4)
[2021-09-23 06:58] LABS: ALBUMIN 2.3 g/dl (3.4-5.0)
[2021-09-23 06:59] LABS: PHOSPHOROUS 2.8 mg/dL (2.5-4.9)
[2021-09-23 07:01] LABS: BILIRUBIN,TOTAL 0.5 mg/dL (0.2-1); TOT PROT 5.4 g/dl (6.4-8.2)
[2021-09-23 07:02] LABS: CREATININE 0.2 mg/dL (0.55-1.3)
[2021-09-23] MEDS: ENOXAPARIN NA (PORCINE) 40 MG/0.4 ML DISP.SYRIN SQ SCH (10:20)
[2021-09-23] MEDS: MUPIROCIN 2% TOPICAL OINTMENT FOR DECOLONIZATION NS SCH ×2 (10:20→21:09)
[2021-09-23 13:39] VITALS: BMI 25.7
[2021-09-23 19:11] LABS: SARS-CoV-2 NAA Not Detected (Not Detected)
[2021-09-23] MEDS: ROSUVASTATIN CA 10 MG TABLET PO SCH (21:09)
[2021-09-23] MEDS: CHLORHEXIDINE GLUCONATE 4% CLEANSER FOR DECOLONIZATION TP SCH (21:09)
[2021-09-23] MEDS ORDERED: LACTATED RINGERS SOLUTION 1,000 ML/1,000 ML INFUS.BAG IV SCH ×2 (21:15→21:36)
[2021-09-24] MEDS: INSULIN SLIDING SCALE (NOVOLOG) 1 VIAL SQ SCH ×4 (06:33→22:22)
[2021-09-24] MEDS: GEMFIBROZIL 600 MG TABLET (FP) PO SCH ×2 (06:34→17:03)
[2021-09-24 08:30] LABS: HEMATOCRIT 39.4 % (32.4-45.2); HEMOGLOBIN 13.2 GM/dL (10.7-15.3); MCH 29.8 pg (25.7-33.7); MCHC 33.5 g/dl (32.0-36.0); PLATELET COUNT 167 10^3/uL (134-434); RBC 4.43 M/mm3 (3.60-5.2); RDW 14.4 % (11.6-15.6); WHITE BLOOD COUNT 5.6 K/mm3 (4.0-10.0)
[2021-09-24 08:49] LABS: ALBUMIN 2.2 g/dl (3.4-5.0); MAGNESIUM 2.1 mg/dL (1.8-2.4)
[2021-09-24 08:51] LABS: PHOSPHOROUS 3.1 mg/dL (2.5-4.9)
[2021-09-24 08:52] LABS: CREATININE 0.3 mg/dL (0.55-1.3)
[2021-09-24 08:53] LABS: BILIRUBIN,TOTAL 0.4 mg/dL (0.2-1); TOT PROT 5.5 g/dl (6.4-8.2)
[2021-09-24] MEDS: ENOXAPARIN NA (PORCINE) 40 MG/0.4 ML DISP.SYRIN SQ SCH (09:20)
[2021-09-24] MEDS: LACTATED RINGERS SOLUTION 1,000 ML/1,000 ML INFUS.BAG IV SCH ×2 (09:42→14:15)
[2021-09-24 10:44] LABS: ANISOCYTOSIS 0; MACROCYTOSIS 0
[2021-09-24] MEDS: ROSUVASTATIN CA 10 MG TABLET PO SCH (22:18)
[2021-09-25] MEDS: LACTATED RINGERS SOLUTION 1,000 ML/1,000 ML INFUS.BAG IV SCH ×4 (00:42→14:26)
[2021-09-25] MEDS: GEMFIBROZIL 600 MG TABLET (FP) PO SCH ×2 (06:43→16:54)
[2021-09-25] MEDS: INSULIN SLIDING SCALE (NOVOLOG) 1 VIAL SQ SCH ×4 (06:45→22:31)
[2021-09-25 09:16] LABS: BASO % 0.7 % (0-2.0); EOS % 3.6 % (0-4.5); HEMOGLOBIN 12.7 GM/dL (10.7-15.3); LYMPH % 28.9 % (8-40); MCH 30.6 pg (25.7-33.7); MCHC 35.3 g/dl (32.0-36.0); MEAN CELL VOLUME 86.8 fl (80-96); MEAN PLT VOLUME 10.1 fl (7.5-11.1); MONO % 7.1 % (3.8-10.2); NEUT % 59.7 % (42.8-82.8); PLATELET COUNT 184 10^3/uL (134-434); RBC 4.15 M/mm3 (3.60-5.2); RDW 13.6 % (11.6-15.6); WHITE BLOOD COUNT 2.9 K/mm3 (4.0-10.0)
[2021-09-25 09:23] LABS: BLOOD UREA NITROGEN 5.8 mg/dL (7-18); CALCIUM 8.5 mg/dL (8.5-10.1)
[2021-09-25 09:24] LABS: ALBUMIN 2.4 g/dl (3.4-5.0)
[2021-09-25 09:26] LABS: CREATININE 0.3 mg/dL (0.55-1.3); PHOSPHOROUS 3.7 mg/dL (2.5-4.9)
[2021-09-25 09:28] LABS: BILIRUBIN,TOTAL 0.4 mg/dL (0.2-1); TOT PROT 5.6 g/dl (6.4-8.2)
[2021-09-25] MEDS: ENOXAPARIN NA (PORCINE) 40 MG/0.4 ML DISP.SYRIN SQ SCH (10:21)
[2021-09-25] MEDS ORDERED: INSULIN (NOVOLOG) ASPART 100 UNITS/ML 10ML VIAL ONE (21:13)
[2021-09-25] MEDS: ROSUVASTATIN CA 10 MG TABLET PO SCH (22:31)
[2021-09-26] MEDS: INSULIN SLIDING SCALE (NOVOLOG) 1 VIAL SQ SCH ×3 (06:09→16:27)
[2021-09-26] MEDS: GEMFIBROZIL 600 MG TABLET (FP) PO SCH ×2 (06:41→17:44)
[2021-09-26 08:42] LABS: HEMATOCRIT 38.6 % (32.4-45.2); HEMOGLOBIN 13.4 GM/dL (10.7-15.3); MCH 29.7 pg (25.7-33.7); MCHC 34.6 g/dl (32.0-36.0); MEAN CELL VOLUME 85.7 fl (80-96); MEAN PLT VOLUME 10.1 fl (7.5-11.1); PLATELET COUNT 208 10^3/uL (134-434); RBC 4.51 M/mm3 (3.60-5.2); RDW 13.3 % (11.6-15.6); WHITE BLOOD COUNT 2.6 K/mm3 (4.0-10.0)
[2021-09-26 09:07] LABS: CALCIUM 8.5 mg/dL (8.5-10.1)
[2021-09-26 09:08] LABS: ALBUMIN 2.4 g/dl (3.4-5.0)
[2021-09-26 09:11] LABS: CREATININE 0.4 mg/dL (0.55-1.3)
[2021-09-26 09:12] LABS: BILIRUBIN,TOTAL 0.6 mg/dL (0.2-1); TOT PROT 5.9 g/dl (6.4-8.2)
[2021-09-26] MEDS: LACTATED RINGERS SOLUTION 1,000 ML/1,000 ML INFUS.BAG IV SCH (09:54)
[2021-09-26] MEDS: ENOXAPARIN NA (PORCINE) 40 MG/0.4 ML DISP.SYRIN SQ SCH (09:55)
[2021-09-26] MEDS ORDERED: ALBUTEROL SO4 HFA INHALER IH ONE (14:42)
[2021-09-26 15:25] VITALS: BP 106/64; PULSE 64; TEMP 98.2
== END 2021-09-26 17:39 | disposition home or self-care (01) | DRG 282 ==
LOC: JER 15:39 → JERBED 21:19 → JICU 23:45 → J8W 09-24 00:26
PROVIDERS: ADMIT Internal Medicine Pulmonary Disease; ATTEND Internal Medicine
DX: K85.90 Acute pancreatitis without necrosis or infection, unspecified (principal); E11.65 Type 2 diabetes mellitus with hyperglycemia; E78.5 Hyperlipidemia, unspecified; E78.1 Pure hyperglyceridemia; E83.51 Hypocalcemia; R74.01 Elevation of levels of liver transaminase levels; T38.3X6A Underdosing of insulin and oral hypoglycemic [antidiabetic] drugs, initial encounter; K76.0 Fatty (change of) liver, not elsewhere classified
CPT/HCPCS: 36415; 74177-TC; 76705-TC; 80048; 80053; 80061; 81003; 82962; 83036; 83690; 83735; 84100; 84478; 84703; 85025; 85027; 93005; 93010; 99285-25; C9803-CS; U0003; U0005

== ENCOUNTER 2022-07-06 14:08 | Inpatient (IN) | payer OTHER ==
[2022-07-06] MEDS ORDERED: LACTATED RINGERS SOLUTION 1000 ML INFUS.BAG IV ONE ×2 (15:58→20:44)
[2022-07-06] MEDS ORDERED: ACETAMINOPHEN 1000 MG/100 ML BAG IVPB ONE (15:58)
[2022-07-06] MEDS ORDERED: ACETAMINOPHEN INJECTION 100 ML IVPB ONE (16:27)
[2022-07-06] MEDS ORDERED: morphine SULFATE 4 MG/ML VIAL IVPUSH ONE ×2 (17:11→20:12)
[2022-07-06] MEDS ORDERED: ONDANSETRON 4 MG/2 ML VIAL IVPUSH ONE (17:14)
[2022-07-06] MEDS ORDERED: morphine SULFATE 4 MG/ML VIAL ONE ×2 (17:19→20:18)
[2022-07-06] MEDS ORDERED: ONDANSETRON 4 MG/2 ML VIAL ONE (17:53)
[2022-07-06 20:19] LABS: CHLORIDE 91 mmol/L (98-107); SODIUM 124 mmol/L (136-145)
[2022-07-06 20:23] LABS: ANION GAP 14 MMOL/L (8-16); CO2 19 mmol/L (21-32); GLUCOSE,RANDOM 399 mg/dL (74-106)
[2022-07-06 20:25] LABS: CREATININE 0.7 mg/dL (0.55-1.3)
[2022-07-06 20:41] LABS: ALBUMIN 2.4 g/dl (3.4-5.0); ALK PHOS 97 U/L (45-117); BILIRUBIN,TOTAL 2.7 mg/dL (0.2-1); BLOOD UREA NITROGEN 8.9 mg/dL (7-18); LACTIC ACID 4.8 mmol/L (0.4-2.0); LIPASE 4621 U/L (73-393); TOT PROT 6.8 g/dl (6.4-8.2)
[2022-07-06] MEDS ORDERED: POTASSIUM CHLORIDE ORAL LIQUID 20 MEQ/15 ML PO ONE (20:43)
[2022-07-06] MEDS ORDERED: MAGNESIUM SULF 50% (8.12 MEQ/2 ML-1 GM VIAL) IVPB ONE (20:43)
[2022-07-06 20:55] LABS: VENOUS BASE EXCESS -11.4 mmol/L (-2-2); VENOUS O2 SATURATION 85.3 % (70-80); VENOUS PCO2 37.5 mmHg (38-52); VENOUS PH 7.229 (7.310-7.410)
[2022-07-06 20:57] LABS: EOS % 0.3 % (0-4.5)
[2022-07-06 21:35] LABS: BASO % 0.4 % (0-2.0); HEMATOCRIT 41.9 % (32.4-45.2); HEMOGLOBIN 14.2 GM/dL (10.7-15.3); LYMPH % 6.8 % (8-40); MCHC 33.9 g/dl (32.0-36.0); MEAN CELL VOLUME 88.6 fl (80-96); MEAN PLT VOLUME 10.9 fl (7.5-11.1); MONO % 3.6 % (3.8-10.2); NEUT % 88.9 % (42.8-82.8); PLATELET COUNT 181 10^3/uL (134-434); RBC 4.73 M/mm3 (3.60-5.2); RDW 13.5 % (11.6-15.6); WHITE BLOOD COUNT 13.8 K/mm3 (4.0-10.0)
[2022-07-06] MEDS ORDERED: POTASSIUM CHLORIDE ORAL LIQUID 20 MEQ/15 ML ONE (21:46)
[2022-07-06] MEDS ORDERED: MAGNESIUM SULFATE IN WATER 2 GM/50 ML IVPB IVPB ONE (21:46)
[2022-07-06 21:53] LABS: CREATININE 0.6 mg/dL (0.55-1.3)
[2022-07-06 22:36] LABS: ANISOCYTOSIS 0; MACROCYTOSIS 0; PLATELET ESTIMATE NORMAL
[2022-07-06] MEDS ORDERED: HYDROmorphone HCL CARPU-JECT 2 MG/1 ML DISP.SYRIN IVPUSH ONE (22:39)
[2022-07-06 22:48] LABS: EPI CELLS 27 /uL (0-25.1); HYALINE CASTS 0 /uL (0-3.1); URINE APPEARANCE CLEAR; URINE BACTERIA 420 /uL (0-1359); URINE BILIRUBIN NEGATIVE (NEGATIVE); URINE COLOR YELLOW; URINE GLUCOSE (UA) 3+ (NEGATIVE); URINE KETONE 4+ (NEGATIVE); URINE LEUK ESTERASE NEGATIVE (NEGATIVE); URINE NITRITE NEGATIVE (NEGATIVE); URINE PROTEIN 1+ (NEGATIVE); URINE UROBILINOGEN 0.2 mg/dL (0.2-1.0)
[2022-07-06 23:10] LABS: MAGNESIUM 1.9 mg/dL (1.8-2.4)
[2022-07-06 23:16] LABS: LDL CHOLESTEROL (ONLY SJRH) 215 mg/dL (5-100)
[2022-07-06 23:16] LABS: CHLORIDE 95 mmol/L (98-107); SODIUM 126 mmol/L (136-145)
[2022-07-06 23:19] LABS: ANION GAP 15 MMOL/L (8-16); CO2 17 mmol/L (21-32)
[2022-07-06 23:22] LABS: CREATININE 0.6 mg/dL (0.55-1.3)
[2022-07-06] MEDS ORDERED: KCL 10 MEQ IVPB 20 MEQ/200 ML INFUS.BAG IVPB ONE (23:25)
[2022-07-06] MEDS ORDERED: HYDROmorphone HCl 2 MG/ML VIAL ONE (23:25)
[2022-07-06 23:30] LABS: URINE RBC 218.4 /uL (0-23.9); URINE WBC 70.1 /uL (0-25.8)
[2022-07-06] MEDS: KCL 10 MEQ IVPB 10 MEQ/100 ML INFUS.BAG IVPB SCH (23:35)
[2022-07-06 23:49] LABS: CHOLESTEROL 461 mg/dL (50-200); HDL CHOLESTEROL 47 mg/dL (40-60); TRIGLYCERIDES > 4000 mg/dL (0-150)
[2022-07-06 23:56] LABS: BLOOD UREA NITROGEN 8.8 mg/dL (7-18); GLUCOSE,RANDOM 481 mg/dL (74-106); TRIGLYCERIDES > 4000 mg/dL (0-150)
[2022-07-07 00:09] LABS: CHLORIDE 97 mmol/L (98-107); SODIUM 125 mmol/L (136-145)
[2022-07-07 00:32] LABS: CO2 11 mmol/L (21-32)
[2022-07-07 00:35] LABS: ANION GAP 18 MMOL/L (8-16); BLOOD UREA NITROGEN 8.6 mg/dL (7-18); CREATININE 0.6 mg/dL (0.55-1.3); GLUCOSE,RANDOM 431 mg/dL (74-106)
[2022-07-07] MEDS: KCL 10 MEQ IVPB 10 MEQ/100 ML INFUS.BAG IVPB SCH (01:01)
[2022-07-07 01:03] LABS: LACTIC ACID 3.5 mmol/L (0.4-2.0)
[2022-07-07 02:15] LABS: CHLORIDE 97 mmol/L (98-107); SODIUM 125 mmol/L (136-145)
[2022-07-07 02:17] LABS: ANION GAP 15 MMOL/L (8-16); CO2 13 mmol/L (21-32)
[2022-07-07 02:20] LABS: CREATININE 0.7 mg/dL (0.55-1.3)
[2022-07-07] MEDS ORDERED: SODIUM CHLORIDE 1,000 ML IV SCH (02:30)
[2022-07-07] MEDS ORDERED: DEXTROSE 50%-WATER - 25 GM/50 ML VIAL IVPUSH PRN (02:32)
[2022-07-07] MEDS ORDERED: INSULIN REGULAR HUMAN 100 UNITS/ML *VIAL* (FOR IVP) IVPUSH ONE (02:32)
[2022-07-07] MEDS ORDERED: HYDROmorphone HCL CARPU-JECT 2 MG/1 ML DISP.SYRIN IVPB PRN (02:34)
[2022-07-07] MEDS ORDERED: CEFEPIME 1 GM in DEXTROSE 5%-WATER 100 ML IVPB SCH (02:45)
[2022-07-07 02:49] LABS: BLOOD UREA NITROGEN 8.8 mg/dL (7-18); GLUCOSE,RANDOM 475 mg/dL (74-106)
[2022-07-07 03:25] LABS: CHLORIDE 97 mmol/L (98-107); SODIUM 126 mmol/L (136-145)
[2022-07-07 03:27] LABS: ANION GAP 16 MMOL/L (8-16); CO2 13 mmol/L (21-32); MAGNESIUM 2.7 mg/dL (1.8-2.4)
[2022-07-07 03:30] LABS: CREATININE 0.6 mg/dL (0.55-1.3); PHOSPHOROUS 2.2 mg/dL (2.5-4.9)
[2022-07-07 03:33] LABS: BLOOD UREA NITROGEN 8.7 mg/dL (7-18); GLUCOSE,RANDOM 469 mg/dL (74-106)
[2022-07-07] MEDS: INSULIN REGULAR 100 UNITS in SODIUM CHLORIDE 99 ML IVPB SCH (03:36)
[2022-07-07 03:42] LABS: LACTIC ACID 2.8 mmol/L (0.4-2.0)
[2022-07-07] MEDS ORDERED: HYDROmorphone HCl 2 MG/ML VIAL IVPB PRN (04:53)
[2022-07-07] MEDS ORDERED: DEXTROSE 5%-0.2% SALINE - 1,000 ML IV SCH (05:15)
[2022-07-07] MEDS ORDERED: CEFEPIME 2 GM/100 ML BAG IVPB ONE ×2 (05:52→08:47)
[2022-07-07] MEDS: CEFEPIME 2 GM in DEXTROSE 5%-WATER 100 ML IVPB SCH ×2 (05:56→08:58)
[2022-07-07] MEDS ORDERED: BACITRACIN 0.9 GM PACKET ONE (08:47)
[2022-07-07] MEDS ORDERED: ENOXAPARIN NA (PORCINE) 40 MG/0.4 ML DISP.SYRIN SQ ONE (08:47)
[2022-07-07] MEDS: MUPIROCIN 2% TOPICAL OINTMENT FOR DECOLONIZATION NS SCH ×2 (08:54→22:51)
[2022-07-07] MEDS: ENOXAPARIN NA (PORCINE) 40 MG/0.4 ML DISP.SYRIN SQ SCH (08:54)
[2022-07-07 11:25] LABS: CHLORIDE 102 mmol/L (98-107); SODIUM 129 mmol/L (136-145)
[2022-07-07 11:29] LABS: ANION GAP 13 MMOL/L (8-16); CO2 15 mmol/L (21-32); MAGNESIUM 2.5 mg/dL (1.8-2.4)
[2022-07-07 11:32] LABS: CREATININE 0.5 mg/dL (0.55-1.3)
[2022-07-07 12:09] LABS: ALBUMIN 2.2 g/dl (3.4-5.0); ALK PHOS 77 U/L (45-117); AMYLASE 267 U/L (25-115); BILIRUBIN,DIRECT 0.1 mg/dL (0.0-0.2); BILIRUBIN,TOTAL 1.4 mg/dL (0.2-1); BLOOD UREA NITROGEN 10.3 mg/dL (7-18); GLUCOSE,RANDOM 413 mg/dL (74-106); LIPASE 2667 U/L (73-393); PHOSPHOROUS 0.7 mg/dL (2.5-4.9); TOT PROT 5.7 g/dl (6.4-8.2)
[2022-07-07] MEDS ORDERED: POTASSIUM PHOSPHATE 30 MM in DEXTROSE 5%-WATER - 500 ML IVPB ONE (13:00)
[2022-07-07] MEDS: SODIUM CHLORIDE 1,000 ML IV SCH (13:20)
[2022-07-07] MEDS: D5-NS + 40 MEQ KCL - 40 MEQ/1,000 ML INFUS.BAG IV SCH (13:45)
[2022-07-07] MEDS: HYDROmorphone HCl 2 MG/ML VIAL IVPB PRN ×2 (13:45→19:43)
[2022-07-07] MEDS: ONDANSETRON 4 MG/2 ML VIAL IVPUSH PRN ×2 (14:01→23:06)
[2022-07-07 17:43] LABS: CHLORIDE 106 mmol/L (98-107); SODIUM 133 mmol/L (136-145)
[2022-07-07 17:46] LABS: ANION GAP 7 MMOL/L (8-16); CO2 20 mmol/L (21-32); GLUCOSE,RANDOM 317 mg/dL (74-106)
[2022-07-07 17:48] LABS: CREATININE 0.3 mg/dL (0.55-1.3); PHOSPHOROUS 1.8 mg/dL (2.5-4.9)
[2022-07-07 17:53] LABS: ALK PHOS 65 U/L (45-117); BILIRUBIN,TOTAL 0.9 mg/dL (0.2-1); BLOOD UREA NITROGEN 11.2 mg/dL (7-18); TOT PROT 5.2 g/dl (6.4-8.2); TRIGLYCERIDES > 1000 mg/dL (0-150)
[2022-07-07] MEDS: CHLORHEXIDINE GLUCONATE 4% CLEANSER FOR DECOLONIZATION TP SCH (22:51)
[2022-07-08] MEDS: HYDROmorphone HCl 2 MG/ML VIAL IVPB PRN ×4 (00:03→20:48)
[2022-07-08] MEDS: INSULIN REGULAR 100 UNITS in SODIUM CHLORIDE 99 ML IVPB SCH (02:55)
[2022-07-08 07:38] LABS: HEMATOCRIT 37.8 % (32.4-45.2); HEMOGLOBIN 13.1 GM/dL (10.7-15.3); MCH 30.6 pg (25.7-33.7); MCHC 34.6 g/dl (32.0-36.0); MEAN CELL VOLUME 88.3 fl (80-96); MEAN PLT VOLUME 11.2 fl (7.5-11.1); PLATELET COUNT 182 10^3/uL (134-434); RBC 4.28 M/mm3 (3.60-5.2); RDW 13.8 % (11.6-15.6); WHITE BLOOD COUNT 6.8 K/mm3 (4.0-10.0)
[2022-07-08 07:59] LABS: MAGNESIUM 2.2 mg/dL (1.8-2.4)
[2022-07-08 09:29] LABS: CHLORIDE 112 mmol/L (98-107); SODIUM 139 mmol/L (136-145)
[2022-07-08 09:31] LABS: ALBUMIN 1.9 g/dl (3.4-5.0); ANION GAP 6 MMOL/L (8-16); BLOOD UREA NITROGEN 8.1 mg/dL (7-18); CO2 21 mmol/L (21-32); GLUCOSE,RANDOM 198 mg/dL (74-106)
[2022-07-08 09:34] LABS: CREATININE 0.2 mg/dL (0.55-1.3)
[2022-07-08 09:35] LABS: BILIRUBIN,TOTAL 0.6 mg/dL (0.2-1)
[2022-07-08 09:36] LABS: TOT PROT 4.7 g/dl (6.4-8.2)
[2022-07-08 09:37] LABS: ALK PHOS 54 U/L (45-117); CALCIUM 6.8 mg/dL (8.5-10.1); SGOT/AST 34 U/L (15-37); SGPT/ALT 23 U/L (13-61)
[2022-07-08] MEDS: MUPIROCIN 2% TOPICAL OINTMENT FOR DECOLONIZATION NS SCH ×2 (09:57→21:25)
[2022-07-08] MEDS: ENOXAPARIN NA (PORCINE) 40 MG/0.4 ML DISP.SYRIN SQ SCH (09:57)
[2022-07-08 10:29] LABS: ANISOCYTOSIS 0; HELMET CELLS 0; HOWELL-JOLLY BODIES 0; MACROCYTOSIS 0; OVALOCYTE 0; ROULEAU 0; SICKELED CELLS 0; TARGET CELLS 0; TEAR DROP CELLS 0; TOXIC GRANULATION 0
[2022-07-08] MEDS: D5-NS + 40 MEQ KCL - 40 MEQ/1,000 ML INFUS.BAG IV SCH ×2 (12:06→21:00)
[2022-07-08] MEDS: SODIUM CHLORIDE 1,000 ML IV SCH (12:07)
[2022-07-08 17:43] LABS: CALCIUM 7.1 mg/dL (8.5-10.1)
[2022-07-08 17:44] LABS: ALBUMIN 1.8 g/dl (3.4-5.0); BLOOD UREA NITROGEN 4.9 mg/dL (7-18)
[2022-07-08 17:47] LABS: CREATININE 0.2 mg/dL (0.55-1.3)
[2022-07-08 17:49] LABS: BILIRUBIN,TOTAL 0.5 mg/dL (0.2-1); TOT PROT 4.7 g/dl (6.4-8.2)
[2022-07-08] MEDS ORDERED: POTASSIUM PHOSPHATE 30 MM in SODIUM CHLORIDE 500 ML IVPB ONE (18:09)
[2022-07-08] MEDS: CHLORHEXIDINE GLUCONATE 4% CLEANSER FOR DECOLONIZATION TP SCH (21:25)
[2022-07-09] MEDS: INSULIN REGULAR 100 UNITS in SODIUM CHLORIDE 99 ML IVPB SCH (02:45)
[2022-07-09] MEDS: D5-NS + 40 MEQ KCL - 40 MEQ/1,000 ML INFUS.BAG IV SCH (06:49)
[2022-07-09] MEDS: SODIUM CHLORIDE 1,000 ML IV SCH ×2 (06:50→08:00)
[2022-07-09 07:24] LABS: BASO % 0.7 % (0-2.0); EOS % 1.9 % (0-4.5); HEMATOCRIT 34.6 % (32.4-45.2); HEMOGLOBIN 11.7 GM/dL (10.7-15.3); MCHC 33.8 g/dl (32.0-36.0); MEAN CELL VOLUME 88.6 fl (80-96); MONO % 4.6 % (3.8-10.2); NEUT % 72.8 % (42.8-82.8); PLATELET COUNT 154 10^3/uL (134-434); RDW 14.3 % (11.6-15.6); WHITE BLOOD COUNT 6.3 K/mm3 (4.0-10.0)
[2022-07-09 07:49] LABS: CHLORIDE 106 mmol/L (98-107); SODIUM 139 mmol/L (136-145)
[2022-07-09 07:52] LABS: ANION GAP 5 MMOL/L (8-16); CALCIUM 7.5 mg/dL (8.5-10.1); CO2 28 mmol/L (21-32); LIPASE 769 U/L (73-393); MAGNESIUM 1.7 mg/dL (1.8-2.4)
[2022-07-09 07:53] LABS: ALBUMIN 1.9 g/dl (3.4-5.0); GLUCOSE,RANDOM 145 mg/dL (74-106)
[2022-07-09 07:54] LABS: AMYLASE 68 U/L (25-115)
[2022-07-09 07:55] LABS: BILIRUBIN,DIRECT 0.1 mg/dL (0.0-0.2); CREATININE < 0.2 mg/dL (0.55-1.3); SGOT/AST 20 U/L (15-37); SGPT/ALT 15 U/L (13-61)
[2022-07-09 07:56] LABS: PHOSPHOROUS 1.9 mg/dL (2.5-4.9); TRIGLYCERIDES 700 mg/dL (0-150)
[2022-07-09 07:57] LABS: TOT PROT 4.6 g/dl (6.4-8.2)
[2022-07-09 07:58] LABS: BILIRUBIN,TOTAL 0.4 mg/dL (0.2-1)
[2022-07-09 07:59] LABS: ALK PHOS 48 U/L (45-117)
[2022-07-09] MEDS ORDERED: MAGNESIUM SULF 50% (8.12 MEQ/2 ML-1 GM VIAL) IVPB ONE (08:15)
[2022-07-09] MEDS ORDERED: NAPH,MB-DB/K PH,MBDB POWDER PACKET PO ONE ×2 (08:15→22:21)
[2022-07-09] MEDS ORDERED: ACETAMINOPHEN 1000 MG/100 ML BAG IVPB PRN (08:48)
[2022-07-09 08:52] LABS: BLOOD UREA NITROGEN 3.1 mg/dL (7-18)
[2022-07-09] MEDS ORDERED: FLU VACC QS2022-23(6MOS UP)/PF 60 MCG/0.5 ML SYRINGE IM ONE (10:00)
[2022-07-09] MEDS: MUPIROCIN 2% TOPICAL OINTMENT FOR DECOLONIZATION NS SCH ×2 (10:34→22:30)
[2022-07-09] MEDS: ENOXAPARIN NA (PORCINE) 40 MG/0.4 ML DISP.SYRIN SQ SCH (10:34)
[2022-07-09] MEDS: FENOFIBRIC ACID 45 MG CAP PO SCH (11:17)
[2022-07-09 21:50] LABS: CALCIUM 7.8 mg/dL (8.5-10.1)
[2022-07-09 21:51] LABS: BLOOD UREA NITROGEN 5.8 mg/dL (7-18)
[2022-07-09 21:53] LABS: CREATININE 0.3 mg/dL (0.55-1.3)
[2022-07-09 21:54] LABS: BILIRUBIN,TOTAL 0.3 mg/dL (0.2-1)
[2022-07-09] MEDS ORDERED: SODIUM BICARBONATE 8.4% 50 MEQ/50 ML DISP.SYRIN IVPUSH ONE ×2 (21:56)
[2022-07-09 22:18] LABS: PHOSPHOROUS 2.2 mg/dL (2.5-4.9)
[2022-07-09] MEDS: CHLORHEXIDINE GLUCONATE 4% CLEANSER FOR DECOLONIZATION TP SCH (22:30)
[2022-07-09] MEDS: HYDROmorphone HCl 2 MG/ML VIAL IVPB PRN (23:56)
[2022-07-10] MEDS: D5-NS + 40 MEQ KCL - 40 MEQ/1,000 ML INFUS.BAG IV SCH ×2 (01:10→11:37)
[2022-07-10 07:22] LABS: HEMATOCRIT 34.6 % (32.4-45.2); HEMOGLOBIN 11.6 GM/dL (10.7-15.3); MCH 29.8 pg (25.7-33.7); MCHC 33.5 g/dl (32.0-36.0); MEAN CELL VOLUME 88.7 fl (80-96); PLATELET COUNT 185 10^3/uL (134-434); RDW 14.3 % (11.6-15.6); WHITE BLOOD COUNT 5.3 K/mm3 (4.0-10.0)
[2022-07-10 07:41] LABS: CALCIUM 7.9 mg/dL (8.5-10.1)
[2022-07-10 07:42] LABS: ALBUMIN 2.1 g/dl (3.4-5.0); BLOOD UREA NITROGEN 4.5 mg/dL (7-18); MAGNESIUM 1.7 mg/dL (1.8-2.4)
[2022-07-10 07:45] LABS: CREATININE 0.2 mg/dL (0.55-1.3); PHOSPHOROUS 3.2 mg/dL (2.5-4.9)
[2022-07-10 07:46] LABS: TOT PROT 5.1 g/dl (6.4-8.2)
[2022-07-10 07:52] LABS: BILIRUBIN,TOTAL 0.3 mg/dL (0.2-1)
[2022-07-10] MEDS: INSULIN REGULAR 100 UNITS in SODIUM CHLORIDE 99 ML IVPB SCH (08:00)
[2022-07-10] MEDS ORDERED: MAGNESIUM SULF 50% (8.12 MEQ/2 ML-1 GM VIAL) IVPB ONE ×2 (10:22→12:23)
[2022-07-10] MEDS ORDERED: KCL 10 MEQ IVPB 10 MEQ/100 ML INFUS.BAG IVPB SCH (10:30)
[2022-07-10] MEDS: MUPIROCIN 2% TOPICAL OINTMENT FOR DECOLONIZATION NS SCH ×2 (10:33→22:08)
[2022-07-10] MEDS: FENOFIBRIC ACID 45 MG CAP PO SCH (10:33)
[2022-07-10] MEDS: SODIUM CHLORIDE 1,000 ML IV SCH (11:37)
[2022-07-10] MEDS: INSULIN SLIDING SCALE (NOVOLOG) 1 VIAL SQ SCH ×4 (11:41→23:33)
[2022-07-10] MEDS: ENOXAPARIN NA (PORCINE) 40 MG/0.4 ML DISP.SYRIN SQ SCH (12:37)
[2022-07-10] MEDS ORDERED: ACETAMINOPHEN 1000 MG/100 ML BAG IVPB PRN (12:40)
[2022-07-10] MEDS ORDERED: CEFTRIAXONE 1 GM in DEXTROSE 5%-WATER - 50 ML IVPB ONE (17:00)
[2022-07-10] MEDS: INSULIN (LEVEMIR) 100 UNITS/ML UNITS SQ SCH (22:06)
[2022-07-10] MEDS: ROSUVASTATIN CA 10 MG TABLET PO SCH (22:08)
[2022-07-10] MEDS: CHLORHEXIDINE GLUCONATE 4% CLEANSER FOR DECOLONIZATION TP SCH (22:08)
[2022-07-10 22:12] LABS: ALBUMIN 2.2 g/dl (3.4-5.0); BILIRUBIN,TOTAL 0.3 mg/dL (0.2-1); BLOOD UREA NITROGEN 7.7 mg/dL (7-18); CALCIUM 8.2 mg/dL (8.5-10.1); CREATININE 0.3 mg/dL (0.55-1.3); TOT PROT 5.4 g/dl (6.4-8.2)
[2022-07-10] MEDS ORDERED: DEXTROSE 50%-WATER 25 GM/50 ML DISP.SYRIN IVPUSH ONE (22:38)
[2022-07-10] MEDS ORDERED: INSULIN REGULAR HUMAN 100 UNITS/ML *VIAL IVPUSH ONE (22:39)
[2022-07-11] MEDS: INSULIN SLIDING SCALE (NOVOLOG) 1 VIAL SQ SCH ×5 (03:56→19:03)
[2022-07-11] MEDS: INSULIN (LEVEMIR) 100 UNITS/ML UNITS SQ SCH ×2 (06:34→21:21)
[2022-07-11 09:06] LABS: HEMATOCRIT 36.7 % (32.4-45.2); HEMOGLOBIN 12.3 GM/dL (10.7-15.3); MCH 29.7 pg (25.7-33.7); MCHC 33.6 g/dl (32.0-36.0); MEAN CELL VOLUME 88.4 fl (80-96); MEAN PLT VOLUME 9.7 fl (7.5-11.1); PLATELET COUNT 223 10^3/uL (134-434); RBC 4.15 M/mm3 (3.60-5.2); RDW 13.8 % (11.6-15.6); WHITE BLOOD COUNT 5.4 K/mm3 (4.0-10.0)
[2022-07-11] MEDS: ENOXAPARIN NA (PORCINE) 40 MG/0.4 ML DISP.SYRIN SQ SCH (09:19)
[2022-07-11] MEDS: MUPIROCIN 2% TOPICAL OINTMENT FOR DECOLONIZATION NS SCH ×2 (09:19→21:22)
[2022-07-11 09:24] LABS: ALBUMIN 2.4 g/dl (3.4-5.0); BLOOD UREA NITROGEN 7.6 mg/dL (7-18); CALCIUM 8.7 mg/dL (8.5-10.1); MAGNESIUM 1.8 mg/dL (1.8-2.4)
[2022-07-11 09:25] LABS: CREATININE 0.2 mg/dL (0.55-1.3)
[2022-07-11 09:27] LABS: PHOSPHOROUS 4.9 mg/dL (2.5-4.9); TOT PROT 5.6 g/dl (6.4-8.2)
[2022-07-11 09:29] LABS: BILIRUBIN,TOTAL 0.3 mg/dL (0.2-1)
[2022-07-11] MEDS ORDERED: PANTOPRAZOLE 40 MG TABLET PO SCH (10:00)
[2022-07-11] MEDS ORDERED: NAPH,MB-DB/K PH,MBDB POWDER PACKET PO ONE (11:30)
[2022-07-11] MEDS ORDERED: GEMFIBROZIL 600 MG TABLET (FP) PO SCH (16:30)
[2022-07-11] MEDS: ROSUVASTATIN CA 10 MG TABLET PO SCH (21:22)
[2022-07-11] MEDS: CHLORHEXIDINE GLUCONATE 4% CLEANSER FOR DECOLONIZATION TP SCH (21:22)
[2022-07-11] MEDS ORDERED: OMEGA-3 ACID ETHYL ESTERS (FATTY-ACIDS) 1 GM CAPSULE (FP) PO SCH (22:00)
[2022-07-11] MEDS ORDERED: DEXTROSE 50%-WATER - 25 GM/50 ML VIAL IVPUSH PRN (23:08)
[2022-07-11] MEDS ORDERED: ONDANSETRON 4 MG/2 ML VIAL IVPUSH PRN (23:08)
[2022-07-12] MEDS: INSULIN SLIDING SCALE (NOVOLOG) 1 VIAL SQ SCH ×6 (01:08→20:21)
[2022-07-12] MEDS: GEMFIBROZIL 600 MG TABLET (FP) PO SCH ×2 (06:37→17:08)
[2022-07-12] MEDS ORDERED: INSULIN (LEVEMIR) 100 UNITS/ML UNITS SQ SCH (07:00)
[2022-07-12] MEDS ORDERED: MUPIROCIN 2% TOPICAL OINTMENT FOR DECOLONIZATION NS SCH (10:00)
[2022-07-12] MEDS: OMEGA-3 ACID ETHYL ESTERS (FATTY-ACIDS) 1 GM CAPSULE (FP) PO SCH ×2 (10:25→21:38)
[2022-07-12] MEDS: PANTOPRAZOLE 40 MG TABLET PO SCH (10:25)
[2022-07-12] MEDS: ENOXAPARIN NA (PORCINE) 40 MG/0.4 ML DISP.SYRIN SQ SCH (10:26)
[2022-07-12 11:58] LABS: HEMATOCRIT 39.7 % (32.4-45.2); HEMOGLOBIN 13.6 GM/dL (10.7-15.3); MCH 30.2 pg (25.7-33.7); MCHC 34.3 g/dl (32.0-36.0); MEAN CELL VOLUME 88.2 fl (80-96); MEAN PLT VOLUME 9.4 fl (7.5-11.1); PLATELET COUNT 263 10^3/uL (134-434); RDW 13.2 % (11.6-15.6); WHITE BLOOD COUNT 4.3 K/mm3 (4.0-10.0)
[2022-07-12 12:13] LABS: MAGNESIUM 1.9 mg/dL (1.8-2.4)
[2022-07-12 12:17] LABS: PHOSPHOROUS 4.8 mg/dL (2.5-4.9)
[2022-07-12 12:19] LABS: ALBUMIN 2.7 g/dl (3.4-5.0); BILIRUBIN,TOTAL 0.3 mg/dL (0.2-1); BLOOD UREA NITROGEN 13.4 mg/dL (7-18); CALCIUM 9.4 mg/dL (8.5-10.1); TOT PROT 6.7 g/dl (6.4-8.2)
[2022-07-12 12:20] LABS: CREATININE 0.4 mg/dL (0.55-1.3)
[2022-07-12 15:26] VITALS: BMI 23.0
[2022-07-12] MEDS: ROSUVASTATIN CA 10 MG TABLET PO SCH (21:39)
[2022-07-12] MEDS: INSULIN (LEVEMIR) 100 UNITS/ML UNITS SQ SCH (21:58)
[2022-07-12] MEDS ORDERED: CHLORHEXIDINE GLUCONATE 4% CLEANSER FOR DECOLONIZATION TP SCH (22:00)
[2022-07-13] MEDS: INSULIN SLIDING SCALE (NOVOLOG) 1 VIAL SQ SCH ×6 (00:24→21:53)
[2022-07-13] MEDS: INSULIN (LEVEMIR) 100 UNITS/ML UNITS SQ SCH (06:21)
[2022-07-13] MEDS: GEMFIBROZIL 600 MG TABLET (FP) PO SCH ×2 (06:21→16:45)
[2022-07-13] MEDS: OMEGA-3 ACID ETHYL ESTERS (FATTY-ACIDS) 1 GM CAPSULE (FP) PO SCH ×2 (10:21→21:49)
[2022-07-13] MEDS: ENOXAPARIN NA (PORCINE) 40 MG/0.4 ML DISP.SYRIN SQ SCH (10:21)
[2022-07-13] MEDS: PANTOPRAZOLE 40 MG TABLET PO SCH (10:21)
[2022-07-13 11:30] LABS: HEMATOCRIT 42.4 % (32.4-45.2); HEMOGLOBIN 14.5 GM/dL (10.7-15.3); MCH 29.7 pg (25.7-33.7); MCHC 34.2 g/dl (32.0-36.0); MEAN PLT VOLUME 9.4 fl (7.5-11.1); PLATELET COUNT 285 10^3/uL (134-434); RBC 4.87 M/mm3 (3.60-5.2); RDW 13.7 % (11.6-15.6); WHITE BLOOD COUNT 4.3 K/mm3 (4.0-10.0)
[2022-07-13 12:09] LABS: CREATININE 0.5 mg/dL (0.55-1.3)
[2022-07-13 12:10] LABS: MAGNESIUM 1.8 mg/dL (1.8-2.4)
[2022-07-13 12:11] LABS: TOT PROT 7.1 g/dl (6.4-8.2)
[2022-07-13 12:12] LABS: BLOOD UREA NITROGEN 17.5 mg/dL (7-18)
[2022-07-13 12:14] LABS: CALCIUM 9.6 mg/dL (8.5-10.1)
[2022-07-13 12:15] LABS: PHOSPHOROUS 4.8 mg/dL (2.5-4.9)
[2022-07-13 12:16] LABS: BILIRUBIN,TOTAL 0.4 mg/dL (0.2-1)
[2022-07-13] MEDS ORDERED: SODIUM CHLORIDE 1 GM TABLET PO ONE ×2 (12:30→20:00)
[2022-07-13] MEDS: ROSUVASTATIN CA 10 MG TABLET PO SCH (21:49)
[2022-07-13] MEDS ORDERED: INSULIN (LEVEMIR) 100 UNITS/ML UNITS SQ SCH (22:00)
[2022-07-14] MEDS: INSULIN SLIDING SCALE (NOVOLOG) 1 VIAL SQ SCH ×7 (00:16→23:59)
[2022-07-14] MEDS: GEMFIBROZIL 600 MG TABLET (FP) PO SCH ×2 (06:16→17:46)
[2022-07-14] MEDS ORDERED: INSULIN (LEVEMIR) 100 UNITS/ML UNITS SQ SCH ×2 (07:00→12:37)
[2022-07-14] MEDS: OMEGA-3 ACID ETHYL ESTERS (FATTY-ACIDS) 1 GM CAPSULE (FP) PO SCH ×2 (10:31→22:19)
[2022-07-14] MEDS: PANTOPRAZOLE 40 MG TABLET PO SCH (10:31)
[2022-07-14] MEDS: ENOXAPARIN NA (PORCINE) 40 MG/0.4 ML DISP.SYRIN SQ SCH (10:32)
[2022-07-14 11:53] LABS: HEMATOCRIT 39.5 % (32.4-45.2); HEMOGLOBIN 13.7 GM/dL (10.7-15.3); MCH 30.5 pg (25.7-33.7); MCHC 34.8 g/dl (32.0-36.0); MEAN CELL VOLUME 87.6 fl (80-96); MEAN PLT VOLUME 9.5 fl (7.5-11.1); PLATELET COUNT 273 10^3/uL (134-434); RBC 4.51 M/mm3 (3.60-5.2); RDW 13.2 % (11.6-15.6)
[2022-07-14 12:06] LABS: MAGNESIUM 1.8 mg/dL (1.8-2.4)
[2022-07-14 12:07] LABS: ALBUMIN 2.8 g/dl (3.4-5.0)
[2022-07-14 12:08] LABS: CALCIUM 9.1 mg/dL (8.5-10.1)
[2022-07-14 12:09] LABS: BLOOD UREA NITROGEN 20.1 mg/dL (7-18); CREATININE 0.5 mg/dL (0.55-1.3)
[2022-07-14 12:10] LABS: PHOSPHOROUS 4.3 mg/dL (2.5-4.9)
[2022-07-14 12:11] LABS: TOT PROT 6.5 g/dl (6.4-8.2)
[2022-07-14 12:12] LABS: BILIRUBIN,TOTAL 0.3 mg/dL (0.2-1)
[2022-07-14] MEDS: INSULIN (LEVEMIR) 100 UNITS/ML UNITS SQ SCH (22:17)
[2022-07-14] MEDS: ROSUVASTATIN CA 10 MG TABLET PO SCH (22:19)
[2022-07-15] MEDS: INSULIN SLIDING SCALE (NOVOLOG) 1 VIAL SQ SCH ×5 (07:48→20:40)
[2022-07-15] MEDS: GEMFIBROZIL 600 MG TABLET (FP) PO SCH ×2 (08:00→17:19)
[2022-07-15] MEDS: ENOXAPARIN NA (PORCINE) 40 MG/0.4 ML DISP.SYRIN SQ SCH (09:33)
[2022-07-15] MEDS: PANTOPRAZOLE 40 MG TABLET PO SCH (09:33)
[2022-07-15] MEDS: OMEGA-3 ACID ETHYL ESTERS (FATTY-ACIDS) 1 GM CAPSULE (FP) PO SCH ×2 (09:33→20:38)
[2022-07-15] MEDS: ROSUVASTATIN CA 10 MG TABLET PO SCH (20:39)
[2022-07-15] MEDS: INSULIN (LEVEMIR) 100 UNITS/ML UNITS SQ SCH (20:42)
[2022-07-15 20:44] VITALS: BP 103/60; PULSE 80; RESP 16; TEMP 898.1
== END 2022-07-15 20:45 | disposition home or self-care (01) | DRG 282 ==
LOC: JER 14:08 → JERBED 23:50 → J2W 07-07 13:08 → J5S 07-11 23:13
PROVIDERS: ADMIT Internal Medicine Pulmonary Disease; ATTEND Internal Medicine
DX: K85.91 Acute pancreatitis with uninfected necrosis, unspecified (principal); E11.10 Type 2 diabetes mellitus with ketoacidosis without coma; E78.1 Pure hyperglyceridemia; E87.1 Hypo-osmolality and hyponatremia; E78.5 Hyperlipidemia, unspecified; E87.6 Hypokalemia; K76.0 Fatty (change of) liver, not elsewhere classified
CPT/HCPCS: 0241U-QW; 36415; 71046-TC-FY; 74177-TC; 80048; 80053; 80061; 80076; 81003; 82010; 82150; 82803; 82962; 83036; 83605; 83690; 83735; 83930; 84100; 84478; 84484; 84703; 85025; 85027; 86140; 87040; 87077; 87086; 87186; 93005; 93010; 94010; 99291; G0008; Q2036; Q9967

== ENCOUNTER 2024-07-16 17:45 | Emergency (ER) | payer OTHER ==
[2024-07-16 18:01] VITALS: BP 115/68; PULSE 94; RESP 18; TEMP 98.7; BMI 29.2
== END 2024-07-16 19:45 | disposition home or self-care (01) ==
LOC: JER 17:45
DX: R30.0 Dysuria (principal); B96.29 Other Escherichia coli [E. coli] as the cause of diseases classified elsewhere; R30.9 Painful micturition, unspecified; R31.9 Hematuria, unspecified
CPT/HCPCS: 99283-25; 99284-25

== ENCOUNTER 2025-01-06 16:35 | Inpatient (IN) | payer OTHER ==
[2025-01-06] MEDS ORDERED: ACETAMINOPHEN INJECTION 100 ML ONE (18:17)
[2025-01-06] MEDS ORDERED: ONDANSETRON 4 MG/2 ML VIAL ONE (18:17)
[2025-01-06] MEDS ORDERED: FAMOTIDINE 20 MG/50 ML IVPB 20 MG/50 ML MG IVPB ONE (18:17)
[2025-01-06 18:19] LABS: BG HCT 41.0 % (32.4-45.2); VENOUS BASE EXCESS -3.3 mmol/L (-2-2); VENOUS O2 SATURATION 73.8 % (70-80); VENOUS PCO2 40.3 mmHg (38-52); VENOUS PH 7.355 (7.310-7.410)
[2025-01-06] MEDS: ONDANSETRON 4 MG/2 ML VIAL IVPUSH ONE (18:24)
[2025-01-06] MEDS: ACETAMINOPHEN 1000 MG/100 ML BAG IVPB ONE (18:24)
[2025-01-06] MEDS: FAMOTIDINE 20 MG/50 ML IVPB 20 MG/50 ML MG IVPB ONE (18:24)
[2025-01-06] MEDS: SODIUM CHLORIDE 0.9% 500 ML INFUS.BAG IV ONE ×2 (18:24→20:27)
[2025-01-06 18:34] LABS: CO2 23 mmol/L (21-32)
[2025-01-06 18:37] LABS: CREATININE 0.6 mg/dL (0.55-1.3)
[2025-01-06 18:53] LABS: ALK PHOS 115 U/L (45-117); GLUCOSE,RANDOM 448 mg/dL (74-106); TOT PROT 7.1 g/dl (6.4-8.2)
[2025-01-06 19:01] LABS: SGOT/AST 87 U/L (15-37); SGPT/ALT 106 U/L (13-61)
[2025-01-06 19:04] LABS: URINE APPEARANCE CLEAR; URINE BILIRUBIN NEGATIVE (NEGATIVE); URINE COLOR YELLOW; URINE GLUCOSE (UA) 3+ (NEGATIVE); URINE KETONE 4+ (NEGATIVE); URINE LEUK ESTERASE NEGATIVE (NEGATIVE); URINE NITRITE NEGATIVE (NEGATIVE); URINE PROTEIN TRACE (NEGATIVE); URINE UROBILINOGEN 0.2 mg/dL (0.2-1.0)
[2025-01-06 19:26] LABS: HCV DIAGNOSTIC IN-HOUSE W/RFLX NON-REACTIVE (NONREACTIVE)
[2025-01-06 19:56] LABS: MCHC 35.1 g/dl (32.2-35.5); MEAN CELL VOLUME 82.5 fl (79.4-94.8); MEAN PLT VOLUME 12.3 fl (9.4-12.3); RDW 14.9 % (12.1-16.8)
[2025-01-06] MEDS ORDERED: KCL 10 MEQ IVPB 10 MEQ/100 ML INFUS.BAG IVPB ONE ×2 (21:18→22:12)
[2025-01-06] MEDS: KCL 10 MEQ IVPB 10 MEQ/100 ML INFUS.BAG IVPB SCH (21:27)
[2025-01-06 21:33] LABS: CO2 18 mmol/L (21-32); GLUCOSE,RANDOM 367 mg/dL (74-106)
[2025-01-06 21:36] LABS: CREATININE 0.3 mg/dL (0.55-1.3)
[2025-01-06 21:43] LABS: ALK PHOS 92 U/L (45-117); TOT PROT 5.8 g/dl (6.4-8.2)
[2025-01-06 21:58] LABS: SGPT/ALT 88 U/L (13-61)
[2025-01-06] MEDS ORDERED: CALCIUM GLUCONATE 10% - 1,000 MG/10 ML VIAL ONE (22:11)
[2025-01-06] MEDS: CALCIUM GLUCONATE 10% - 1,000 MG/10 ML VIAL IVPB ONE (22:16)
[2025-01-06 23:01] LABS: HIV INTERPRETATION NEGATIVE (NEGATIVE)
[2025-01-06 23:15] LABS: SGOT/AST 56 U/L (15-37)
[2025-01-06] MEDS: POTASSIUM CHLORIDE 20 MEQ in LACTATED RINGERS SOLUTION 1,000 ML IV ONE (23:34)
[2025-01-07] MEDS ORDERED: DEXTROSE 50%-WATER - 25 GM/50 ML VIAL IVPUSH PRN (01:06)
[2025-01-07] MEDS ORDERED: DEXTROSE 50%-WATER 25 GM/50 ML DISP.SYRIN IVPUSH PRN (01:13)
[2025-01-07] MEDS: D5-LR+20 MEQ KCL - 20 MEQ/1,000 ML INFUS.BAG IV SCH ×2 (01:24→13:40)
[2025-01-07] MEDS: INSULIN REGULAR 100 UNITS in SODIUM CHLORIDE 99 ML IVPB SCH ×3 (01:42→13:11)
[2025-01-07] MEDS: INSULIN REGULAR HUMAN 100 UNITS/ML *VIAL* (FOR IVP) IVPUSH ONE (01:55)
[2025-01-07 04:33] LABS: ABSOLUTE IMMATURE GRANULOCYTES 0.03 x10^3/uL (0.0-0.031); BASOPHILS # 0.02 x10^3/uL (0.01-0.08); EOSINOPHIL % 0.0 % (0.7-5.8); EOSINOPHILS # 0.00 x10^3/uL (0.04-0.36); MCHC 35.4 g/dl (32.2-35.5); MEAN CELL VOLUME 88.7 fl (79.4-94.8); MEAN PLT VOLUME 12.2 fl (9.4-12.3); MONOCYTE # 0.40 x10^3/uL (0.24-0.86); MONOCYTE % 4.4 % (4.7-12.5); RDW 15.5 % (12.1-16.8)
[2025-01-07 05:03] LABS: LACTIC ACID 11.6 mmol/L (0.4-2.0)
[2025-01-07] MEDS: ONDANSETRON 4 MG/2 ML VIAL IVPUSH PRN (06:03)
[2025-01-07] MEDS: ALBUMIN HUMAN 5% 500 ML IV SOLUTION IV ONE ×2 (06:47→14:19)
[2025-01-07] MEDS: GEMFIBROZIL 600 MG TABLET (FP) PO SCH (06:50)
[2025-01-07] MEDS: CALCIUM GLUCONATE IN NACL 1 GM/50 ML BAG IVPB ONE ×2 (06:50→23:47)
[2025-01-07 07:19] LABS: ABSOLUTE IMMATURE GRANULOCYTES 0.04 x10^3/uL (0.0-0.031); BASOPHILS # 0.04 x10^3/uL (0.01-0.08); EOSINOPHIL % 0.0 % (0.7-5.8); EOSINOPHILS # 0.00 x10^3/uL (0.04-0.36); MCHC 37.0 g/dl (32.2-35.5); MEAN CELL VOLUME 83.4 fl (79.4-94.8); MEAN PLT VOLUME 11.8 fl (9.4-12.3); MONOCYTE # 0.54 x10^3/uL (0.24-0.86); MONOCYTE % 4.7 % (4.7-12.5); RDW 15.2 % (12.1-16.8)
[2025-01-07 07:35] LABS: CO2 18 mmol/L (21-32); GLUCOSE,RANDOM 342 mg/dL (74-106)
[2025-01-07 07:37] LABS: CREATININE 0.5 mg/dL (0.55-1.3)
[2025-01-07] MEDS ORDERED: POTASSIUM CHLORIDE ORAL LIQUID 20 MEQ/15 ML PO ONE (08:15)
[2025-01-07 08:34] LABS: TOT PROT 5.9 g/dl (6.4-8.2)
[2025-01-07] MEDS: KCL 10 MEQ IVPB 10 MEQ/100 ML INFUS.BAG IVPB SCH (08:34)
[2025-01-07 08:35] LABS: ALK PHOS 91 U/L (45-117)
[2025-01-07] MEDS: MUPIROCIN 2% TOPICAL OINTMENT FOR DECOLONIZATION NS SCH (09:22)
[2025-01-07] MEDS: HEPARIN NA (PORCINE) 5,000 UNITS/ML 1ML VIAL SQ SCH (09:22)
[2025-01-07] MEDS: NIACIN 500 MG TABLET PO SCH (09:22)
[2025-01-07 09:59] LABS: ARTERIAL BLD GAS O2 SATURATION 96.8 % (95-98); ARTERIAL BLOOD GAS BASE EXCESS -9.1 mmol/L (-2-2); ARTERIAL BLOOD GAS PCO2 30.10 mmHg (35-45); ARTERIAL BLOOD GAS PO2 93.2 mmHg (80-100); BG HCT 39.0 % (32.4-45.2)
[2025-01-07 10:04] LABS: CO2 18 mmol/L (21-32); GLUCOSE,RANDOM 353 mg/dL (74-106)
[2025-01-07 10:04] LABS: ALLENS TEST POSITIVE
[2025-01-07 10:33] LABS: CREATININE 0.4 mg/dL (0.55-1.3); TOT PROT 5.7 g/dl (6.4-8.2)
[2025-01-07] MEDS: PIPERACILLIN/TAZOB 3.375 GM 3.375 GM in DEXTROSE 5%-WATER - 50 ML IVPB SCH ×2 (10:52→15:42)
[2025-01-07 11:07] LABS: ALK PHOS 84 U/L (45-117)
[2025-01-07] MEDS ORDERED: MIDAZOLAM HCL 5 MG/1 ML Single Dose Vial ONE (11:38)
[2025-01-07] MEDS: MIDAZOLAM HCL 5 MG/1 ML Single Dose Vial IVPUSH ONE (13:00)
[2025-01-07] MEDS: CALCIUM GLUCONATE 10% - 1,000 MG/10 ML VIAL IVPUSH ONE (14:18)
[2025-01-07] MEDS: METOCLOPRAMIDE HCL INJECTION 10 MG/2 ML VIAL IVPUSH PRN (15:04)
[2025-01-07] MEDS: MEROPENEM 1 GM in DEXTROSE 5%-WATER 100 ML IVPB SCH (16:06)
[2025-01-07 17:24] LABS: CO2 17 mmol/L (21-32); GLUCOSE,RANDOM 265 mg/dL (74-106)
[2025-01-07 17:27] LABS: CREATININE 0.3 mg/dL (0.55-1.3); SGOT/AST 26 U/L (15-37)
[2025-01-07 17:28] LABS: CO2 17 mmol/L (21-32); GLUCOSE,RANDOM 281 mg/dL (74-106)
[2025-01-07 17:29] LABS: TOT PROT 4.3 g/dl (6.4-8.2)
[2025-01-07 17:30] LABS: LDL CHOLESTEROL (ONLY SJRH) 19 mg/dL (5-100)
[2025-01-07 17:31] LABS: CREATININE 0.3 mg/dL (0.55-1.3)
[2025-01-07 17:33] LABS: TOT PROT 5.3 g/dl (6.4-8.2)
[2025-01-07 17:33] LABS: ALK PHOS 21 U/L (45-117); SGPT/ALT 20 U/L (13-61)
[2025-01-07 17:34] LABS: ALK PHOS 61 U/L (45-117)
[2025-01-07 18:08] LABS: SGOT/AST 26 U/L (15-37); SGPT/ALT 20 U/L (13-61)
[2025-01-07] MEDS: POTASSIUM PHOSPHATE 30 MM in SODIUM CHLORIDE 500 ML IVPB ONE (18:21)
[2025-01-07] MEDS: CALCIUM GLUC IN NACL, ISO-OSM 1 GM/50 ML BAG IVPB ONE (18:39)
[2025-01-07] MEDS: CHLORHEXIDINE GLUCONATE 4% CLEANSER FOR DECOLONIZATION TP SCH (21:25)
[2025-01-07] MEDS: INSULIN ASPART SLIDING SCALE (NOVOLOG) 1 VIAL SQ SCH ×2 (21:25→23:40)
[2025-01-07 23:19] LABS: CO2 20 mmol/L (21-32); GLUCOSE,RANDOM 334 mg/dL (74-106)
[2025-01-07 23:22] LABS: SGOT/AST 22 U/L (15-37); SGPT/ALT 20 U/L (13-61)
[2025-01-07 23:23] LABS: CREATININE 0.3 mg/dL (0.55-1.3)
[2025-01-07 23:24] LABS: TOT PROT 4.4 g/dl (6.4-8.2)
[2025-01-07 23:29] LABS: ALK PHOS 30 U/L (45-117)
[2025-01-07] MEDS: MAGNESIUM SULFATE IN WATER 2 GM/50 ML IVPB IVPB ONE (23:47)
[2025-01-08] MEDS: MEROPENEM 1 GM in DEXTROSE 5%-WATER 100 ML IVPB SCH (01:12)
[2025-01-08] MEDS: LACTATED RINGERS SOLUTION 1,000 ML/1,000 ML INFUS.BAG IV SCH ×2 (03:00→19:33)
[2025-01-08 03:38] LABS: ALK PHOS 32 U/L (45-117); CO2 21 mmol/L (21-32); CREATININE 0.3 mg/dL (0.55-1.3); GLUCOSE,RANDOM 319 mg/dL (74-106); SGOT/AST 20 U/L (15-37); SGPT/ALT 19 U/L (13-61); TOT PROT 4.3 g/dl (6.4-8.2)
[2025-01-08 06:40] LABS: ABSOLUTE IMMATURE GRANULOCYTES 0.02 x10^3/uL (0.0-0.031); BASOPHILS # 0.04 x10^3/uL (0.01-0.08); EOSINOPHIL % 0.1 % (0.7-5.8); EOSINOPHILS # 0.01 x10^3/uL (0.04-0.36); MCHC 32.9 g/dl (32.2-35.5); MEAN CELL VOLUME 83.6 fl (79.4-94.8); MEAN PLT VOLUME 12.5 fl (9.4-12.3); MONOCYTE # 0.42 x10^3/uL (0.24-0.86); MONOCYTE % 5.6 % (4.7-12.5); RDW 16.4 % (12.1-16.8)
[2025-01-08 06:56] LABS: CO2 22 mmol/L (21-32); GLUCOSE,RANDOM 198 mg/dL (74-106)
[2025-01-08 06:58] LABS: CREATININE 0.2 mg/dL (0.55-1.3); SGPT/ALT 18 U/L (13-61)
[2025-01-08 06:59] LABS: SGOT/AST 18 U/L (15-37)
[2025-01-08 07:00] LABS: TOT PROT 4.4 g/dl (6.4-8.2)
[2025-01-08 07:01] LABS: ALK PHOS 36 U/L (45-117); N-TERMINAL BNP 32.9 pg/ml (5-125)
[2025-01-08 08:36] LABS: INR 1.31 (0.83-1.09); PROTHROMBIN TIME (PATIENT) 14.4 SEC (9.7-13.0)
[2025-01-08 08:38] LABS: ACTIVATED PTT 33.4 SECONDS (25.2-36.5)
[2025-01-08] MEDS: MAGNESIUM 2GM/50ML STERILE WATER IVPB IVPB ONE (09:15)
[2025-01-08] MEDS ORDERED: morphine CARPU-JECT 2 MG/1 ML DISP.SYRIN IVPUSH PRN (10:54)
[2025-01-08] MEDS: SIMETHICONE 80 MG TAB.CHEW (FP) PO ONE (14:40)
[2025-01-08] MEDS: NAPH,MB-DB/K PH,MBDB POWDER PACKET PO ONE (14:40)
[2025-01-08 14:56] LABS: ALK PHOS 39 U/L (45-117); CO2 22 mmol/L (21-32); CREATININE 0.2 mg/dL (0.55-1.3); GLUCOSE,RANDOM 233 mg/dL (74-106); LDL CHOLESTEROL (ONLY SJRH) 44 mg/dL (5-100); SGOT/AST 19 U/L (15-37); SGPT/ALT 19 U/L (13-61); TOT PROT 4.4 g/dl (6.4-8.2)
[2025-01-08] MEDS: INSULIN ASPART SLIDING SCALE (NOVOLOG) 1 VIAL SQ SCH (15:51)
[2025-01-08] MEDS: GEMFIBROZIL 600 MG TABLET (FP) PO SCH (15:51)
[2025-01-08] MEDS: CALCIUM CARBONATE 650 MG TABLET PO ONE (15:51)
[2025-01-08] MEDS ORDERED: DEXTROSE 50%-WATER 25 GM/50 ML DISP.SYRIN IVPUSH PRN (18:30)
[2025-01-08] MEDS ORDERED: NIACIN 500 MG TABLET PO SCH (22:00)
[2025-01-08] MEDS: HEPARIN NA (PORCINE) 5,000 UNITS/ML 1ML VIAL SQ SCH (22:21)
[2025-01-08] MEDS: INSULIN GLARGINE (LANTUS) 100 UNITS/ML UNITS SQ SCH (22:23)
[2025-01-08] MEDS: NIACIN 500 MG TABLET PO SCH (22:46)
[2025-01-09] MEDS: TRIMETHOBENZAMIDE HCL 200MG/2ML INJ IM ONE (01:18)
[2025-01-09] MEDS: morphine CARPU-JECT 2 MG/1 ML DISP.SYRIN IVPUSH PRN (03:47)
[2025-01-09] MEDS: GEMFIBROZIL 600 MG TABLET (FP) PO SCH (06:14)
[2025-01-09] MEDS: INSULIN ASPART SLIDING SCALE (NOVOLOG) 1 VIAL SQ SCH (06:17)
[2025-01-09 09:03] LABS: ABSOLUTE IMMATURE GRANULOCYTES 0.04 x10^3/uL (0.0-0.031); BASOPHILS # 0.05 x10^3/uL (0.01-0.08); EOSINOPHIL % 0.6 % (0.7-5.8); EOSINOPHILS # 0.04 x10^3/uL (0.04-0.36); MCHC 32.3 g/dl (32.2-35.5); MEAN CELL VOLUME 85.1 fl (79.4-94.8); MEAN PLT VOLUME 11.8 fl (9.4-12.3); MONOCYTE # 0.47 x10^3/uL (0.24-0.86); MONOCYTE % 6.5 % (4.7-12.5); RDW 16.9 % (12.1-16.8)
[2025-01-09 10:00] LABS: GLUCOSE,RANDOM 197.0 mg/dL (74-106)
[2025-01-09 10:01] LABS: CO2 20.0 mmol/L (21-32)
[2025-01-09 10:03] LABS: CREATININE 0.2 mg/dL (0.55-1.3); SGPT/ALT 19.0 U/L (13-61)
[2025-01-09 10:04] LABS: SGOT/AST 21.0 U/L (15-37)
[2025-01-09 10:05] LABS: TOT PROT 4.9 g/dl (6.4-8.2)
[2025-01-09 10:06] LABS: ALK PHOS 53.0 U/L (45-117)
[2025-01-09] MEDS: ACETAMINOPHEN 1000 MG/100 ML BAG IVPB PRN (10:54)
[2025-01-09] MEDS: NAPH,MB-DB/K PH,MBDB POWDER PACKET PO ONE (11:53)
[2025-01-09] MEDS: POLYETHYLENE GLYCOL (HEALTHYLAX) 3350 17 GM PACKET PO SCH (15:43)
[2025-01-09] MEDS: BISACODYL 5 MG TABLET.DR (FP) PO PRN (18:37)
[2025-01-09] MEDS: SENNOSIDES 8.8 MG/5 ML SYRUP PO SCH (21:11)
[2025-01-09] MEDS: morphine CARPU-JECT 2 MG/1 ML DISP.SYRIN IVPUSH ONE (23:44)
[2025-01-10 09:16] LABS: MCHC 32.4 g/dl (32.2-35.5); MEAN CELL VOLUME 87.6 fl (79.4-94.8); MEAN PLT VOLUME 11.6 fl (9.4-12.3); RDW 16.2 % (12.1-16.8)
[2025-01-10] MEDS: BISACODYL 5 MG TABLET.DR (FP) PO ONE (11:05)
[2025-01-10] MEDS: POTASSIUM CHLORIDE ORAL LIQUID 20 MEQ/15 ML PO ONE (11:38)
[2025-01-10] MEDS: ACETAMINOPHEN 1000 MG/100 ML BAG IVPB PRN (14:38)
[2025-01-10] MEDS: LACTATED RINGERS SOLUTION 1,000 ML/1,000 ML INFUS.BAG IV SCH (14:58)
[2025-01-10] MEDS: KETOROLAC TROMETHAMINE 30 MG/1 ML VIAL IVPUSH ONE (15:30)
[2025-01-10 16:56] LABS: CO2 15.0 mmol/L (21-32); GLUCOSE,RANDOM 194.0 mg/dL (74-106)
[2025-01-10 16:59] LABS: CREATININE 0.2 mg/dL (0.55-1.3); SGOT/AST 18.0 U/L (15-37); SGPT/ALT 19.0 U/L (13-61)
[2025-01-10 17:01] LABS: TOT PROT 5.3 g/dl (6.4-8.2)
[2025-01-10 17:02] LABS: ALK PHOS 59.0 U/L (45-117)
[2025-01-10] MEDS: PANTOPRAZOLE SODIUM 40 MG VIAL IVPUSH ONE (17:46)
[2025-01-10] MEDS: LACTATED RINGERS SOLUTION 1,000 ML/1,000 ML INFUS.BAG IV STA (17:46)
[2025-01-10] MEDS: MEROPENEM 1 GM in DEXTROSE 5%-WATER 100 ML IVPB SCH (19:47)
[2025-01-10 22:08] LABS: CO2 18.0 mmol/L (21-32); GLUCOSE,RANDOM 183.0 mg/dL (74-106)
[2025-01-10 22:11] LABS: CREATININE 0.3 mg/dL (0.55-1.3)
[2025-01-11 08:16] LABS: URINE APPEARANCE CLEAR; URINE BILIRUBIN NEGATIVE (NEGATIVE); URINE COLOR YELLOW; URINE GLUCOSE (UA) 3+ (NEGATIVE)
[2025-01-11 08:17] LABS: URINE KETONE 4+ (NEGATIVE); URINE LEUK ESTERASE NEGATIVE (NEGATIVE); URINE NITRITE NEGATIVE (NEGATIVE); URINE PROTEIN 1+ (NEGATIVE); URINE UROBILINOGEN 0.2 mg/dL (0.2-1.0)
[2025-01-11] MEDS: LACTATED RINGERS SOLUTION 1,000 ML/1,000 ML INFUS.BAG IV SCH (08:27)
[2025-01-11 08:49] LABS: ABSOLUTE IMMATURE GRANULOCYTES 0.11 x10^3/uL (0.0-0.031); BASOPHILS # 0.06 x10^3/uL (0.01-0.08); EOSINOPHIL % 0.3 % (0.7-5.8); EOSINOPHILS # 0.04 x10^3/uL (0.04-0.36); MCHC 31.6 g/dl (32.2-35.5); MEAN CELL VOLUME 87.9 fl (79.4-94.8); MEAN PLT VOLUME 11.0 fl (9.4-12.3); MONOCYTE # 0.92 x10^3/uL (0.24-0.86); MONOCYTE % 8.0 % (4.7-12.5); RDW 15.9 % (12.1-16.8)
[2025-01-11 10:14] LABS: CO2 15.0 mmol/L (21-32); GLUCOSE,RANDOM 162.0 mg/dL (74-106)
[2025-01-11 10:16] LABS: CREATININE 0.3 mg/dL (0.55-1.3)
[2025-01-11 10:17] LABS: SGOT/AST 11.0 U/L (15-37); SGPT/ALT 18.0 U/L (13-61)
[2025-01-11 10:18] LABS: TOT PROT 5.4 g/dl (6.4-8.2)
[2025-01-11 10:20] LABS: ALK PHOS 71.0 U/L (45-117)
[2025-01-11] MEDS: ACETAMINOPHEN 1000 MG/100 ML BAG IVPB SCH (16:20)
[2025-01-11] MEDS: AMINO ACIDS/PROTEIN HYDROLYS 30 ML LIQUID.PKT PO SCH (17:18)
[2025-01-11 18:58] VITALS: BMI 25.2
[2025-01-11] MEDS: INSULIN GLARGINE (LANTUS) 100 UNITS/ML UNITS SQ SCH (21:24)
[2025-01-11 22:02] LABS: CO2 14.0 mmol/L (21-32); GLUCOSE,RANDOM 238.0 mg/dL (74-106)
[2025-01-11 22:05] LABS: CREATININE 0.2 mg/dL (0.55-1.3)
[2025-01-12] MEDS: LACTATED RINGERS SOLUTION 1,000 ML/1,000 ML INFUS.BAG IV SCH (00:23)
[2025-01-12 00:55] LABS: ARTERIAL BLD GAS O2 SATURATION 96.0 % (95-98); ARTERIAL BLOOD GAS BASE EXCESS -11.6 mmol/L (-2-2); ARTERIAL BLOOD GAS PCO2 28.20 mmHg (35-45); ARTERIAL BLOOD GAS PO2 88.3 mmHg (80-100); BG HCT 33.0 % (32.4-45.2); O2 CONTENT 1.53 % vol
[2025-01-12 03:38] LABS: CO2 14.0 mmol/L (21-32); GLUCOSE,RANDOM 222.0 mg/dL (74-106)
[2025-01-12 03:41] LABS: CREATININE 0.2 mg/dL (0.55-1.3)
[2025-01-12] MEDS: KETOROLAC TROMETHAMINE 15 MG/ML VIAL IVPUSH ONE ×2 (05:20→22:13)
[2025-01-12 06:55] LABS: BG HCT 34.0 % (32.4-45.2); VENOUS BASE EXCESS -13.7 mmol/L (-2-2); VENOUS O2 SATURATION 95.1 % (70-80); VENOUS PCO2 26.6 mmHg (38-52); VENOUS PH 7.264 (7.310-7.410)
[2025-01-12 08:39] LABS: ABSOLUTE IMMATURE GRANULOCYTES 0.28 x10^3/uL (0.0-0.031); BASOPHILS # 0.06 x10^3/uL (0.01-0.08); EOSINOPHIL % 0.4 % (0.7-5.8); EOSINOPHILS # 0.04 x10^3/uL (0.04-0.36); MCHC 31.3 g/dl (32.2-35.5); MEAN CELL VOLUME 88.9 fl (79.4-94.8); MEAN PLT VOLUME 10.8 fl (9.4-12.3); MONOCYTE # 1.09 x10^3/uL (0.24-0.86); MONOCYTE % 10.2 % (4.7-12.5); RDW 15.5 % (12.1-16.8)
[2025-01-12] MEDS: PANTOPRAZOLE SODIUM 40 MG VIAL IVPUSH SCH (09:29)
[2025-01-12 09:31] LABS: CO2 15.0 mmol/L (21-32)
[2025-01-12 09:33] LABS: GLUCOSE,RANDOM 206.0 mg/dL (74-106)
[2025-01-12 09:34] LABS: SGOT/AST 8.0 U/L (15-37); SGPT/ALT 14.0 U/L (13-61)
[2025-01-12 09:35] LABS: TOT PROT 5.5 g/dl (6.4-8.2)
[2025-01-12 09:36] LABS: CREATININE 0.2 mg/dL (0.55-1.3)
[2025-01-12 09:37] LABS: ALK PHOS 76.0 U/L (45-117)
[2025-01-12] MEDS: NAPH,MB-DB/K PH,MBDB POWDER PACKET PO ONE (11:09)
[2025-01-12 12:18] LABS: EPI CELLS 5 /uL (0-25.1); HYALINE CASTS 0 /uL (0-3.1); URINE APPEARANCE CLEAR; URINE BACTERIA 14 /uL (0-1359); URINE BILIRUBIN NEGATIVE (NEGATIVE); URINE COLOR YELLOW; URINE GLUCOSE (UA) 3+ (NEGATIVE); URINE KETONE 3+ (NEGATIVE); URINE LEUK ESTERASE NEGATIVE (NEGATIVE); URINE NITRITE NEGATIVE (NEGATIVE); URINE PROTEIN 1+ (NEGATIVE); URINE RBC 18 /uL (0-23.9); URINE UROBILINOGEN 0.2 mg/dL (0.2-1.0); URINE WBC 6 /uL (0-25.8)
[2025-01-12] MEDS: NAPH,MB-DB/K PH,MBDB POWDER PACKET PO SCH (13:20)
[2025-01-12] MEDS: POTASSIUM CHLORIDE TABS 20 MEQ TABLET.ER (FP) PO ONE (13:20)
[2025-01-12] MEDS: POTASSIUM PHOSPHATE 15 MM in SODIUM CHLORIDE 250 ML IVPB ONE (14:51)
[2025-01-12] MEDS: POTASSIUM CHLORIDE 20 MEQ in AMINO ACIDS 4.25%/D5W 1,000 ML IV SCH (14:58)
[2025-01-12] MEDS: INSULIN (NOVOLOG) ASPART 100 UNITS/ML 10ML VIAL SQ ONE (15:08)
[2025-01-12] MEDS: INSULIN GLARGINE (LANTUS) 100 UNITS/ML UNITS SQ SCH (22:02)
[2025-01-13] MEDS: KETOROLAC TROMETHAMINE 15 MG/ML VIAL IVPUSH ONE (06:40)
[2025-01-13 10:50] LABS: ABSOLUTE IMMATURE GRANULOCYTES 0.27 x10^3/uL (0.0-0.031); BASOPHILS # 0.04 x10^3/uL (0.01-0.08); EOSINOPHIL % 0.9 % (0.7-5.8); EOSINOPHILS # 0.08 x10^3/uL (0.04-0.36); MCHC 33.0 g/dl (32.2-35.5); MEAN CELL VOLUME 85.5 fl (79.4-94.8); MEAN PLT VOLUME 10.4 fl (9.4-12.3); MONOCYTE # 0.81 x10^3/uL (0.24-0.86); MONOCYTE % 9.1 % (4.7-12.5); RDW 15.3 % (12.1-16.8)
[2025-01-13 11:47] LABS: CO2 20.0 mmol/L (21-32); GLUCOSE,RANDOM 255.0 mg/dL (74-106)
[2025-01-13 11:49] LABS: CREATININE 0.2 mg/dL (0.55-1.3); SGPT/ALT 12.0 U/L (13-61)
[2025-01-13 11:50] LABS: SGOT/AST 7.0 U/L (15-37)
[2025-01-13 11:51] LABS: TOT PROT 5.9 g/dl (6.4-8.2)
[2025-01-13 11:52] LABS: ALK PHOS 86.0 U/L (45-117)
[2025-01-13] MEDS: INSULIN (NOVOLOG) ASPART 100 UNITS/ML 10ML VIAL SQ SCH (18:05)
[2025-01-14 09:05] VITALS: BP 107/45; PULSE 95; RESP 17; TEMP 97.9
[2025-01-14] MEDS ORDERED: ACETAMINOPHEN 325 MG TABLET (FP) PO SCH (10:24)
[2025-01-14] MEDS: ACETAMINOPHEN 325 MG TABLET (FP) PO SCH (10:25)
[2025-01-14 10:26] LABS: ABSOLUTE IMMATURE GRANULOCYTES 0.24 x10^3/uL (0.0-0.031); BASOPHILS # 0.03 x10^3/uL (0.01-0.08); EOSINOPHIL % 0.5 % (0.7-5.8); EOSINOPHILS # 0.05 x10^3/uL (0.04-0.36); MCHC 33.9 g/dl (32.2-35.5); MEAN CELL VOLUME 83.9 fl (79.4-94.8); MEAN PLT VOLUME 10.3 fl (9.4-12.3); MONOCYTE # 0.73 x10^3/uL (0.24-0.86); MONOCYTE % 7.4 % (4.7-12.5); RDW 15.1 % (12.1-16.8)
[2025-01-14 12:06] LABS: CO2 27.0 mmol/L (21-32); GLUCOSE,RANDOM 195.0 mg/dL (74-106)
[2025-01-14 12:08] LABS: SGOT/AST 9.0 U/L (15-37); SGPT/ALT 12.0 U/L (13-61)
[2025-01-14 12:09] LABS: CREATININE 0.2 mg/dL (0.55-1.3)
[2025-01-14 12:10] LABS: TOT PROT 6.0 g/dl (6.4-8.2)
[2025-01-14 12:11] LABS: ALK PHOS 98.0 U/L (45-117)
[2025-01-14] MEDS ORDERED: INSULIN ASPART SLIDING SCALE (NOVOLOG) 1 VIAL SQ SCH (16:30)
[2025-01-14] MEDS ORDERED: INSULIN (NOVOLOG) ASPART 100 UNITS/ML 10ML VIAL SQ SCH (16:30)
[2025-01-14] MEDS ORDERED: POTASSIUM CHLORIDE TABS 20 MEQ TABLET.ER (FP) PO SCH (18:45)
== END 2025-01-14 18:04 | disposition home or self-care (01) | DRG 282 ==
LOC: JER 16:35 → JERBED 18:41 → JICU 01-07 01:05 → J6S 01-08 16:39
PROVIDERS: ADMIT Internal Medicine Pulmonary Disease; ATTEND Internal Medicine
PROC: 05HM33Z Insertion of Infusion Device into Right Internal Jugular Vein, Percutaneous Approach (ICD-10-PCS; principal; 2025-01-07)
PROC: B543ZZA Ultrasonography of Right Jugular Veins, Guidance (ICD-10-PCS; 2025-01-07)
PROC: 6A550Z3 Pheresis of Plasma, Single (ICD-10-PCS; 2025-01-07)
DX: K85.90 Acute pancreatitis without necrosis or infection, unspecified (principal); E11.10 Type 2 diabetes mellitus with ketoacidosis without coma; D64.9 Anemia, unspecified; E78.1 Pure hyperglyceridemia; E78.5 Hyperlipidemia, unspecified; E87.1 Hypo-osmolality and hyponatremia; R74.01 Elevation of levels of liver transaminase levels
CPT/HCPCS: 36415; 36600; 71045-TC-FY; 74018-TC-FY; 74177-TC; 76705-TC; 80048; 80053; 80061; 81003; 82010; 82150; 82330; 82550; 82803; 82962; 83036; 83605; 83690; 83735; 83880; 84100; 84478; 84479; 84484; 84703; 85025; 85027; 85610; 85730; 86140; 86803; 87040; 87077; 87086; 87389; 93005; 93010; 93970-TC; 94010; 99285-25; Q9967